=== PATIENT | female | born 1960 | race African-American/Black ===

== ENCOUNTER → 2020-03-30 09:32 | Outpatient (BNVA) | payer MEDICAID, SELFPAY | PROVIDERS: PCP Internal Medicine; Referring Provider Internal Medicine; Visit Provider Internal Medicine Endocrinology, Diabetes & Metabolism | DX: E11.9 Type 2 diabetes mellitus without complications (principal); Z79.4 Long term (current) use of insulin; E55.9 Vitamin D deficiency, unspecified; E66.3 Overweight; E78.5 Hyperlipidemia, unspecified | CPT/HCPCS: 99214 ==

== ENCOUNTER 2025-02-13 17:26 | Inpatient (IN) | payer MEDICARE, MEDICAID, SELFPAY ==
--- OUTSIDE RECORDS SUMMARY | 2024-06-09 07:30 | XMS_ITS ---
Author Organization [facility] Address [address] [facility] 114 [facility] 100 [place] [address] Care Team Providers Care Hull And Deck Remover Name Role Phone Sherrie Garcia Primary Care Provider REASON FOR VISIT door knock Encounters Encounter Location Date Provider Diagnosis [address] [place] [address] 06/09/2024 Sherrie Beltran Plan Of Treatment No Information Progress Notes * Jose HOPPEROB:06[birth year]01 (64 yo F)Acc No.[id number]:06/09/2024 Patient: Alexia MADRIGALsol Provider: Santa Beltran MD :1960 A ge:64 Y S ex:Female Date:06/09/2024 Address:[address] [place], [place] [address]-[address] Structured Data:MRA Reviewed : 07/04/2024 Subjective: * Chief Complaints: * 1 . Door knock. * Medical History: Objective: * Vitals: Assessment: Plan: * Treatment: * Billing Information: * Visit Code: * Procedure Codes: * Electronic signature of Lora Beltran MD on 02/13/2025 at 05:27 PM CDT Sign off status: Pending * Provider: Santa Beltran MD Date: 1 08/10/2023 Generated for Cameroni ng/Faxing/eTransmitting on: 0 02/13/2025 05:27 PM CDT
--- OUTSIDE RECORDS SUMMARY | 2024-06-10 05:00 | XMS_ITS ---
Author Organization [facility] Address [address] [facility] 114 [facility] 100 [place] [address] Care Team Providers Care Capsule Filler Name Role Phone Sherrie Garcia Primary Care Provider Encounters Encounter Location Date Provider Diagnosis [facility] [address] [facility] [place] [address] 06/10/2024 Sherrie Beltran Plan Of Treatment No Information Progress Notes * Alysia JACOBlDOB:[birth year] (64 yo F)Acc No.[id number]:06/10/2024 Patient: Nima JONES Sandy LEWIS Provider: Santa Beltran MD :1960 A ge:64 Y S ex:Female Date:06/10/2024 Address:[address] [place] [address] [facility]ITAL[facility]O-[id number] Structured Data:MRA Reviewed : 07/04/2024 Subjective: * [...] 08/11/2023 Generated for Cameroni domi/Julio Cesar/eTransmitting on: 02/13/2025 05:27 PM CDT History and Physical Notes * HPI (History of Present Illness) Category Sub-Category Detail Notes Category Not es New/Follow-up Patient Consult Patient in clinic fo r Courtesy Visit.
--- OUTSIDE RECORDS SUMMARY | 2024-06-13 07:30 | XMS_ITS ---
Author Organization [facility] Address [address] [facility] 114 [facility] 100 [place] [address] Care Team Providers Care Court Messenger Name Role Phone Sherrie Garcia Primary Care Provider Encounters Encounter Location Date Provider Diagnosis [facility] [address] [facility] [place] [address] 06/13/2024 Sherrie Beltran Plan Of Treatment No Information Progress Notes * Jose JACOBOB:[birth year] (64 yo F)Acc No.[id number]:06/13/2024 Patient: Nima JONES Sandy LEWIS Provider: Santa Beltran MD :1960 A ge:64 Y S ex:Female Date:06/13/2024 Address:[address] [place] [address] [facility] H[facility]PITALSS-[address] Structured Data:MRA Reviewed : 07/04/2024 Subjective: * Chief Complaints: * * Medical History: Objective: * Vitals: Assessment: Plan: * Treatment: * Billing Information: * Visit Code: * Procedure Codes: * Electronic signature of Lora Beltran MD on 02/13/2025 at 05:26 PM CDT Sign off status: Pending * Provider: Santa Beltran MD Date: Generated for Cameroni ng/Faxing/eTransmitting on: 0 02/13/2025 05:26 PM CDT
--- OUTSIDE RECORDS SUMMARY | 2024-07-04 06:15 | XMS_ITS ---
Author Organization [employer]. Address 1 [facility] [address] [place] [address] Care Team Providers Care Director Clinical Information Services Name Role Phone Rosalio Epstein Primary Care Provider Weston Rosenbaumcarolyn Gonzales [phone] REASON FOR VISIT F/UP Medications Medication SIG [...] times a day; Duration: 90 days Active Mvfcnhafsl-UGXM-Usjvx ine 50-325-40 MG 1 tablet as needed [...] Not-Taking Encounters Encounter Location Date Provider Diagnosis [place] [address] [place] [address] 07/04/2024 Macrina Rosenbaum Plan Of Treatment No Information Progress Notes * SUNG HOPPEROB:[birth year]01 (64 yo F)Acc No.[id number]:07/04/2024 Progress Notes Patient: LEO MADRIGAL Provider: Jarvis ROSENBAUM APRN :1960 A ge:64 Y S ex:Female Date:07/04/2024 Address:[address] [place], [place] [phone] Pcp:Rosalio Epstein Subjective: * Chief Complaints: * [...] every 4 hours as needed , Taking Gtnwlimwrq-PBOR-Nzfqlpzj 50-325-40 MG Tablet 1 tablet as needed [...] Electronic signature of Macrina Rosenbaum APRN on 02/13/2025 at 06:28 PM EDT Sign off status: Pending * Provider: Jarvis ROSENBAUM APRN Date: 0 07/04/2024 Generated for Destini duron/Julio Cesar/Mario on: 02/13/2025 06:28 PM EDT
--- OUTSIDE RECORDS SUMMARY | 2024-07-05 09:45 | XMS_ITS ---
Author Organization [facility] Address [address] [facility] [address] [facility] [address] [place] [address] Care Team Providers Care Actuarial Mathematician Name Role Phone Sherrie Garcia Primary Care Provider REASON FOR VISIT New Patient Encounters Encounter Location Date [facility] [address] [place] [address] 07/05/2024 Sherrie Beltran Type 2 diabetes mellitus [...] - E11.65) A1c 11.5 DOS 07/09/2023, per [facility] P records 07/05/2024 Immunodeficiency due to conditions classified elsewhere (ICD-10 - D84.81) related to uncontrolled DM II A1c 11.5 DOS 07/09/2023, per [facility] records, 07/05/2024 Type 2 diabetes mellitus with diabetic chronic kidney disease (ICD-10 - E11.22) per [facility] P records, eGFR 85 DOS 03/15/2024 and eGFR 86 DOS 07/10/2023, 07/05/2024 Hypertensive chronic kidney disease with stage 1 through stage 4 chronic kidney disease, or unspecified chronic kidney disease (ICD-10 - I12.9) per [facility] records, eGFR 85 DOS 03/15/2024 and eGFR 86 DOS 07/10/2023, 07/05/2024 Chronic kidney disease, stage 2 (mild) (ICD-10 - N18.2) per [facility] records, eGFR 85 DOS 03/15/2024 and eGFR 86 DOS 07/10/2023, 07/05/2024 Type 2 diabetes mellitus with diabetic polyneuropathy (ICD-10 - E11.42) pt. on Gabapentin, per [facility] records, 07/05/2024 Type 2 diabetes mellitus with other specified complication (ICD-10 - E11.69) related to HLD, pt. on Atorvastatin, metFORMIN, Lantus per [facility] records, 07/05/2024 Mixed hyperlipidemia (ICD-10 - E78.2) due to DM II, per [facility] records, 07/05/2024 Mild intermittent asthma, uncomplicated (ICD-10 - J45.20) pt. on Albuterol per [facility] records, 07/05/2024 Colon cancer screening (ICD-10 - Z12.11) 07/05/2024 Screening breast examination (ICD-10 - Z12.39) Plan Of Treatment No Information Progress Notes * Jose JACOBOB:[birth year] (64 yo F)Acc No.[id number]:07/05/2024 Progress Notes Patient: Nima Sandy HOLLOWAY Provider: Santa Beltran MD :1960 A ge:64 Y S ex:Female Date:07/05/2024 Address:[address] [place], [place] [phone] Structured Data:MRA Reviewed : 07/04/2024 Subjective: * [...] kidney disease - E11.22 N otes :per [facility] records, eGFR 85 DOS 03/15/2024 and eGFR 86 DOS 07/10/2023, 2 . T ype 2 diabetes mellitus with diabetic polyneuropathy - E11.42 N otes :pt. on Gabapentin, per [facility] records, 3 . T ype 2 diabetes mellitus with hyperglycemia - E11.65 N otes :A1c 11.5 DOS 07/09/2023, per [facility] P records 4 . T ype 2 diabetes mellitus with other specified complication - E11.69 ? N otes :related to HLD, pt. on Atorvastatin, metFORMIN, Lantus per [facility] records, 5 . M ixed hyperlipidemia - E78.2 N otes :due to DM II, per [facility] records, 6 . H ypertensive chronic kidney disease with stage 1 through stage 4 chronic kidney disease, or unspecified chronic kidney disease - I12.9 N otes :per [facility] records, eGFR 85 DOS 03/15/2024 and eGFR 86 DOS 07/10/2023, 7 . M ild intermittent asthma, uncomplicated - J45.20 N otes :pt. on Albuterol per [facility] records, 8 . C hronic kidney disease, stage 2 (mild) - N18.2 N otes :per [facility] P records, eGFR 85 DOS 03/15/2024 and eGFR 86 DOS 07/10/2023, 9 . I mmunodeficiency due to conditions classified elsewhere - D84.81 ? N otes :related to uncontrolled DM II A1c 11.5 DOS 07/09/2023, per [facility] P records, 1 0. C olon [...] of Lora Beltran MD on 02/13/2025 at 05:28 PM CDT Sign off status: Pending * Provider: Santa Beltran MD Date: 0 07/05/2024 Generated for Destini duron/Fasheri/eTransmitting on: 0 02/13/2025 05:28 PM CDT History and Physical Notes * [...]
--- OUTSIDE RECORDS SUMMARY | 2024-07-21 07:00 | XMS_ITS ---
Author Organization [employer]. Address [address] [facility] [address] [place] [address] Care Team Providers Care Tent Finisher Name Role Phone Epstein Rosalio Primary Care Provider RosenbaumMacrina [phone] REASON FOR VISIT ACCESS Medications Medication SIG [...] a day; Duration: 90 days 11/09/2015 Active Jxppaqohom-UORS-Lzjos ine 50-325-40 MG 1 tablet as needed [...] Active Encounters Encounter Location Date Provider Diagnosis [facility] [address] [place] [address] 07/21/2024 Macrina Rosenbaum Plan Of Treatment No Information Progress Notes * SUNG HOPPEROB:[birth year] (64 yo F)Acc No.[id number]:07/21/2024 Progress Notes Patient: LEO MADRIGAL Provider: Jarvis ROSENBAUM APRN :1960 A ge:64 Y S ex:Female Date:07/21/2024 Address:[address] [place], [place] [id number] Pcp:Rosalio Epstein Subjective: * Chief Complaints: * [...] every 4 hours as needed , Taking Qjudenvris-VTXK-Wnaullej 50-325-40 MG Tablet 1 tablet as needed [...] of Macrina Rosenbaum APRN on 02/13/2025 at 06:26 PM EDT Sign off status: Pending * Provider: Jarvis ROSENBAUM APRN Date: 07/21/2024 Generated for Destini duron/Julio Cesar/Mario on: 02/13/2025 06:26 PM EDT
--- OUTSIDE RECORDS SUMMARY | 2024-07-25 10:00 | XMS_ITS ---
Author Organization [facility] Address [address] [place] [address] [address] [place] [address] Care Team Providers Care Banquet Server Name Role Phone Rosalio Epstein Primary Care Provider Macrina Rosenbaum [phone] REASON FOR VISIT INS INACTIVE Encounters Encounter Location Date Provider Diagnosis [facility] [address] [facility] [place] [address] 07/25/2024 Macrina Rosenbaum Plan Of Treatment No Information Progress Notes * SUNG HOPPEROB:[birth year]01 (64 yo F)Acc No.[id number]:07/25/2024 Progress Notes Patient: Nima JONES LEO LEWIS Provider: Jarvis ROSENBAUM APRN :1960 A ge:64 Y S ex:Female Date:07/25/2024 Address:[address] [place] [address], [facility] Pcp:Rosalio Epstein Subjective: * Chief Complaints: * 1 . INS INACTIVE. * Medical History: Objective: * Vitals: Assessment: Plan: * Treatment: * Images: Care Plan Details* * Electronic signature of Macrina Rosenbaum APRN on 02/13/2025 at 06:26 PM EDT Sign off status: Pending * Provider: Jarvis ROSENBAUM APRN Date: 0 07/25/2024 Generated for Printi ng/Fasheri/eTransmitting on: 0 02/13/2025 06:26 PM EDT
--- OUTSIDE RECORDS SUMMARY | 2024-08-15 06:45 | XMS_ITS ---
Author Organization [employer]. Address [address] [facility] [address] [place] [address] Care Team Providers Care Engine Installer Name Role Phone Lucian Rosalio Primary Care Provider RosenbaumMacrina [phone] REASON FOR VISIT F/UP Medications Medication SIG (Take, Route, Frequency, Duration) Notes Start Date End Date Status Yvgqfpzqpj-JGRF-Lvbaj ine 50-325-40 MG 1 tablet as needed Orally every 4 hrs PRN; Duration: 90 days 06/03/2024 Active Lisinopril 10 MG 1 tablet Orally Once a day; Duration: 90 days 11/09/2015 Active Betamethasone Dipropionate 0.05 % 1 application to affected area Externally Once a day; Duration: 30 days 02/26/2015 Not-Taking Wellbutrin 100 MG 1 tablet Orally daily; Duration: 30 days 11/10/2014 Not-Taking Albuterol Sulfate HFA 108 (90 Base) MCG/ACT 2 puffs as needed Inhalation every 6 hrs; Duration: 90 days Active Lancets - as directed subcutaneus three times a day; Duration: 90 days 05/05/2024 Active Nebulizer - every 4 hours as needed; Duration: 90 days 05/05/2024 Active dexAMETHasone Sodium Phosphate 0.1 % 1 drop into affected eye Ophthalmic Twice a day; Duration: 10 04/05/2024 Not-Taking Glucometer check three times a day subcutaneous three times a day; Duration: 90 days 05/05/2024 Active strips strips check three times a day subcutaneus three times a day; Duration: 30 days 05/05/2024 Active TRUEresult Blood Glucose w/Device as directed sc bid; Duration: 90 days 11/09/2015 Active One Touch Ultra - as instructed SKIN Check 3 times a day; Duration: 90 days 11/05/2023 Active Nebulizer/Adult Mask - as directed inhaler PRN; Duration: 90 days 04/02/2016 Active One Touch Ultra - as instructed SKIN Check 3 times daily; Duration: 90 days 11/05/2023 Active Insulin Syringe 31G X 5/16 1 ML as directed 11/05/2023 Active Ibuprofen 800 MG 1 tablet with food or milk as needed Orally twice a day; Duration: 15 days 11/06/2023 Active Nicotine Polacrilex 4 MG 1 piece chew for 30 minutes as needed Mouth/Throat every 8 hrs; Duration: 30 days 06/03/2024 Active hydrOXYzine HCl 25 MG 1 tablet as needed Orally Once a day; Duration: 90 days 05/05/2024 Active One Touch Ultra Glucometer as instructed SKIN three times a day; Duration: 365 days 11/05/2023 Active glipiZIDE 10 MG 1 tablet 30 minutes before breakfast Orally Once a day; Duration: 90 days 04/05/2024 Active Albuterol Sulfate (2.5 MG/3ML) 0.083% 3 mL as needed Inhalation Three times a day; Duration: 90 days Active metFORMIN HCl 1000 MG 1 tablet with meal s Orally Twice a day; Duration: 90 days Active Cetirizine HCl 10 MG 1 tablet Orally Onc e a day; Duration: 90 days Active Atorvastatin Calcium 10MG 1 tablet Orally Once a day; Duration: 90 days Active Lantus 100 UNIT/ML 30 units Subcutaneous daily 25 unit daily Active Gabapentin (Once-Daily) 300 MG 1 tablet Orally Once a day; Duration: 90 days Active Fluticasone Propionate 50 MCG/ACT 1 spray in each nostril Nasally Once a day; Duration: 90 days Active Encounters Encounter Location Date Provider Diagnosis [address] [place] [address] 08/15/2024 Macrina Rosenbaum Plan Of Treatment No Information Progress Notes * SUNG HOPPEROB:[birth year]01 (64 yo F)Acc No.[id number]:08/15/2024 Progress Notes Patient: LEO MADRIGAL Provider: Jarvis ROSENBAUM APRN :1960 A ge:64 Y S ex:Female Date:08/15/2024 Address:[address] [place], [place] [id number] Pcp:Rosaloi Epstein Subjective: * Chief Complaints: * 1 [...] every 4 hours as needed , Taking Uwyxmngosh-ISMU-Pjtjqenl 50-325-40 MG Tablet 1 tablet as needed [...] of Macrina Rosenbaum APRN on 02/13/2025 at 06:27 PM EDT Sign off status: Pending * Provider: Jarvis ROSENBAUM APRN Date: 08/15/2024 Generated for Destini duron/Julio Cesar/Mario on: 02/13/2025 06:27 PM EDT
--- OUTSIDE RECORDS SUMMARY | 2024-10-05 06:15 | XMS_ITS ---
Author Organization [facility] Address [address] [place] [address] [address] [place] [address] Care Team Providers Care Hemmer Chainstitch Name Role Phone Rosalio Epstein Primary Care Provider [phone] Macrina Rosenbaum [phone] REASON FOR VISIT F/UP Encounters Encounter Location Date Provider Diagnosis [facility] [address] [facility] [place] [address] 10/05/2024 Macrina Rosenbaum Plan Of Treatment No Information Progress Notes * SUNG HOPPEROB:[birth year] (64 yo F)Acc No.[id number]:10/05/2024 Progress Notes Patient: Nima JONES JOSHUARYNELEO Provider: Jarvis ROSENBAUM APRN :1960 A ge:64 Y S ex:Female Date:10/05/2024 Address:[address] [place], [place] [address] Pcp:Rosalio Epstein Subjective: * Chief Complaints: * 1 . F/UP. * Medical History: Objective: * Vitals: Assessment: Plan: * Treatment: * Images: Care Plan Details* * Electronic signature of Macrina Rosenbaum APRN on 02/13/2025 at 06:28 PM EDT Sign off status: Pending * Provider: Jarvis ROSENBAUM APRN Date: 0 10/05/2024 Generated for Destini duron/Julio Cesar/eTransmitting on: 0 02/13/2025 06:28 PM EDT
--- OUTSIDE RECORDS SUMMARY | 2025-01-02 10:15 | XMS_ITS ---
Author Organization [facility] Address [address] [facility] [address] [place] [address] Care Team Providers Care Crab Steamer Name Role Phone WYATT GOMEZ Primary Care Provider Melanie Berry Unavailable [phone] Nevin Zheng Unavailable [phone] REASON FOR VISIT DEXA Results Encounters Encounter Location Date Provider Diagnosis [facility] [place] [address] [place] [address] 01/02/2025 Nevin Beltran Plan Of Treatment Next Appt Details Provider Name:ROBERTA MEDINA, 02/24/2025 10:15:00 AM, [address], [place], [address], Progress Notes * Jose JACOBOB:[birth year] (64 yo F)Acc No.[id number]:01/02/2025 Patient: Sandy MADRIGAL Provider: Santa Beltran MD :1960 A ge:64 Y S ex:Female Date:01/02/2025 [facility] [email or web address] [place] [id number] Pcp:WYATT [place] Subjective: * Chief Complaints: * 1 . DEXA Results. * Medical History: Objective: * Vitals: Assessment: Plan: * Treatment: * Images: * Electronic signature of Rcik Beltran MD on 02/13/2025 at 06:26 PM EDT Sign off status: Pending * Provider: Santa Beltran MD Date: 0 01/02/2025 Generated for Destini duron/Julio Cesar/Mario on: 0 02/13/2025 06:26 PM EDT
--- OUTSIDE RECORDS SUMMARY | 2025-01-13 06:00 | XMS_ITS ---
Author Organization [facility] Address [address] [facility] [address] [place] [address] Care Team Providers Care Reagent Tender Name Role Phone WYATT GOMEZ Primary Care Provider [phone] Melanie Berry Unavailable [phone] REASON FOR VISIT DEXA Result Encounters Encounter Location Date Provider Diagnosis [facility] Internal Medicine [place] [address] [place] [address] 01/13/2025 Melanie Berry Plan Of Treatment Next Appt Details Provider Name:ROBERTA COLEY CAROL, 02/24/2025 10:15:00 AM, [address], [place], [address], Progress Notes * Jose JACOBOB:[birth year] (64 yo F)Acc No.[id number]:01/13/2025 Progress Notes Patient: Nima Sandy HOLLOWAY Provider: RYANN Croft :1960 A ge:64 Y S ex:Female Date:01/13/2025 [address] [place], [id number] Pcp:WYATT YORK Subjective: * Chief Complaints: * 1 . DEXA Result. * Medical History: Objective: * Vitals: Assessment: Plan: * Treatment: * Images: * Electronic signature of Nik Berry APRN on 02/13/2025 at 06:28 PM EDT Sign off status: Pending * Provider: RYANN Croft Date: 01/13/2025 Generated for Destini Balbuena/Mario on: 0 02/13/2025 06:28 PM EDT
--- OUTSIDE RECORDS SUMMARY | 2025-01-27 05:30 | XMS_ITS ---
Author Organization [facility] Address [address] [facility] [address] [place] [address] Care Team Providers Care Supervisor/Port Director Name Role Phone WYATT GOMEZ Primary Care Provider [phone] Melanie Berry Unavailable [phone] ROBERTA QUIGLEY Unavailable [phone] REASON FOR VISIT Labs Results, Due Eye Exam Encounters Encounter Location Date Provider Diagnosis [facility]'s Internal Medicine [place] [address] [place] [address] 01/27/2025 ROBERTA QUIGLEY Plan Of Treatment Next Appt Details Provider Name:ROBERTA MEDINA, 02/24/2025 10:15:00 AM, [address], [place], [address], Progress Notes * Jose JACOBOB:[birth year] (64 yo F)Acc No.[id number]:01/27/2025 Patient: Sandy MADRIGAL Provider: Leelee SANDOVAL APRN :1960 A ge:64 Y S ex:Female Date:01/27/2025 Address:[address], [place], [id number] Pcp:WYATT YORK Subjective: * Chief Complaints: * 1 . Labs Results. 2. Due Eye Exam. * Medical History: Objective: * Vitals: Assessment: Plan: * Treatment: * Images: * Electronic signature of SAEED QUIGLEY APRN on 02/13/2025 at 06:26 PM EDT Sign off status: Pending * Provider: Leelee SANDOVAL APRN Date: 0 01/27/2025 Generated for Printing/Faxing/eTransmitting on: 0 02/13/2025 06:26 PM EDT
--- NOTE | ~2025-02-13 | US_ITS ---
CLINICAL HISTORY: Right upper quadrant epigastric pain cholecystitis US abdomen limited Comparison: None provided Findings: The visualized pancreas is unremarkable. Liver appears normal in size, echogenicity, and echotexture. No focal hepatic lesion is seen. There is no bile duct dilation. Common duct measures 2 mm in diameter. Gallbladder is borderline distended. No gallstones are seen. There is minimal nonspecific gallbladder wall edema. Patient is reportedly tender in the region of the gallbladder. Limited images of the right kidney are unremarkable. No free fluid is seen. IMPRESSION: Borderline distended gallbladder with minimal nonspecific gallbladder wall edema and patient is reportedly tender in the region of the gallbladder. No gallstones are identified. Acute cholecystitis is not excluded. Consider hepatobiliary scintigraphy. This document has been electronically signed by: James Ahuja MD on 02/13/2025 20:31:25
--- NOTE | ~2025-02-13 | FL_ITS ---
EXAMINATION: FL GUIDANCE ONLY HISTORY: ERCP COMPARISON: Correlation is made with an MRCP dated 02/14/2025. TECHNIQUE: Fluoroscopy time: 2.43 minutes. Cumulative Dose: 44.69 mGy. DAP: 4.36 mGym2 Images: 6. FINDINGS: Images from an ERCP demonstrate a wire, likely initially in the pancreatic duct and subsequently possibly in the common bile duct. Injection of contrast material demonstrates probable extravasation. Please see procedure notes. FL/FL guidance in OR IMPRESSION: Fluoroscopy during procedure. Please see procedure report for additional information. Electronically signed by: Saul Prajapati MD 02/17/2025 07:09 AM EDT
--- NOTE | ~2025-02-13 | CT_ITS ---
CLINICAL HISTORY: epigastric pain, likely pancreatitis CT abdomen and pelvis with contrast Comparison: US - US ABDOMEN LIMITED - 02/13/25 18:34 EDT Findings: The lung bases are clear. Trace pericardial effusion. Small hiatal hernia. No consolidation or effusion. Distended gallbladder. No biliary duct dilatation. Fat stranding around the pancreatic head and uncinate process with wall thickening of the adjacent duodenum. No hypoenhancement or walled-off collections. Liver, spleen, and adrenal glands are within normal limits. No hydronephrosis. Symmetric contrast enhancement of the kidneys. No bowel obstruction, pneumatosis or pneumoperitoneum. Normal appendix. Small fat containing umbilical hernia. Hysterectomy. Urinary bladder is within normal limits. No acute fracture. IMPRESSION: 1. Acute interstitial pancreatitis with likely reactive duodenitis. 2. Distended gallbladder. This document has been electronically signed by: Med Saab MD on 02/13/2025 23:47:27
--- NOTE | ~2025-02-13 | MR_ITS ---
EXAMINATION: MR MRCP WITHOUT CONTRAST CLINICAL INFORMATION: Acute pancreatitis. Distended gallbladder. COMPARISON: Correlated to CT dated February 13, 2025. TECHNIQUE: Axial and coronal T2 haste sequences. Axial and coronal T2 fat-sat haste sequences. Axial in and out of 3-D phase sequences. 3-D space MRCP triggered. MRCP radial T2 fat-sat sequence. Coronal oblique T2 fat-sat single slice. FINDINGS: Patient's motion artifact. Gallbladder is fluid-filled. There are multiple layering less than 2 mm hypointense T2 round signal abnormality in the dependent portion of the gallbladder neck. 24 mm fluid signal in the gallbladder wall. Common bile duct measures 4 mm in maximum diameter. There is a 2 mm ovoid shaped hypointense T2 signal at the common bile duct/second portion of the duodenum junction/caruncula. Probable 1 mm hypointense T2 round signal in the distal common bile duct. The main pancreatic duct measures 3 mm. Ancillary findings: Mild edema pattern in the peripancreatic lesser sac without fluid collection. No hydronephrosis in either kidney. Liver measures 19 cm. Spleen measures 8 cm. No nodular lesions in the adrenal glands. No aneurysm the abdominal aorta. Small hiatal hernia. Small fat-containing umbilical hernia with diastases abdominal rectus muscles. MR/MR MRCP IMPRESSION: Cholelithiasis and choledocholithiasis resulting in likely gallstone pancreatitis. Electronically signed by: Harry Cervantes MD 02/14/2025 03:39 PM EDT
[2025-02-13 17:42] VITALS: BP 144/73; PULSE 81; RESP 18; TEMP 37; O2SAT 98; BMI 25.4
--- NOTE | 2025-02-13 17:59 | ECG_ITS ---
Test Reason : ABD PAIN Blood Pressure : */* mmHG Vent. Rate : 82 BPM Atrial Rate : 82 BPM P-R Int : 154 ms QRS Dur : 80 ms QT Int : 334 ms P-R-T Axes : 67 -35 43 degrees QTcB Int : 390 ms Normal sinus rhythm Left axis deviation Abnormal ECG When compared with ECG of 06-Oct-2017 19:41, No significant change was found Referred By: Tiburcio Alexandre Electronically Signed By: Gage Knutson
--- NOTE | 2025-02-13 18:01 | ED_ITS ---
HPI - General Adult General Chief complaint: Abdominal Pain Stated complaint: gastritis Time Seen by Provider: 02/13/25 20:17 Source: patient Mode of arrival: ambulatory Limitations: no limitations History of Present Illness ED Provider: Dr. Bertha Monteiro HPI narrative: Patient comes to the emergency room complaining of epigastric pain that started earlier this morning. Patient states that when she woke up she was doing okay, bit achy but then throughout the day, the abdominal pain progress. Patient's pain is constant, attempts to get worse. Denies nausea vomiting or diarrhea. Patient states that she has history of gastritis and states it feels the same. However, patient states that with gastritis it has never as bad as today. Patient denies drinking alcohol or using drugs. Related Data Home Medications ?Medication ?Instructions ?Recorded ?Confirmed gabapentin 300 mg capsule 300 mg PO TID 03/30/2002/14 albuterol sulfate 2.5 mg/3 mL 2.5 mg inhalation Q6H AZ N 02/14/25 02/14/25 (0.083 %) solution for nebulization Shortness Of Breat h Or Wheezing albuterol sulfate 90 mcg/actuation 2 inh inhalation Q4 -6H PRN 02/14/25 02/14/25 aerosol inhaler Shortness Of Breath Or Wheez ing atorvastatin 10 mg tablet 10 mg PO DAILY 02/14/2508/09 glipizide 10 mg tablet, extended 10 mg PO DAILY 02/14/25 release 24 hr lisinopril 10 mg tablet 10 mg PO DAILY 02/14/2508/09 metformin 1,000 mg tablet 1,000 mg PO DAILY 02/14/25 0 02/14/25 Previous Rx's ?Medication ?Instructions ?Recorded pen needle, diabetic 32 gauge x #50 ea 11/13/20 (BD Lesa 2nd Gen Pen Needle) blood sugar diagnostic (FreeStyle #100 ea 04/02/21 Lite Strips) dulaglutide 0.75 mg/0.5 mL 0.75 mg (0.5 mL) subcut QWE EK 30 04/09/21 subcutaneous pen injector days #2 mL (Trulicity) lancets 28 gauge (FreeStyle #100 ea 04/09/21 Lancets) insulin glargine 100 unit/mL (3 30 unit (0.3 mL) subcu t DAILY #15 05/07/21 mL) subcutaneous pen (Lantus mL Solostar U-100 Insulin) blood-glucose meter (FreeStyle #1 ea 07/10/21 [place] Lite kit) Allergies Allergy/AdvReac Type Severity Reaction Status Date / Time No Known Allergies (No Known Allergy Unverified 02/13/25 17:43 Allergies*) Review of Systems 2 Review of Systems: Constitutional : No Weight loss, No Fever, No Chills, No Night Sweats, No Fatigue, No Malaise ENT/Mouth : No Hearing loss, No Ear Pain, No Nasal Congestion, No Sinus Pain, No Hoarseness, No sore throat, No Rhinorrhea, No Swallowing Difficulty Eyes: No Eye Pain, No Swelling, No Redness, No Foreign Body, No Discharge, No Vision Changes Cardiovascular : No Chest Pain, No SOB, No Dyspnea on Exertion, No Orthopnea, No Edema, No Palpitations Respiratory : No Cough, No Sputum, No Wheezing, No Smoke Exposure, No Dyspnea Gastrointestinal : No Nausea, No Vomiting, No Diarrhea, No Constipation, complaining of epigastric pain Genitourinary : no irregular bleeding, No Dysuria, No Urinary Frequency, No Hematuria, No Urinary Incontinence, No Urgency, No Flank Pain, No Urinary Flow Changes, No Hesitancy Musculoskeletal : No joint pain, No Myalgias, No Joint Swelling Skin : No Skin Lesions, No rash Neuro : No Weakness, No Numbness, No Paresthesias, No Loss of Consciousness, No Dizziness, No Headache Psych : No Anxiety/Panic, No Depression, No SI/HI/AH/VH, No Social Issues, Heme/Lymph: No Bruising, No Bleeding,No Lymphadenopathy Endocrine : No Polyuria, No Polydipsia, No Temperature Intolerance [facility] Past Medical History Medical History Migraine Asthma Diabetes type 2, controlled Vitamin D deficiency Overweight (BMI 25.0-29.9) Dyslipidemia care home (current) use of insulin Surgical History History of H/O: hysterectomy Social History Social History Household Members: Significant Other Housing: Apartment Do you presently have visiting nurse or other home services: No Patient Tobacco Use Status: Never used Tobacco service: No Physical Exam ED Exam Exam: Appearance: Alert. Oriented X3. Looks uncomfortable. Eyes: Pupils equal, round and reactive to light. ENT: Pharynx normal. Neck: Normal inspection. Neck supple. No lymph nodes noted. No crepitus CVS: Normal heart rate and rhythm. Pulses normal. Normal S1 and S2 Respiratory: No respiratory distress. Breath sounds normal. No Wheezing. No rales Abdomen: Soft , pain to palpation in the epigastric area, no rebound, mild guarding Skin: Skin warm and dry. Normal skin color. Normal skin turgor. Extremities: No lower extremity edema. No Lacerations. No Rash Neuro: Oriented X 3. No motor deficit. No sensory deficit. Moving all extremities. No slurred speech. CN 2 through 12 grossly intact Psych: calm, cooperative, normal affect Vital Signs: Vital Signs - 24 hr 02/13/25 17:42 02/13/25 19:27 Temperature 98.6 F 98.9 F Pulse Rate 81 87 Respiratory Rate 18 16 Blood Pressure 144/73 H 165/71 H Pulse Oximetry 98 97 Oxygen Delivery Method Room Air Room Air BMI result Body Mass Index 25.4 Course Course Course Narrative: RME: 64-year-old female presents to ED for epigastric pain radiating to right upper quadrant. Patient is out of her antiacid medication. Patient denies any nausea vomiting diarrhea. Labs EKG ultrasound ordered Medications Administered Generic Name Dose Route Start Last Admin Trade Name Freq PRN Reason Stop Dose Admin Acetaminophen 650 mg 02/14/25 00:31 02/14/25 19:39 Acetaminophen 325 Mg Tablet PO 650 mg Q6H PRN Administration Pain, Mild 1-3,fever,headache Enoxaparin Sodium 40 mg 02/14/25 01:00 02/14/25 01:15 Enoxaparin Sodium 40 Mg/0.4 Ml Syringe SUBCUT 40 mg Q24H ADITYA Administration Famotidine 20 mg 02/14/25 09:00 02/14/25 07:57 Famotidine/Pf 20 Mg/2 Ml Vial IVPUSH 20 mg DAILY ADITYA Administration Hydromorphone HCl 0.5 mg 02/14/25 02:00 02/14/25 09:10 Hydromorphone Hcl 0.5 Mg/0.5 Ml Syringe IVPUSH 0.5 mg Q3H PRN Administration Pain, Severe (Pain Scale 7-10) Protocol Sodium Chloride 1,000 mls @ 125 mls/hr 02/14/25 00:45 02/14/25 16:25 Ns IVCONT 125 mls/hr .Q8H ADITYA Administration Insulin Human Lispro 0 unit 02/14/25 02:00 02/14/25 20:23 Insulin Lispro 100 Unit/Ml 3 Ml Vial SUBCUT Not Given Q6H [facility] Protocol Lisinopril 10 mg 02/14/25 14:00 02/14/25 15:25 Lisinopril 10 Mg Tablet PO 10 mg DAILY [facility] Administration Protocol Metoclopramide HCl 5 mg 02/14/25 13:50 02/14/25 13:59 Metoclopramide Hcl 5 Mg Tablet PO 5 mg Q6H PRN Administration Nausea and Vomiting Ondansetron HCl 4 mg 02/14/25 00:31 02/14/25 07:57 Ondansetron Hcl 4 Mg/2 Ml Vial IVPUSH 4 mg Q8H PRN Administration Nausea and Vomiting Pantoprazole Sodium 40 mg 02/14/25 06:30 02/14/25 06:03 Pantoprazole Sodium 40 Mg/10 Ml Vial IVPUSH 40 mg DAILY@0630 [facility] Administration Sodium Chloride 3 ml 02/14/25 08:00 02/14/25 15:25 0.9 % Sodium Chloride Flush 3 Ml Syringe IVFLUSH 3 ml QSHIFT [facility] Administration Discontinued Medications Generic Name Dose Route Start Last Admin Trade Name Freq PRN Reason Stop Dose Admin Famotidine 20 mg 02/14/25 00:33 02/14/25 01:15 Famotidine/Pf 20 Mg/2 Ml Vial IVPUSH 02/14/25 00:34 20 mg ONCE ONE Administration Hydromorphone HCl 1 mg 02/14/25 01:03 02/14/25 01:15 Hydromorphone Hcl 1 Mg/Ml Syringe IVPUSH 02/14/25 01:04 1 mg ONCE ONE Administration Protocol Sodium Chloride 2,000 mls @ 999 mls/hr 02/13/25 20:28 02/13/25 22:45 Ns IVCONT 02/13/25 22:28 Infused .Q2H1M ONE Infusion Iohexol 85 ml 02/13/25 22:24 02/13/25 22:26 Iohexol 350 Mg/Ml 100 Ml Infus..Btl IV 02/13/25 22:25 85 ml ONCE ONE Administration Morphine Sulfate 4 mg 02/13/25 20:28 02/13/25 20:47 Morphine Sulfate 4 Mg/Ml Cartridge IVPUSH 02/13/25 20:29 4 mg ONCE ONE Administration Protocol Ondansetron HCl 4 mg 02/13/25 20:28 02/13/25 20:47 Ondansetron Hcl 4 Mg/2 Ml Vial IVPUSH 02/13/25 20:29 4 mg ONCE ONE Administration Ondansetron HCl 4 mg 02/14/25 10:36 02/14/25 11:20 Ondansetron Hcl 4 Mg/2 Ml Vial IVPUSH 02/14/25 10:37 4 mg ONCE ONE Administration Pantoprazole Sodium 40 mg 02/14/25 00:33 02/14/25 01:15 Pantoprazole Sodium 40 Mg/10 Ml Vial IVPUSH 02/14/25 00:34 40 mg ONCE ONE Administration Medical Decision Making Medical Decision Making MDM Narrative: My interpretation of labs: Patient's white blood cell count 17.6, no significant abnormality in hemoglobin platelets. Chemistry shows a glucose of 154. Patient's LFTs are a bit bumped, in ETOH pattern, AST double of ALT, lipase 871. Urinalysis negative for UTI. I discussed the labs with the patient, patient states that she does not drink any alcohol or use drugs. Patient states that to her knowledge she has never had any issues with triglycerides or with her gallbladder Earlier today from triage, an ultrasound was ordered. Results are nonspecific, mildly distended gallbladder, no gallstones, but given the radiologic positive Bill's sign, acute cholecystitis can not be ruled out. However, I am going to go ahead and order a CT scan to rule out necrotizing pancreatitis. Patient receiving IV fluids, Zofran and morphine. I discussed with the patient that today she will not be going home, she will either need to be admitted here or if the CT scan shows any significant abnormality in her pancreas, she may need to be transferred. Patient agrees with plan. CT scan: Acute interstitial pancreatitis with likely reactive duodenitis, distended gallbladder Patient will likely need an MRCP in the morning? General surgery consult. I discussed the patient with Dr. Thompson from the Medicine team, patient to be admitted. Differential Diagnosis Differential Diagnoses: The differential diagnosis associated with the presentation includes (Gastritis, pancreatitis, perforated peptic ulcer) Admission/Observation Consideration of admission/observation: Escalation of care including admission/observation considered Lab Data MDM Lab Attestation statement: I reviewed the patient's lab results. 02/14/25 04:49 02/14/25 04:49 Labs: Lab Results 02/13/25 02/13/25 02/13/25 Range/Units 18:22 19:13 20:44 WBC 17.6 H (4.8-10.8) X10*3/uL RBC 4.27 (4.20-5.50) X10*6/uL Hgb 11.7 L (12.0-16.0) g/dl Hct 35.6 L (37.0-47.0) % MCV 83.4 (80.0-98.0) fL MCH 27.4 (27.0-33.0) pg MCHC 32.9 (31.0-35.0) g/dl RDW 13.0 (11.0-16.0) % Plt Count 177 (160-400) X10*3/uL MPV 9.6 (9.4-12.3) fL Immature Gran % (Auto) 0.5 H (0.0-0.4) % Neut % (Auto) 87.9 H (45-73) % Lymph % (Auto) 4.9 L (20-40) % [place] % (Auto) 6.4 (2-11) % Eos % (Auto) 0.1 (0-4) % Baso % (Auto) 0.2 (0-2) % Lymph # (Auto) 0.9 L (1.2-4.9) X10*3/uL [place] # (Auto) 1.1 (0.1-1.2) X10*3/uL Eos # (Auto) 0.0 (0.0-0.4) X10*3/uL Baso # (Auto) 0.0 (0.0-0.2) X10*3/uL Abs Immat Gran (auto) 0.09 H (0.00-0.03) X10*3/uL Absolute Neuts (auto) 15.5 H (2.0-8.3) x10*3/uL Absolute Nucleated RBC 0.000 (0.0-0.012) X10*3/uL Nucleated RBC % (auto) 0.0 (0.0-0.2) /100WBC PT 12.9 H (10.9-12.4) SEC INR 1.1 (0.9-1.1) APTT 26.1 L (26.7-34.1) SEC Sodium 140 (135-145) mmol/L Potassium 3.8 (3.3-5.1) mmol/L Chloride 104 (96-108) mmol/L Carbon Dioxide 28 (22-29) mmol/L Anion Gap 12 (12-20) BUN 10 (9-16) mg/dL Creatinine 0.69 (0.5-1.4) mg/dL Estim Creat Clear Calc 79.4 Estimated GFR > 60 Random Glucose 154 H (60-115) mg/dL Calcium 9.1 (8.4-10.2) mg/dL Total Bilirubin 0.7 (0.0-1.0) mg/dL AST 112 H (5-31) U/L ALT 59 H (0-31) U/L Alkaline Phosphatase 80 (39-117) U/L Troponin I High Sens 2.7 (<3.5-17.0) ng/L Total Protein 7.7 (6.5-8.0) g/dL Albumin 4.1 (3.5-5.0) g/dL Triglycerides 52 (<150) mg/dL Lipase 871 H (8-78) U/L Urine Color [place]pearl A Urine Appearance Clear Urine pH 7.5 (5.0-9.0) Ur Specific [place] 1.010 (1.005-1.025) Urine Protein Negative (Neg-Trace) mg/dL Urine Glucose (UA) Negative (Negative) mg/dL Urine Ketones Negative (Negative) mg/dL Urine Blood Negative (Negative) Urine Nitrite Negative (Negative) Ur Leukocyte Esterase Negative (Negative) Urine RBC 0-2 (0-2) /HPF Urine WBC 0-5 (0-5) /HPF Ur Squamous Epith Cells 0-2 (0-2) /HPF Urine Bacteria None Seen (None Seen) Hyaline Casts 0-2 (0-2) /LPF Ethyl Alcohol 10 mg/dL Independent Interpretation I performed an independent interpretation of an: Ultrasound and CT Scan Radiology Impression Discussion of test interpretation with radiology: I have reviewed the radiologist's reading. Radiologist Impression: Borderline distended gallbladder with minimal nonspecific gallbladder wall edema and patient is reportedly tender in the region of the gallbladder. No gallstones are identified. Acute cholecystitis is not excluded. Consider hepatobiliary scintigraphy. CT scan of the abdomen pelvis: The lung bases are clear. Trace pericardial effusion. Small hiatal hernia. No consolidation or effusion. Distended gallbladder. No biliary duct dilatation. Fat stranding around the pancreatic head and uncinate process with wall thickening of the adjacent duodenum. No hypoenhancement or walled-off collections. Liver, spleen, and adrenal glands are within normal limits. No hydronephrosis. Symmetric contrast enhancement of the kidneys. No bowel obstruction, pneumatosis or pneumoperitoneum. Normal appendix. Small fat containing umbilical hernia. Hysterectomy. Urinary bladder is within normal limits. No acute fracture. IMPRESSION: 1. Acute interstitial pancreatitis with likely reactive duodenitis. 2. Distended gallbladder. Critical Care Time Critical Care Time Critical Care Time: Yes Total Critical Care Time: 60 Attestation: I have personally provided critical care time. Time includes review of lab data, radiology results, discussion with consultants, and monitoring for potential decompensation. Intervention performed as documented. Discharge Plan Discharge Clinical Impression: Pancreatitis Patient Disposition: Admitted As Inpatient Interventions: Admission Worksheet (ED) Last Done: 02/14/25 05:35 Discharge Date/Time: 02/14/25 06:38
--- OUTSIDE RECORDS SUMMARY | 2025-02-13 18:26 | XMS_ITS | Patient Health Record ---
Author Organization Wyatt Corneliodmitriy Gunderson arlene Kirko [place] Address [address] [facility] [address] [place] [address] Care Team Providers Care Tube Cutter Name Role Phone DANIELLE JARRED YORKASHTYN Primary Care Provider [phone] Melanie Berry Unavailable [phone] ROBERTA QUIGLEY Unavailable [phone] Nevin Zheng Unavailable [phone] Allergies Allergen (clinical drug ingredient) Drug/Non Drug Allergy documented on EMR Reaction Allergy Type Onset Date Status Seasonal IC Unknown Drug Allergy Activ e Results Component Value Reference Range Notes HEMOGLOBIN A1c (496) Reviewed date:09/23/2024 10:27:51 AM Interpretation: Performing Lab:[id number], [id number] Shaheen Fofana MD Notes/Report: FASTING: YES FASTING:YES HEMOGLOBIN A1c 12.8 <5.7 % of total Hgb For someone without known diabetes, a hemoglobin A1c value of 6.5% or greater indicates that they may have diabetes and this should be confirmed with a follow-up test. For someone with known diabetes, a value <7% indicates that their diabetes is well controlled and a value greater than or equal to 7% indicates suboptimal control. A1c targets should be individualized based on duration of diabetes, age, comorbid conditions, and other considerations. Currently, no consensus exists regarding use of hemoglobin A1c for diagnosis of diabetes for children. ALBUMIN, RANDOM URINE W/O CR EATININE (96268) Reviewed date:09/23/2024 10:28:45 AM Interpretation: Performing Lab:[id number] [id number] Shaheen Fofana MD Notes/Report: FASTING:YES FASTING: YES ALBUMIN, URINE 1.6 See Note: mg/dL Reference Range: Reference Range Not established LIZETH The ADA defines abnormalities in albumin excretion as follows: Albuminuria Category Result (mg/g creatinine) Normal to Mildly increased <30 Moderately increased 30-299 Severely increased > OR = 300 The ADA recommends that at least two of three specimens collected within a 3-6 month period be abnormal before considering a patient to be within a diagnostic category. URINALYSIS, COMPLETE (4563) Reviewed date:09/23/2024 10:26:09 AM Interpretation: Performing Lab:[facility] [employer] [address] [id number] Shaheen Fofana MD Notes/Report: FASTING:YES FASTING: YES COLOR YELLOW YELLOW APPEARANCE CLEAR CLEAR SPECIFIC GRAVITY 1.030 1.001-1.035 PH 5.5 5.0-8.0 GLUCOSE 3+ NEGATIVE BILIRUBIN NEGATIVE NEGATIVE KETONES NEGATIVE NEGATIVE OCCULT BLOOD NEGATIVE NEGATIVE PROTEIN TRACE NEGATIVE NITRITE NEGATIVE NEGATIVE LEUKOCYTE ESTERASE TRACE NEGATIVE WBC 10-20 < OR = 5 /HPF RBC 0-2 < OR = 2 /HPF SQUAMOUS EPITHELIAL CELLS 0-5 < OR = 5 /HPF BACTERIA FEW NONE SEEN /HPF CALCIUM OXALATE CRYSTALS FEW NONE OR FEW /HPF HYALINE CAST NONE SEEN NONE SEEN /LPF NOTE This urine was analyzed for the presence of WBC, RBC, bacteria, casts, and other formed elements. Only those elements seen were reported. CBC (INCLUDES DIFF/PLT) (639 9) Reviewed date:09/23/2024 10:26:45 AM Interpretation: Performing Lab:[id number] [id number] Shaheen Fofana MD Notes/Report: FASTING:YES FASTING: YES WHITE BLOOD CELL COUNT 7.1 3.8-10.8 Thousand/ uL RED BLOOD CELL COUNT 4.62 3.80-5.10 Million/uL HEMOGLOBIN 12.4 11.7-15.5 g/dL HEMATOCRIT 39.1 35.0-45.0 % MCV 84.6 80.0-100.0 fL MCH 26.8 27.0-33.0 pg MCHC 31.7 32.0-36.0 g/dL For adults, a slight decrease in the calculated MCHC value (in the range of 30 to 32 g/dL) is most likely not clinically significant; however, it should be interpreted with caution in correlation with other red cell parameters and the patient's clinical condition. RDW 12.5 11.0-15.0 % PLATELET COUNT 197 140-400 Thousand/uL MPV 10.9 7.5-12.5 fL ABSOLUTE NEUTROPHILS 3791 [id number] cells/uL ABSOLUTE LYMPHOCYTES 2606 850-3900 cells/uL ABSOLUTE MONOCYTES 525 200-950 cells/uL ABSOLUTE EOSINOPHILS 149 15-500 cells/uL ABSOLUTE BASOPHILS 28 0-200 cells/uL NEUTROPHILS 53.4 LYMPHOCYTES 36.7 MONOCYTES 7.4 EOSINOPHILS 2.1 BASOPHILS 0.4 COMPREHENSIVE METABOLIC PANE L ([facility]) (79315) Reviewed date:09/23/2024 10:28:25 AM Interpretation: Performing Lab:[facility] [id number], [id number] Shaheen Fofana MD Notes/Report: FASTING:YES FASTING: YES GLUCOSE 277 65-99 mg/dL Fasting reference interval For someone without known diabetes, a glucose value >125 mg/dL indicates that they may have diabetes and this should be confirmed with a follow-up test. UREA NITROGEN (BUN) 17 7-25 mg/dL CREATININE 0.71 0.50-1.05 mg/dL EGFR 94 > OR = 60 mL/min/1.73m2 BUN/CREATININE RATIO SEE NOTE: 6-22 (calc) Not Reported: BUN and Creatinine are within reference range. SODIUM 137 135-146 mmol/L POTASSIUM 4.2 3.5-5.3 mmol/L CHLORIDE 98 98-110 mmol/L CARBON DIOXIDE 33 20-32 mmol/L CALCIUM 9.3 8.6-10.4 mg/dL PROTEIN, TOTAL 7.4 6.1-8.1 g/dL ALBUMIN 4.0 3.6-5.1 g/dL GLOBULIN 3.4 1.9-3.7 g/dL (calc) ALBUMIN/GLOBULIN RATIO 1.2 1.0-2.5 (calc) BILIRUBIN, TOTAL 0.4 0.2-1.2 mg/dL ALKALINE PHOSPHATASE 54 37-153 U/L AST 16 10-35 U/L ALT 17 6-29 U/L LIPID PANEL, STANDARD (7600) Reviewed date:09/23/2024 10:29:05 AM Interpretation: Performing Lab:[facility]-[id number], [id number] Shaheen Fofana MD Notes/Report: FASTING:YES FASTING: YES CHOLESTEROL, TOTAL 153 <200 mg/dL HDL CHOLESTEROL 46 > OR = 50 mg/dL TRIGLYCERIDES 58 <150 mg/dL LDL-CHOLESTEROL 93 Reference range: <100 Desirable range <100 mg/dL for primary prevention; <70 mg/dL for patients with CHD or diabetic patients with > or = 2 CHD risk factors. LDL-C is now calculated using the Óscar calculation, which is a validated novel method providing better accuracy than the Friedewald equation in the estimation of LDL-C. Grant RODARTE et al. LAMAR. 2013;310(19): 3759-2477 (http://education.[employer]/faq/FAQ16 4) CHOL/HDLC RATIO 3.3 <5.0 (calc) NON HDL CHOLESTEROL 107 <130 mg/dL (calc) For patients with diabetes plus 1 major ASCVD risk factor, treating to a non-HDL-C goal of <100 mg/dL (LDL-C of <70 mg/dL) is considered a therapeutic option. Hemoglobin A1c Reviewed date:01/10/2025 08:29:52 AM Interpretation: Performing Lab:[facility] [place], [address] [facility], Phone - [phone], Director - MDRichendollar Notes/Report: Hemoglobin A1c 8.5 Reference Range: [employer] Diabetes Association (ADA) Guidelines: <5.7: Decreased risk for diabetes 5.7 - 6.4: Increased risk for diabetes >6.4: Ongoing Hyperglycemia of any cause <7.0: Glycemic control for adults with diabetes Estimated Average Glucose 197 CMP14+eGFR Reviewed date:01/10/2025 08:29:52 AM Interpretation: Performing Lab:[facility] [place], [address] [facility], Phone - [phone], Director - MDRichendollar Notes/Report: Glucose 217 70-99 mg/dL BUN 10 8-27 mg/dL Creatinine 0.71 0.57-1.00 mg/dL eGFR 94 >59 mL/min/1.73 BUN/Creatinine Ratio 14 12-28 Sodium 138 134-144 mmol/L Potassium 4.1 3.5-5.2 mmol/L Chloride 98 96-106 mmol/L Carbon Dioxide, Total 23 20-29 mmol/L Calcium 9.5 8.7-10.3 mg/dL Protein, Total 7.2 6.0-8.5 g/dL Albumin 3.9 3.9-4.9 g/dL Globulin, Total 3.3 1.5-4.5 g/dL Bilirubin, Total 0.2 0.0-1.2 mg/dL Alkaline Phosphatase 57 44-121 IU/L AST (SGOT) 19 0-40 IU/L ALT (SGPT) 15 0-32 IU/L Lipid Panel-[id number] Reviewed date:01/10/2025 08:29:52 AM Interpretation: Performing Lab:[facility], [address] [place] [address], Phone - [phone], Director - MDRichendollar Notes/Report: Cholesterol, Total 141 100-199 mg/dL Triglycerides 79 0-149 mg/dL HDL Cholesterol 44 >39 mg/dL VLDL Cholesterol Alfred 15 5-40 mg/dL LDL Chol Calc ([facility]) 82 0-99 mg/dL Albumin/Creatinine Ratio,Uri ne-[id number] Reviewed date:01/10/2025 08:29:52 AM Interpretation: Performing Lab:[facility], [address] [place] [address], Phone - [phone], Director - MDRichendollar Notes/Report: Creatinine, Urine 102.9 Not Estab. mg/dL Albumin, Urine 9.1 Not Estab. ug/mL Alb/Creat Ratio 9 0-29 mg/g creat Normal: 0 - 29 Moderately increased: 30 - 300 Severely increased: >300 CBC With Differential/Platel et-[id number] Reviewed date:01/10/2025 08:29:52 AM Interpretation: Performing Lab:[facility], [address] [place] [address], Phone - [phone], Director - MDRichendollar Notes/Report: WBC 7.1 3.4-10.8 x10E3/uL RBC 4.60 3.77-5.28 x10E6/uL Hemoglobin 12.9 11.1-15.9 g/dL Hematocrit 39.4 34.0-46.6 % MCV 86 79-97 fL MCH 28.0 26.6-33.0 pg MCHC 32.7 31.5-35.7 g/dL RDW 12.7 11.7-15.4 % Platelets 211 150-450 x10E3/uL Neutrophils 59 Not Estab. % Lymphs 30 Not Estab. % Monocytes 7 Not Estab. % Eos 4 Not Estab. % Basos 0 Not Estab. % Neutrophils (Absolute) 4.1 1.4-7.0 x10E3/uL Lymphs (Absolute) 2.2 0.7-3.1 x10E3/uL Monocytes(Absolute) 0.5 0.1-0.9 x10E3/uL Eos (Absolute) 0.3 0.0-0.4 x10E3/uL Baso (Absolute) 0.0 0.0-0.2 x10E3/uL Immature Granulocytes 0 Not Estab. % Immature Grans (Abs) 0.0 0.0-0.1 x10E3/uL Urinalysis, Complete-[id number] Reviewed date:01/10/2025 08:29:52 AM Interpretation: Performing Lab:[facility] [address], Phone - [phone], [facility] Notes/Report: Specific Vale 1.020 1.005-1.030 pH 5.5 5.0-7.5 Urine-Color Yellow Yellow Appearance Cloudy Clear WBC Esterase Trace Negative Protein Negative Negative/Trace Glucose Trace Negative Ketones Negative Negative Occult Blood Negative Negative Bilirubin Negative Negative Urobilinogen,Semi-Qn 0.2 0.2-1.0 mg/dL Nitrite, Urine Negative Negative Microscopic Examination See below: Micr oscopic was indicated and was performed. WBC 6-10 0 - 5 /hpf RBC 0-2 0 - 2 /hpf Epithelial Cells (non renal) 0-10 0 - 10 /hpf Casts None seen None seen /lpf Crystals Present N/A Crystal Type Calcium Oxalate N/A Bacteria None seen None seen/Few Yeast Present None seen Please note-[id number] Reviewed date:01/10/2025 08:29:52 AM Interpretation: Performing Lab:[facility] [address], [place], Phone - [phone], Director - SHAYYichendleyla Notes/Report: Please note The date and/or time of collection was not indicated on the requisition as required by state and federal law. The date of receipt of the specimen was used as the collection date if not supplied. Reason For Referral Reason No Auth Req Diagnosis 1 Type 2 diabetes mao itus with other circulatory complications (E11.59) Referral Organization [facility] [place] Referring Provider First Name Melanie Referring Provider Last Name Kristi Referring Provider Speciality Family [facility] dona Referred Provider Keon Hernandez Referred Provider Specialty Podiatry Procedure 1 New Patient Office o r Other Outpatient Services. (05512) Procedure 2 Office Visit, Est Pt ., Level 4 (35909) Referral Priority Routine Medications Medication SIG (Take, Route, Frequency, Duration) Notes Start Date End Date Status glipiZIDE ER 10 MG 1 tablet with breakf ast Orally Once a day; Duration: 90 days Active Lantus SoloStar 100 UNIT/ML 30 unidades Subcutaneous once a day; Duration: 30 days Active Ventolin HFA 108 (90 Base) MCG/ACT Inhalation; Duration: 25 Days Active Trulicity 0.75 MG/0.5ML as directed Subc utaneous 0.75 mg one a week Active Lbwddrvuel-MYDO-Iueecxar 50-325-40 MG 1 tablet as needed Oralt every 4 hrs; Duration: Not Available days Active metFORMIN HCl 1000 MG 1 tablet with a me al Orally Once a day; Duration: 90 days Active hydrOXYzine HCl 50 MG 1 tablet as needed Orally Once a day Active glipiZIDE 10 MG 1 tablet 30 minutes before breakfast Orally Once a day Active Trulicity 0.75 MG/0.5ML as directed Subc utaneous 0.75 mg weekly; Duration: 30 days Active Bgtvsqeqwz-RTEL-Jrxeuiqt 50-325-40 MG 1 capsule as needed Orally once a day; Duration: 30 days Active traZODone HCl 100 MG 1 tablet at bedtime Orally Once a day; Duration: 30 day(s) 09/30/2024 Active Albuterol Sulfate HFA 108 (90 Base) MCG/ACT 1 puff as needed Inhalation every 4 hrs; Duration: 30 days Active Atorvastatin Calcium 10 MG 1 tablet Oral ly Once a day; Duration: 90 days Active Albuterol Sulfate (2.5 MG/3ML) 0.083% 3 mL as needed Inhalation every 6 hrs; Duration: 30 days Active Cyclobenzaprine HCl 10 MG 1 tablet at be dtime as needed Orally Once 12 day; Duration: 15 days Active Lisinopril 10 MG 1 tablet Orally Once a day; Duration: 90 days Active Promethazine-DM 6.25-15 MG/5ML 5 mL as needed Orally every 6 hrs; Duration: 5 days Active Montelukast Sodium 10 MG 1 tablet Orally Once a day; Duration: 30 day(s) Active Social History Sexual History Question Answer Notes Had sex in the past 12 months (vaginal, oral, or anal)? No Have you ever had a Sexually transmitted disease ? No AUDIT-C (Standard) Question Answer Notes Did you have a drink containing alcohol in the p ast year? No Points 0 Interpretation Negative Problems Problem Type SNOMED Code ICD Code Onset Dates Problem Status W/U Status Risk Notes Problem Peripheral circulatory disorder associated with diabetes mellitus (509612638) Type 2 diabetes mellitus with other circulatory complications (E11.59) Active confirmed Problem Mixed hyperlipidemia (366972093) Mixed hyperlipidemia (E78.2) Active confirmed Problem Hyperlipidemia (73707839) Hyperlipidemia, unspecified (E78.5) Active confirmed Problem Anxiety disorder (456803571) Anxiety disorder, unspecified (F41.9) Active confirmed Problem Migraine without aura (94336050) Migraine without aura, not intractable, with status migrainosus (G43.001) Active confirmed Problem Sleep apnea (88831147) Sleep apnea, unspecified (G47.30) Active confirmed Problem Mild intermittent asthma (743210144) Mild intermittent asthma, uncomplicated (J45.20) Active confirmed Problem Cervicalgia (10166968) Cervicalgia (M54.2) Active confirmed Problem Essential hypertension (13891117) Essential (primary) hypertension (I10) Active confirmed Problem Psoriasis (5582135) Psoriasis (L40.9) Active co nfirmed Problem High cholesterol (42527126) High cholesterol (E78.00) Active confirmed Problem Arthritis (9261885) Arthritis (M19.90) Active confirmed Problem Gastroesophageal reflux disease (054027442) GERD without esophagitis (K21.9) Active confirmed Problem Overweight (840698622) Overweight (BMI 25.0-29.9) (E66.3) Active confirmed Vital Signs Heart Rate 70 /min 01/06/2025 Temperature 97 degrees Fahrenheit 01/06/2025 Respiratory Rate 17 /min 01/06/2025 Blood pressure diastolic 40 mm Hg 01/06/2025 Oximetry 99 % 01/06/2025 Height 63 in 01/06/2025 Blood pressure systolic 135 mm Hg 01/06/2025 Weight 148 lbs 01/06/2025 BMI 26.21 kg/m2 01/06/2025 Encounters Encounter Location Date Provider Diagnosis [place] [address] [facility] [place] [facility] [place] [address] [place]/29/2024 Melanie Berry Encounter for genera l adult medical examination with abnormal findings Z00.01 ; Body mass index (BMI) of 24.0-24.9 in adult Z68.24 ; Overweight E66.3 ; Encounter for screening for depression Z13.31 ; Encounter for screening for malignant neoplasm of colon Z12.11 ; Encounter for screening for malignant neoplasm of cervix Z12.4 ; Encounter for screening for osteoporosis Z13.820 ; Encounter for screening mammogram for malignant neoplasm of breast Z12.31 ; Acute cough R05.1 ; Cervicalgia M54.2 ; Type 2 diabetes mellitus with other circulatory complications E11.59 ; High cholesterol E78.00 ; Essential (primary) hypertension I10 ; Mild intermittent asthma, uncomplicated J45.20 and Migraine without aura, not intractable, with status migrainosus G43.001 [facility] [address] [place] [address] 09/30/2024 Melanie Berry Type 2 diabetes mellitus with other circulatory complications E11.59 ; Body mass index [BMI] 26.0-26.9, adult Z68.26 ; Overweight (BMI 25.0-29.9) E66.3 ; Person consulting for explanation of examination or test finding Z71.2 ; Encounter for screening for malignant neoplasm of colon Z12.11 ; Encounter for screening for osteoporosis Z13.820 ; Encounter for screening mammogram for malignant neoplasm of breast Z12.31 ; Cervicalgia M54.2 ; High cholesterol E78.00 ; Essential (primary) hypertension I10 ; Mild intermittent asthma, uncomplicated J45.20 ; Migraine without aura, not intractable, with status migrainosus G43.001 and Anxiety disorder, unspecified F41.9 [facility] [place] [address] [place] [address] 01/06/2025 JUSSEP FOMBELLIDA Type 2 diabetes mellitus with other circulatory complications E11.59 ; Body mass index 26.0-26.9, adult Z68.26 ; Essential (primary) hypertension I10 ; Mild intermittent asthma, uncomplicated J45.20 ; Migraine without aura, not intractable, with status migrainosus G43.001 ; Sleep apnea, unspecified G47.30 ; Psoriasis L40.9 and Mixed hyperlipidemia E78.2 [facility] [place] [address] [place] [address] 01/06/2025 JUSSEP FOMBELLIDA Anxiety disorder, unspecified F41.9 ; High cholesterol E78.00 ; Essential (primary) hypertension I10 and Type 2 diabetes mellitus with other circulatory complications E11.59 [facility] [place] [address] [address] 10/27/2024 Melanie Berry Type 2 diabetes mellitus with other circulatory complications E11.59 Assessments Encounter Date Diagnosis (ICD Code) Assessment Notes Treatment Notes Treatment Clinical Notes Section Notes 08/29/2024 Encounter for general adult medical examination with abnormal findings (ICD-10 - Z00.01) 08/29/2024 Body mass index (BMI) of 24.0-24.9 in adult (ICD-10 - Z68.24) 09/30/2024 Type 2 diabetes mellitus with other circulatory complications (ICD-10 - E11.59) Podiatric referral given. 30 u of Lantus a day. 09/30/2024 Body mass index [BMI] 26.0-26.9, adult (ICD-10 - Z68.26) 10/27/2024 Type 2 diabetes mellitus with other circulatory complications (ICD-10 - E11.59) 01/06/2025 Type 2 diabetes mellitus with other circulatory complications (ICD-10 - E11.59) Dietary guidelines, treatment compliance, regular foot care, periodic eye exams importance discussed with patient.Regular glucometer checkup and goals through the day. A1C goal discussed.Medicat ion mechanism of action, potential SEs, R/Bs discussed with patient.Advised on self-education on the condition.Pt verbally refers understanding of matters discussed and agreement w/plan 01/06/2025 Body mass index 26.0-26.9, adult (ICD-10 - Z68.26) Advised patient to exercise on a regular basis. 01/06/2025 Anxiety disorder, unspecified (ICD-10 - F41.9) 01/06/2025 High cholesterol (ICD-10 - E78.00) 01/06/2025 Essential (primary) hypertension (ICD-10 - I10) Continue low salt diet 09/30/2024 Overweight (BMI 25.0-29.9) (ICD-10 - E66.3) 08/29/2024 Overweight (ICD-10 - E66.3) 08/29/2024 Encounter for screening for depression (ICD-10 - Z13.31) PHQ-9 Done Aisha Stack 08/29/2024 01:53:25 PM EDT > 09/30/2024 Person consulting for explanation of examination or test finding (ICD-10 - Z71.2) 01/06/2025 Mild intermittent asthma, uncomplicated (ICD-10 - J45.20) Discussed and provided asthma action plan 01/06/2025 Essential (primary) hypertension (ICD-10 - I10) 09/30/2024 Encounter for screening for malignant neoplasm of colon (ICD-10 - Z12.11) Colonoscopy done one year 01/06/2025 Type 2 diabetes mellitus with other circulatory complications (ICD-10 - E11.59) 01/06/2025 Migraine without aura, not intractable, with status migrainosus (ICD-10 - G43.001) Reinforce education about trigger factors 08/29/2024 Encounter for screening for malignant neoplasm of colon (ICD-10 - Z12.11) Colonoscopy done one year 08/29/2024 Encounter for screening for malignant neoplasm of cervix (ICD-10 - Z12.4) Hicterectpmy done 20 years 01/06/2025 Sleep apnea, unspecified (ICD-10 - G47.30) Prop up the head of your bed 4 to 6 inches by putting bricks under the legs of the bed. 09/30/2024 Encounter for screening for osteoporosis (ICD-10 - Z13.820) Order DEXA TEST 09/30/2024 Encounter for screening mammogram for malignant neoplasm of breast (ICD-10 - Z12.31) Screening mammogram done 3-4 months done. 01/06/2025 Psoriasis (ICD-10 - L40.9) Hydration and lubrication, dove soap, triple rinse clothing and linens 08/29/2024 Encounter for screening for osteoporosis (ICD-10 - Z13.820) Order DEXA TEST 08/29/2024 Encounter for screening mammogram for malignant neoplasm of breast (ICD-10 - Z12.31) Screening mammogram done 3-4 months done. 09/30/2024 Cervicalgia (ICD-10 - M54.2) 01/06/2025 Mixed hyperlipidemia (ICD-10 - E78.2) Healthy lifestyle discussed with patient, including diet, vitamin supplement, exercise, non-smoking, safe sexual practices and reduction of stress. Assessment and plan reviewed with patient. 09/30/2024 High cholesterol (ICD-10 - E78.00) 08/29/2024 Acute cough (ICD-10 - R05.1) 08/29/2024 Cervicalgia (ICD-10 - M54.2) 09/30/2024 Essential (primary) hypertension (ICD-10 - I10) 09/30/2024 Mild intermittent asthma, uncomplicated (ICD-10 - J45.20) 08/29/2024 Type 2 diabetes mellitus with other circulatory complications (ICD-10 - E11.59) Podiatric referral given. 30 u of Lantus a day. 09/30/2024 Migraine without aura, not intractable, with status migrainosus (ICD-10 - G43.001) 08/29/2024 High cholesterol (ICD-10 - E78.00) 09/30/2024 Anxiety disorder, unspecified (ICD-10 - F41.9) 08/29/2024 Essential (primary) hypertension (ICD-10 - I10) 08/29/2024 Mild intermittent asthma, uncomplicated (ICD-10 - J45.20) 08/29/2024 Migraine without aura, not intractable, with status migrainosus (ICD-10 - G43.001) 09/30/2024 Other Hicterectpmy do ne 20 years Plan Of Treatment Pending Test Test Name Order Date DEXA 08/29/2024 Hemoglobin A1c 08/29/2024 MAMMOGRAM, SCREENING 08/29/2024 LIPID PANEL, STANDARD (7600) 08/29/2024 COMPREHENSIVE METABOLIC PANEL (REFL) (37 015) 08/29/2024 CBC (INCLUDES DIFF/PLT) (6399) URINALYSIS, COMPLETE (5463) 08/29/2024 ALBUMIN, RANDOM URINE W/O CREATININE (17 674) 08/29/2024 Next Appt Details Provider Name:ROBERTA MALLORYSHIRA MEDINA, 02/24/2025 10:15:00 AM, [address] [facility], [place], [address], Insurance Providers Payer Name Payer Address Payer Phone Subscriber Number Group Number Insured Name Patient Relationship to Insured Coverage Start Date Coverage End Date [facility] Dual Complete PPO [address] [address] [place] [address] [id number] Sandy Jacob Self - patient is the insured Medical (General) History Medical History History ICD Code Anxiety disorder, unspecified F41.9 Arthritis M19.90 Unspecified asthma, uncomplicated J45.90 9 Headache, unspecified R51.9 Depression, unspecified F32.A GERD without esophagitis K21.9 hypertension Psoriasis L40.9 Hyperlipidemia, unspecified E78.5 Sleep apnea, unspecified G47.30 seasonal allergies cataract right eye Surgical History Surgery Date(Month/Year) hysterectomy 2004
[2025-02-13 18:27] LABS: MANUAL DIFF FLAG NO
--- OUTSIDE RECORDS SUMMARY | 2025-02-13 18:27 | XMS_ITS | Patient Health Record ---
Author Organization [employer]. Address [address] [facility] [address] [place] [address] Care Team Providers Care Wash Driller Name Role Phone Epstein Rosalio Primary Care Provider Macrina Rosenbaum Unavailable [phone] Caity Palomares Unavailable [phone] Allergies No Known Allergies Results Component Value Reference Range Notes Microalbumin/Creatinine Rati o, Random Urine-LC Reviewed date:06/28/2024 10:11:45 PM Interpretation: Performing Lab:[facility], [facility] [place], [place] [id number], Phone - [phone], Director - Laurent Notes/Report: Creatinine, Urine 129.2 Not Estab. mg/dL Albumin, Urine 25.6 Not Estab. ug/mL Alb/Creat Ratio 20 0-29 mg/g creat Severely increased: >300 Moderately increased: 30 - 300 Normal: 0 - 29 Hemoglobin A1C Reviewed date:06/28/2024 09:41:13 PM Interpretation: Performing Lab:[facility], [facility] [place], [place] [id number], Phone - [phone], Director - Laurent Notes/Report: Hemoglobin A1c 12.1 4.8-5.6 % Prediabetes: 5.7 - 6.4 Glycemic control for adults with diabetes: <7.0 . Diabetes: >6.4 CBC With Differential/Platel et-LC-Q Reviewed date:06/28/2024 09:40:43 PM Interpretation: Performing Lab:[facility], [facility] [address] [place], [place] [id number], Phone - [phone], Director - Laurent Notes/Report: WBC 6.1 3.4-10.8 x10E3/uL RBC 4.86 3.77-5.28 x10E6/uL Hemoglobin 12.9 11.1-15.9 g/dL Hematocrit 41.4 34.0-46.6 % MCV 85 79-97 fL MCH 26.5 26.6-33.0 pg MCHC 31.2 31.5-35.7 g/dL RDW 12.1 11.7-15.4 % Platelets 195 150-450 x10E3/uL Neutrophils 61 Not Estab. % Lymphs 32 Not Estab. % Monocytes 6 Not Estab. % Eos 1 Not Estab. % Basos 0 Not Estab. % Neutrophils (Absolute) 3.7 1.4-7.0 x10E3/uL Lymphs (Absolute) 2.0 0.7-3.1 x10E3/uL Monocytes(Absolute) 0.4 0.1-0.9 x10E3/uL Eos (Absolute) 0.1 0.0-0.4 x10E3/uL Baso (Absolute) 0.0 0.0-0.2 x10E3/uL Immature Granulocytes 0 Not Estab. % Immature Grans (Abs) 0.0 0.0-0.1 x10E3/uL Urinalysis, Nofnxwvb-UB-T Reviewed date:06/28/2024 09:40:22 PM Interpretation: [facility]forming [facility] [address] [place] [id number], Phone - [phone], Director - Laurent Notes/Report: Specific [place] >=1.030 1.005-1.030 pH 6.0 5.0-7.5 Urine-Color Yellow Yellow Appearance Clear Clear WBC Esterase Negative Negative Protein Trace Negative/Trace Glucose 3+ Negative Ketones Negative Negative Occult Blood Negative Negative Bilirubin Negative Negative Urobilinogen,Semi-Qn 1.0 0.2-1.0 mg/dL Nitrite, Urine Negative Negative Microscopic Examination Micr oscopic follows if indicated. Microscopic Examination See below: Micr oscopic was indicated and was performed. WBC None seen 0 - 5 /hpf RBC None seen 0 - 2 /hpf Epithelial Cells (non renal) 0-10 0 - 10 /hpf Casts None seen None seen /lpf Bacteria None seen None seen/Few Comprehensive Metabolic Pane l 14+eGFR-LC-Q Reviewed date:06/28/2024 09:39:48 PM Interpretation: Performing [facility], [address] [place] [id number], Phone - [phone], Director - Laurent Notes/Report: Glucose 253 70-99 mg/dL BUN 12 8-27 mg/dL Creatinine 0.61 0.57-1.00 mg/dL eGFR 99 >59 mL/min/1.73 BUN/Creatinine Ratio 20 12-28 Sodium 135 134-144 mmol/L Potassium 4.5 3.5-5.2 mmol/L Chloride 99 96-106 mmol/L Carbon Dioxide, Total 23 20-29 mmol/L Calcium 8.5 8.7-10.3 mg/dL Protein, Total 7.3 6.0-8.5 g/dL Albumin 3.8 3.9-4.9 g/dL Globulin, Total 3.5 1.5-4.5 g/dL Bilirubin, Total 0.4 0.0-1.2 mg/dL Alkaline Phosphatase 57 44-121 IU/L AST (SGOT) 16 0-40 IU/L ALT (SGPT) 13 0-32 IU/L Lipid Panel-Q-LC Reviewed date:06/28/2024 10:11:52 PM Interpretation: Performing Lab:[address] [id number], Phone - [phone], Director - Laurent Notes/Report: Cholesterol, Total 142 100-199 mg/dL Triglycerides 65 0-149 mg/dL HDL Cholesterol 46 >39 mg/dL VLDL Cholesterol Alfred 13 5-40 mg/dL LDL Chol Calc (NIH) 83 0-99 mg/dL Hemoglobin A1C Reviewed date:04/07/2024 04:48:57 PM Interpretation: Performing Lab:[facility], [id number], [id number] Shaheen Fofana MD Notes/Report: 0 HEMOGLOBIN A1c 11.3 <5.7 % of total Hgb test. control. A1c targets should be individualized based on Currently, no consensus exists regarding use of duration of diabetes, age, comorbid conditions, and For someone without known diabetes, a hemoglobin A1c hemoglobin A1c for diagnosis of diabetes for children. For someone with known diabetes, a value <7% indicates other considerations. diabetes and this should be confirmed with a follow-up greater than or equal to 7% indicates suboptimal that their diabetes is well controlled and a value value of 6.5% or greater indicates that they may have CHEST X-RAY (PA/LATERAL) Reviewed date:04/05/2024 11:17:09 AM Interpretation: Performing Lab: Notes/Report: Mammo SCREENING MAMMO DIGITA L, BENITA Reviewed date:04/05/2024 11:16:52 AM Interpretation: Performing Lab: Notes/Report: Microalbumin/Creatinine Rati o, Random Urine-LC Reviewed date:03/16/2024 03:35:38 PM Interpretation: Performing [facility] [id number], Phone - [phone], Director - Laurent Notes/Report: Creatinine, Urine 50.2 Not Estab. mg/dL Albumin, Urine 10.3 Not Estab. ug/mL Alb/Creat Ratio 21 0-29 mg/g creat Moderately increased: 30 - 300 Normal: 0 - 29 Severely increased: >300 Hemoglobin A1C Reviewed date:03/16/2024 03:25:53 PM Interpretation: Performing Lab:[address] [id number], Phone - [phone], Director - Laurent Notes/Report: Hemoglobin A1c 10.6 4.8-5.6 % . Diabetes: >6.4 Prediabetes: 5.7 - 6.4 Glycemic control for adults with diabetes: <7.0 CBC With Differential/Platel et-LC-Q Reviewed date:03/16/2024 03:35:44 PM Interpretation: Performing Lab:[address] [id number], Phone - [phone], Director - Laurent Notes/Report: WBC 7.0 3.4-10.8 x10E3/uL RBC 4.94 3.77-5.28 x10E6/uL Hemoglobin 13.3 11.1-15.9 g/dL Hematocrit 42.1 34.0-46.6 % MCV 85 79-97 fL MCH 26.9 26.6-33.0 pg MCHC 31.6 31.5-35.7 g/dL RDW 13.6 11.7-15.4 % Platelets 214 150-450 x10E3/uL Neutrophils 55 Not Estab. % Lymphs 35 Not Estab. % Monocytes 8 Not Estab. % Eos 2 Not Estab. % Basos 0 Not Estab. % Neutrophils (Absolute) 3.8 1.4-7.0 x10E3/uL Lymphs (Absolute) 2.5 0.7-3.1 x10E3/uL Monocytes(Absolute) 0.5 0.1-0.9 x10E3/uL Eos (Absolute) 0.1 0.0-0.4 x10E3/uL Baso (Absolute) 0.0 0.0-0.2 x10E3/uL Immature Granulocytes 0 Not Estab. % Immature Grans (Abs) 0.0 0.0-0.1 x10E3/uL Urinalysis, Jqvzzifp-VX-J Reviewed date:03/16/2024 03:26:08 PM Interpretation: Performing Lab:[facility] [address] [id number], Phone - [phone], Director - Laurent Notes/Report: Specific [place] 1.013 1.005-1.030 pH 6.5 5.0-7.5 Urine-Color Yellow Yellow Appearance Clear Clear WBC Esterase Negative Negative Protein Negative Negative/Trace Glucose 3+ Negative Ketones Negative Negative Occult Blood Negative Negative Bilirubin Negative Negative Urobilinogen,Semi-Qn 1.0 0.2-1.0 mg/dL Nitrite, Urine Negative Negative Microscopic Examination Micr oscopic follows if indicated. Microscopic Examination See below: Micr oscopic was indicated and was performed. WBC 0-5 0 - 5 /hpf RBC None seen 0 - 2 /hpf Epithelial Cells (non renal) 0-10 0 - 10 /hpf Casts None seen None seen /lpf Bacteria None seen None seen/Few Comprehensive Metabolic Pane l 14+eGFR-LC-Q Reviewed date:03/16/2024 03:26:25 PM Interpretation: Performing Lab:[facility] [address] [id number], Phone - [phone], Director - Laurent Notes/Report: Glucose 300 70-99 mg/dL BUN 9 8-27 mg/dL Creatinine 0.78 0.57-1.00 mg/dL eGFR 85 >59 mL/min/1.73 BUN/Creatinine Ratio 12 12-28 Sodium 138 134-144 mmol/L Potassium 4.5 3.5-5.2 mmol/L Chloride 95 96-106 mmol/L Carbon Dioxide, Total 25 20-29 mmol/L Calcium 9.7 8.7-10.3 mg/dL Protein, Total 7.8 6.0-8.5 g/dL Albumin 4.4 3.9-4.9 g/dL Globulin, Total 3.4 1.5-4.5 g/dL Bilirubin, Total 0.3 0.0-1.2 mg/dL Alkaline Phosphatase 76 44-121 IU/L AST (SGOT) 16 0-40 IU/L ALT (SGPT) 14 0-32 IU/L Lipid Panel-Q-LC Reviewed date:03/16/2024 03:35:52 PM Interpretation: Performing Lab:[facility], [facility] [place], [place] [id number], Phone - [phone], Director - Laurent Notes/Report: Cholesterol, Total 139 100-199 mg/dL Triglycerides 63 0-149 mg/dL HDL Cholesterol 44 >39 mg/dL VLDL Cholesterol Alfred 13 5-40 mg/dL LDL Chol Calc (NIH) 82 0-99 mg/dL Reason For Referral Reason Please fax consul t notes and/or results of procedure approved to [phone]. Thanks! ~Annual eye exam~ Diagnosis 1 Encounter for examin ation of eyes and vision without abnormal findings (Z01.00) Referral Organization [facility] ical P Referring Provider First Name Macrina Referring Provider Last Name Robi Referring Provider Speciality Nurse Prac titioner Referred Provider [facility] [place] Referred Provider Specialty Assurance Assistant Referral Priority Routine Medications Medication SIG (Take, Route, Frequency, Duration) Notes Start Date End Date Status Albuterol Sulfate (2.5 MG/3ML) 0.083% 3 mL as needed Inhalation Three times a day; Duration: 90 days Active Lancets - as directed subcutaneus three times a day; Duration: 90 days 05/05/2024 Active Nebulizer - every 4 hours as needed; Duration: 90 days 05/05/2024 Active metFORMIN HCl 1000 MG 1 tablet with meal s Orally Twice a day; Duration: 90 days Active Cetirizine HCl 10 MG 1 tablet Orally Onc e a day; Duration: 90 days Active Atorvastatin Calcium 10MG 1 tablet Orally Once a day; Duration: 90 days Active TRUEresult Blood Glucose w/Device as directed sc bid; Duration: 90 days 11/09/2015 Active One Touch Ultra - as instructed SKIN Check 3 times a day; Duration: 90 days 11/05/2023 Active One Touch Ultra Glucometer as instructed SKIN three times a day; Duration: 365 days 11/05/2023 Active Nebulizer/Adult Mask - as directed inhaler PRN; Duration: days 04/02/2016 Active Glucometer check three times a day subcutaneous three times a day; Duration: 90 days 05/05/2024 Active strips strips check three times a day subcutaneus three times a day; Duration: 30 days 05/05/2024 Active One Touch Ultra - as instructed SKIN Check 3 times daily; Duration: 90 days 11/05/2023 Active Insulin Syringe 31G X 5/16 1 ML as directed 11/05/2023 Active dexAMETHasone Sodium Phosphate 0.1 % 1 drop into affected eye Ophthalmic Twice a day; Duration: 10 04/05/2024 Not-Taking hydrOXYzine HCl 25 MG 1 tablet as needed Orally Once a day; Duration: 90 days 05/05/2024 Active Lantus 100 UNIT/ML 30 units Subcutaneous daily 25 unit daily Active glipiZIDE 10 MG 1 tablet 30 minutes before breakfast Orally Once a day; Duration: 90 days 04/05/2024 Active Gabapentin (Once-Daily) 300 MG 1 tablet Orally Once a day; Duration: 90 days Active Ibuprofen 800 MG 1 tablet with food or milk as needed Orally twice a day; Duration: 15 11/06/2023 Active Nicotine Polacrilex 4 MG 1 piece chew for 30 minutes as needed Mouth/Throat every 8 hrs; Duration: 30 days 06/03/2024 Active Cnqpmcadui-NYNN-Qrjyx ine 50-325-40 MG 1 tablet as needed Orally every 4 hrs PRN; Duration: 90 days 06/03/2024 Active Lisinopril 10 MG 1 tablet Orally Once a day; Duration: 90 days 11/09/2015 Active Betamethasone Dipropionate 0.05 % 1 application to affected area Externally Once a day; Duration: 30 days 02/26/2015 Not-Taking Wellbutrin 100 MG 1 tablet Orally daily; Duration: 30 days 11/10/2014 Not-Taking Fluticasone Propionate 50 MCG/ACT 1 spray in each nostril Nasally Once a day; Duration: 90 days Active Albuterol Sulfate HFA 108 (90 Base) MCG/ACT 2 puffs as needed Inhalation every 6 hrs; Duration: 90 days Active Social History Tobacco Use: Social History Observation Description Date Details (start date - stop date) Never Smoker NA - NA Sexual History Question Answer Notes Had sex in the past 12 months (vaginal, oral, or anal)? No Have you ever had a Sexually transmitted disease ? No Tobacco Control (Standard) Question Answer Notes Tobacco use: Nonsmoker AUDIT-C (Standard) Question Answer Notes Did you have a drink containing alcohol in the p ast year? 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) Active confirmed Problem Diabetic renal disease (193338351) Type 2 diabetes mellitus with diabetic chronic kidney disease (E11.22) Active confirmed Problem Type 2 diabetes mellitus with other specified complication (E11.69) Active confirmed Problem Essential hypertension (28592106) Essential (primary) hypertension (I10) Active confirmed Problem Chronic kidney disease due to hypertension (556884206112240) Hypertensive chronic kidney disease with stage 1 through stage 4 chronic kidney disease, or unspecified chronic kidney disease (I12.9) Active confirmed Problem Mild intermittent asthma (531036784) Mild intermittent asthma, uncomplicated (J45.20) Active confirmed Problem Chronic kidney disease stage 2 (752166345) Chronic kidney disease, stage 2 (mild) (N18.2) Active confirmed eGFR 85 as per labs results from 4 Problem Vitamin D deficiency (13195849) Vitamin D deficiency (E55.9) Active confirmed Problem Migraine (06934742) Migraine (G43.909) Active confirmed Problem Hyperlipidemia (52193804) Hyperlipidemia (E78.5) Active confirmed Problem Anxiety (57669573) Anxiety (F41.9) Active confirmed Problem Overweight (152257257) Overweight (BMI 25.0-29.9) (E66.3) Active confirmed Problem Polyneuropathy due to type 2 diabetes mellitus (837020241) Diabetic polyneuropathy associated with type 2 diabetes mellitus (E11.42) Active confirmed Problem Smoker (26040706) Smoker (F17.200) Active confi rmed Problem Smoking (94783214) Smoking (F17.200) Active confirmed Problem Bone spur of left foot (115991765595458) Bone spur of left foot (M77.9) Active confirmed Problem Sleep disorder (17397567) Sleep disorder (G47.9) Active confirmed Problem Type 2 diabetes mellitus with other specified complication, without long-term current use of insulin (E11.69) Active confirmed Problem Allergic rhinitis (14984205) Allergic rhinitis, unspecified seasonality, unspecified trigger (J30.9) Active confirmed Problem Hyperglycemia due to type 2 diabetes mellitus (306589589032097) Uncontrolled type 2 diabetes mellitus with hyperglycemia (E11.65) Active confirmed Problem Moderately severe major depression (566811433) Moderately severe major depression (F32.2) Active confirmed Vital Signs Temperature 98.0 degrees Fahrenheit 06/03/2024 Respiratory Rate 19 /min 06/03/2024 Blood pressure diastolic 64 mm Hg 06/03/2024 Oximetry 98 % 06/03/2024 Height 5 ft 3 in in 06/03/2024 Blood pressure systolic 109 mm Hg 06/03/2024 Weight 143 lbs 06/03/2024 BMI 25.33 kg/m2 06/03/2024 Encounters Encounter Location Date Provider Diagnosis [facility] [address] [place] [id number] [facility] [address] [place] [id number] 03/14/2024 [facility] [address] [place] [id number] [facility]/06[facility] [address] [place] [id number] 03/03/2024 Macrina Rosenbaum Hypertensive chronic kidney disease with stage 1 through stage 4 chronic kidney disease, or unspecified chronic kidney disease I12.9 ; Chronic kidney disease, stage 2 (mild) N18.2 ; Type 2 diabetes mellitus with diabetic chronic kidney disease E11.22 ; Diabetic polyneuropathy associated with type 2 diabetes mellitus E11.42 ; Type 2 diabetes mellitus with other specified complication, without long-term current use of insulin E11.69 ; Asthma with allergic rhinitis, unspecified asthma severity, unspecified whether complicated J45.909 ; Migraine G43.909 ; Anxiety F41.9 ; Overweight (BMI 25.0-29.9) E66.3 ; Dietary counseling and surveillance Z71.3 ; Exercise counseling Z71.82 ; Smoking F17.200 ; Body mass index (BMI) of 25.0 to 25.9 in adult Z68.25 ; Encounter for general adult medical examination with abnormal findings Z00.01 ; Encounter for screening mammogram for breast cancer Z12.31 and Encounter for examination of eyes and vision without abnormal findings Z01.[address] [place] [id number] 04/05/2024 Macrina Rosenbaum Hypertensive chronic kidney disease with stage 1 through stage 4 chronic kidney disease, or unspecified chronic kidney disease I12.9 ; Chronic kidney disease, stage 2 (mild) N18.2 ; Diabetic polyneuropathy associated with type 2 diabetes mellitus E11.42 ; Smoking F17.200 ; Anxiety F41.9 ; Asthma with allergic rhinitis, unspecified asthma severity, unspecified whether complicated J45.909 ; Type 2 diabetes mellitus with other specified complication, without long-term current use of insulin E11.69 ; Migraine G43.909 ; Hyperlipidemia E78.5 ; Sleep disorder G47.9 ; Viral conjunctivitis B30.9 ; Overweight E66.3 and Body mass index (BMI) of 25.0 to 25.9 in adult Z68.[address] [place] [address] 05/05/2024 Macrina Rosenbaum Hypertensive chronic kidney disease with stage 1 through stage 4 chronic kidney disease, or unspecified chronic kidney disease I12.9 ; Sleep disorder G47.9 ; Type 2 diabetes mellitus with diabetic chronic kidney disease E11.22 ; Chronic kidney disease, stage 2 (mild) N18.2 ; Asthma with allergic rhinitis, unspecified asthma severity, unspecified whether complicated J45.909 ; Diabetic polyneuropathy associated with type 2 diabetes mellitus E11.42 ; Type 2 diabetes mellitus with other specified complication, without long-term current use of insulin E11.69 ; Hyperlipidemia E78.5 ; Overweight (BMI 25.0-29.9) E66.3 ; Hospital discharge follow-up Z09 and Body mass index (BMI) of 25.0 to 25.9 in adult Z68.[address] [place] [address] 06/03/2024 Macrina Rosenbaum Hypertensive chronic kidney disease with stage 1 through stage 4 chronic kidney disease, or unspecified chronic kidney disease I12.9 ; Smoker F17.200 ; Type 2 diabetes mellitus with diabetic chronic kidney disease E11.22 ; Chronic kidney disease, stage 2 (mild) N18.2 ; Type 2 diabetes mellitus with other specified complication, without long-term current use of insulin E11.69 ; Hyperlipidemia E78.5 ; Diabetic polyneuropathy associated with type 2 diabetes mellitus E11.42 ; Migraine G43.909 ; Sleep disorder G47.9 ; Mild intermittent asthma, uncomplicated J45.20 ; Overweight (BMI 25.0-29.9) E66.3 ; Body mass index (BMI) of 25.0 to 25.9 in adult Z68.25 and Encounter for examination of eyes and vision without abnormal findings Z01.00 Assessments Encounter Date Diagnosis (ICD Code) Assessment Notes Treatment Notes Treatment Clinical Notes Section Notes 03/03/2024 Hypertensive chronic kidney disease with stage 1 through stage 4 chronic kidney disease, or unspecified chronic kidney disease (ICD-10 - I12.9) Heart Disease due to HTN. Blood pressure control and daily exercise as tolerated is recommended. Will continue to monitor. 03/03/2024 Chronic kidney disease, stage 2 (mild) (ICD-10 - N18.2) eGFR 86, per lab result from 07/10/23 eGFR 86, per lab result from 07/10/23 04/05/2024 Hypertensive chronic kidney disease with stage 1 through stage 4 chronic kidney disease, or unspecified chronic kidney disease (ICD-10 - I12.9) CKD Stage II due to HTN. Blood pressure control and daily exercise as tolerated is recommended. Will continue to monitor. 04/05/2024 Chronic kidney disease, stage 2 (mild) (ICD-10 - N18.2) eGFR 86, per lab result from 07/10/23 eGFR 86, per lab result from 07/10/23 05/05/2024 Hypertensive chronic kidney disease with stage 1 through stage 4 chronic kidney disease, or unspecified chronic kidney disease (ICD-10 - I12.9) CKD Stage II due to HTN. Blood pressure control and daily exercise as tolerated is recommended. Will continue to monitor. 05/05/2024 Sleep disorder (ICD-10 - G47.9) 06/03/2024 Hypertensive chronic kidney disease with stage 1 through stage 4 chronic kidney disease, or unspecified chronic kidney disease (ICD-10 - I12.9) Chronic kidney disease (CKD) Stage II due to hypertension (HTN). Blood pressure control and daily exercise as tolerated is recommended. Will continue to monitor. 06/03/2024 Smoker (ICD-10 - F17.200) 06/03/2024 Type 2 diabetes mellitus with diabetic chronic kidney disease (ICD-10 - E11.22) Diabetes Mellitus (DM) w Renal Manifestations, CKD II due to DM 05/05/2024 Type 2 diabetes mellitus with diabetic chronic kidney disease (ICD-10 - E11.22) Diabetes Mellitus (DM) w Renal Manifestations, CKD II due to DM 04/05/2024 Diabetic polyneuropathy associated with type 2 diabetes mellitus (ICD-10 - E11.42) 03/03/2024 Type 2 diabetes mellitus with diabetic chronic kidney disease (ICD-10 - E11.22) DM w Neurological Manisfestation. Polyneuropathy due to DM 03/03/2024 Diabetic polyneuropathy associated with type 2 diabetes mellitus (ICD-10 - E11.42) Diabetes Mellitus (DM) w Renal Manifestations, CKD II due to DM 04/05/2024 Smoking (ICD-10 - F17.200) Informed patient about smoking cessation and the benefits of quitting. 05/05/2024 Chronic kidney disease, stage 2 (mild) (ICD-10 - N18.2) eGFR 86, per lab result from 07/10/23 eGFR 86, per lab result from 07/10/23 06/03/2024 Chronic kidney disease, stage 2 (mild) (ICD-10 - N18.2) eGFR 85 as per labs results from 03/15/2024 eGFR 85 as per labs results from 03/15/2024 05/05/2024 Asthma with allergic rhinitis, unspecified asthma severity, unspecified whether complicated (ICD-10 - J45.909) 06/03/2024 Type 2 diabetes mellitus with other specified complication, without long-term current use of insulin (ICD-10 - E11.69) A heart-healthy diet emphasizes fruits, vegetables, whole grains, poultry, fish and nuts, while curbing sugary foods and beverages. Eating this way may also help to increase your fiber intake, which is beneficial. A diet high in fiber can help lower cholesterol levels. 04/05/2024 Anxiety (ICD-10 - F41.9) Education provided on appropriate coping mechanisms and lifestyle changes. 03/03/2024 Type 2 diabetes mellitus with other specified complication, without long-term current use of insulin (ICD-10 - E11.69) Patient is oriented about exercise as tolerated and low sugar and carbohydrate diet is recommended as possible. Will continue to monitor. 03/03/2024 Asthma with allergic rhinitis, unspecified asthma severity, unspecified whether complicated (ICD-10 - J45.909) 06/03/2024 Hyperlipidemia (ICD-10 - E78.5) 04/05/2024 Asthma with allergic rhinitis, unspecified asthma severity, unspecified whether complicated (ICD-10 - J45.909) 05/05/2024 Diabetic polyneuropathy associated with type 2 diabetes mellitus (ICD-10 - E11.42) 05/05/2024 Type 2 diabetes mellitus with other specified complication, without long-term current use of insulin (ICD-10 - E11.69) 06/03/2024 Diabetic polyneuropathy associated with type 2 diabetes mellitus (ICD-10 - E11.42) DM w Neurological Manisfestation. Neuropathy/Polyneu ropathy/Peripheral due to DM 04/05/2024 Type 2 diabetes mellitus with other specified complication, without long-term current use of insulin (ICD-10 - E11.69) 03/03/2024 Migraine (ICD-10 - G43.909) 03/03/2024 Anxiety (ICD-10 - F41.9) Will continue to monitor. 04/05/2024 Migraine (ICD-10 - G43.909) 06/03/2024 Migraine (ICD-10 - G43.909) 05/05/2024 Hyperlipidemia (ICD-10 - E78.5) 05/05/2024 Overweight (BMI 25.0-29.9) (ICD-10 - E66.3) Avoid overeating, eating too quickly, eating high-fat foods, eating during stressful situations, or drinking too much alcohol or coffee. Counseled patient on adequate diet and exercise as tolerant. 06/03/2024 Sleep disorder (ICD-10 - G47.9) 04/05/2024 Hyperlipidemia (ICD-10 - E78.5) 03/03/2024 Overweight (BMI 25.0-29.9) (ICD-10 - E66.3) Avoid overeating, eating too quickly, eating high-fat foods, eating during stressful situations, or drinking too much alcohol or coffee. Counseled patient on adequate diet and exercise as tolerant 04/05/2024 Sleep disorder (ICD-10 - G47.9) 03/03/2024 Dietary counseling and surveillance (ICD-10 - Z71.3) Diet and exercise reviewed with patient. Patient oriented about nutrition healthy: eat three balanced meals, healthy snacks, weight control education and drink 1-2 glasses of water with each meal, as possible. 05/05/2024 Hospital discharge follow-up (ICD-10 - Z09) hospital follow up [facility] on due to bronchitis 06/03/2024 Mild intermittent asthma, uncomplicated (ICD-10 - J45.20) 05/05/2024 Body mass index (BMI) of 25.0 to 25.9 in adult (ICD-10 - Z68.25) 06/03/2024 Overweight (BMI 25.0-29.9) (ICD-10 - E66.3) Avoid overeating, eating too quickly, eating high-fat foods, eating during stressful situations, or drinking too much alcohol or coffee. Counseled patient on adequate diet and exercise as tolerant. 04/05/2024 Viral conjunctivitis (ICD-10 - B30.9) 03/03/2024 Exercise counseling (ICD-10 - Z71.82) Patient is oriented about physical health prevention exercise, weight control, and calcium supplement. Patient oriented on importance of physical activities, jogging, swimming, walking at least 30 minutes per day or 3 times per week as tolerated. 04/05/2024 Overweight (ICD-10 - E66.3) Avoid overeating, eating too quickly, eating high-fat foods, eating during stressful situations, or drinking too much alcohol or coffee. Counseled patient on adequate diet and exercise as tolerant. 03/03/2024 Smoking (ICD-10 - F17.200) Informed patient about smoking cessation and the benefits of quitting. 06/03/2024 Body mass index (BMI) of 25.0 to 25.9 in adult (ICD-10 - Z68.25) 06/03/2024 Encounter for examination of eyes and vision without abnormal findings (ICD-10 - Z01.00) 03/03/2024 Body mass index (BMI) of 25.0 to 25.9 in adult (ICD-10 - Z68.25) 04/05/2024 Body mass index (BMI) of 25.0 to 25.9 in adult (ICD-10 - Z68.25) 03/03/2024 Encounter for general adult medical examination with abnormal findings (ICD-10 - Z00.01) 03/03/2024 Encounter for screening mammogram for breast cancer (ICD-10 - Z12.31) 03/03/2024 Encounter for examination of eyes and vision without abnormal findings (ICD-10 - Z01.00) Plan Of Treatment Pending Test Test Name Order Date X ray : Foot, left 02/26/2015 DEXA Hip and Spine 11/10/2014 Chest X-ray PA and lateral 11/10/2014 EKG Electrocardiogram 09/27/2015 EKG Electrocardiogram 04/03/2022 EKG Electrocardiogram 10/15/2022 EKG Electrocardiogram 06/23/2023 EKG Electrocardiogram 03/03/2024 SPIROMETRY 10/15/2022 FECAL GLOBIN BY IMMUNOCHEMISTRY OCCULT B LOOD QUEST 09/27/2015 FECAL GLOBIN BY IMMUNOCHEMISTRY OCCULT B LOOD QUEST 11/10/2014 FECAL GLOBIN BY IMMUNOCHEMISTRY OCCULT B LOOD QUEST 04/02/2016 TSH with Reflex to Free T4 11/10/2014 MICROALBUMIN, RANDOM URINE (W/CREATININE ) 04/03/2022 VITAMIN D, 25-HYDROXY, LC/MS/MS 11/11/19 15 Lipid Panel-Q-LC 11/10/2014 Lipid Panel-Q-LC 04/02/2016 Lipid Panel-Q-LC 02/26/2015 Lipid Panel-Q-LC 10/15/2022 Comprehensive Metabolic Panel 14+eGFR-LC -Q 10/15/2022 Comprehensive Metabolic Panel 14+eGFR-LC -Q 04/02/2016 Comprehensive Metabolic Panel 14+eGFR-LC -Q 11/10/2014 Urinalysis, Dcddqjbb-TV-H 11/10/2014 Urinalysis, Yjcixmwy-AZ-B 04/02/2016 Urinalysis, Rjbsitde-AY-N 10/15/2022 CBC With Differential/Kjwokwou-AW-W 0 08/2022 CBC With Differential/Iwljwnxz-YP-O 03/15 CBC With Differential/Hcawwssm-XG-Q 10/14 Hemoglobin A1C 10/15/2022 Microalbumin/Creatinine Ratio, Random Ur ine-LC 10/15/2022 LIPID PANEL WITH DIRECT LDL-QUEST 2014 Mammo SCREENING MAMMO DIGITAL, BENITA 11/10 Mammo SCREENING MAMMO DIGITAL, BENITA 06/23 Mammo SCREENING MAMMO DIGITAL, BENITA 10/15 Mammo SCREENING MAMMO DIGITAL, BENITA 04/03 COMPREHENSIVE METABOLIC PANEL, PLASMA VITAMIN D,25-OH,TOTAL,IA 09/27/2015 CHEST X-RAY (PA/LATERAL) 04/03/2022 CHEST X-RAY (PA/LATERAL) 10/15/2022 CHEST X-RAY (PA/LATERAL) 06/23/2023 X ray : Knee, Left 2-3 views 11/05/2023 Medical (General) History Medical History History ICD Code asthma Diabetes E11.9 Neuropathic pain M79.2 Migraine G43.909 Surgical History Surgery Date(Month/Year) hysterectomy, total with bilateral salpi de leon-oophorectomy (BSO) 1999 Hospitalization History Reason Date(Month/Year) [facility] on due to bronchitis 2023
--- OUTSIDE RECORDS SUMMARY | 2025-02-13 18:28 | XMS_ITS | Patient Health Record ---
Author Organization [facility] Address [address] [facility] [address] [place] [address] Care Team Providers Care Store Person Name Role Phone Sherrie Garcia Primary Care Provider Reason For Referral No Information Encounters Encounter Location Date Provider Diagnosis [facility] [address] [place] [address] 06/09/[address] [facility] [address] [facility] [address] [place] [address] 06/10/2024 Sherrie Beltran [facility] [address] [place] [address] 06/13/2024 [facility] [address] [facility] [place] [address] 07/11/2024 Sherrie Beltran Plan Of Treatment No Information Insurance Providers Payer Name Payer Address Payer Phone Subscriber Number Group Number Insured Name Patient Relationship to Insured Coverage Start Date Coverage End Date [employer] [address] [address] [place] [address] [id number] Sandy Jacob Self - patient is the insured
--- OUTSIDE RECORDS SUMMARY | 2025-02-13 18:28 | XMS_ITS | Clinical Summary ---
Author Organization [employer] Address [address] [facility] [address] [place] [address] Care Team Providers Care Chart Picker Name Role Phone Unavailable Primary Care Provider Unavailabl e Active Problems Problem Noted Date Diagnosed Date Calcaneal spur 01/27/2024 Elevated blood pressure reading 01/27/2024 Hand pain 01/27/2024 Primary osteoarthritis of both hands 01/27/2024 Primary osteoarthritis of both knees 01/27/2024 Synovial cyst of knee 01/27/2024 Acute frontal sinusitis 07/16/2018 Diabetic polyneuropathy 02/12/2018 Vitamin D deficiency 03/24/2017 Benign essential hypertension 02/20/2017 Foot pain 02/20/2017 Hand eczema 02/20/2017 Hyperlipidemia 02/20/2017 Major depression single episode, in partial shady ssion 02/20/2017 Mild intermittent asthma 02/20/2017 Type 2 diabetes mellitus without complication Encounters Date Type Department Care Team Description 01/18/2025 Telephone [facility] [address] [place] [id number] Teo Rodriguez MD New pt appt from Last 3 Months Immunizations Immunization Administration Dates Next Due Influenza injectable quadriv alent IIV4 with preservative 04/13/2018,03/24/2017 Moderna Covid-19 Vaccine 12+ 09/21/2020,08/25/19 21 Pneumococcal Polysaccharide PPSV23 02/13/2021 Zoster, Recombinant 02/13/2021 Social History Tobacco Use Types Packs/Day Years Used Date Smoking Tobacco: Never Assessed Comments Unknown Sex and Gender Information Value Date Recorded Sex Assigned at Female 04/14/2022 10:32 AM EDT Legal Sex Female 10:32 AM EDT Gender Identity Female 04/14/2022 10:32 AM EDT Sexual Orientation Choose not to disclose 2021 10:32 AM EDT Last Filed Vital Signs Vital Sign Reading Time Taken Comments Blood Pressure 114/60 02/13/2021 12:09 AM EDT Pulse 82 02/13/2021 12:09 AM EDT Temperature - - Respiratory Rate - - Oxygen Saturation - - Inhaled Oxygen Concentration - - Weight 73 kg (161 lb) 02/13/2021 12:09 AM EDT Height 160 cm (5' 2.99 ) 02/13/2021 12:09 AM EDT Body Mass Index 28.53 02/13/2021 12:09 AM EDT Plan of Treatment Health Maintenance Due Date Last Done Comments CT Colonography 1959 Colonoscopy 1959 Colorectal Cancer Screening 1959 Depression Screening 1959 FIT DNA/Cologuard 1959 FIT 1959 FOBT 1959 Sigmoidoscopy 1959 Alcohol/Substance Use Screening 1971 Tobacco Screening 1971 DTaP/Tdap/Td Vaccines (1 - Tdap) 1978 Pap Smear 1980 Cervical Cancer Screening 1989 HPV/Cotest 1989 Mammogram 1999 Zoster Vaccines (2 of 2) 04/10/2021 02/13/2021 Pneumococcal Vaccine: 50+ Years (2 of 2 - PCV) 02/13/2022 02/13/2021 COVID-19 Vaccine (3 - 2023-2 5 season) 2024 09/21/2020, 08/24/2020 Influenza Vaccine (#1) 2025 8, 03/24/2017 RSV Patients and Patients Aged 60 years or older (1 - 1-dose 75+ series) 2034 HIB Vaccines Aged Out No longer eligi ble based on patient's age to complete this topic HPV Vaccines Aged Out No longer eligi ble based on patient's age to complete this topic Hepatitis A Vaccines Aged Out No long er eligible based on patient's age to complete this topic Hepatitis B Vaccines Aged Out No long er eligible based on patient's age to complete this topic IPV Vaccines Aged Out No longer eligi ble based on patient's age to complete this topic Meningococcal B Vaccine Aged Out No l onger eligible based on patient's age to complete this topic Meningococcal Vaccine Aged Out No parvin samra eligible based on patient's age to complete this topic RSV under 20 months Aged Out No longe r eligible based on patient's age to complete this topic Rotavirus Vaccines Aged Out No longer eligible based on patient's age to complete this topic
--- OUTSIDE RECORDS SUMMARY | 2025-02-13 18:28 | XMS_ITS | Patient Health Record ---
Author Organization [facility] Address [address] [place] [address] Care Team Providers Care Poising Inspector Name Role Phone Alexander Cruz Primary Care Provider Reason For Referral No Information Medications Medication SIG (Take, Route, Frequency, Duration) Notes Start Date End Date Status Ibuprofen & Caffeine-Vitamins 800 MG as directed Orally TID; Duration: 30 days 07/24/2015 Active hydrOXYzine HCl 25 MG 1 tablet Orally Th ree times a day; Duration: 30 day(s) 07/24/2015 Active Albuterol Sulfate HFA 108 (90 Base) MCG/ACT 2 puffs Inhalation Once a day Active Albuterol Sulfate (2.5 MG/3ML) 0.083% 3 ml Inhalation Three times a day Active Voltaren 1 % as directed Transder mal as directed; Duration: 30 days 07/24/2015 Active Gabapentin 100 MG 3 capsules Orally Th ree times a day; Duration: 30 day(s) 07/24/2015 Active Baclofen 20 MG 1 tablet with food o r milk Orally Three times a day; Duration: 30 day(s) 07/24/2015 Active Problems Problem Type SNOMED Code ICD Code Onset Dates Problem Status W/U Status Risk Notes Problem Uncomplicated asthma (disorder) (244152152) Unspecified asthma, uncomplicated (J45.909) Active confirmed Plan Of Treatment No Information Insurance Providers Payer Name Payer Address Payer Phone Subscriber Number Group Number Insured Name Patient Relationship to Insured Coverage Start Date Coverage End Date [facility] [address] [place] [address] [id number] Sandy Jacob Self - patient is the insured Medical (General) History Medical History History ICD Code Migraines Asthma Surgical History Surgery Date(Month/Year) Hysterectomy
[2025-02-13 18:45] LABS: Hematocrit 35.6 % (37.0-47.0); Hemoglobin 11.7 g/dl (12.0-16.0); Imm Gran Abs Auto 0.09 X10*3/uL (0.00-0.03); Imm Gran Pct Auto 0.5 % (0.0-0.4); Lymphocytes Absolute Auto 0.9 X10*3/uL (1.2-4.9); Mean Corpuscular HGB Conc 32.9 g/dl (31.0-35.0); Mean Corpuscular Hemoglobin 27.4 pg (27.0-33.0); Mean Corpuscular Volume 83.4 fL (80.0-98.0); NRBC Abs Auto 0.000 X10*3/uL (0.0-0.012); NRBC Pct Auto 0.0 /100WBC (0.0-0.2); Platelet Count 177 X10*3/uL (160-400); Red Blood Count 4.27 X10*6/uL (4.20-5.50); White Blood Count 17.6 X10*3/uL (4.8-10.8)
[2025-02-13 18:56] LABS: Alanine Aminotransferase 59 U/L (0-31); Albumin Level 4.1 g/dL (3.5-5.0); Alkaline Phosphatase 80 U/L (39-117); Anion Gap 12 (12-20); Aspartate Amino Transferase 112 U/L (5-31); Blood Urea Nitrogen 10 mg/dL (9-16); Calcium 9.1 mg/dL (8.4-10.2); Carbon Dioxide 28 mmol/L (22-29); Chloride 104 mmol/L (96-108); Creatinine Clr Calc Pharmacy 79.4; Estimated Glomerular Filt Rate > 60; Potassium 3.8 mmol/L (3.3-5.1); Sodium 140 mmol/L (135-145); Total Protein 7.7 g/dL (6.5-8.0)
[2025-02-13 18:57] LABS: Troponin-I High Sensitivity 2.7 ng/L (<3.5-17.0)
[2025-02-13 19:00] LABS: Lipase 871 U/L (8-78)
[2025-02-13 19:11] LABS: INTERNATIONAL NORM RATIO 1.1 (0.9-1.1); Partial Thromboplastin Time 26.1 SEC (26.7-34.1); Prothrombin Time 12.9 SEC (10.9-12.4)
[2025-02-13 19:27] VITALS: BP 165/71; PULSE 87; RESP 16; TEMP 37.2; O2SAT 97
[2025-02-13 19:31] LABS: Appearance Urine Clear; Glucose Urine UA Negative (Negative); PH 7.5 (5.0-9.0); Specific Gravity - Urine 1.010 (1.005-1.025)
[2025-02-13 20:48] LABS: Triglycerides 52 mg/dL (<150)
[2025-02-13] MEDS: iohexoL 350 MG/ML 100 ML INFUS..BTL 85 ML IV (22:26)
[2025-02-14] VITALS (8 sets, daily range): BP systolic 140–175; BP diastolic 63–78; PULSE 74–97; RESP 16–18; TEMP 36–37.1; O2SAT 92–97; BMI 25.9
--- NOTE | 2025-02-14 00:35 | P.HPHOSP_ITS ---
History of Present Illness Date of Service: 02/14/25 Attending physician on admission: Carmelita Carbajal Chief Complaint: abdominal pain Pt is a 64 yo female, Tunisian-speaking only, interpreter for the deaf used for this admission, with PMH IDDM on trulicity for last 5 months, HLD, HTN, Asthma on nebs and inhaler, Migraine, hysterectomy, presents to the emergency department with complaints of midepigastric pain that started earlier in the day. Patient denies any nausea or vomiting but reports 9/10 abdominal pain at this time. Patient currently is insulin-dependent diabetic on Trulicity once a week for the last 5 months. Patient recently moved here from [place] and all her current medications were prescribed by her PCP in [place]. Patient has not found a PCP here in the local area but is on a waiting list. Patient denies any history of alcohol use now or remotely. Patient's denies history of smoking. Patient does not use marijuana or illicit drugs. Workup in the emergency department included CT of the abdomen and pelvis which identified acute interstitial pancreatitis without abscess, duodenitis and a distended gallbladder but no bile duct dilatation. Patient also has incidentally a small fat containing hiatal hernia. Patient denies any recent GI issues and did not usually follow with a GI specialist in [place]. Patient also has a noted leukocytosis but no fever. Patient's H&H is stable at 11.7 and 35.6. Blood glucose is 154. AST 112, ALT 59 and lipase 871. Patient's UA is negative for UTI. Toxicology screen negative for alcohol. It is possible that patient's use of Trulicity has caused this episode of acute pancreatitis which is patient's 1st episode ever experienced. Patient currently on IV fluids and received Dilaudid for pain and is resting comfortably. Review of Systems 2 Review of Systems: Patient reports 9/10 midepigastric abdominal pain with mild reflux. Patient denies any nausea or vomiting. Patient does have chronic constipation and denies diarrhea. Patient denies any unexplained weight loss. Patient currently denies any chest pain, shortness of breath at rest or with exertion, visual changes but is reporting a headache. 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 Cognitive capacity: Alert and orientated x3 Functional capacity: independent ambulation Patient : No Surgical History History of H/O: hysterectomy Social History Smoked in Last 30 Days: No Use of substances other than those prescribed or required for medical reasons: No Advance Directives: No Advance Directives Information Provided: No Ebola Risk: Travel/Contact With Anyone From Affected Area/s: No Has Patient Experienced Ebola Symptoms: No Meds Allergies Allergy/AdvReac Type Severity Reaction Status Date / Time No Known Allergies (No Known Allergy Unverified 02/13/25 17:43 Allergies*) Active Medications: Current Medications Acetaminophen (Acetaminophen 325 Mg Tablet) 650 mg PO Q6H PRN PRN Reason: Pain, Mild 1-3,fever,headache Albuterol/Ipratropium (Albuterol/Iprat 2.5/0.5mg 3 Ml Ampul.Neb) 3 ml INHALE Q4H PRN PRN Reason: Shortness of Breath/Wheezing Calcium Carbonate (Calcium Carbonate 750 Mg Tab.Chew) 750 mg PO Q4H PRN PRN Reason: Heartburn Enoxaparin Sodium (Enoxaparin Sodium 40 Mg/0.4 Ml Syringe) 40 mg SUBCUT Q24H [facility] Famotidine (Famotidine/Pf 20 Mg/2 Ml Vial) 20 mg IVPUSH DAILY [facility] Magnesium Hydroxide (Milk Of Magnesia 30 Ml Oral.Susp) 30 ml PO DAILY PRN PRN Reason: Constipation Melatonin (Melatonin 3 Mg Tablet) 6 mg PO BEDTIME PRN PRN Reason: Insomnia Ondansetron HCl (Ondansetron Hcl 4 Mg/2 Ml Vial) 4 mg IVPUSH Q8H PRN PRN Reason: Nausea and Vomiting Pantoprazole Sodium (Pantoprazole Sodium 40 Mg/10 Ml Vial) 40 mg IVPUSH DAILY@0630 [facility] Polyethylene Glycol (Polyethylene Glycol 3350 17 Gm Powd.Pack) 17 gm PO DAILY PRN PRN Reason: Constipation Sodium Chloride (0.9 % Sodium Chloride Flush 3 Ml Syringe) 3 ml IVFLUSH QSHIFT [facility] Home Medications ?Medication ?Instructions ?Recorded ?Confirmed ?Last Taken ?Type buspirone 15 mg tablet 15 mg PO BID 03/30/20 Unknown History gabapentin 300 mg capsule 300 mg PO TID 03/30/20 Unkn own History hydroxyzine HCl 50 mg tablet 50 mg PO BID 03/30/20 Un known History sertraline 100 mg tablet 100 mg PO DAILY 03/30/20 Un known History Physical Exam 2 Vital Signs and Narrative: Vital Signs: Last Vital Signs Temp 98.9 F 02/13/25 19:27 Pulse 87 02/13/25 19:27 Resp 16 02/13/25 19:27 BP 165/71 H 02/13/25 19:27 Pulse Ox 97 02/13/25 19:27 O2 Del Method Room Air 02/13/25 19:27 BMI result Body Mass Index 25.4 Alert and orientated X3, able to give good history. freelance interpreter/translator used for interview Neuro: CN II-X11 intact, no deficits, visual acuity intact EYES: PERRLA, EOM intact, sclerae nonicteric, conjunctiva pink ENT: hearing intact, no issues with swallowing, uvula midline, lips moist, nares patent no epistaxis Cardiac: S1 S2 RRR, no murmur, no JVD, no edema in Lower ext Pulmonary: lungs diminished bilaterally, no adventitious sounds Abdominal: BS active in all 4 quadrants, guarding noted, moderate tenderness midepigastric area, no rebounding MSK: strength 5/5 upper and lower extremities : no CVA tenderness no bladder distension Extremities: no edema in lower extremities, PT and DP pulses palpable +2 Psych: mood stable, judgement and insight good Skin: intact Results Labs 02/13/25 18:22 02/13/25 18:22 Labs: Laboratory Results - last 24 hr 02/13/25 02/13/25 02/13/25 18:22 19:13 20:44 MCV 83.4 MCH 27.4 MCHC 32.9 RDW 13.0 Plt Count 177 MPV 9.6 Immature Gran % (Auto) 0.5 H Neut % (Auto) 87.9 H Lymph % (Auto) 4.9 L Holmes % (Auto) 6.4 Eos % (Auto) 0.1 Baso % (Auto) 0.2 Lymph # (Auto) 0.9 L [place] # (Auto) 1.1 Eos # (Auto) 0.0 Baso # (Auto) 0.0 Abs Immat Gran (auto) 0.09 H Absolute Neuts (auto) 15.5 H Absolute Nucleated RBC 0.000 Nucleated RBC % (auto) 0.0 PT 12.9 H INR 1.1 APTT 26.1 L Anion Gap 12 Estim Creat Clear Calc 79.4 Estimated GFR > 60 Random Glucose 154 H Calcium 9.1 Total Bilirubin 0.7 AST 112 H ALT 59 H Alkaline Phosphatase 80 Total Protein 7.7 Albumin 4.1 Triglycerides 52 Lipase 871 H Urine Color [place] A Urine Appearance Clear Urine pH 7.5 Ur Specific [place] 1.010 Urine Protein Negative Urine Glucose (UA) Negative Urine Ketones Negative Urine Blood Negative Urine Nitrite Negative Ur Leukocyte Esterase Negative Urine RBC 0-2 Urine WBC 0-5 Ur Squamous Epith Cells 0-2 Urine Bacteria None Seen Hyaline Casts 0-2 Ethyl Alcohol 10 ECG Attestation: I personally reviewed and interpreted this ECG as follows: (Normal sinus rhythm no ischemic changes) Prior ECG tracings: available for review Imaging Radiologist's Impressions: CT ABD Pelvis IMPRESSION: 1. Acute interstitial pancreatitis with likely reactive duodenitis. 2. Distended gallbladder. US ABD IMPRESSION: Borderline distended gallbladder with minimal nonspecific gallbladder wall edema and patient is reportedly tender in the region of the gallbladder. No gallstones are identified. Acute cholecystitis is not excluded. Consider hepatobiliary scintigraphy. Assessment and Plan (1) Acute pancreatitis: Qualifiers: Acute pancreatitis complication: unspecified Pancreatitis type: u nspecified pancreatitis type Qualified Code(s): K85.90 - Acute pancreatitis without necrosis or infection, unspecified Status: Acute Plan Pt is a 64 yo female, Tunisian-speaking only, interpreter for the deaf used for this admission, with PMH IDDM on trulicity for last 5 months, HLD, HTN, Asthma on nebs and inhaler, Migraine, hysterectomy, presents to the emergency department with complaints of midepigastric pain that started earlier in the day. Patient denies any nausea or vomiting but reports 9/10 abdominal pain at this time. Patient currently is insulin-dependent diabetic on Trulicity once a week for the last 5 months. Patient recently moved here from [place] and all her current medications were prescribed by her PCP in [place]. Patient has not found a PCP here in the local area but is on a waiting list. Patient denies any history of alcohol use now or remotely. Patient's denies history of smoking. Patient does not use marijuana or illicit drugs. Patient being admitted for the following medical problems: Acute interstitial pancreatitis on GLP-1 (Trulicity) prescribed by PCP in [place] for DM mgmt GI consulted IVF continue NPO, Bowel rest Lipase in AM Dilaudid for pain mgmt Pt advised to stop GLP-1 as this may be the cause of patient's acute pancreatitis, await final advisement from GI No hx of ETOH now or remotely, toxicology negative for alcoholic Duodentitis, Gastritis Pepcid Protonix Distended gallbladder Bile duct with no dilatation Hepatic Biliary scintigraphy recommended per radiologist, await wellness program manager review IDDM SSI for NPO status NPO On Trulicity with first episode of pancreatitis, pt may not be able to continue medication HLD Hold statin, NPO with mildly elevated LFT's Asthma Duo nebs p.r.n. No issues with hypoxia, shortness of breath No indication for viral testing at this time Case management consulted to help patient with finding PCP DVT prophylaxis: Lovenox Med rec pending Full Code status Quality Stroke Does the patient have a stroke diagnosis?: No Reason for No Anti-thrombotic by Day Two: N/A - Med Ordered VTE Prior VTE?: No VTE Risk Level:: Medical - moderate - high VTE Device Contraindication: N/A - Device Ordered VTE Drug Contraindication: N/A - Med Ordered
[2025-02-14 02:46] LABS: Glucose, Whole Blood 163 mg/dL (60-115)
[2025-02-14 05:07] LABS: MANUAL DIFF FLAG NO
[2025-02-14 05:08] LABS: Hematocrit 31.9 % (37.0-47.0); Hemoglobin 10.5 g/dl (12.0-16.0); Imm Gran Abs Auto 0.09 X10*3/uL (0.00-0.03); Imm Gran Pct Auto 0.6 % (0.0-0.4); Lymphocytes Absolute Auto 1.3 X10*3/uL (1.2-4.9); Mean Corpuscular HGB Conc 32.9 g/dl (31.0-35.0); Mean Corpuscular Hemoglobin 27.4 pg (27.0-33.0); Mean Corpuscular Volume 83.3 fL (80.0-98.0); NRBC Abs Auto 0.000 X10*3/uL (0.0-0.012); NRBC Pct Auto 0.0 /100WBC (0.0-0.2); Platelet Count 148 X10*3/uL (160-400); Red Blood Count 3.83 X10*6/uL (4.20-5.50); White Blood Count 15.5 X10*3/uL (4.8-10.8)
[2025-02-14 05:26] LABS: Alanine Aminotransferase 42 U/L (0-31); Albumin Level 3.6 g/dL (3.5-5.0); Alkaline Phosphatase 60 U/L (39-117); Anion Gap 10 (12-20); Aspartate Amino Transferase 54 U/L (5-31); Blood Urea Nitrogen 9 mg/dL (9-16); Calcium 8.2 mg/dL (8.4-10.2); Carbon Dioxide 27 mmol/L (22-29); Chloride 108 mmol/L (96-108); Creatinine Clr Calc Pharmacy 84.2; Estimated Glomerular Filt Rate > 60; Potassium 3.9 mmol/L (3.3-5.1); Sodium 141 mmol/L (135-145); Total Protein 6.8 g/dL (6.5-8.0)
[2025-02-14 05:33] LABS: Lipase 322 U/L (8-78)
[2025-02-14 07:41] LABS: Glucose, Whole Blood 154 mg/dL (60-115)
[2025-02-14] MEDS: 0.9 % Sodium Chloride Flush 3 ML SYRINGE IVFLUSH ×2 (08:05→15:25)
--- NOTE | 2025-02-14 09:04 | PHA.MEDREC ---
Addendum entered by Tino Dc PharmD 02/14/25 09:20: reviewed Original Note: Pharmacy Consult ? Medication Reconciliation Pharmacy has completed the medication reconciliation. Spoke with pt and pt daughter (An; was able to interpret) and they were able to confirm the medications. Pt confirmed her Trulicity once a week, but did not remember what day she was taking it and stated she last took it about 2 weeks ago and pt states her dr is going to be stopping it. Pt and daughter confirmed she still takes Gabapentin 300mg 1 TID, her Insulin Glargine is 30 units daily and she takes her Metformin 1000mg tab once daily not BID as prescribed. Pt has not taken her medications since Thursday.
--- NOTE | 2025-02-14 10:14 | MHC.CM.PN ---
IMM given 02/14. This CM met with pt with the assistance of a scientific associate. Pt self-care, she moved from [place] a month ago, and lives at home with her children's father in a separate living area. Pts daughter will transport her home at discharge. Education provided on HCP's, new HCP completed, now on file. Pt doesn't have a PCP, local list of PCP's given to pt.
[2025-02-14 11:25] LABS: Glucose, Whole Blood 195 mg/dL (60-115)
--- NOTE | 2025-02-14 12:06 | PM.GICN ---
History of Present Illness Data of Consult Service Date: 02/14/25 Requesting physician: Arcelia Ng Primary Care Provider: None Physician HPI Reason for consult: abdominal pain 64 yo female, with DM on trulicity for last 2 months, HLD, HTN, Asthma on nebs and inhaler, Migraine, hysterectomy, who I am seeing for pancreatitis assessment. She initially presented with sudden onset cramping epigastric pain, radiating across the top of the abdomen associated with nausea. Pain was 10/10 on admission now 7/10. she never had it before. She denies constipation, diarrhea, melena, rectal bleeding. Patient denies any history of alcohol use now or remotely. Patient's denies history of smoking. Patient does not use marijuana or illicit drugs. she has been tolerating light diet and liquids. Of note she is on trulcitiy for last few months. pos FH of GB disease in sister, Imaging: CT of the abdomen and pelvis which identified acute interstitial pancreatitis without abscess, duodenitis and a distended gallbladder but no bile duct dilatation. US: LAB: H&H is stable at 11.7 and 35.6. Blood glucose is 154. AST 112, ALT 59 and lipase 871. Patient's UA is negative for UTI. Toxicology screen negative for alcohol. Review of Systems Review of Systems: Constitutional : No Weight loss, No Fever, No Chills ENT/Mouth : No sore throat, No Rhinorrhea Eyes: No Swelling, No Redness Cardiovascular : No Chest Pain, No SOB, No Edema Respiratory : No Cough, No Sputum, No Wheezing Gastrointestinal : see HPI Genitourinary : NO Dysuria, No Urinary Frequency, No Hematuria, No Urgency Musculoskeletal : no joint pain, No Myalgias, No Joint Swelling Skin : No Skin Lesions, No rash Neuro : No Weakness, No Numbness, No Dizziness, No Headache Psych : No Anxiety/Panic, No Depression Heme/Lymph: No Bruising, No Lymphadenopathy Endocrine : No Polyuria, No Polydipsia All other systems reviewed and are negative. [facility] Past Medical History Medical History Migraine Asthma Diabetes type 2, controlled Vitamin D deficiency Overweight (BMI 25.0-29.9) Dyslipidemia senior care (current) use of insulin Family History Pertinent family history: Gb disease in sister Surgical History Surgical History History of H/O: hysterectomy Social History Social History Household Members: Significant Other Housing: Apartment Do you presently have visiting nurse or other home services: No Patient Tobacco Use Status: Never used Tobacco service: No Travel History Ebola Risk: Travel/Contact With Anyone From Affected Area/s: No Has Patient Experienced Ebola Symptoms: No Meds Allergies Allergy/AdvReac Type Severity Reaction Status Date / Time No Known Allergies (No Known Allergy Unverified 02/13/25 17:43 Allergies*) Active Medications: Current Medications Acetaminophen (Acetaminophen 325 Mg Tablet) 650 mg PO Q6H PRN PRN Reason: Pain, Mild 1-3,fever,headache Albuterol/Ipratropium (Albuterol/Iprat 2.5/0.5mg 3 Ml Ampul.Neb) 3 ml INHALE Q4H PRN PRN Reason: Shortness of Breath/Wheezing Calcium Carbonate (Calcium Carbonate 750 Mg Tab.Chew) 750 mg PO Q4H PRN PRN Reason: Heartburn Dextrose (Dextrose 50 % 25 Gm/50 Ml Syringe) 25 gm IVPUSH Q15M PRN; Protocol PRN Reason: per Hypoglycemia Standing Ord. Enoxaparin Sodium (Enoxaparin Sodium 40 Mg/0.4 Ml Syringe) 40 mg SUBCUT Q24H [facility] Last Admin: 02/14/25 01:15 Dose: 40 mg Famotidine (Famotidine/Pf 20 Mg/2 Ml Vial) 20 mg IVPUSH DAILY [facility] Last Admin: 02/14/25 07:57 Dose: 20 mg Glucose (Glucose Gel 15 Gm Gel..Gram.) 15 gm PO Q15M PRN; Protocol PRN Reason: per Hypoglycemia Standing Ord. Hydromorphone HCl (Hydromorphone Hcl 0.5 Mg/0.5 Ml Syringe) 0.5 mg IVPUSH Q3H PRN; Protocol PRN Reason: Pain, Severe (Pain Scale 7-10) Last Admin: 02/14/25 09:10 Dose: 0.5 mg Sodium Chloride (Ns) 1,000 mls @ 125 mls/hr IVCONT .Q8H [facility] Last Admin: 02/14/25 07:58 Dose: 125 mls/hr Insulin Human Lispro (Insulin Lispro 100 Unit/Ml 3 Ml Vial) 0 unit SUBCUT Q6H [facility]; Protocol Last Admin: 02/14/25 07:54 Dose: Not Given Magnesium Hydroxide (Milk Of Magnesia 30 Ml Oral.Susp) 30 ml PO DAILY PRN PRN Reason: Constipation Melatonin (Melatonin 3 Mg Tablet) 6 mg PO BEDTIME PRN PRN Reason: Insomnia Ondansetron HCl (Ondansetron Hcl 4 Mg/2 Ml Vial) 4 mg IVPUSH Q8H PRN PRN Reason: Nausea and Vomiting Last Admin: 02/14/25 07:57 Dose: 4 mg Pantoprazole Sodium (Pantoprazole Sodium 40 Mg/10 Ml Vial) 40 mg IVPUSH DAILY@0630 [facility] Last Admin: 02/14/25 06:03 Dose: 40 mg Polyethylene Glycol (Polyethylene Glycol 3350 17 Gm Powd.Pack) 17 gm PO DAILY PRN PRN Reason: Constipation Sodium Chloride (0.9 % Sodium Chloride Flush 3 Ml Syringe) 3 ml IVFLUSH QSHIFT [facility] Last Admin: 02/14/25 08:05 Dose: 3 ml Home Medications ?Medication ?Instructions ?Recorded ?Confirmed ?Last Taken ?Type gabapentin 300 mg capsule 300 mg PO TID 03/30/20 02/14/25 02/11/25 History albuterol sulfate 2.5 mg/3 mL 2.5 mg inhalation Q6H PRN 02/14/25 02/14/25 02/11/25 History (0.083 %) solution for nebulization Shortness Of Breath Or Wheezing albuterol sulfate 90 mcg/actuation 2 inh inhalation Q4-6H PRN 02/14/25 02/14/25 02/11/25 History aerosol inhaler Shortness Of Breath Or Wheezing atorvastatin 10 mg tablet 10 mg PO DAILY 02/14/25 02/14/25 02/11/25 History glipizide 10 mg tablet, extended 10 mg PO DAILY 02/14/25 02/14/25 02/11/25 History release 24 hr lisinopril 10 mg tablet 10 mg PO DAILY 02/14/25 02/14/25 02/11/25 History metformin 1,000 mg tablet 1,000 mg PO DAILY 09/08/0902/14/25 02/11/25 History Physical Exam Exam: Exam: EXAM: GENERAL: The patient is well developed and nontoxic. VITAL SIGNS:see workflow HEENT: Nonicteric sclerae, PERRLA, EOMI. Oropharynx clear. Moist mucous membranes. Conjunctivae appear well perfused. No thyroid mass. CHEST: Chest wall is nontender. HEART: Regular rate and rhythm without murmurs. LUNGS: Clear to auscultation bilaterally. ABDOMEN: Soft, positive bowel sounds, tender epigastrium and RUQ, no organomegaly.no flank tenderness SKIN: No rash, no excessive bruising, petechiae, or purpura. NEUROLOGIC: Cranial nerves II-XII intact without motor/sensory deficit. Psych: normal affect Vital Signs: Vital Signs: Last Vital Signs Temp 96.8 F 02/14/25 07:27 Pulse 75 02/14/25 07:27 Resp 16 02/14/25 07:27 BP 163/70 H 02/14/25 07:27 Pulse Ox 95 02/14/25 07:27 O2 Del Method Room Air 02/14/25 07:27 BMI result Body Mass Index 25.9 Results Labs 02/14/25 04:49 02/14/25 04:49 Labs: Short CBC 02/13/25 02/14/25 Range/Units 18:22 04:49 WBC 17.6 H 15.5 H (4.8-10.8) X10*3/uL Hgb 11.7 L 10.5 L (12.0-16.0) g/dl Hct 35.6 L 31.9 L (37.0-47.0) % Plt Count 177 148 L (160-400) X10*3/uL [facility] 02/13/25 02/14/25 18:22 04:49 Sodium 140 141 Potassium 3.8 3.9 Chloride 104 108 Carbon Dioxide 28 27 BUN 10 9 Creatinine 0.69 0.65 Calcium 9.1 8.2 L D Liver Function 02/13/25 02/14/25 Range/Units 18:22 04:49 Total Bilirubin 0.7 0.6 (0.0-1.0) mg/dL AST 112 H 54 H (5-31) U/L ALT 59 H 42 H (0-31) U/L Alkaline Phosphatase 80 60 (39-117) U/L Albumin 4.1 3.6 (3.5-5.0) g/dL Urine 02/13/25 Range/Units 19:13 Urine Color [place] A Urine Appearance Clear Urine pH 7.5 (5.0-9.0) Ur Specific [place] 1.010 (1.005-1.025) Urine Protein Negative (Neg-Trace) mg/dL Urine Glucose (UA) Negative (Negative) mg/dL Imaging CT scan - abdomen: Attestation: I personally reviewed and interpreted this imaging study as follows: (edematous pancreas with dilated PD, and duodenitis noted. ) Assessment and Plan (1) Acute pancreatitis: Qualifiers: Pancreatitis type: unspecified pancreatitis type Acute pancreatitis complication: unspecified Qualified Code(s): K85.90 - Acute pancreatitis without necrosis or infection, unspecified Status: Acute Plan 1/ Acute pancreatitis, no obvious cause right now with soft findings of GB edema and tenderness noted on US. She is on trulicity but been on for a while. Could still have stones or passed a stone given LFt were raised and coming down, PLAN: /1 - MRCP for further evaluation, 2/ encourage PO diet and fluids 3/ I would continue trulicity as I think this is much less a culprit. 4/ check celiac serology and IgG subtypes Procedures Date of Service Date of Service: 02/14/25
--- NOTE | 2025-02-14 12:51 | P.PNIM_ITS ---
Subjective Subjective Date of Service: 02/14/25 Interval History: Complaints of persistent abdominal pain. Nausea and vomiting still active. Improved from yesterday overall. Discussed NPO status today. Patient is in agreement. Review of Systems Review of Systems: Yes all other systems are reviewed and are negative Physical Exam 2 Exam: Exam: General: A&O x3, oriented to time place person and situation, comfortable, no pain Cardiac: S1, S2 auscultated with no S3/4, no MRG. Well perfused. Respiratory: Normal breath sounds auscultated throughout all lung zones, without wheezing, rales. Normal rate. GI/ : Abdominal tenderness in the epigastric region on light and deep palpation. No hepatosplenomegaly palpated. Normal percussion. No abdominal distention. Bowel sounds present. MSK: Normal ambulation without pain at bony prominences or musculature Neurological: Normal neurological examination on overview, without obvious CN II-XII abnormalities. Vital Signs: Vital Signs: Last Vital Signs Temp 96.8 F 02/14/25 07:27 Pulse 75 02/14/25 07:27 Resp 16 02/14/25 07:27 BP 163/70 H 02/14/25 07:27 Pulse Ox 95 02/14/25 07:27 O2 Del Method Room Air 02/14/25 07:27 BMI result Body Mass Index 25.9 Objective Data Active Medications Acetaminophen (Acetaminophen 325 Mg Tablet) 650 mg PO Q6H PRN PRN Reason: Pain, Mild 1-3,fever,headache Albuterol/Ipratropium (Albuterol/Iprat 2.5/0.5mg 3 Ml Ampul.Neb) 3 ml INHALE Q4H PRN PRN Reason: Shortness of Breath/Wheezing Calcium Carbonate (Calcium Carbonate 750 Mg Tab.Chew) 750 mg PO Q4H PRN PRN Reason: Heartburn Dextrose (Dextrose 50 % 25 Gm/50 Ml Syringe) 25 gm IVPUSH Q15M PRN; Protocol PRN Reason: per Hypoglycemia Standing Ord. Enoxaparin Sodium (Enoxaparin Sodium 40 Mg/0.4 Ml Syringe) 40 mg SUBCUT Q24H [facility] Last Admin: 02/14/25 01:15 Dose: 40 mg Documented By: ERICA Famotidine (Famotidine/Pf 20 Mg/2 Ml Vial) 20 mg IVPUSH DAILY [facility] Last Admin: 02/14/25 07:57 Dose: 20 mg Documented By: LOUISE Glucose (Glucose Gel 15 Gm Gel..Gram.) 15 gm PO Q15M PRN; Protocol PRN Reason: per Hypoglycemia Standing Ord. Hydromorphone HCl (Hydromorphone Hcl 0.5 Mg/0.5 Ml Syringe) 0.5 mg IVPUSH Q3H PRN; Protocol PRN Reason: Pain, Severe (Pain Scale 7-10) Last Admin: 02/14/25 09:10 Dose: 0.5 mg Documented By: LOUISE Sodium Chloride (Ns) 1,000 mls @ 125 mls/hr IVCONT .Q8H [facility] Last Admin: 02/14/25 07:58 Dose: 125 mls/hr Documented By: LOUISE Insulin Human Lispro (Insulin Lispro 100 Unit/Ml 3 Ml Vial) 0 unit SUBCUT Q6H [facility]; Protocol Last Admin: 02/14/25 07:54 Dose: Not Given Documented By: LOUISE Non-Admin Reason: NPO Magnesium Hydroxide (Milk Of Magnesia 30 Ml Oral.Susp) 30 ml PO DAILY PRN PRN Reason: Constipation Melatonin (Melatonin 3 Mg Tablet) 6 mg PO BEDTIME PRN PRN Reason: Insomnia Ondansetron HCl (Ondansetron Hcl 4 Mg/2 Ml Vial) 4 mg IVPUSH Q8H PRN PRN Reason: Nausea and Vomiting Last Admin: 02/14/25 07:57 Dose: 4 mg Documented By: LOUISE Pantoprazole Sodium (Pantoprazole Sodium 40 Mg/10 Ml Vial) 40 mg IVPUSH DAILY@0630 [facility] Last Admin: 02/14/25 06:03 Dose: 40 mg Documented By: ERICA Polyethylene Glycol (Polyethylene Glycol 3350 17 Gm Powd.Pack) 17 gm PO DAILY PRN PRN Reason: Constipation Sodium Chloride (0.9 % Sodium Chloride Flush 3 Ml Syringe) 3 ml IVFLUSH QSHIFT [facility] Last Admin: 02/14/25 08:05 Dose: 3 ml Documented By: LOUISE Labs 02/14/25 04:49 02/14/25 04:49 Labs: Laboratory Results - last 24 hr 02/13/25 02/13/25 02/13/25 18:22 19:13 20:44 MCV 83.4 MCH 27.4 MCHC 32.9 RDW 13.0 Plt Count 177 MPV 9.6 Immature Gran % (Auto) 0.5 H Neut % (Auto) 87.9 H Lymph % (Auto) 4.9 L [place] % (Auto) 6.4 Eos % (Auto) 0.1 Baso % (Auto) 0.2 Lymph # (Auto) 0.9 L [place] # (Auto) 1.1 Eos # (Auto) 0.0 Baso # (Auto) 0.0 Abs Immat Gran (auto) 0.09 H Absolute Neuts (auto) 15.5 H Absolute Nucleated RBC 0.000 Nucleated RBC % (auto) 0.0 PT 12.9 H INR 1.1 APTT 26.1 L Anion Gap 12 Estim Creat Clear Calc 79.4 Estimated GFR > 60 POC Glucose Random Glucose 154 H Calcium 9.1 Total Bilirubin 0.7 AST 112 H ALT 59 H Alkaline Phosphatase 80 Total Protein 7.7 Albumin 4.1 Triglycerides 52 Lipase 871 H Urine Color [place] A Urine Appearance Clear Urine pH 7.5 Ur Specific [place] 1.010 Urine Protein Negative Urine Glucose (UA) Negative Urine Ketones Negative Urine Blood Negative Urine Nitrite Negative Ur Leukocyte Esterase Negative Urine RBC 0-2 Urine WBC 0-5 Ur Squamous Epith Cells 0-2 Urine Bacteria None Seen Hyaline Casts 0-2 Ethyl Alcohol 02/14/25 02/14/25 02/14/25 02:35 04:49 07:37 MCV 83.3 MCH 27.4 MCHC 32.9 RDW 13.2 Plt Count 148 L MPV 9.3 L Immature Gran % (Auto) 0.6 H Neut % (Auto) 84.9 H Lymph % (Auto) 8.1 L [place] % (Auto) 6.1 Eos % (Auto) 0.1 Baso % (Auto) 0.2 Lymph # (Auto) 1.3 [place] # (Auto) 1.0 Eos # (Auto) 0.0 Baso # (Auto) 0.0 Abs Immat Gran (auto) 0.09 H Absolute Neuts (auto) 13.2 H Absolute Nucleated RBC 0.000 Nucleated RBC % (auto) 0.0 PT INR APTT Anion Gap 10 L Estim Creat Clear Calc 84.2 Estimated GFR > 60 POC Glucose 163 H 154 H Random Glucose 176 H Calcium 8.2 L D Total Bilirubin 0.6 AST 54 H ALT 42 H Alkaline Phosphatase 60 Total Protein 6.8 Albumin 3.6 Triglycerides Lipase 322 H Urine Color Urine Appearance Urine pH Ur Specific [place] Urine Protein Urine Glucose (UA) Urine Ketones Urine Blood Urine Nitrite Ur Leukocyte Esterase Urine RBC Urine WBC Ur Squamous Epith Cells Urine Bacteria Hyaline Casts Ethyl Alcohol 02/14/25 11:11 MCV MCH MCHC RDW Plt Count MPV Immature Gran % (Auto) Neut % (Auto) Lymph % (Auto) [place] % (Auto) Eos % (Auto) Baso % (Auto) Lymph # (Auto) [place] # (Auto) Eos # (Auto) Baso # (Auto) Abs Immat Gran (auto) Absolute Neuts (auto) Absolute Nucleated RBC Nucleated RBC % (auto) PT INR APTT Anion Gap Estim Creat Clear Calc Estimated GFR POC Glucose 195 H Random Glucose Calcium Total Bilirubin AST ALT Alkaline Phosphatase Total Protein Albumin Triglycerides Lipase Urine Color Urine Appearance Urine pH Ur Specific [place] Urine Protein Urine Glucose (UA) Urine Ketones Urine Blood Urine Nitrite Ur Leukocyte Esterase Urine RBC Urine WBC Ur Squamous Epith Cells Urine Bacteria Hyaline Casts Ethyl Alcohol Assessment and Plan (1) Acute pancreatitis: Status: Acute (2) Diabetes type 2, controlled: Status: Acute (3) shelter (current) use of insulin: Status: Acute Plan 64 yo Sinhala-speaking female, with a history of type 2 diabetes mellitus, HTN, HLD, mild-moderate persistent asthma, migraines, presents with midepigastric pain for 1 day, admitted with acute uncomplicated interstitial pancreatitis. Acute uncomplicated interstitial pancreatitis Imaging reveals distended gallbladder without biliary ductal dilation. GI consultation and recommendations greatly appreciated Patient prescribed GLP 1 (TrMONOCOity), which has been held. No ETOH use PLAN - MRCP ordered for further evaluation of etiology of pancreatitis - hold GLP 1 - NPO and bowel rest - continue IVF - antiemetics Gastritis Duodenitis - famotidine - omeprazole Type 2 diabetes mellitus ISS NPO Hold Trulicity CHRONIC MEDICAL ISSUES HLD: Hold statin for now Asthma: Jonh pAlicerdavid QU[employer]ITY [employer] - VTE: Enoxaparin 40 mg - CODE STATUS: Full code - DIET: NPO Total time managing care of this patient today: 35 minutes. Quality Stroke Does the patient have a stroke diagnosis?: No Reason for No Anti-thrombotic by Day Two: N/A - Med Ordered VTE Prior VTE?: No VTE Risk Level:: Medical - moderate - high VTE Device Contraindication: N/A - Device Ordered VTE Drug Contraindication: N/A - Med Ordered
[2025-02-14 13:42] LABS: Glucose, Whole Blood 177 mg/dL (60-115)
[2025-02-14 16:24] LABS: Glucose, Whole Blood 157 mg/dL (60-115)
[2025-02-14 19:46] LABS: Glucose, Whole Blood 99 mg/dL (60-115)
[2025-02-15] VITALS (7 sets, daily range): BP systolic 143–187; BP diastolic 71–83; PULSE 73–96; RESP 16–19; TEMP 36.1–36.6; O2SAT 95–98
[2025-02-15 00:54] LABS: Glucose, Whole Blood 80 mg/dL (60-115)
[2025-02-15 07:32] LABS: Glucose, Whole Blood 88 mg/dL (60-115)
[2025-02-15 08:38] LABS: ~HepC Num1 14.71 S/CO (0.00-0.79); ~Hepatitis C Antibody Reactive (Nonreactive)
--- NOTE | 2025-02-15 10:59 | MHC.CM.PN ---
Per MD rounds patient not medically cleared for dc. CM will continue to follow.
[2025-02-15 11:14] LABS: Glucose, Whole Blood 153 mg/dL (60-115)
--- NOTE | 2025-02-15 12:35 | HO.ANESPROP2 ---
Documented by User: Marilee Parisi NP 02/15/25 13:03 HPI - Anesthesia Eval Consult details Narrative: 64 yr old female for ERCP Relocated from [place] 1 month ago. Had cataract surgery October,November 2024. No recent illness. No CP/SOB, walks daily. Type 2 DM: unsure of her last A1C, stopped GLP-1 2 weeks ago Asthma: well controlled, prn albuterol approx monthly Anesthesia Pre-Procedure Meds Is the patient on any of the following meds?: GLP1/DPP4 (01/31/25) [facility] Active Problems Active Problems: All Active Problems (Updated 02/14/25 @ 01:50 by CAROLINA Hagan) Asthma (Acute) Acute pancreatitis (Acute) Pancreatitis (Acute) Diabetes type 2, controlled (Acute) Vitamin D deficiency (Acute) Overweight (BMI 25.0-29.9) (Acute) Dyslipidemia (Acute) retirement (current) use of insulin (Acute) Past Medical History Medical History Migraine Asthma Diabetes type 2, controlled Vitamin D deficiency Overweight (BMI 25.0-29.9) Dyslipidemia retirement (current) use of insulin Functional capacity: independent ambulation Family History Family history of problems with anesthesia: No Surgical History Surgical History History of H/O: hysterectomy History of Problems with Anesthesia: No Social History Social History Household Members: Significant Other Housing: Apartment Are you a primary healthcare account manager to a significant other at home: No Do you presently have visiting nurse or other home services: No Patient Tobacco Use Status: Never used Tobacco service: No Meds Allergies Allergy/AdvReac Type Severity Reaction Status Date / Time No Known Allergies (No Known Allergy Unverified 02/13/25 17:43 Allergies*) Active Medications: Current Medications Acetaminophen (Acetaminophen 325 Mg Tablet) 650 mg PO Q6H PRN PRN Reason: Pain, Mild 1-3,fever,headache Last Admin: 02/15/25 10:56 Dose: 650 mg Albuterol Sulfate (Albuterol Sulfate 90 Mcg 8 Gm Inhaler) 2 puff INHALE Q4H PRN PRN Reason: Shortness Of Breath Or Wheezing Albuterol/Ipratropium (Albuterol/Iprat 2.5/0.5mg 3 Ml Ampul.Neb) 3 ml INHALE Q4H PRN PRN Reason: Shortness of Breath/Wheezing Calcium Carbonate (Calcium Carbonate 750 Mg Tab.Chew) 750 mg PO Q4H PRN PRN Reason: Heartburn Dextrose (Dextrose 50 % 25 Gm/50 Ml Syringe) 25 gm IVPUSH Q15M PRN; Protocol PRN Reason: per Hypoglycemia Standing Ord. Enoxaparin Sodium (Enoxaparin Sodium 40 Mg/0.4 Ml Syringe) 40 mg SUBCUT Q24H [facility] Last Admin: 02/15/25 00:48 Dose: 40 mg Famotidine (Famotidine/Pf 20 Mg/2 Ml Vial) 20 mg IVPUSH DAILY [facility] Last Admin: 02/15/25 08:01 Dose: 20 mg Glucose (Glucose Gel 15 Gm Gel..Gram.) 15 gm PO Q15M PRN; Protocol PRN Reason: per Hypoglycemia Standing Ord. Hydromorphone HCl (Hydromorphone Hcl 0.5 Mg/0.5 Ml Syringe) 0.5 mg IVPUSH Q3H PRN; Protocol PRN Reason: Pain, Severe (Pain Scale 7-10) Last Admin: 02/14/25 09:10 Dose: 0.5 mg Sodium Chloride (Ns) 1,000 mls @ 125 mls/hr IVCONT .Q8H [facility] Last Admin: 02/15/25 08:01 Dose: 125 mls/hr Insulin Human Lispro (Insulin Lispro 100 Unit/Ml 3 Ml Vial) 0 unit SUBCUT QIDACHS [facility]; Protocol Last Admin: 02/15/25 12:03 Dose: 2 unit Lisinopril (Lisinopril 10 Mg Tablet) 10 mg PO DAILY [facility]; Protocol Last Admin: 02/15/25 08:01 Dose: 10 mg Magnesium Hydroxide (Milk Of Magnesia 30 Ml Oral.Susp) 30 ml PO DAILY PRN PRN Reason: Constipation Melatonin (Melatonin 3 Mg Tablet) 6 mg PO BEDTIME PRN PRN Reason: Insomnia Metoclopramide HCl (Metoclopramide Hcl 5 Mg Tablet) 5 mg PO Q6H PRN PRN Reason: Nausea and Vomiting Last Admin: 02/14/25 13:59 Dose: 5 mg Ondansetron HCl (Ondansetron Hcl 4 Mg/2 Ml Vial) 4 mg IVPUSH Q8H PRN PRN Reason: Nausea and Vomiting Last Admin: 02/14/25 07:57 Dose: 4 mg Pantoprazole Sodium (Pantoprazole Sodium 40 Mg/10 Ml Vial) 40 mg IVPUSH DAILY@0630 [facility] Last Admin: 02/15/25 06:23 Dose: 40 mg Polyethylene Glycol (Polyethylene Glycol 3350 17 Gm Powd.Pack) 17 gm PO DAILY PRN PRN Reason: Constipation Sodium Chloride (0.9 % Sodium Chloride Flush 3 Ml Syringe) 3 ml IVFLUSH QSHIFT [facility] Last Admin: 02/15/25 08:02 Dose: Not Given Home Medications ?Medication ?Instructions ?Recorded ?Confirmed ?Last Taken ?Type gabapentin 300 mg capsule 300 mg PO TID 03/30/20 02/14/25 02/11/25 History albuterol sulfate 2.5 mg/3 mL 2.5 mg inhalation Q6H PRN 02/14/25 02/14/25 02/11/25 History (0.083 %) solution for nebulization Shortness Of Breath Or Wheezing albuterol sulfate 90 mcg/actuation 2 inh inhalation Q4-6H PRN 02/14/25 02/14/25 02/11/25 History aerosol inhaler Shortness Of Breath Or Wheezing atorvastatin 10 mg tablet 10 mg PO DAILY 02/14/25 02/14/25 02/11/25 History glipizide 10 mg tablet, extended 10 mg PO DAILY 02/14/25 02/14/25 02/11/25 History release 24 hr lisinopril 10 mg tablet 10 mg PO DAILY 02/14/25 02/14/25 02/11/25 History metformin 1,000 mg tablet 1,000 mg PO DAILY 02/14/25 02/14/25 02/11/25 History Exam Height,Weight and Vital Signs: Height 5 ft 5 in Weight 70.7 kg Last Vital Signs Temp 97.4 F 02/15/25 11:46 Pulse 74 02/15/25 11:46 Resp 16 02/15/25 11:46 BP 165/74 H 02/15/25 11:46 Pulse Ox 96 02/15/25 11:46 O2 Del Method Room Air 02/15/25 11:46 Pertinent Lab Results Pertinent Lab Results: Laboratory Tests 02/13/25 02/13/25 02/13/25 18:22 19:13 20:44 WBC 17.6 H RBC 4.27 Hgb 11.7 L Hct 35.6 L MCV 83.4 MCH 27.4 MCHC 32.9 RDW 13.0 Plt Count 177 MPV 9.6 Immature Gran % (Auto) 0.5 H Neut % (Auto) 87.9 H Lymph % (Auto) 4.9 L [place] % (Auto) 6.4 Eos % (Auto) 0.1 Baso % (Auto) 0.2 Lymph # (Auto) 0.9 L [place] # (Auto) 1.1 Eos # (Auto) 0.0 Baso # (Auto) 0.0 Abs Immat Gran (auto) 0.09 H Absolute Neuts (auto) 15.5 H Absolute Nucleated RBC 0.000 Nucleated RBC % (auto) 0.0 PT 12.9 H INR 1.1 APTT 26.1 L Sodium 140 Potassium 3.8 Chloride 104 Carbon Dioxide 28 Anion Gap 12 BUN 10 Creatinine 0.69 Estim Creat Clear Calc 79.4 Estimated GFR > 60 POC Glucose Random Glucose 154 H Calcium 9.1 Total Bilirubin 0.7 AST 112 H ALT 59 H Alkaline Phosphatase 80 Troponin I High Sens 2.7 Total Protein 7.7 Albumin 4.1 Triglycerides 52 Lipase 871 H Urine Color [place] A Urine Appearance Clear Urine pH 7.5 Ur Specific [place] 1.010 Urine Protein Negative Urine Glucose (UA) Negative Urine Ketones Negative Urine Blood Negative Urine Nitrite Negative Ur Leukocyte Esterase Negative Urine RBC 0-2 Urine WBC 0-5 Ur Squamous Epith Cells 0-2 Urine Bacteria None Seen Hyaline Casts 0-2 Ethyl Alcohol 10 Hepatitis C Ab (EIA) 02/14/25 02/14/25 02/14/25 02:35 04:49 07:37 WBC 15.5 H RBC 3.83 L Hgb 10.5 L Hct 31.9 L MCV 83.3 MCH 27.4 MCHC 32.9 RDW 13.2 Plt Count 148 L MPV 9.3 L Immature Gran % (Auto) 0.6 H Neut % (Auto) 84.9 H Lymph % (Auto) 8.1 L [place] % (Auto) 6.1 Eos % (Auto) 0.1 Baso % (Auto) 0.2 Lymph # (Auto) 1.3 [place] # (Auto) 1.0 Eos # (Auto) 0.0 Baso # (Auto) 0.0 Abs Immat Gran (auto) 0.09 H Absolute Neuts (auto) 13.2 H Absolute Nucleated RBC 0.000 Nucleated RBC % (auto) 0.0 PT INR APTT Sodium 141 Potassium 3.9 Chloride 108 Carbon Dioxide 27 Anion Gap 10 L BUN 9 Creatinine 0.65 Estim Creat Clear Calc 84.2 Estimated GFR > 60 POC Glucose 163 H 154 H Random Glucose 176 H Calcium 8.2 L D Total Bilirubin 0.6 AST 54 H ALT 42 H Alkaline Phosphatase 60 Troponin I High Sens Total Protein 6.8 Albumin 3.6 Triglycerides Lipase 322 H Urine Color Urine Appearance Urine pH Ur Specific [place] Urine Protein Urine Glucose (UA) Urine Ketones Urine Blood Urine Nitrite Ur Leukocyte Esterase Urine RBC Urine WBC Ur Squamous Epith Cells Urine Bacteria Hyaline Casts Ethyl Alcohol Hepatitis C Ab (EIA) 02/14/25 02/14/25 02/14/25 11:11 12:51 13:39 WBC RBC Hgb Hct MCV MCH MCHC RDW Plt Count MPV Immature Gran % (Auto) Neut % (Auto) Lymph % (Auto) [place] % (Auto) Eos % (Auto) Baso % (Auto) Lymph # (Auto) [place] # (Auto) Eos # (Auto) Baso # (Auto) Abs Immat Gran (auto) Absolute Neuts (auto) Absolute Nucleated RBC Nucleated RBC % (auto) PT INR APTT Sodium Potassium Chloride Carbon Dioxide Anion Gap BUN Creatinine Estim Creat Clear Calc Estimated GFR POC Glucose 195 H 177 H Random Glucose Calcium Total Bilirubin AST ALT Alkaline Phosphatase Troponin I High Sens Total Protein Albumin Triglycerides Lipase Urine Color Urine Appearance Urine pH Ur Specific [place] Urine Protein Urine Glucose (UA) Urine Ketones Urine Blood Urine Nitrite Ur Leukocyte Esterase Urine RBC Urine WBC Ur Squamous Epith Cells Urine Bacteria Hyaline Casts Ethyl Alcohol Hepatitis C Ab (EIA) Reactive H 02/14/25 02/14/25 02/15/25 16:10 19:41 00:50 WBC RBC Hgb Hct MCV MCH MCHC RDW Plt Count MPV Immature Gran % (Auto) Neut % (Auto) Lymph % (Auto) [place] % (Auto) Eos % (Auto) Baso % (Auto) Lymph # (Auto) [place] # (Auto) Eos # (Auto) Baso # (Auto) Abs Immat Gran (auto) Absolute Neuts (auto) Absolute Nucleated RBC Nucleated RBC % (auto) PT INR APTT Sodium Potassium Chloride Carbon Dioxide Anion Gap BUN Creatinine Estim Creat Clear Calc Estimated GFR POC Glucose 157 H 99 80 Random Glucose Calcium Total Bilirubin AST ALT Alkaline Phosphatase Troponin I High Sens Total Protein Albumin Triglycerides Lipase Urine Color Urine Appearance Urine pH Ur Specific [place] Urine Protein Urine Glucose (UA) Urine Ketones Urine Blood Urine Nitrite Ur Leukocyte Esterase Urine RBC Urine WBC Ur Squamous Epith Cells Urine Bacteria Hyaline Casts Ethyl Alcohol Hepatitis C Ab (EIA) 02/15/25 02/15/25 07:18 11:08 WBC RBC Hgb Hct MCV MCH MCHC RDW Plt Count MPV Immature Gran % (Auto) Neut % (Auto) Lymph % (Auto) [place] % (Auto) Eos % (Auto) Baso % (Auto) Lymph # (Auto) [place] # (Auto) Eos # (Auto) Baso # (Auto) Abs Immat Gran (auto) Absolute Neuts (auto) Absolute Nucleated RBC Nucleated RBC % (auto) PT INR APTT Sodium Potassium Chloride Carbon Dioxide Anion Gap BUN Creatinine Estim Creat Clear Calc Estimated GFR POC Glucose 88 153 H Random Glucose Calcium Total Bilirubin AST ALT Alkaline Phosphatase Troponin I High Sens Total Protein Albumin Triglycerides Lipase Urine Color Urine Appearance Urine pH Ur Specific [place] Urine Protein Urine Glucose (UA) Urine Ketones Urine Blood Urine Nitrite Ur Leukocyte Esterase Urine RBC Urine WBC Ur Squamous Epith Cells Urine Bacteria Hyaline Casts Ethyl Alcohol Hepatitis C Ab (EIA) Narrative Narrative: EKG 02/13/25 Vent. Rate : 82 BPM Atrial Rate : 82 BPM P-R Int : 154 ms QRS Dur : 80 ms QT Int : 334 ms P-R-T Axes : 67 -35 43 degrees QTcB Int : 390 ms Normal sinus rhythm Left axis deviation Abnormal ECG When compared with ECG of 06-Oct-2017 19:41, No significant change was found Airway Mallampati Class: III TM Dist: >3cm Neck ROM: Full Denture: Upper Partial: Lower Loose/Missing/Broken Teeth: Yes, Upper (M) and Lower (M) Heart: RRR Lungs: CTAB Assessment and Plan Final Anesthetic Review Family History of Problems with Anesthesia: No History of Problems with Anesthesia: No Documented by User: Ron Acosta MD 02/16/25 12:26 [facility] Past Medical History Medical History Migraine Asthma Diabetes type 2, controlled Vitamin D deficiency Overweight (BMI 25.0-29.9) 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 Surgical History Surgical History History of H/O: hysterectomy Social History Social History Household Members: Significant Other Housing: Apartment Are you a primary healthcare account manager to a significant other at home: No Do you presently have visiting nurse or other home services: No Patient Tobacco Use Status: Never used Tobacco service: No Meds Allergies Allergy/AdvReac Type Severity Reaction Status Date / Time No Known Allergies (No Known Allergy Unverified 02/13/25 17:43 Allergies*) Home Medications ?Medication ?Instructions ?Recorded ?Confirmed ?Last Taken ?Type gabapentin 300 mg capsule 300 mg PO TID 03/30/20 02/14/25 02/11/25 History albuterol sulfate 2.5 mg/3 mL 2.5 mg inhalation Q6H PRN 02/14/25 02/14/25 02/11/25 History (0.083 %) solution for nebulization Shortness Of Breath Or Wheezing albuterol sulfate 90 mcg/actuation 2 inh inhalation Q4-6H PRN 02/14/25 02/14/25 02/11/25 History aerosol inhaler Shortness Of Breath Or Wheezing atorvastatin 10 mg tablet 10 mg PO DAILY 02/14/25 02/14/25 02/11/25 History glipizide 10 mg tablet, extended 10 mg PO DAILY 02/14/25 02/14/25 02/11/25 History release 24 hr lisinopril 10 mg tablet 10 mg PO DAILY 02/14/25 02/14/25 02/11/25 History metformin 1,000 mg tablet 1,000 mg PO DAILY 02/14/25 02/14/25 02/11/25 History Assessment and Plan Assessment Anesthesia Assessment: Anesthesia Plan Discussed and Chart Reviewed Final Anesthetic Review NPO: Yes ASA Class: III Final Preanesthetic Review: No Changes in Pt Med Stat, Meds/Allgs Chart Reviewed, Consent Obtained/Reviewed and Anes Risks/Benef Reviewed Patient Risk: Intermediate Procedure Risk: Intermediate Anesthetic Plan Anesthetic Plan: GA and Agree w/ Assess. and Plan Disposition: Standard PACU
[2025-02-15 12:39] LABS: Immunoglobulin G Subclass 1 944 mg/dL (382-929); Immunoglobulin G Subclass 2 370 mg/dL (241-700); Immunoglobulin G Subclass 3 148 mg/dL (22-178); Immunoglobulin G Subclass 4 29.6 mg/dL (4-86); Immunoglobulin G Total 1447 mg/dL (600-1540)
--- NOTE | 2025-02-15 14:20 | P.PNIM_ITS ---
Subjective Subjective Date of Service: 02/15/25 Interval History: Feeling much better today, with mild tenderness in the epigastrium. Appetite has returned, and advancing diet to clear liquid diet today. Patient is in agreement Physical Exam 2 Exam: Exam: General: A&O x3, oriented to time place person and situation, comfortable, no pain Cardiac: S1, S2 auscultated with no S3/4, no MRG. Well perfused. Respiratory: Normal breath sounds auscultated throughout all lung zones, without wheezing, rales. Normal rate. GI/ : Mild epigastric tenderness on palpation. No abdominal distention, no hyper-resonance on percussion, no flank tenderness, normal bowel sounds. MSK: Normal ambulation without pain at bony prominences or musculature Neurological: Normal neurological examination on overview, without obvious CN II-XII abnormalities. Vital Signs: Vital Signs: Last Vital Signs Temp 97.4 F 02/15/25 11:46 Pulse 74 02/15/25 11:46 Resp 16 02/15/25 11:46 BP 165/74 H 02/15/25 11:46 Pulse Ox 96 02/15/25 11:46 O2 Del Method Room Air 02/15/25 11:46 BMI result Body Mass Index 25.9 Objective Data Active Medications Acetaminophen (Acetaminophen 325 Mg Tablet) 650 mg PO Q6H PRN PRN Reason: Pain, Mild 1-3,fever,headache Last Admin: 02/15/25 10:56 Dose: 650 mg Documented By: KELLEN Albuterol Sulfate (Albuterol Sulfate 90 Mcg 8 Gm Inhaler) 2 puff INHALE Q4H PRN PRN Reason: Shortness Of Breath Or Wheezing Albuterol/Ipratropium (Albuterol/Iprat 2.5/0.5mg 3 Ml Ampul.Neb) 3 ml INHALE Q4H PRN PRN Reason: Shortness of Breath/Wheezing Calcium Carbonate (Calcium Carbonate 750 Mg Tab.Chew) 750 mg PO Q4H PRN PRN Reason: Heartburn Dextrose (Dextrose 50 % 25 Gm/50 Ml Syringe) 25 gm IVPUSH Q15M PRN; Protocol PRN Reason: per Hypoglycemia Standing Ord. Enoxaparin Sodium (Enoxaparin Sodium 40 Mg/0.4 Ml Syringe) 40 mg SUBCUT Q24H [facility] Last Admin: 02/15/25 00:48 Dose: 40 mg Documented By: JENNIFER Famotidine (Famotidine/Pf 20 Mg/2 Ml Vial) 20 mg IVPUSH DAILY [facility] Last Admin: 02/15/25 08:01 Dose: 20 mg Documented By: KELLEN Glucose (Glucose Gel 15 Gm Gel..Gram.) 15 gm PO Q15M PRN; Protocol PRN Reason: per Hypoglycemia Standing Ord. Hydromorphone HCl (Hydromorphone Hcl 0.5 Mg/0.5 Ml Syringe) 0.5 mg IVPUSH Q3H PRN; Protocol PRN Reason: Pain, Severe (Pain Scale 7-10) Last Admin: 02/14/25 09:10 Dose: 0.5 mg Documented By: LOUISE Sodium Chloride (Ns) 1,000 mls @ 125 mls/hr IVCONT .Q8H [facility] Last Admin: 02/15/25 08:01 Dose: 125 mls/hr Documented By: KELLEN Insulin Human Lispro (Insulin Lispro 100 Unit/Ml 3 Ml Vial) 0 unit SUBCUT QIDACHS [facility]; Protocol Last Admin: 02/15/25 12:03 Dose: 2 unit Documented By: KELLEN Lisinopril (Lisinopril 10 Mg Tablet) 10 mg PO DAILY [facility]; Protocol Last Admin: 02/15/25 08:01 Dose: 10 mg Documented By: KELLEN Magnesium Hydroxide (Milk Of Magnesia 30 Ml Oral.Susp) 30 ml PO DAILY PRN PRN Reason: Constipation Melatonin (Melatonin 3 Mg Tablet) 6 mg PO BEDTIME PRN PRN Reason: Insomnia Metoclopramide HCl (Metoclopramide Hcl 5 Mg Tablet) 5 mg PO Q6H PRN PRN Reason: Nausea and Vomiting Last Admin: 02/14/25 13:59 Dose: 5 mg Documented By: LOUISE Ondansetron HCl (Ondansetron Hcl 4 Mg/2 Ml Vial) 4 mg IVPUSH Q8H PRN PRN Reason: Nausea and Vomiting Last Admin: 02/14/25 07:57 Dose: 4 mg Documented By: LOUISE Pantoprazole Sodium (Pantoprazole Sodium 40 Mg/10 Ml Vial) 40 mg IVPUSH DAILY@0630 [facility] Last Admin: 02/15/25 06:23 Dose: 40 mg Documented By: JENNIFER Polyethylene Glycol (Polyethylene Glycol 3350 17 Gm Powd.Pack) 17 gm PO DAILY PRN PRN Reason: Constipation Sodium Chloride (0.9 % Sodium Chloride Flush 3 Ml Syringe) 3 ml IVFLUSH QSHIFT [facility] Last Admin: 02/15/25 08:02 Dose: Not Given Documented By: KELLEN Non-Admin Reason: IV Running Labs 02/14/25 04:49 02/14/25 04:49 Labs: Laboratory Results - last 24 hr 02/14/25 02/14/25 02/14/25 12:50 12:51 16:10 POC Glucose 157 H IgG Total 1447 IgG Subclass 1 944 H IgG Subclass 2 370 IgG Subclass 3 148 IgG Subclass 4 29.6 Hepatitis C Ab (EIA) Reactive H 02/14/25 02/15/25 02/15/25 19:41 00:50 07:18 POC Glucose 99 80 88 IgG Total IgG Subclass 1 IgG Subclass 2 IgG Subclass 3 IgG Subclass 4 Hepatitis C Ab (EIA) 02/15/25 11:08 POC Glucose 153 H IgG Total IgG Subclass 1 IgG Subclass 2 IgG Subclass 3 IgG Subclass 4 Hepatitis C Ab (EIA) Microbiology Microbiology Results: Microbiology 02/14/25 04:49 Blood Culture - Preliminary Blood - Venous No growth after 24 hours. 02/14/25 04:49 Blood Culture - Preliminary Blood - Venous No growth after 24 hours. 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 Acute uncomplicated interstitial pancreatitis Imaging reveals distended gallbladder without biliary ductal dilation. GI consultation and recommendations greatly appreciated Patient prescribed GLP 1 (Trulicity), which has been held. No ETOH use PLAN - MRCP ordered for further evaluation of etiology of pancreatitis - hold GLP 1 - advance diet to clear liquid diet - continue IVF - antiemetics Gastritis Duodenitis - famotidine - omeprazole Type 2 diabetes mellitus ISS NPO Hold Trulicity CHRONIC MEDICAL ISSUES HLD: Hold statin for now Asthma: Jonh martinez [employer] - VTE: Enoxaparin 40 mg - CODE STATUS: Full code - DIET: Clear liquid diet Quality Stroke Does the patient have a stroke diagnosis?: No Reason for No Anti-thrombotic by Day Two: N/A - Med Ordered VTE Prior VTE?: No VTE Risk Level:: Medical - moderate - high VTE Device Contraindication: N/A - Device Ordered VTE Drug Contraindication: N/A - Med Ordered
[2025-02-15 16:25] LABS: Glucose, Whole Blood 87 mg/dL (60-115)
--- NOTE | 2025-02-15 16:52 | P.PNGI_ITS ---
Subjective Subjective Date of Service: 02/15/25 Interval History: feels hungry today still has pain in ruq and epigastrium no fever or chills Critical Care Time (minutes): 0 Physical Exam 2 Exam: Exam: EXAM: GENERAL: The patient is well developed and nontoxic. VITAL SIGNS:see workflow HEENT: Nonicteric sclerae, PERRLA, EOMI. Oropharynx clear. Moist mucous membranes. Conjunctivae appear well perfused. No thyroid mass. CHEST: Chest wall is nontender. HEART: Regular rate and rhythm without murmurs. LUNGS: Clear to auscultation bilaterally. ABDOMEN: Soft, positive bowel sounds, tender ruq, no organomegaly.no flank tenderness SKIN: No rash, no excessive bruising, petechiae, or purpura. NEUROLOGIC: Cranial nerves II-XII intact without motor/sensory deficit. Psych: normal affect Vital Signs: Vital Signs: Last Vital Signs Temp 97.2 F 02/15/25 15:17 Pulse 80 02/15/25 15:17 Resp 18 02/15/25 15:17 BP 143/78 H 02/15/25 15:17 Pulse Ox 95 02/15/25 15:17 O2 Del Method Room Air 02/15/25 15:17 BMI result Body Mass Index 25.9 Objective Data Labs 02/14/25 04:49 02/14/25 04:49 Labs: Laboratory Results - last 24 hr 02/14/25 02/14/25 02/14/25 12:50 12:51 19:41 POC Glucose 99 IgG Total 1447 IgG Subclass 1 944 H IgG Subclass 2 370 IgG Subclass 3 148 IgG Subclass 4 29.6 Hepatitis C Ab (EIA) Reactive H 02/15/25 02/15/25 02/15/25 00:50 07:18 11:08 POC Glucose 80 88 153 H IgG Total IgG Subclass 1 IgG Subclass 2 IgG Subclass 3 IgG Subclass 4 Hepatitis C Ab (EIA) 02/15/25 16:08 POC Glucose 87 IgG Total IgG Subclass 1 IgG Subclass 2 IgG Subclass 3 IgG Subclass 4 Hepatitis C Ab (EIA) Imaging MRI - abdomen: Attestation: I personally reviewed and interpreted this imaging study as follows: (cluster of small filling defects in neck of GB, few in CBD) Microbiology Microbiology Results: Microbiology 02/14/25 04:49 Blood - Venous Blood Culture - Preliminary No growth after 24 hours. 02/14/25 04:49 Blood - Venous Blood Culture - Preliminary No growth after 24 hours. Procedures Date of Service Date of Service: 02/15/25 Progress Note: A&P Assessment and plan (1) Acute pancreatitis: Status: Acute Plan 1/ Choledocholithiasis and cholelithiasis with presumed gallstone pancreatitis PLAN: 1/ recommend surgical consult 2/ ercp tomorrow for clearance of duct Time Spent With Patient Time: Total time managing care of this patient today ____ minutes. Quality Stroke Does the patient have a stroke diagnosis?: No Reason for No Anti-thrombotic by Day Two: N/A - Med Ordered VTE Prior VTE?: No VTE Risk Level:: Medical - moderate - high VTE Device Contraindication: N/A - Device Ordered VTE Drug Contraindication: N/A - Med Ordered
[2025-02-15 20:40] LABS: Glucose, Whole Blood 155 mg/dL (60-115)
[2025-02-15 20:54] LABS: Immunoglobulin A 290 mg/dL (70-320)
[2025-02-16] VITALS (10 sets, daily range): BP systolic 156–191; BP diastolic 57–98; PULSE 76–91; RESP 13–20; TEMP 36.3–36.9; O2SAT 93–100
[2025-02-16 07:32] LABS: Glucose, Whole Blood 104 mg/dL (60-115)
[2025-02-16 11:20] LABS: Glucose, Whole Blood 119 mg/dL (60-115)
--- NOTE | 2025-02-16 12:08 | PC.NURSE ---
1155- patient picked up for transport to [facility] for scheduled ERCP today.
--- NOTE | 2025-02-16 12:17 | PC.NURSE ---
dr. ames updated regarding bp results. okay to proceed per doctor. no interventions at this time.
--- NOTE | 2025-02-16 13:08 | P.PNGI_ITS ---
Subjective Subjective Date of Service: 02/16/25 Interval History: still having some pain no n/v no fever Critical Care Time (minutes): 0 Physical Exam 2 Exam: Exam: EXAM: GENERAL: The patient is well developed and nontoxic. VITAL SIGNS:see workflow HEENT: Nonicteric sclerae, PERRLA, EOMI. Oropharynx clear. Moist mucous membranes. Conjunctivae appear well perfused. No thyroid mass. CHEST: Chest wall is nontender. HEART: Regular rate and rhythm without murmurs. LUNGS: Clear to auscultation bilaterally. ABDOMEN: Soft, positive bowel sounds, tender RUQ, no organomegaly.no flank tenderness SKIN: No rash, no excessive bruising, petechiae, or purpura. NEUROLOGIC: Cranial nerves II-XII intact without motor/sensory deficit. Psych: normal affect Vital Signs: Vital Signs: Last Vital Signs Temp 97.9 F 02/16/25 12:16 Pulse 91 02/16/25 12:16 Resp 18 02/16/25 12:16 BP 169/84 H 02/16/25 12:58 Pulse Ox 98 02/16/25 12:16 O2 Del Method Room Air 02/16/25 12:16 BMI result Body Mass Index 25.9 Objective Data Labs 02/14/25 04:49 02/14/25 04:49 Labs: Laboratory Results - last 24 hr 02/14/25 02/14/25 02/15/25 04:49 12:50 16:08 POC Glucose 87 Direct Bilirubin 0.2 IgA 290 Tiss Transglutamin IgA <1.0 Celiac Disease Interp SEE NOTE 02/15/25 02/16/25 02/16/25 20:32 07:23 11:14 POC Glucose 155 H 104 119 H Direct Bilirubin IgA Tiss Transglutamin IgA Celiac Disease Interp Microbiology Microbiology Results: Microbiology 02/14/25 04:49 Blood - Venous Blood Culture - Preliminary No growth after 48 hours. 02/14/25 04:49 Blood - Venous Blood Culture - Preliminary No growth after 48 hours. Procedures Date of Service Date of Service: 02/16/25 Progress Note: A&P Assessment and plan (1) Acute pancreatitis: Status: Acute Plan 1/ Gallstone pancreatitis , MRCP pos for CBD stones PLAN: 1/ ERCP today for further assessment Time Spent With Patient Time: Total time managing care of this patient today ____ minutes. Quality Stroke Does the patient have a stroke diagnosis?: No Reason for No Anti-thrombotic by Day Two: N/A - Med Ordered VTE Prior VTE?: No VTE Risk Level:: Medical - moderate - high VTE Device Contraindication: N/A - Device Ordered VTE Drug Contraindication: N/A - Med Ordered
--- NOTE | 2025-02-16 15:49 | W.PM.OPN ---
Operative Note Operative Note Date of Service: 02/16/25 Narrative: Description:?Endoscopic retrograde cholangiopancreatography (ERCP) PROCEDURE:?Endoscopic retrograde cholangiopancreatography and sphincterotomy with PD stent placement INDICATION FOR THE PROCEDURE:?Patient with a history of gallstone pancreatitis, MRCP with stones in CBD MEDICATIONS:?General anesthesia, cefazolin 2 g, indomethacin 100 mg DC The risks of the procedure were made aware to the patient and consisted of medication reaction, bleeding, perforation, aspiration, and post ERCP pancreatitis. DESCRIPTION OF PROCEDURE:?After informed consent and appropriate sedation, the duodenoscope was inserted into the oropharynx, down the esophagus, and into the stomach. The scope was then advanced through the pylorus to the ampulla. A wire guided technique was used and initially the wire seemed to go into the PD. The wire was repositioned and then seemed to go into the CBD and duct could be seen on cholangiogram. A sphincterotomy was performed. No stones were seen. The wire was lost and it was difficult to regain access to the duct and the wire kept going into the PD. at this point after many attempts a PD stent was placed 3 fr x 4 cm to reduce risk of pancreatitis and the procedure was terminated. FINDINGS: 1. PD stent placement 2. sphincterotomy RECOMMENDATIONS: 1. NPO except ice chips today, can advance diet tomorrow if no abdominal pain 2. Surgical consult, for cholecystectomy.
[2025-02-16 16:50] LABS: Glucose, Whole Blood 173 mg/dL (60-115)
--- NOTE | 2025-02-16 18:27 | P.PNIM_ITS ---
Subjective Subjective Date of Service: 02/16/25 Interval History: Feels well today with some recurrence of her epigastric pain. Her MRCP yesterday revealed evidence of gallstone pancreatitis. She was made NPO last night for a planned ERCP today. The patient has eager to have her procedure completed. Review of Systems Review of Systems: Yes all other systems are reviewed and are negative Physical Exam 2 Exam: Exam: General: A&O x3, oriented to time place person and situation, comfortable, no pain Cardiac: S1, S2 auscultated with no S3/4, no MRG. Well perfused. Respiratory: Normal breath sounds auscultated throughout all lung zones, without wheezing, rales. Normal rate. GI/ : No abdominal pain on palpation, no masses or distentions. MSK: Normal ambulation without pain at bony prominences or musculature Neurological: Normal neurological examination on overview, without obvious CN II-XII abnormalities. Vital Signs: Vital Signs: Last Vital Signs Temp 97.7 F 02/16/25 15:53 Pulse 89 02/16/25 16:08 Resp 14 02/16/25 16:08 BP 171/57 H 02/16/25 16:08 Pulse Ox 99 02/16/25 16:08 O2 Del Method Room Air 02/16/25 16:08 O2 Flow Rate 6 02/16/25 15:53 BMI result Body Mass Index 25.9 Objective Data Active Medications Acetaminophen (Acetaminophen 325 Mg Tablet) 650 mg PO Q6H PRN PRN Reason: Pain, Mild 1-3,fever,headache Last Admin: 02/16/25 03:58 Dose: 650 mg Documented By: JENNIFER Albuterol Sulfate (Albuterol Sulfate 90 Mcg 8 Gm Inhaler) 2 puff INHALE Q4H PRN PRN Reason: Shortness Of Breath Or Wheezing Albuterol/Ipratropium (Albuterol/Iprat 2.5/0.5mg 3 Ml Ampul.Neb) 3 ml INHALE Q4H PRN PRN Reason: Shortness of Breath/Wheezing Calcium Carbonate (Calcium Carbonate 750 Mg Tab.Chew) 750 mg PO Q4H PRN PRN Reason: Heartburn Dextrose (Dextrose 50 % 25 Gm/50 Ml Syringe) 25 gm IVPUSH Q15M PRN; Protocol PRN Reason: per Hypoglycemia Standing Ord. Enoxaparin Sodium (Enoxaparin Sodium 40 Mg/0.4 Ml Syringe) 40 mg SUBCUT Q24H [facility] Last Admin: 02/16/25 02:10 Dose: 40 mg Documented By: JENNIFER Famotidine (Famotidine/Pf 20 Mg/2 Ml Vial) 20 mg IVPUSH DAILY [facility] Last Admin: 02/16/25 08:29 Dose: 20 mg Documented By: MARIO Glucose (Glucose Gel 15 Gm Gel..Gram.) 15 gm PO Q15M PRN; Protocol PRN Reason: per Hypoglycemia Standing Ord. Hydromorphone HCl (Hydromorphone Hcl 0.5 Mg/0.5 Ml Syringe) 0.5 mg IVPUSH Q3H PRN; Protocol PRN Reason: Pain, Severe (Pain Scale 7-10) Last Admin: 02/16/25 09:30 Dose: 0.5 mg Documented By: MARIO Sodium Chloride (Ns) 1,000 mls @ 125 mls/hr IVCONT .Q8H [facility] Last Admin: 02/16/25 16:56 Dose: Not Given Documented By: MARIO Non-Admin Reason: IV Running Insulin Human Lispro (Insulin Lispro 100 Unit/Ml 3 Ml Vial) 0 unit SUBCUT Q6H [facility]; Protocol Last Admin: 02/16/25 18:12 Dose: Not Given Documented By: MARIO Non-Admin Reason: Physician Held Med Lisinopril (Lisinopril 10 Mg Tablet) 10 mg PO DAILY [facility]; Protocol Last Admin: 02/16/25 08:29 Dose: 10 mg Documented By: MARIO Magnesium Hydroxide (Milk Of Magnesia 30 Ml Oral.Susp) 30 ml PO DAILY PRN PRN Reason: Constipation Melatonin (Melatonin 3 Mg Tablet) 6 mg PO BEDTIME PRN PRN Reason: Insomnia Metoclopramide HCl (Metoclopramide Hcl 5 Mg Tablet) 5 mg PO Q6H PRN PRN Reason: Nausea and Vomiting Last Admin: 02/14/25 13:59 Dose: 5 mg Documented By: LOUISE Ondansetron HCl (Ondansetron Hcl 4 Mg/2 Ml Vial) 4 mg IVPUSH Q8H PRN PRN Reason: Nausea and Vomiting Last Admin: 02/16/25 17:06 Dose: 4 mg Documented By: MARIO Pantoprazole Sodium (Pantoprazole Sodium 40 Mg/10 Ml Vial) 40 mg IVPUSH DAILY@0630 [facility] Last Admin: 02/16/25 05:47 Dose: 40 mg Documented By: JENNIFER Polyethylene Glycol (Polyethylene Glycol 3350 17 Gm Powd.Pack) 17 gm PO DAILY PRN PRN Reason: Constipation Sodium Chloride (0.9 % Sodium Chloride Flush 3 Ml Syringe) 3 ml IVFLUSH QSHIFT [facility] Last Admin: 02/16/25 16:56 Dose: Not Given Documented By: MARIO Non-Admin Reason: Previously Administered Labs 02/14/25 04:49 02/14/25 04:49 Labs: Laboratory Results - last 24 hr 02/14/25 02/15/25 02/16/25 12:50 20:32 07:23 POC Glucose 155 H 104 IgA 290 Tiss Transglutamin IgA <1.0 Celiac Disease Interp SEE NOTE 02/16/25 02/16/25 11:14 16:37 POC Glucose 119 H 173 H IgA Tiss Transglutamin IgA Celiac Disease Interp Microbiology Microbiology Results: Microbiology 02/14/25 04:49 Blood Culture - Preliminary Blood - Venous No growth after 48 hours. 02/14/25 04:49 Blood Culture - Preliminary Blood - Venous No growth after 48 hours. 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 Acute uncomplicated interstitial gallstone pancreatitis Cholelithiasis and choledocholithiasis Imaging reveals distended gallbladder without biliary ductal dilation. GI consultation and recommendations greatly appreciated No ETOH use MRCP performed revealing evidence of cholelithiasis and choledocholithiasis likely resulting in gallstone pancreatitis. The patient went for her ERCP on 02/16/2025 PLAN - hold GLP 1 - advance diet to clear vs full liquid diet tomorrow - continue IVF - antiemetics - GI recommendations greatly appreciated Gastritis Duodenitis - famotidine - omeprazole Type 2 diabetes mellitus ISS NPO Hold [facility] CHRONIC MEDICAL ISSUES HLD: Hold statin for now Asthma: Jonh p.rAlicen. [employer] - VTE: Enoxaparin 40 mg - CODE STATUS: Full code - DIET: Clear liquid diet Quality Stroke Does the patient have a stroke diagnosis?: No Reason for No Anti-thrombotic by Day Two: N/A - Med Ordered VTE Prior VTE?: No VTE Risk Level:: Medical - moderate - high VTE Device Contraindication: N/A - Device Ordered VTE Drug Contraindication: N/A - Med Ordered
[2025-02-17] VITALS (7 sets, daily range): BP systolic 140–169; BP diastolic 70–99; PULSE 72–95; RESP 16–20; TEMP 36–36.8; O2SAT 95–96
[2025-02-17 00:24] LABS: Glucose, Whole Blood 115 mg/dL (60-115)
[2025-02-17 06:28] LABS: Glucose, Whole Blood 91 mg/dL (60-115)
--- NOTE | 2025-02-17 08:06 | HO.POSTANES ---
Post Anesthesia Evaluation Post Anesthesia Evaluation Date of Service: 02/17/25 Vital Signs: Vital Signs Temp Pulse Resp BP Pulse Ox O2 Del Method 02/17/25 07:46 97.3 F 88 18 159/70 H 95 Room Air 02/17/25 03:35 97.5 F 81 18 164/78 H 96 Room Air 02/17/25 00:00 98.2 F 83 20 169/84 H 96 Room Air Anesthesia: General Mental Status: Awake Pain Control: Satisfactory Nausea/Vomiting: None Hydration: Adequate Anesthesia-Related Issues: No Anes. Related Issues
--- NOTE | 2025-02-17 08:19 | PM.CNGS ---
History of Present Illness Consult details Consult date: 02/17/25 <ISRRAEL Carlos Last Filed: 02/17/25 08:38> Reason for consult: gallstones <ISRRAEL Carlos Last Filed: 02/17/25 08:38> Requesting physician: Arcelia Ng <ISRRAEL Carlos Last Filed: 02/17/25 08:38> Narrative: 64 year old wolof speaking female with PMH IDDM on trulicity, HLD, HTN, asthma, migraines who initially presented to the ED with complaints of severe epigastric abdominal pain. Workup included CT of the abdomen and pelvis which identified acute pancreatitis, distended gallbladder without bile duct dilatation. Labs significant for transaminitis and lipase of 871. GI was consulted who recommended MRCP which was consistent with choledocolithiasis. She underwent ERCP with sphincterotomy and PD stent placement yesterday. No stones were noted. General surgery was consulted for lap ronald. She feels improved this morning and is hungry and wants to eat and go home. She denies previous episodes of similar pain. She reports very mild epigastric pain but significantly improved since admission. PSH significant for hysterectomy and C section. 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 <ISRRAEL Carlos Last Filed: 02/17/25 08:38> Surgical History Surgical History: Surgical History History of H/O: hysterectomy <ISRRAEL Carlos Last Filed: 02/17/25 08:38> Social History Social History: Social History Household Members: Significant Other Housing: Apartment Are you a primary child caregiver to a significant other at home: No Do you presently have visiting nurse or other home services: No Patient Tobacco Use Status: Never used Tobacco service: No <Angle Madrid PA-C - Last Filed: 02/17/25 08:38> Travel History Ebola Risk: Travel/Contact With Anyone From Affected Area/s: No <Angle Madrid PA-C - Last Filed: 02/17/25 08:38> Has Patient Experienced Ebola Symptoms: No <ISRRAEL Carlos Last Filed: 02/17/25 08:38> Meds Allergies/Adverse reactions: Allergies Allergy/AdvReac Type Severity Reaction Status Date / Time No Known Allergies (No Known Allergy Unverified 02/13/25 17:43 Allergies*) <Angle Madrid PA-C - Last Filed: 02/17/25 08:38> Active Medications: Current Medications Acetaminophen (Acetaminophen 325 Mg Tablet) 650 mg PO Q6H PRN PRN Reason: Pain, Mild 1-3,fever,headache Last Admin: 02/16/25 03:58 Dose: 650 mg Albuterol Sulfate (Albuterol Sulfate 90 Mcg 8 Gm Inhaler) 2 puff INHALE Q4H PRN PRN Reason: Shortness Of Breath Or Wheezing Albuterol/Ipratropium (Albuterol/Iprat 2.5/0.5mg 3 Ml Ampul.Neb) 3 ml INHALE Q4H PRN PRN Reason: Shortness of Breath/Wheezing Calcium Carbonate (Calcium Carbonate 750 Mg Tab.Chew) 750 mg PO Q4H PRN PRN Reason: Heartburn Dextrose (Dextrose 50 % 25 Gm/50 Ml Syringe) 25 gm IVPUSH Q15M PRN; Protocol PRN Reason: per Hypoglycemia Standing Ord. Enoxaparin Sodium (Enoxaparin Sodium 40 Mg/0.4 Ml Syringe) 40 mg SUBCUT Q24H [facility] Last Admin: 02/17/25 01:42 Dose: 40 mg Famotidine (Famotidine 20 Mg Tablet) 20 mg PO DAILY [facility] Last Admin: 02/17/25 08:06 Dose: 20 mg Glucose (Glucose Gel 15 Gm Gel..Gram.) 15 gm PO Q15M PRN; Protocol PRN Reason: per Hypoglycemia Standing Ord. Hydromorphone HCl (Hydromorphone Hcl 0.5 Mg/0.5 Ml Syringe) 0.5 mg IVPUSH Q3H PRN; Protocol PRN Reason: Pain, Severe (Pain Scale 7-10) Last Admin: 02/16/25 09:30 Dose: 0.5 mg Sodium Chloride (Ns) 1,000 mls @ 125 mls/hr IVCONT .Q8H [facility] Last Admin: 02/17/25 05:00 Dose: 125 mls/hr Insulin Human Lispro (Insulin Lispro 100 Unit/Ml 3 Ml Vial) 0 unit SUBCUT QIDACHS [facility]; Protocol Lisinopril (Lisinopril 10 Mg Tablet) 10 mg PO DAILY [facility]; Protocol Last Admin: 02/17/25 08:06 Dose: 10 mg Magnesium Hydroxide (Milk Of Magnesia 30 Ml Oral.Susp) 30 ml PO DAILY PRN PRN Reason: Constipation Melatonin (Melatonin 3 Mg Tablet) 6 mg PO BEDTIME PRN PRN Reason: Insomnia Metoclopramide HCl (Metoclopramide Hcl 5 Mg Tablet) 5 mg PO Q6H PRN PRN Reason: Nausea and Vomiting Last Admin: 02/14/25 13:59 Dose: 5 mg Ondansetron HCl (Ondansetron Hcl 4 Mg/2 Ml Vial) 4 mg IVPUSH Q8H PRN PRN Reason: Nausea and Vomiting Last Admin: 02/16/25 17:06 Dose: 4 mg Polyethylene Glycol (Polyethylene Glycol 3350 17 Gm Powd.Pack) 17 gm PO DAILY PRN PRN Reason: Constipation Simethicone (Simethicone 80 Mg Tab.Chew) 80 mg PO QIDWMHS PRN PRN Reason: Gas Sodium Chloride (0.9 % Sodium Chloride Flush 3 Ml Syringe) 3 ml IVFLUSH QSHIFT [facility] Last Admin: 02/17/25 08:07 Dose: Not Given <Angle Madrid PA-C - Last Filed: 02/17/25 08:38> Home medications: Home Medications ?Medication ?Instructions ?Recorded ?Confirmed ?Last Taken ?Type gabapentin 300 mg capsule 300 mg PO TID 03/30/20 02/14/2502/11/25 History albuterol sulfate 2.5 mg/3 mL 2.5 mg inhalation Q6H PRN 02/14/25 02/14/25 02/11/25 History (0.083 %) solution for nebulization Shortness Of Breath Or Wheezing albuterol sulfate 90 mcg/actuation 2 inh inhalation Q4-6H PRN 02/14/25 02/14/25 02/11/25 History aerosol inhaler Shortness Of Breath Or Wheezing atorvastatin 10 mg tablet 10 mg PO DAILY 02/14/25 02/14/25 02/11/25 History glipizide 10 mg tablet, extended 10 mg PO DAILY 02/14/25 02/14/25 02/11/25 History release 24 hr lisinopril 10 mg tablet 10 mg PO DAILY 02/14/25 02/14/25 02/11/25 History metformin 1,000 mg tablet 1,000 mg PO DAILY 02/14/25 02/14/25 02/11/25 History <ISRRAEL Carlos Last Filed: 02/17/25 08:38> Physical Exam Vital Signs: Vital Signs: Last Vital Signs Temp 97.3 F 02/17/25 07:46 Pulse 88 02/17/25 07:46 Resp 18 02/17/25 07:46 BP 159/70 H 02/17/25 07:46 Pulse Ox 95 02/17/25 07:46 O2 Del Method Room Air 02/17/25 07:46 O2 Flow Rate 6 02/16/25 15:53 BMI result Body Mass Index 25.9 <ISRRAEL Carlos Last Filed: 02/17/25 08:38> Const: General: comfortable, no acute distress and alert <ISRRAEL Carlos Last Filed: 02/17/25 08:38> Orientation/consciousness: patient oriented x3 <ISRRAEL Carlos Last Filed: 02/17/25 08:38> Resp: Effort & Inspection: normal respiratory effort <ISRRAEL Carlos Last Filed: 02/17/25 08:38> GI: Other: mildly corpulent abdomen <ISRRAEL Carlos Last Filed: 02/17/25 08:38> Inspection: No distended and Yes scar (midline infraumbilical and pfannensteil) <ISRRAEL Carlos Last Filed: 02/17/25 08:38> Palpation (GI): Soft to palpation, nontender, no guarding and not rigid <ISRRAEL Carlos Last Filed: 02/17/25 08:38> Percussion: Yes normal to percussion <ISRRAEL Carlos Last Filed: 02/17/25 08:38> Skin: General skin exam: no rashes or lesions noted and no jaundice <ISRRAEL Carlos Last Filed: 02/17/25 08:38> Neuro: General: patient oriented x3 and moves all extremities <ISRRAEL Carlos Filed: 02/17/25 08:38> Results Labs Result diagrams: 02/17/25 08:38 02/17/25 08:38 <ISRRAEL Carlos Last Filed: 02/17/25 08:38> Labs: Abnormal lab results 02/16/25 02/16/25 Range/Units 11:14 16:37 POC Glucose 119 H 173 H (60-115) mg/dL Urine 02/13/25 Range/Units 19:13 Urine Color [place] A Urine Appearance Clear Urine pH 7.5 (5.0-9.0) Ur Specific [place] 1.010 (1.005-1.025) Urine Protein Negative (Neg-Trace) mg/dL Urine Glucose (UA) Negative (Negative) mg/dL All other labs normal. <Angle Madrid PA-C Shanda Last Filed: 02/17/25 08:38> Imaging Abdomen CT scan report/results: report reviewed and image reviewed <ISRRAEL Carlos Last Filed: 02/17/25 08:38> Additional studies: labs reviewed <ISRRAEL Carlos Filed: 02/17/25 08:38> Assessment and Plan (1) Acute pancreatitis: Qualifiers: Acute pancreatitis complication: unspecified Pancreatitis type: unspecified pancreatitis type Qualified Code(s): K85.90 - Acute pancreatitis without necrosis or infection, unspecified <Angle Madrid PA-C - Last Filed: 02/17/25 08:38> Status: Acute <Angle Madrid PA-C - Last Filed: 02/17/25 08:38> (2) Choledocholithiasis: Status: Acute <Angle Madrid PA-C - Last Filed: 02/17/25 08:38> 64 year old female with PMH IDDM on trulicity, HLD, HTN, asthma, migraines who was admitted for gallstone pancreatitis. She underwent ERCP with sphincterotomy and PD stent placement yesterday. This morning she feels well and her abdomen is benign, soft, nontender. We discussed proceeding with laparoscopic cholecystectomy during this stay or as an outpatient to prevent recurrence of the gallstone pancreatitis. She would like to eat and go home. Can advance diet as tolerated. IF tolerating solid diet, ok for dc and to f/u in office to plan for elective laparoscopic cholecystectomy. Patient comfortable with plan. <Angle Madrid PA-C - Last Filed: 02/17/25 08:38> 64 year old female with PMH IDDM on trulicity, HLD, HTN, asthma, migraines who was admitted for gallstone pancreatitis. She underwent ERCP with sphincterotomy and PD stent placement yesterday. This morning she feels well and her abdomen is benign, soft, nontender. We discussed proceeding with laparoscopic cholecystectomy during this stay or as an outpatient to prevent recurrence of the gallstone pancreatitis. She would like to eat and go home. Can advance diet as tolerated. IF tolerating solid diet, ok for dc and to f/u in office to plan for elective laparoscopic cholecystectomy. Patient comfortable with plan. Patient seen and examined and agree with the above assessment and plan. She feels much improved today with only minimal discomfort in the right upper quadrant. I provided her with contact information to returned to our office in approximately 1-2 weeks to discuss elective cholecystectomy. She expressed understanding and agrees with the plan. <Sanjeev Conner MD - Last Filed: 02/17/25 10:14> Procedures Date of Service Date of Service: 02/17/25 <Angle Mdarid PA-C - Last Filed: 02/17/25 08:38> 02/17/25 <Sanjeev Conner MD - Last Filed: 02/17/25 10:14>
[2025-02-17 09:30] LABS: Hematocrit 32.7 % (37.0-47.0); Hemoglobin 10.4 g/dl (12.0-16.0); Mean Corpuscular HGB Conc 31.8 g/dl (31.0-35.0); Mean Corpuscular Hemoglobin 26.9 pg (27.0-33.0); Mean Corpuscular Volume 84.7 fL (80.0-98.0); NRBC Abs Auto 0.000 X10*3/uL (0.0-0.012); NRBC Pct Auto 0.0 /100WBC (0.0-0.2); Platelet Count 154 X10*3/uL (160-400); Red Blood Count 3.86 X10*6/uL (4.20-5.50); White Blood Count 6.7 X10*3/uL (4.8-10.8)
[2025-02-17 09:53] LABS: Alanine Aminotransferase 17 U/L (0-31); Albumin Level 3.6 g/dL (3.5-5.0); Alkaline Phosphatase 47 U/L (39-117); Anion Gap 13 (12-20); Aspartate Amino Transferase 23 U/L (5-31); Blood Urea Nitrogen 7 mg/dL (9-16); Calcium 7.6 mg/dL (8.4-10.2); Carbon Dioxide 23 mmol/L (22-29); Chloride 106 mmol/L (96-108); Creatinine Clr Calc Pharmacy 87.8; Estimated Glomerular Filt Rate > 60; Lipase 65 U/L (8-78); Potassium 3.1 mmol/L (3.3-5.1); Sodium 139 mmol/L (135-145); Total Protein 7.1 g/dL (6.5-8.0)
[2025-02-17] MEDS: Potassium Chloride ER 20 MEQ TAB.ER.PRT 40 MEQ PO (11:14)
[2025-02-17 11:42] LABS: Glucose, Whole Blood 199 mg/dL (60-115)
--- NOTE | 2025-02-17 12:42 | HO.PM.IMPN ---
Subjective Subjective Date of Service: 02/17/25 Interval History: The etiology of her pancreatitis is attributed to gallstone pancreatitis.? The patient underwent an ERCP on February 16, 2025. She reports some epigastric pain, which has improved since her initial presentation, and nausea. The patient mentions feeling very hungry. She is currently experiencing gas, for which she has been prescribed Simethicone. The patient also notes that Pepcid has been helpful in managing her symptoms. The surgical team has been consulted for evaluation for cholecystectomy, which is planned to be performed in the outpatient setting. The patient has a history of prior surgery, specifically a hysterectomy. Review of Systems General: Positive for increased appetite. Gastrointestinal: Positive for epigastric pain, nausea, and gas. Review of Systems: Yes all other systems are reviewed and are negative Physical Exam Exam: Exam: General: A&O x3, oriented to time place person and situation, comfortable, no pain Cardiac: S1, S2 auscultated with no S3/4, no MRG. Well perfused. Respiratory: Normal breath sounds auscultated throughout all lung zones, without wheezing, rales. Normal rate. GI/ : No abdominal pain on palpation, no masses or distentions. MSK: Normal ambulation without pain at bony prominences or musculature Neurological: Normal neurological examination on overview, without obvious CN II-XII abnormalities. Vital Signs: Vital Signs: Last Vital Signs Temp 96.8 F 02/17/25 11:41 Pulse 80 02/17/25 11:41 Resp 16 02/17/25 11:41 BP 140/80 H 02/17/25 11:41 Pulse Ox 96 02/17/25 11:41 O2 Del Method Room Air 02/17/25 11:41 O2 Flow Rate 6 02/16/25 15:53 BMI result Body Mass Index 25.9 Objective Data Active Medications Acetaminophen (Acetaminophen 325 Mg Tablet) 650 mg PO Q6H PRN PRN Reason: Pain, Mild 1-3,fever,headache Last Admin: 02/16/25 03:58 Dose: 650 mg Documented By: JENNIFER Albuterol Sulfate (Albuterol Sulfate 90 Mcg 8 Gm Inhaler) 2 puff INHALE Q4H PRN PRN Reason: Shortness Of Breath Or Wheezing Albuterol/Ipratropium (Albuterol/Iprat 2.5/0.5mg 3 Ml Ampul.Neb) 3 ml INHALE Q4H PRN PRN Reason: Shortness of Breath/Wheezing Calcium Carbonate (Calcium Carbonate 750 Mg Tab.Chew) 750 mg PO Q4H PRN PRN Reason: Heartburn Dextrose (Dextrose 50 % 25 Gm/50 Ml Syringe) 25 gm IVPUSH Q15M PRN; Protocol PRN Reason: per Hypoglycemia Standing Ord. Enoxaparin Sodium (Enoxaparin Sodium 40 Mg/0.4 Ml Syringe) 40 mg SUBCUT Q24H [facility] Last Admin: 02/17/25 01:42 Dose: 40 mg Documented By: JENNIFER Famotidine (Famotidine 20 Mg Tablet) 20 mg PO DAILY [facility] Last Admin: 02/17/25 08:06 Dose: 20 mg Documented By: MARIO Glucose (Glucose Gel 15 Gm Gel..Gram.) 15 gm PO Q15M PRN; Protocol PRN Reason: per Hypoglycemia Standing Ord. Hydromorphone HCl (Hydromorphone Hcl 0.5 Mg/0.5 Ml Syringe) 0.5 mg IVPUSH Q3H PRN; Protocol PRN Reason: Pain, Severe (Pain Scale 7-10) Last Admin: 02/16/25 09:30 Dose: 0.5 mg Documented By: MARIO Sodium Chloride (Ns) 1,000 mls @ 125 mls/hr IVCONT .Q8H [facility] Last Admin: 02/17/25 12:06 Dose: Not Given Documented By: MARIO Non-Admin Reason: IV Running Insulin Human Lispro (Insulin Lispro 100 Unit/Ml 3 Ml Vial) 0 unit SUBCUT QIDACHS [facility]; Protocol Last Admin: 02/17/25 12:05 Dose: 2 unit Documented By: MARIO Lisinopril (Lisinopril 10 Mg Tablet) 10 mg PO DAILY [facility]; Protocol Last Admin: 02/17/25 08:06 Dose: 10 mg Documented By: MARIO Magnesium Hydroxide (Milk Of Magnesia 30 Ml Oral.Susp) 30 ml PO DAILY PRN PRN Reason: Constipation Melatonin (Melatonin 3 Mg Tablet) 6 mg PO BEDTIME PRN PRN Reason: Insomnia Metoclopramide HCl (Metoclopramide Hcl 5 Mg Tablet) 5 mg PO Q6H PRN PRN Reason: Nausea and Vomiting Last Admin: 02/14/25 13:59 Dose: 5 mg Documented By: LOUISE Ondansetron HCl (Ondansetron Hcl 4 Mg/2 Ml Vial) 4 mg IVPUSH Q8H PRN PRN Reason: Nausea and Vomiting Last Admin: 02/16/25 17:06 Dose: 4 mg Documented By: MARIO Polyethylene Glycol (Polyethylene Glycol 3350 17 Gm Powd.Pack) 17 gm PO DAILY PRN PRN Reason: Constipation Simethicone (Simethicone 80 Mg Tab.Chew) 80 mg PO QIDWMHS PRN PRN Reason: Gas Sodium Chloride (0.9 % Sodium Chloride Flush 3 Ml Syringe) 3 ml IVFLUSH QSHIFT [facility] Last Admin: 02/17/25 08:07 Dose: Not Given Documented By: MARIO Non-Admin Reason: IV Running Labs 02/17/25 08:38 02/17/25 08:38 Labs: Laboratory Results - last 24 hr 02/16/25 02/17/25 02/17/25 16:37 00:16 06:24 MCV MCH MCHC RDW Plt Count MPV Absolute Nucleated RBC Nucleated RBC % (auto) Anion Gap Estim Creat Clear Calc Estimated GFR POC Glucose 173 H 115 91 Random Glucose Calcium Total Bilirubin AST ALT Alkaline Phosphatase Total Protein Albumin Lipase 02/17/25 02/17/25 08:38 11:33 MCV 84.7 MCH 26.9 L MCHC 31.8 RDW 13.0 Plt Count 154 L MPV 9.7 Absolute Nucleated RBC 0.000 Nucleated RBC % (auto) 0.0 Anion Gap 13 Estim Creat Clear Calc 87.8 Estimated GFR > 60 POC Glucose 199 H Random Glucose 145 H Calcium 7.6 L D Total Bilirubin 0.6 AST 23 ALT 17 Alkaline Phosphatase 47 Total Protein 7.1 Albumin 3.6 Lipase 65 Assessment and Plan (1) snf (current) use of insulin: Status: Acute (2) Diabetes type 2, controlled: Status: Acute (3) Acute pancreatitis: Status: Acute (4) Choledocholithiasis: Status: Acute (5) Cholelithiasis: Status: Acute (6) Gallstone pancreatitis: Status: Acute Plan 64 yo Estonian-speaking female, with a history of type 2 diabetes mellitus, HTN, HLD, mild-moderate persistent asthma, migraines, presents with midepigastric pain for 1 day, admitted with acute uncomplicated interstitial pancreatitis. Acute Interstitial Pancreatitis Acute Gallstone Pancreatitis Choledocholithiasis Cholelithiasis Assessment: Patient admitted with acute interstitial pancreatitis secondary to choledocholithiasis and cholelithiasis. Etiology confirmed as gallstone pancreatitis. Patient underwent ERCP on February 16, 2025. Currently experiencing improved but persistent epigastric pain and some nausea. Surgery has been consulted for evaluation of cholecystectomy, which will be planned in the outpatient setting. Plan: - Advance diet: ??- Clear liquid diet for first 6 hours of the day ??- If tolerated, advance to full liquid diet - Continue IV famotidine (Pepcid) - Transition to oral medications as tolerated - Prescribe simethicone for gas relief - Prescribe oral famotidine (Pepcid) for acid relief - Monitor for signs of pancreatic inflammation - Surgical follow-up in office for cholecystectomy planning - Anticipate possible discharge tomorrow morning if diet is tolerated Gastritis Duodenitis - famotidine - omeprazole Type 2 diabetes mellitus ISS NPO Hold [facility] CHRONIC MEDICAL ISSUES HLD: Hold statin for now Asthma: Jonh p.r.n. [employer] - VTE: Enoxaparin 40 mg - CODE STATUS: Full code - DIET: Clear liquid diet Total time managing care of this patient today: 35 minutes. Quality Stroke Does the patient have a stroke diagnosis?: No Reason for No Anti-thrombotic by Day Two: N/A - Med Ordered VTE Prior VTE?: No VTE Risk Level:: Medical - moderate - high VTE Device Contraindication: N/A - Device Ordered VTE Drug Contraindication: N/A - Med Ordered
--- NOTE | 2025-02-17 13:15 | MHC.CM.PN ---
Per MD rounds plan for pt's diet to advance if tolerates, may d/c later in the day. D/P: home no services, daughter to transport.
[2025-02-17 16:24] LABS: Glucose, Whole Blood 126 mg/dL (60-115)
[2025-02-17 20:49] LABS: Glucose, Whole Blood 243 mg/dL (60-115)
[2025-02-18] MEDS: 0.9 % Sodium Chloride Flush 3 ML SYRINGE IVFLUSH ×2 (00:04→09:52)
[2025-02-18 03:24] VITALS: BP 162/72; PULSE 72; RESP 18; TEMP 36.6; O2SAT 97
[2025-02-18 07:33] LABS: Glucose, Whole Blood 121 mg/dL (60-115)
[2025-02-18 07:58] VITALS: BP 150/74; PULSE 71; RESP 18; TEMP 36.3; O2SAT 96
--- NOTE | 2025-02-18 10:21 | PM.DS ---
DS: Providers Provider Date of Service: 02/18/25 Date of admission: 02/14/25 00:25 Date of discharge: 02/18/25 Primary care physician: Wyatt Larose Consults: 02/14/25 00:34 Consult to Gastroenterology Routine Consulting Provider: Gonzales Olivares Reason for consultation: Acute interstitial pancreatitis on Trulicity Has provider been notified: No 02/14/25 01:58 Consult to Case Management Routine Comment: Patient has no current PCP as she recently moved h 02/16/25 16:44 Consult to General Surgery Routine Consulting Provider: [facility] General Surgeons Reason for consultation: gallstone pancreatitis Has provider been notified: No DS: Diagnosis Discharge Diagnosis (1) residential (current) use of insulin: Status: Acute (2) Diabetes type 2, controlled: Status: Acute (3) Acute pancreatitis: Status: Acute (4) Choledocholithiasis: Status: Acute (5) Cholelithiasis: Status: Acute (6) Gallstone pancreatitis: Status: Acute DS: Summary Hospital Course Hospital Course: 64 yo Argentine-speaking female, with a history of type 2 diabetes mellitus, HTN, HLD, mild-moderate persistent asthma, migraines, presents with midepigastric pain for 1 day, admitted with acute uncomplicated interstitial pancreatitis due to noninfective cholelithiasis/choledocholithiasis. Acute Interstitial Pancreatitis Acute Gallstone Pancreatitis Choledocholithiasis Cholelithiasis Assessment: Patient admitted with acute interstitial pancreatitis secondary to choledocholithiasis and cholelithiasis. Etiology confirmed as gallstone pancreatitis. Patient underwent ERCP on February 16, 2025. Surgery has been consulted for evaluation of cholecystectomy, which will be planned in the outpatient setting. Patient tolerated full liquid diet for 24 hours, and endorses improved pain, however still present and very minimal in nature. Does not limit her from eating or from being able to engage in activity. Shared decision-making; the patient is amenable to be discharged home and for close follow up in the outpatient setting. Status at Discharge Functional status at discharge: independent ambulation Time Attestation Total time managing care of this patient today: 35 mintues. Discharge Coordination Time (in mins): 15 Quality: Safe Use of Opioids Does Pt have an Active Cancer Diagnosis on the Problem List?: No Quality: Stroke Does the patient have a stroke diagnosis?: No Physical Exam Exam: Exam: General: A&O x3, oriented to time place person and situation, comfortable, no pain Cardiac: S1, S2 auscultated with no S3/4, no MRG. Well perfused. Respiratory: Normal breath sounds auscultated throughout all lung zones, without wheezing, rales. Normal rate. GI/ : No abdominal pain on palpation, no masses or distentions. MSK: Normal ambulation without pain at bony prominences or musculature Neurological: Normal neurological examination on overview, without obvious CN II-XII abnormalities. Vital Signs: Vital Signs: Last Vital Signs Temp 97.4 F 02/18/25 07:58 Pulse 71 02/18/25 07:58 Resp 18 02/18/25 07:58 BP 150/74 H 02/18/25 07:58 Pulse Ox 96 02/18/25 07:58 O2 Del Method Room Air 02/18/25 07:58 O2 Flow Rate 6 02/16/25 15:53 BMI result Body Mass Index 25.9 DS: Data Data Completed and Pending Labs on day of discharge: Laboratory Results - last 24 hr 02/17/25 02/17/25 02/17/25 11:33 16:20 20:42 POC Glucose 199 H 126 H 243 H 02/18/25 07:21 POC Glucose 121 H Preliminary micro results at discharge 02/14/25 04:49 Blood Culture - Preliminary Blood - Venous No growth after 48 hours. 02/14/25 04:49 Blood Culture - Preliminary Blood - Venous No growth after 48 hours. Discharge Plan Discharge Anticipated Discharge Date/Time: 02/18/25 10:23 Patient Disposition: Home, Self-Care Discharge Diagnosis: Acute interstitial gallstone pancreatitis 2/2 cholelithiasis and choledocholithiasis Referrals: Wyatt Avalos [Other] - 1 Week Sanjeev Conner MD [Physician, General Surgery] - 1 Week Discharge Medications: New famotidine 20 mg Tablet 20 mg PO DAILY 10 Days Qty: 10 0RF metoclopramide HCl 5 mg Tablet 5 mg PO Q6H PRN (Reason: Nausea And Vomiting) 10 Days Qty: 30 0RF simethicone 80 mg Tablet,Chewable 80 mg PO QIDWMHS PRN (Reason: Gas) 10 Days Qty: 40 0RF Continued (DME) pen needle, diabetic [BD Lesa 2nd Gen Pen Needle] 32 gauge x 5/32 needle See Rx Instructions .MEDSUPPLY Qty: 50 4RF Rx Instructions: once a day (DME) FreeStyle Lite Strips Strip See Rx Instructions .ROUTE .MEDSUPPLY Qty: 100 11RF Rx Instructions: twice a day Trulicity 0.75 mg/0.5 mL pen injector 0.75 mg subcut QWEEK 30 Days Qty: 2 2RF (DME) lancets [FreeStyle Lancets] 28 gauge misc See Rx Instructions .ROUTE .MEDSUPPLY Qty: 100 11RF Rx Instructions: As directed Lantus Solostar U-100 Insulin 100 unit/mL (3 mL) insulin pen 30 unit subcut DAILY Qty: 15 2RF Rx Instructions: PATIENT NEEDS APPOINTMENT FOR MORE REFILLS. (DME) blood-glucose meter [FreeStyle Nekoma Lite] Kit See Rx Instructions .Route Qty: 1 0RF Rx Instructions: As directed albuterol sulfate 2.5 mg /3 mL (0.083 %) solution for nebulization 2.5 mg inhalation Q6H PRN (Reason: Shortness Of Breath Or Wheezing) atorvastatin 10 mg tablet 10 mg PO DAILY glipizide 10 mg tablet extended release 24hr 10 mg PO DAILY lisinopril 10 mg tablet 10 mg PO DAILY albuterol sulfate 90 mcg/actuation HFA aerosol inhaler 2 inh inhalation Q4-6H PRN (Reason: Shortness Of Breath Or Wheezing) metformin 1,000 mg tablet 1,000 mg PO DAILY gabapentin 300 mg capsule 300 mg PO TID Discharge Orders: Discharge Order (Routine); Ordered 02/18/25 Ordered By: Arcelia Ng Diet: Advance to usual diet Activity on Discharge: As tolerated Stand Alone Forms: Patient Portal Discharge page Print Language: Argentine Activity Restrictions/Additional Instructions: Follow up in office with Dr. Conner in 1 week to discuss having your gallbladder removed. ([phone]) Care Plan Goals: - follow up with surgery in the outpatient setting within 1-2 weeks 4 medically necessary outpatient cholecystectomy - follow up with PCP within 1 week of discharge - maintain a full liquid diet, low-fat for the next 1 week (or until pain resolves for 2 contiguous days) - avoid alcohol - avoid fatty foods - avoid spicy foods Health Concerns: As above Plan of Treatment: - follow up with surgery in the outpatient setting within 1-2 weeks 4 medically necessary outpatient cholecystectomy - follow up with PCP within 1 week of discharge - maintain a full liquid diet, low-fat for the next 1 week (or until pain resolves for 2 contiguous days) - avoid alcohol - avoid fatty foods - avoid spicy foods Assessment: Patient deemed hemodynamically stable, with condition mostly resolved, able to conduct activities of daily living, and p.o. intake normal. Shared decision-making to discharge patient home today
--- NOTE | 2025-02-18 11:03 | MHC.CM.PN ---
PT WILL DC HOME TODAY VIA FAMILY TRANSPORT
[2025-02-18 11:39] LABS: Glucose, Whole Blood 176 mg/dL (60-115)
== END 2025-02-18 14:39 | disposition home or self-care (01) | DRG 439 ==
LOC: HO.ED 02-14 00:21 → HO.EDOVER 02-14 00:36 → HO.S3 02-14 05:32
PROVIDERS: Internal Medicine Gastroenterology; Nurse Practitioner Family; Physician Assistant; Admitting Provider Internal Medicine; Emergency Provider Emergency Medicine; Visit Provider Hospitalist
PROC: 0F7D8DZ Dilation of Pancreatic Duct with Intraluminal Device, Via Natural or Artificial Opening Endoscopic (ICD-10-PCS; CPT 43260; principal; 2025-02-16 13:30)
DX: K85.80 Other acute pancreatitis without necrosis or infection (principal); K44.0 Diaphragmatic hernia with obstruction, without gangrene; E11.9 Type 2 diabetes mellitus without complications; E78.5 Hyperlipidemia, unspecified; J45.909 Unspecified asthma, uncomplicated; K80.70 Calculus of gallbladder and bile duct without cholecystitis without obstruction; K29.80 Duodenitis without bleeding; K29.70 Gastritis, unspecified, without bleeding; Z79.4 Long term (current) use of insulin; Z79.84 Long term (current) use of oral hypoglycemic drugs; Z79.899 Other long term (current) drug therapy
CPT/HCPCS: 36415; 74177; 74181; 76705; 80053; 80307; 81001; 82248; 82784; 82947; 83690; 84478; 84484; 85025; 85027; 85610; 85730; 86364; 86803; 87040; 93005; 99285; C1769; C2617; J0690; J1171; J1308; J1610; J1650; J2003; J2270; J2405; J2470; J2704; J3010; Q9967

== ENCOUNTER → 2025-02-13 17:59 | Outpatient (BNV) | payer OTHER, MEDICAID, SELFPAY | PROVIDERS: Admitting Provider Internal Medicine; Emergency Provider Emergency Medicine; Visit Provider Internal Medicine Cardiovascular Disease | DX: R94.31 Abnormal electrocardiogram [ECG] [EKG] (principal); R10.9 Unspecified abdominal pain | CPT/HCPCS: 93010 ==

== ENCOUNTER → 2025-02-13 18:00 | Outpatient (BNV) | payer OTHER, MEDICAID, SELFPAY | PROVIDERS: Emergency Provider Emergency Medicine; Visit Provider Radiology Diagnostic Radiology | DX: K81.9 Cholecystitis, unspecified (principal) | CPT/HCPCS: 74177; 76705 ==

== ENCOUNTER 2025-02-14 00:25 | Outpatient (BNV) | payer OTHER, MEDICAID, SELFPAY | END 2025-02-14 14:42 | PROVIDERS: Admitting Provider Internal Medicine; Emergency Provider Emergency Medicine; Visit Provider Radiology Diagnostic Radiology | DX: K80.70 Calculus of gallbladder and bile duct without cholecystitis without obstruction (principal) | CPT/HCPCS: 74181 ==

== ENCOUNTER → 2025-02-14 00:25 | Outpatient (BNV) | payer OTHER, MEDICAID, SELFPAY | PROVIDERS: Admitting Provider Internal Medicine; Emergency Provider Emergency Medicine; Visit Provider Internal Medicine Gastroenterology | DX: K85.90 Acute pancreatitis without necrosis or infection, unspecified (principal) | CPT/HCPCS: 99232 ==

== ENCOUNTER → 2025-02-14 00:25 | Outpatient (BNV) | payer OTHER, MEDICAID, SELFPAY | PROVIDERS: Admitting Provider Internal Medicine; Emergency Provider Emergency Medicine; Visit Provider Nurse Practitioner Family | DX: K85.90 Acute pancreatitis without necrosis or infection, unspecified (principal); E11.9 Type 2 diabetes mellitus without complications; Z79.4 Long term (current) use of insulin | CPT/HCPCS: 99222; 99499 ==

== ENCOUNTER → 2025-02-14 00:25 | Outpatient (BNV) | payer MEDICARE, MEDICAID, SELFPAY | PROVIDERS: Admitting Provider Internal Medicine; Emergency Provider Emergency Medicine; Visit Provider Surgery | DX: K85.90 Acute pancreatitis without necrosis or infection, unspecified (principal); K80.50 Calculus of bile duct without cholangitis or cholecystitis without obstruction | CPT/HCPCS: 99222 ==

== ENCOUNTER 2025-02-27 10:03 | Outpatient (AMB) | payer MEDICARE, MEDICAID, SELFPAY ==
--- OUTSIDE RECORDS SUMMARY | 2024-06-09 07:30 | XMS_ITS ---
Author Organization [facility] Address [address] [facility] 114 [facility] 100 [place] [address] Care Team Providers Care Weather Reporter Name Role Phone Sherrie Garcia Primary Care Provider REASON FOR VISIT door knock Encounters Encounter Location Date Provider Diagnosis [address] [place] [address] 06/09/2024 Sherrie Beltran Plan Of Treatment No Information Progress Notes * Jose HOPPEROB:06/01 (64 yo F)Acc No.[id number]:06/09/2024 Patient: Alexia MADRIGALsol Provider: Santa Beltran MD :1960 A ge:64 Y S ex:Female Date:06/09/2024 Address:[address] [place], [place] [address]ITAL[facility]-[id number] Structured Data:MRA Reviewed : 07/04/2024 Subjective: * Chief Complaints: * 1 . Door knock. * Medical History: Objective: * Vitals: Assessment: Plan: * Treatment: * Billing Information: * Visit Code: * Procedure Codes: * Electronic signature of Lora Beltran MD on 02/27/2025 at 11:33 AM CDT Sign off status: Pending * Provider: Santa Beltran MD Date: 1 08/10/2023 Generated for Printi ng/Faxing/eTransmitting on: 0 02/27/2025 11:33 AM CDT
--- OUTSIDE RECORDS SUMMARY | 2024-06-10 05:00 | XMS_ITS ---
Author Organization [facility] Address [address] [facility] 114 [facility] 100 [place] [address] Care Team Providers Care Music Therapy Specialist Name Role Phone Sherrie Garcia Primary Care Provider [phone] Encounters Encounter Location Date Provider Diagnosis [facility] [address] [facility] [place] [address] 06/10/2024 Sherrie Beltran Plan Of Treatment No Information Progress Notes * Alysia JACOBlDOB:06/01 (64 yo F)Acc No.[id number]:06/10/2024 Patient: Nima JONES Sandy LEWIS Provider: Santa Beltran MD :1960 A ge:64 Y S ex:Female Date:06/10/2024 Address:[address] [place] [address] [facility] HOSPITALAW-[address] Structured Data:MRA Reviewed : 07/04/2024 Subjective: * Chief Complaints: * * HPI: N ew/Follow-up Patient Consult: Patient in clinic for Courtesy Visit. * Medical History: Objective: * Vitals: Assessment: Plan: * Treatment: * Billing Information: * Visit Code: * Procedure Codes: * Electronic signature of Lora Beltran MD on 02/27/2025 at 11:34 AM CDT Sign off status: Pending * Provider: Santa Beltran MD Date: 1 08/11/2023 Generated for Printi ng/Fajumag/eTransmitting on: 0 02/27/2025 11:34 AM CDT History and Physical Notes * HPI (History of Present Illness) Category Sub-Category Detail Notes Category Not es New/Follow-up Patient Consult Patient in clinic fo r Courtesy Visit.
--- OUTSIDE RECORDS SUMMARY | 2024-06-13 07:30 | XMS_ITS ---
Author Organization [facility] Address [address] [facility] 114 [facility] 100 [place] [address] Care Team Providers Care Motor Setter Name Role Phone Sherrie Garcia Primary Care Provider Encounters Encounter Location Date Provider Diagnosis [facility] [address] [facility] [place] [address] 06/13/2024 Sherrie Belrtan Plan Of Treatment No Information Progress Notes * Jose JACOBOB:[birth year] (64 yo F)Acc No.[id number]:06/13/2024 Patient: Nima JONES Sandy LEWIS Provider: Santa Beltran MD :1960 A ge:64 Y S ex:Female Date:06/13/2024 Address:[address] [place] [address] [facility]PITALMS-[id number] Structured Data:MRA Reviewed : 07/04/2024 Subjective: * Chief Complaints: * * Medical History: Objective: * Vitals: Assessment: Plan: * Treatment: * Billing Information: * Visit Code: * Procedure Codes: * Electronic signature of Lora Beltran MD on 02/27/2025 at 11:32 AM CDT Sign off status: Pending * Provider: Santa Beltran MD Date: Generated for Cameroni ng/Faxing/eTransmitting on: 0 02/27/2025 11:32 AM CDT
--- OUTSIDE RECORDS SUMMARY | 2024-07-04 06:15 | XMS_ITS ---
Author Organization [employer] Address [address] [facility] [address] [place] [address] Care Team Providers Care Fur Repair Inspector Name Role Phone Rosalio Epstein Primary Care Provider [phone] Weston Rosenbaumcarolyn Gonzales [phone] REASON FOR VISIT F/UP Medications Medication SIG (Take, Route, Frequency, Duration) Notes Start Date End Date Status Lancets - as directed subcutaneus three times a day; Duration: 90 days 05/05/2024 Active One Touch Ultra - as instructed SKIN Check 3 times daily; Duration: 90 days 11/05/2023 Active Insulin Syringe 31G X 5/16 1 ML as directed 11/05/2023 Active Glucometer check three times a day subcutaneous three times a day; Duration: 90 days 05/05/2024 Active strips strips check three times a day subcutaneus three times a day; Duration: 30 days 05/05/2024 Active One Touch Ultra - as instructed SKIN Check 3 times a day; Duration: 90 days 11/05/2023 Active Nebulizer/Adult Mask - as directed inhaler PRN; Duration: 90 days 04/02/2016 Active TRUEresult Blood Glucose w/Device as directed sc bid; Duration: 90 days 11/09/2015 Active One Touch Ultra Glucometer as instructed SKIN three times a day; Duration: 365 days 11/05/2023 Active Nicotine Polacrilex 4 MG 1 piece chew for 30 minutes as needed Mouth/Throat every 8 hrs; Duration: 30 days 06/03/2024 Active glipiZIDE 10 MG 1 tablet 30 minutes before breakfast Orally Once a day; Duration: 90 days 04/05/2024 Active hydrOXYzine HCl 25 MG 1 tablet as needed Orally Once a day; Duration: days 05/05/2024 Active Ibuprofen 800 MG 1 tablet with food or milk as needed Orally twice a day; Duration: 15 days 11/06/2023 Active metFORMIN HCl 1000 MG 1 tablet with meal s Orally Twice a day; Duration: 90 days Active Lantus 100 UNIT/ML 30 units Subcutaneous daily 25 unit daily Active Cetirizine HCl 10 MG 1 tablet Orally Onc e a day; Duration: 90 days Active Atorvastatin Calcium 10MG 1 tablet Orally Once a day; Duration: 90 days Active Fluticasone Propionate 50 MCG/ACT 1 spray in each nostril Nasally Once a day; Duration: 90 days Active Gabapentin (Once-Daily) 300 MG 1 tablet Orally Once a day; Duration: 90 days Active Albuterol Sulfate (2.5 MG/3ML) 0.083% 3 mL as needed Inhalation Three times a day; Duration: 90 days Active Daaxbmkkie-WCBG-Wlmao ine 50-325-40 MG 1 tablet as needed Orally every 4 hrs PRN; Duration: 90 days 06/03/2024 Active Lisinopril 10 MG 1 tablet Orally Once a day; Duration: 90 days 11/09/2015 Active Wellbutrin 100 MG 1 tablet Orally daily; Duration: 30 days 11/10/2014 Not-Taking Betamethasone Dipropionate 0.05 % 1 application to affected area Externally Once a day; Duration: 30 days 02/26/2015 Not-Taking Albuterol Sulfate HFA 108 (90 Base) MCG/ACT 2 puffs as needed Inhalation every 6 hrs; Duration: 90 days Active Nebulizer - every 4 hours as needed; Duration: 90 days 05/05/2024 Active dexAMETHasone Sodium Phosphate 0.1 % 1 drop into affected eye Ophthalmic Twice a day; Duration: 10 days 04/05/2024 Not-Taking Encounters Encounter Location Date Provider Diagnosis [place] [address] [place] [address] 07/04/2024 Macrina Rosenbaum Plan Of Treatment No Information Progress Notes * SUNG HOPPEROB:06[birth year]01 (64 yo F)Acc No.[id number]:07/04/2024 Progress Notes Patient: LEO MADRIGAL Provider: Jarvis ROSENBAUM APRN :1960 A ge:64 Y S ex:Female Date:07/04/2024 Address:[address] [place], [place] [id number] Pcp:Rosalio Epstein Subjective: * Chief Complaints: * 1 . F/UP. * Medical History: * Medications: T aking One Touch Ultra Glucometer SC as instructed SKIN three times a day , Taking Nebulizer/Adult Mask - Kit as directed inhaler PRN , Taking TRUEresult Blood Glucose w/Device Kit as directed sc bid , Taking One Touch Ultra - Test Strips as instructed SKIN Check 3 times a day , Taking One Touch Ultra - Lancets as instructed SKIN Check 3 times daily , Taking Insulin Syringe 31G X 5/16 1 ML Miscellaneous as directed , Taking Glucometer check three times a day subcutaneous three times a day , Taking strips strips strips check three times a day subcutaneus three times a day , Taking Lancets - Miscellaneous as directed subcutaneus three times a day , Taking Nebulizer - Miscellaneous every 4 hours as needed , Taking Dyykizyfju-EUUE-Fskottbi 50-325-40 MG Tablet 1 tablet as needed Orally every 4 hrs PRN , Taking Lisinopril 10 MG Tablet 1 tablet Orally Once a day , Taking Albuterol Sulfate HFA 108 (90 Base) MCG/ACT Aerosol Solution 2 puffs as needed Inhalation every 6 hrs , Taking Fluticasone Propionate 50 MCG/ACT Suspension 1 spray in each nostril Nasally Once a day , Taking Gabapentin (Once-Daily) 300 MG Tablet 1 tablet Orally Once a day , Taking Albuterol Sulfate (2.5 MG/3ML) 0.083% Nebulization Solution 3 mL as needed Inhalation Three times a day , Taking Cetirizine HCl 10 MG Tablet 1 tablet Orally Once a day , Taking Atorvastatin Calcium 10MG Tablet 1 tablet Orally Once a day , Taking metFORMIN HCl 1000 MG Tablet 1 tablet with meals Orally Twice a day , Taking Lantus 100 UNIT/ML Solution 30 units Subcutaneous daily , Notes to Pharmacist: 25 unit daily, Taking glipiZIDE 10 MG Tablet 1 tablet 30 minutes before breakfast Orally Once a day , Taking hydrOXYzine HCl 25 MG Tablet 1 tablet as needed Orally Once a day , Taking Ibuprofen 800 MG Tablet 1 tablet with food or milk as needed Orally twice a day , Taking Nicotine Polacrilex 4 MG Gum 1 piece chew for 30 minutes as needed Mouth/Throat every 8 hrs , Not-Taking dexAMETHasone Sodium Phosphate 0.1 % Solution 1 drop into affected eye Ophthalmic Twice a day , Not-Taking Betamethasone Dipropionate 0.05 % Cream 1 application to affected area Externally Once a day , Not-Taking Wellbutrin 100 MG Tablet 1 tablet Orally daily Objective: * Vitals: Assessment: Plan: * Treatment: * Images: Care Plan Details* * Electronic signature of Macrina Rosenbaum APRN on 02/27/2025 at 12:34 PM EDT Sign off status: Pending * Provider: Jarvis ROSENBAUM APRN Date: 0 07/04/2024 Generated for Destini duron/Julio Cesar/Mario on: 0 02/27/2025 12:34 PM EDT
--- OUTSIDE RECORDS SUMMARY | 2024-07-05 09:45 | XMS_ITS ---
Author Organization [facility] Address [address] [facility] [address] [facility] [address] [place] [address] Care Team Providers Care Prescriptionist Name Role Phone Sherrie Garcia Primary Care Provider REASON FOR VISIT New Patient Encounters Encounter [facility] Date [facility] [address] [place] [address] 07/05/2024 Sherrie Beltran Type 2 diabetes mellitus [...] - E11.65) A1c 11.5 DOS 07/09/2023, per [facility] records 07/05/2024 Immunodeficiency due to conditions classified elsewhere (ICD-10 - D84.81) related to uncontrolled DM II A1c 11.5 DOS 07/09/2023, per [facility] records, 07/05/2024 Type 2 diabetes mellitus with diabetic chronic kidney disease (ICD-10 - E11.22) per [facility] P records, eGFR 85 DOS 03/15/2024 and eGFR 86 DOS 07/10/2023, 07/05/2024 Hypertensive chronic kidney disease with stage 1 through stage 4 chronic kidney disease, or unspecified chronic kidney disease (ICD-10 - I12.9) per [facility] records, eGFR 85 DOS 03/15/2024 and eGFR 86 DOS 07/10/2023, 07/05/2024 Chronic kidney disease, stage 2 (mild) (ICD-10 - N18.2) per [facility] records, eGFR 85 DOS 03/15/2024 and eGFR 86 DOS 07/10/2023, 07/05/2024 Type 2 diabetes mellitus with diabetic polyneuropathy (ICD-10 - E11.42) pt. on Gabapentin, per [facility] records, 07/05/2024 Type 2 diabetes mellitus with other specified complication (ICD-10 - E11.69) related to HLD, pt. on Atorvastatin, metFORMIN, Lantus per [facility] records, 07/05/2024 Mixed hyperlipidemia (ICD-10 - E78.2) due to DM II, per [facility] records, 07/05/2024 Mild intermittent asthma, uncomplicated (ICD-10 - J45.20) pt. on Albuterol per [facility] records, 07/05/2024 Colon cancer screening (ICD-10 - Z12.11) 07/05/2024 Screening breast examination (ICD-10 - Z12.39) Plan Of Treatment No Information Progress Notes * Jose JACOBOB:[birth year] (64 yo F)Acc No.[id number]:07/05/2024 Progress Notes Patient: Nima Sandy HOLLOWAY Provider: Santa Beltran MD :1960 A ge:64 Y S ex:Female Date:07/05/2024 Address:[address] [place], [place] [phone] Structured Data:MRA Reviewed : 07/04/2024 Subjective: * [...] kidney disease - E11.22 N otes :per [facility] records, eGFR 85 DOS 03/15/2024 and eGFR 86 DOS 07/10/2023, 2 . T ype 2 diabetes mellitus with diabetic polyneuropathy - E11.42 N otes :pt. on Gabapentin, per [facility] records, 3 . T ype 2 diabetes mellitus with hyperglycemia - E11.65 N otes :A1c 11.5 DOS 07/09/2023, per [facility] P records 4 . T ype 2 diabetes mellitus with other specified complication - E11.69 ? N otes :related to HLD, pt. on Atorvastatin, metFORMIN, Lantus per [facility] records, 5 . M ixed hyperlipidemia - E78.2 N otes :due to DM II, per [facility] records, 6 . H ypertensive chronic kidney disease with stage 1 through stage 4 chronic kidney disease, or unspecified chronic kidney disease - I12.9 N otes :per [facility] records, eGFR 85 DOS 03/15/2024 and eGFR 86 DOS 07/10/2023, 7 . M ild intermittent asthma, uncomplicated - J45.20 N otes :pt. on Albuterol per [facility] records, 8 . C hronic kidney disease, stage 2 (mild) - N18.2 N otes :per [facility] P records, eGFR 85 DOS 03/15/2024 and eGFR 86 DOS 07/10/2023, 9 . I mmunodeficiency due to conditions classified elsewhere - D84.81 ? N otes :related to uncontrolled DM II A1c 11.5 DOS 07/09/2023, per [facility] P records, 1 0. C olon cancer [...] of Lora Beltran MD on 02/27/2025 at 11:35 AM CDT Sign off status: Pending * Provider: Santa Beltran MD Date: 0 07/05/2024 Generated for Destini duron/Fajumag/eTransmitting on: 0 02/27/2025 11:35 AM CDT History and Physical Notes * Examination [...]
--- OUTSIDE RECORDS SUMMARY | 2024-07-21 07:00 | XMS_ITS ---
Author Organization [employer] Address [address] [facility] [address] [place] [address] Care Team Providers Care Returns Processor Name Role Phone Epstein Rosalio Primary Care Provider [phone] RosenbaumMacrina [phone] REASON FOR VISIT ACCESS Medications Medication SIG [...] a day; Duration: 90 days 11/09/2015 Active Bflertyyro-GQGE-Pgkpt ine 50-325-40 MG 1 tablet as needed [...] Active Encounters Encounter Location Date Provider Diagnosis [facility] [address] [place] [address] 07/21/2024 Macrina Rosenbaum Plan Of Treatment No Information Progress Notes * SUNG HOPPEROB:[birth year] (64 yo F)Acc No.[id number]:07/21/2024 Progress Notes Patient: LEO MADRIGAL Provider: Jarvis ROSENBAUM APRN :1960 A ge:64 Y S ex:Female Date:07/21/2024 Address:[address] [place], [place] [id number] Pcp:Rosalio Epstein Subjective: * Chief Complaints: * [...] every 4 hours as needed , Taking Tmvnbrutlt-CSYB-Hvziageb 50-325-40 MG Tablet 1 tablet as needed [...] of Macrina Rosenbaum APRN on 02/27/2025 at 12:33 PM EDT Sign off status: Pending * Provider: Jarvis ROSENBAUM APRN Date: 0 07/21/2024 Generated for Destini duron/Julio Cesar/Mario on: 0 02/27/2025 12:33 PM EDT
--- OUTSIDE RECORDS SUMMARY | 2024-07-25 10:00 | XMS_ITS ---
Author Organization [facility] Address [address] [place] [address] [address] [place] [address] Care Team Providers Care Section Laborer Name Role Phone Rosalio Epstein Primary Care Provider Macrina Rosenbaum [phone] REASON FOR VISIT INS INACTIVE Encounters Encounter Location Date Provider Diagnosis [facility] [address] [facility] [place] [address] 07/25/2024 Macrina Rosenbaum Plan Of Treatment No Information Progress Notes * SUNG HOPPEROB:[birth year]01 (64 yo F)Acc No.[id number]:07/25/2024 Progress Notes Patient: Nima JONES LEO LEWIS Provider: Jarvis ROSENBAUM APRN :1960 A ge:64 Y S ex:Female Date:07/25/2024 Address:[address] [place] [address], [facility] Pcp:Rosalio Epstein Subjective: * Chief Complaints: * 1 . INS INACTIVE. * Medical History: Objective: * Vitals: Assessment: Plan: * Treatment: * Images: Care Plan Details* * Electronic signature of Macrina Rosenbaum APRN on 02/27/2025 at 12:32 PM EDT Sign off status: Pending * Provider: Jarvis ROSENBAUM APRN Date: 0 07/25/2024 Generated for Printi ng/Fajumag/eTransmitting on: 0 02/27/2025 12:32 PM EDT
--- OUTSIDE RECORDS SUMMARY | 2024-08-15 06:45 | XMS_ITS ---
Author Organization [employer]. Address 1 [facility] [address] [place] [address] Care Team Providers Care Potato Chip Processing Supervisor Name Role Phone Lucian Rosalio Primary Care Provider RosenbaumMacrina [phone] REASON FOR VISIT F/UP Medications Medication SIG (Take, Route, Frequency, Duration) Notes Start Date End Date Status Tthyzkdasu-MHHD-Dxzsj ine 50-325-40 MG 1 tablet as needed [...] Active Encounters Encounter Location Date Provider Diagnosis [address] [place] [address] 08/15/2024 Macrina Rosenbaum Plan Of Treatment No Information Progress Notes * SUNG HOPPEROB:[birth year] (64 yo F)Acc No.[id number]:08/15/2024 Progress Notes Patient: LEO MADRIGAL Provider: Jarvis ROSENBAUM APRN :1960 A ge:64 Y S ex:Female Date:08/15/2024 Address:[address] [place] [address] Pcp:Rosalio Epstein Subjective: * Chief Complaints: * [...] every 4 hours as needed , Taking Nlghjclcca-OMMK-Agzvrhij 50-325-40 MG Tablet 1 tablet as needed [...] 08/15/2024 Generated for Destini duron/Julio Cesar/Mario on: 0 02/27/2025 12:34 PM EDT
--- OUTSIDE RECORDS SUMMARY | 2024-10-05 06:15 | XMS_ITS ---
Author Organization [facility] Address [address] [place] [address] [address] [place] [address] Care Team Providers Care Medical Information Officer Name Role Phone Rosalio Epstein Primary Care Provider Macrina Rosenbaum [phone] REASON FOR VISIT F/UP Encounters Encounter Location Date Provider Diagnosis [facility] [address] [facility] [place] [address] 10/05/2024 Macrina Rosenbaum Plan Of Treatment No Information Progress Notes * SUNG HOPPEROB:[birth year] (64 yo F)Acc No.[id number]:10/05/2024 Progress Notes Patient: Nima JONES JOSHUARYNELEO Provider: Jarvis ROSENBAUM APRN :1960 A ge:64 Y S ex:Female Date:10/05/2024 Address:[address] [place], [place] [address] Pcp:Rosalio Epstein Subjective: * Chief Complaints: * 1 . F/UP. * Medical History: Objective: * Vitals: Assessment: Plan: * Treatment: * Images: Care Plan Details* * Electronic signature of Macrina Rosenbaum APRN on 02/27/2025 at 12:34 PM EDT Sign off status: Pending * Provider: Jarvis ROSENBAUM APRN Date: 0 10/05/2024 Generated for Destini duron/Julio Cesar/eTransmitting on: 0 02/27/2025 12:34 PM EDT
--- OUTSIDE RECORDS SUMMARY | 2025-01-13 06:00 | XMS_ITS ---
Author Organization [facility] Address [address] [facility] [address] [place] [address] Care Team Providers Care Rocket Motor Mechanic Name Role Phone WYATT GOMEZ Primary Care Provider Melanie Berry Unavailable [phone] REASON FOR VISIT DEXA Result Encounters Encounter Location Date Provider Diagnosis [facility] [place] [address] [place] [address] 01/13/2025 Melanie Berry Plan Of Treatment Next Appt Details Provider Name:ROBERTA COLEY CAROL, 03/29/2025 01:30:00 PM, [address], [place], [address], Progress Notes * Jose JACOBOB:[birth year] (64 yo F)Acc No.[id number]:01/13/2025 Progress Notes Patient: Nima Sandy HOLLOWAY Provider: RYANN Croft :1960 A ge:64 Y S ex:Female Date:01/13/2025 Address:[address] [facility] [id number] Pcp:WYATT [place] Subjective: * Chief Complaints: * 1 . DEXA Result. * Medical History: Objective: * Vitals: Assessment: Plan: * Treatment: * Images: * Electronic signature of Nik Berry APRN on 02/27/2025 at 12:35 PM EDT Sign off status: Pending * Provider: RYANN Croft Date: 0 01/13/2025 Generated for Destini duron/Julio Cesar/Mario on: 0 02/27/2025 12:35 PM EDT
--- OUTSIDE RECORDS SUMMARY | 2025-01-27 05:30 | XMS_ITS ---
Author Organization [facility] Address [address] [facility] [address] [place] [address] Care Team Providers Care Separator Operator Name Role Phone WYATT GOMEZ Primary Care Provider [phone] Melanie Berry Unavailable [phone] ROBERTA QUIGLEY Unavailable [phone] REASON FOR VISIT Labs Results, Due Eye Exam Encounters Encounter Location Date Provider Diagnosis [facility]'s Internal Medicine [place] [address] [place] [address] 01/27/2025 ROBRETA QUIGLEY Plan Of Treatment Next Appt Details Provider Name:ROBERTA MEDINA, 03/29/2025 01:30:00 PM, [address], [place], [address], Progress Notes * Jose JACOBOB:[birth year] (64 yo F)Acc No.[id number]:01/27/2025 Patient: Sandy MADRIGAL Provider: Leelee SANDOVAL APRN :1960 A ge:64 Y S ex:Female Date:01/27/2025 Address:[address], [place], [id number] Pcp:WYATT YORK Subjective: * Chief Complaints: * 1 . Labs Results. 2. Due Eye Exam. * Medical History: Objective: * Vitals: Assessment: Plan: * Treatment: * Images: * Electronic signature of SAEED QUIGLEY APRN on 02/27/2025 at 12:33 PM EDT Sign off status: Pending * Provider: Leelee SANDOVAL APRN Date: 0 01/27/2025 Generated for Printing/Faxing/eTransmitting on: 0 02/27/2025 12:33 PM EDT
--- OUTSIDE RECORDS SUMMARY | 2025-02-24 06:15 | XMS_ITS ---
Author Organization [facility] Address [address] [facility] [address] [place] [address] Care Team Providers Care Senior Controls Analyst Name Role Phone WYATT GOMEZ Primary Care Provider [phone] Melanie Berry Unavailable [phone] ROBERTA QUIGLEY Unavailable [phone] REASON FOR VISIT Lab results review, Due Eye Exam Encounters Encounter Location Date Provider Diagnosis [facility] Internal Medicine [place] [address] [place] [address] 02/24/2025 ROBERTA QUIGLEY Plan Of Treatment Next Appt Details Provider Name:ROBERTA MEDINA, 03/29/2025 01:30:00 PM, [address], [place], [address], Progress Notes * Jose JACOBOB:[birth year] (64 yo F)Acc No.[id number]:02/24/2025 Patient: Sandy MADRIGAL Provider: Leelee SANDOVAL APRN :1960 A ge:64 Y S ex:Female Date:02/24/2025 Address:[address], [place], [id number] Pcp:WYATT YORK Subjective: * Chief Complaints: * 1 . Lab results review. 2. Due Eye Exam. * Medical History: Objective: * Vitals: Assessment: Plan: * Treatment: * Images: * Electronic signature of SAEED QUIGLEY APRN on 02/27/2025 at 12:32 PM EDT Sign off status: Pending * Provider: Leelee SANDOVAL APRN Date: 0 02/24/2025 Generated for Printing/Faxing/eTransmitting on: 0 02/27/2025 12:32 PM EDT
--- NOTE | 2025-02-27 10:44 | MHC.OFFVIS ---
Vital Signs 02/27/25 10:55 Height 5 ft 5 in Weight 149 lb 14.629 oz BMI 24.9 BP 161/88 H Blood Pressure Location Rt brachial Position Sitting Pulse 75 Intake Visit Reasons: Follow up MRCP Intake Note: Sandy presents in the office as a follow up MRCP. CC: States that she is not having any symptoms at this time. Search Engine Marketing Strategist Required: Yes Search Engine Marketing Strategist Name: [id number] Allergies No Known Allergies (No Known Allergies*) Allergy (Unverified 02/27/25 10:55) HPI HPI Follow up MRCP: Details: 64 yo female, with DM on trulicity for last 2 months, HLD, HTN, Asthma on nebs and inhaler, Migraine, hysterectomy, who I am seeing for f/u for pancreatitis RECAP Seen as in patient 03/09 She initially presented with sudden onset cramping epigastric pain, radiating across the top of the abdomen associated with nausea. Pain was 10/10 on admission now 7/10. Of note she is on trulcitiy for last few months. pos FH of GB disease in sister, she never had it before. She denies constipation, diarrhea, melena, rectal bleeding. Patient denies any history of alcohol use now or remotely. Patient's denies history of smoking. Patient does not use marijuana or illicit drugs. she has been tolerating light diet and liquids. Imaging: CT of the abdomen and pelvis which identified acute interstitial pancreatitis without abscess, duodenitis and a distended gallbladder but no bile duct dilatation. MRCP showed stones in GB and filling defects in CBD ERCP was attempted but access was difficult, cholangiogram without any strictures or stones, PD stent placed LAB: H&H is stable at 11.7 and 35.6. Blood glucose is 154. AST 112, ALT 59 and lipase 871. Patient's UA is negative for UTI. Toxicology screen negative for alcohol. INTERIM: she is doing well no complaints no further abdominal pain staying on low fat diet EXAM: GENERAL: The patient is well developed and nontoxic. VITAL SIGNS:see workflow HEENT: Nonicteric sclerae, PERRLA, EOMI. Oropharynx clear. Moist mucous membranes. Conjunctivae appear well perfused. No thyroid mass. CHEST: Chest wall is nontender. HEART: Regular rate and rhythm without murmurs. LUNGS: Clear to auscultation bilaterally. ABDOMEN: Soft, positive bowel sounds, nontender, no organomegaly.no flank tenderness SKIN: No rash, no excessive bruising, petechiae, or purpura. NEUROLOGIC: Cranial nerves II-XII intact without motor/sensory deficit. Psych: normal affect A/P: 1/ gallstone pancreatitis, awaiting surgery PLAN: /1 - cont lo fat diet, 2/ KUB< if PD stent present then remove 3/ surgery referral [facility] Medical History Migraine Asthma Diabetes type 2, controlled Vitamin D deficiency Overweight (BMI 25.0-29.9) Dyslipidemia group home (current) use of insulin Surgical History History of H/O: hysterectomy Social History Household Members: Significant Other Housing: Apartment Are you a primary intensive care ambulance paramedic to a significant other at home: No Do you presently have visiting nurse or other home services: No Patient Tobacco Use Status: Never used Tobacco service: No Physical Exam Vital Signs: Last Vital Signs Pulse 75 02/27/25 10:55 BP 161/88 H 02/27/25 10:55 BMI result Body Mass Index 24.9 Assessment & Plan Assessment & Plan (1) Pancreatitis: Code(s): K85.90 - Acute pancreatitis without necrosis or infection, unspecified Category: Medical Plan: as above Orders: Orders XR KUB Today K85.90 - Acute pancreatitis without necrosis or infection, unspecified Medications: Changed From simethicone 125 mg PO BEDTIME 10 days 10 caps 0RF To simethicone 125 mg PO BEDTIME 60 caps 1RF 30 days Coding Level of Care Code Est Pt Level 3 (50643) Diagnoses Pancreatitis K85.90
[2025-02-27 10:55] VITALS: BP 161/88; PULSE 75; BMI 24.9
--- OUTSIDE RECORDS SUMMARY | 2025-02-27 12:33 | XMS_ITS | Patient Health Record ---
Author Organization Wyatt Corneliodmitriy Gunderson arlene Kirko [place] Address [address] [facility] [address] [place] [address] Care Team Providers Care Dam Attendant Name Role Phone DANIELLE JARRED YORKASHTYN Primary Care Provider [phone] Melanie Berry Unavailable [phone] ROBERTA QUIGLEY Unavailable [phone] Nevin Zheng Unavailable Allergies Allergen (clinical drug ingredient) Drug/Non Drug Allergy documented on EMR Reaction Allergy Type Onset Date Status Seasonal IC Unknown Drug Allergy Activ e Results Component Value Reference Range Notes HEMOGLOBIN A1c (496) Reviewed date:09/23/2024 10:27:51 AM Interpretation: Performing Lab:[facility]Thijq0629 [address] Moody, [id number] Shaheen Fofana MD Notes/Report: FASTING: YES FASTING:YES [...] children. ALBUMIN, RANDOM URINE W/O CR EATININE (04167) Reviewed date:09/23/2024 10:28:45 AM Interpretation: Performing Lab:[facility]-Nlhkj7427 Yuliya Moody [id number] Shaheen Fofana MD Notes/Report: FASTING:YES FASTING: YES [...] be within a diagnostic category. URINALYSIS, COMPLETE (8693) Reviewed date:09/23/2024 10:26:09 AM Interpretation: Performing Lab:[facility] Yamela422Johnny Moody [id number] Shaheen Fofana MD Notes/Report: FASTING:YES FASTING: YES [...] Reviewed date:09/23/2024 10:26:45 AM Interpretation: Performing Lab:[facility] demandmartShandaEapkh0071 Yuliya Moody [id number] Shaheen Fofana MD Notes/Report: FASTING:YES FASTING: YES [...] MPV 10.9 7.5-12.5 fL ABSOLUTE NEUTROPHILS 3791 7382-8075 cells/uL ABSOLUTE LYMPHOCYTES 2606 850-3900 cells/uL ABSOLUTE MONOCYTES 525 200-950 cells/uL ABSOLUTE EOSINOPHILS 149 15-500 cells/uL ABSOLUTE BASOPHILS 28 0-200 cells/uL NEUTROPHILS 53.4 LYMPHOCYTES 36.7 MONOCYTES 7.4 EOSINOPHILS 2.1 BASOPHILS 0.4 COMPREHENSIVE METABOLIC PANE L ([facility]) (98511) Reviewed date:09/23/2024 10:28:25 AM Interpretation: Performing Lab:[facility]-[id number] [address] Aashish Moody, SkjpoCE[address] Shaheen Fofana MD Notes/Report: FASTING:YES FASTING: YES [...] Reviewed date:09/23/2024 10:29:05 AM Interpretation: Performing Lab:[facility]Jjrcw1116 Yuliya Moody, [id number] Shaheen Fofana MD Notes/Report: FASTING:YES FASTING: YES [...] LDL-C. Grant RODARTE et al. LAMAR. 2013;310(19): 1219-8144 ([email or web address]/[email or web address]) CHOL/HDLC RATIO 3.3 <5.0 (calc) NON HDL CHOLESTEROL 107 <130 mg/dL (calc) For patients with diabetes plus 1 major ASCVD risk factor, treating to a non-HDL-C goal of <100 mg/dL (LDL-C of <70 mg/dL) is considered a therapeutic option. Hemoglobin A1c Reviewed date:01/10/2025 08:29:52 AM Interpretation: Performing Lab:[facility], [address] [facility], Phone - [phone], Director - MDRichendollar Notes/Report: Hemoglobin A1c 8.5 Reference Range: [place] Diabetes Association (ADA) Guidelines: <5.7: Decreased risk for diabetes 5.7 - 6.4: Increased risk for diabetes >6.4: Ongoing Hyperglycemia of any cause <7.0: Glycemic control for adults with diabetes Estimated Average Glucose 197 CMP14+eGFR Reviewed date:01/10/2025 08:29:52 AM Interpretation: Performing Lab:[facility], [address] [facility], Phone - [phone], Director - MDRichendollar Notes/Report: Glucose 217 70-99 [...] 0-40 IU/L ALT (SGPT) 15 0-32 IU/L Please note-[id number] Reviewed date:01/10/2025 08:29:52 AM Interpretation: Performing Lab:[facility], [address] [place] [address], Phone - [phone], Director - MDRichendollar Notes/Report: Please note The date and/or time of collection was not indicated on the requisition as required by state and federal law. The date of receipt of the specimen was used as the collection date if not supplied. Lipid Panel-[id number] Reviewed date:01/10/2025 08:29:52 AM Interpretation: Performing Lab:[facility], [address] [place] [address], Phone - [phone], Director - MDRichendollar Notes/Report: Cholesterol, Total 141 100-199 mg/dL Triglycerides 79 0-149 mg/dL HDL Cholesterol 44 >39 mg/dL VLDL Cholesterol Alfred 15 5-40 mg/dL LDL Chol Calc ([facility]) 82 0-99 mg/dL Albumin/Creatinine Ratio,Uri ne-[id number] Reviewed date:01/10/2025 08:29:52 AM Interpretation: Performing Lab:[address], Phone - [phone], Director - MDRichendollar Notes/Report: Creatinine, Urine 102.9 Not Estab. mg/dL Albumin, Urine 9.1 Not Estab. ug/mL Alb/Creat Ratio 9 0-29 mg/g creat Normal: 0 - 29 Moderately increased: 30 - 300 Severely increased: >300 CBC With Differential/Platel et-[id number] Reviewed date:01/10/2025 08:29:52 AM Interpretation: Performing [facility], [address] [place] [address], Phone - [phone], Director - MDRichendollar Notes/Report: WBC 7.1 3.4-10.8 [...] Immature Grans (Abs) 0.0 0.0-0.1 x10E3/uL Urinalysis, Complete-[id number] Reviewed date:01/10/2025 08:29:52 AM Interpretation: Performing Lab:[facility], [facility] [address] [facility], Phone - [phone], Director - MDRichendollar Notes/Report: Specific [place] 1.020 1.005-1.030 pH 5.5 5.0-7.5 Urine-Color Yellow [...] seen None seen/Few Yeast Present None seen Reason For Referral Reason No Auth Req Diagnosis 1 Type 2 diabetes mao itus with other circulatory complications (E11.59) Referral Organization [facility] [place] Referring Provider First Name Melanie Referring Provider Last Name Kristi Referring Provider Speciality Family [facility] dona Referred Provider Keon Hernandez Referred Provider Specialty Podiatry Procedure 1 New Patient Office o r Other Outpatient Services. (29830) Procedure 2 Office Visit, Est Pt ., Level 4 (71947) Referral Priority Routine Medications Medication SIG (Take, [...] utaneous 0.75 mg one a week Active Bqfpcpkmjy-CIYH-Ofihxjrl 50-325-40 MG 1 tablet as needed Oralt [...] 0.75 mg weekly; Duration: 30 days Active Wtukwqwkpq-MXGQ-Bzvjxzqb 50-325-40 MG 1 capsule as needed Orally [...] Peripheral circulatory disorder associated with diabetes mellitus (153696109) Type 2 diabetes mellitus with other circulatory complications (E11.59) Active confirmed Problem Mixed hyperlipidemia (901548731) Mixed hyperlipidemia (E78.2) Active confirmed Problem Hyperlipidemia (34489195) Hyperlipidemia, unspecified (E78.5) Active confirmed Problem Anxiety disorder (066463307) Anxiety disorder, unspecified (F41.9) Active confirmed Problem Migraine without aura (04378072) Migraine without aura, not intractable, with status migrainosus (G43.001) Active confirmed Problem Sleep apnea (80380533) Sleep apnea, unspecified (G47.30) Active confirmed Problem Mild intermittent asthma (718239169) Mild intermittent asthma, uncomplicated (J45.20) Active confirmed Problem Cervicalgia (42754058) Cervicalgia (M54.2) Active confirmed Problem Essential hypertension (08986185) Essential (primary) hypertension (I10) Active confirmed Problem Psoriasis (6975942) Psoriasis (L40.9) Active co nfirmed Problem High cholesterol (16484368) High cholesterol (E78.00) Active confirmed Problem Arthritis (7594522) Arthritis (M19.90) Active confirmed Problem Gastroesophageal reflux disease (509582919) GERD without esophagitis (K21.9) Active confirmed Problem Overweight (310455690) Overweight (BMI 25.0-29.9) (E66.3) Active confirmed Vital Signs Heart Rate 70 /min 01/06/2025 Temperature 97 degrees Fahrenheit 01/06/2025 Respiratory Rate 17 /min 01/06/2025 Blood pressure diastolic 40 mm Hg 01/06/2025 Oximetry 99 % 01/06/2025 Height 63 in 01/06/2025 Blood pressure systolic 135 mm Hg 01/06/2025 Weight 148 lbs 01/06/2025 BMI 26.21 kg/m2 01/06/2025 Encounters Encounter Location Date Provider Diagnosis [facility] [address] [place] [address] 01/06/2025 ROBERTA QUIGLEY Type 2 diabetes mellitus with other circulatory complications E11.59 ; Body mass index 26.0-26.9, adult Z68.26 ; Essential (primary) hypertension I10 ; Mild intermittent asthma, uncomplicated J45.20 ; Migraine without aura, not intractable, with status migrainosus G43.001 ; Sleep apnea, unspecified G47.30 ; Psoriasis L40.9 and Mixed hyperlipidemia E78.2 [facility] [place] [address] [place] [address] 09/30/2024 Melanie Berry Type 2 diabetes mellitus [...] migrainosus G43.001 and Anxiety disorder, unspecified F41.9 [facility] [address] [place] [address] 08/29/2024 Melanie Kristi Encounter for genera l adult medical examination [...] aura, not intractable, with status migrainosus G43.001 [facility] [place] [address] [facility] [place] [address] 01/06/2025 JUSSEP FOMBELLIDA Anxiety disorder, unspecified F41.9 ; High cholesterol E78.00 ; Essential (primary) hypertension I10 and Type 2 diabetes mellitus with other circulatory complications E11.59 [facility] [place] [address] [place] [address] 10/27/2024 Melanie Berry Type 2 diabetes mellitus with other circulatory complications E11.59 Assessments Encounter Date Diagnosis (ICD Code) Assessment Notes Treatment Notes Treatment Clinical Notes Section Notes 09/30/2024 Type 2 diabetes mellitus with other circulatory complications (ICD-10 - E11.59) Podiatric referral given. 30 u of Lantus a day. 09/30/2024 Body mass index [BMI] 26.0-26.9, adult (ICD-10 - Z68.26) 01/06/2025 Type 2 diabetes mellitus with other [...] 01/06/2025 Anxiety disorder, unspecified (ICD-10 - F41.9) 10/27/2024 Type 2 diabetes mellitus with other circulatory complications (ICD-10 - E11.59) 08/29/2024 Encounter for general adult medical examination with abnormal findings (ICD-10 - Z00.01) 08/29/2024 Body mass index (BMI) of 24.0-24.9 in adult (ICD-10 - Z68.24) 01/06/2025 High cholesterol (ICD-10 - E78.00) 08/29/2024 Overweight (ICD-10 - E66.3) 09/30/2024 Overweight (BMI 25.0-29.9) (ICD-10 - E66.3) 01/06/2025 Essential (primary) hypertension (ICD-10 - I10) Continue low salt diet 01/06/2025 Mild intermittent asthma, uncomplicated (ICD-10 - J45.20) Discussed and provided asthma action plan 01/06/2025 Essential (primary) hypertension (ICD-10 - I10) 09/30/2024 Person consulting for explanation of examination or test finding (ICD-10 - Z71.2) 08/29/2024 Encounter for screening for depression (ICD-10 - Z13.31) PHQ-9 Done Aisha Stack 08/29/2024 01:53:25 PM EDT > 01/06/2025 Migraine without aura, not intractable, with status migrainosus (ICD-10 - G43.001) Reinforce education about trigger factors 09/30/2024 Encounter for screening for malignant neoplasm of colon (ICD-10 - Z12.11) Colonoscopy done one year 01/06/2025 Type 2 diabetes mellitus with other circulatory complications (ICD-10 - E11.59) 08/29/2024 Encounter for screening for malignant neoplasm of colon (ICD-10 - Z12.11) Colonoscopy done one year 09/30/2024 Encounter for screening for osteoporosis (ICD-10 - Z13.820) Order DEXA TEST 01/06/2025 Sleep apnea, unspecified (ICD-10 - G47.30) Prop up the head of your bed 4 to 6 inches by putting bricks under the legs of the bed. 08/29/2024 Encounter for screening for malignant neoplasm of cervix (ICD-10 - Z12.4) Hicterectpmy done 20 years 08/29/2024 Encounter for screening for osteoporosis (ICD-10 - Z13.820) Order DEXA TEST 09/30/2024 Encounter for screening mammogram for malignant neoplasm of breast (ICD-10 - Z12.31) Screening mammogram done 3-4 months done. 01/06/2025 Psoriasis (ICD-10 - L40.9) Hydration and lubrication, dove soap, triple rinse clothing and linens 08/29/2024 Encounter for screening mammogram for malignant neoplasm of breast (ICD-10 - Z12.31) Screening mammogram done 3-4 months done. 01/06/2025 Mixed hyperlipidemia (ICD-10 - E78.2) Healthy lifestyle discussed with patient, including diet, vitamin supplement, exercise, non-smoking, safe sexual practices and reduction of stress. Assessment and plan reviewed with patient. 09/30/2024 Cervicalgia (ICD-10 - M54.2) 09/30/2024 High cholesterol (ICD-10 - E78.00) 08/29/2024 [...] G43.001) 08/29/2024 High cholesterol (ICD-10 - E78.00) 08/29/2024 Essential (primary) hypertension (ICD-10 - I10) 09/30/2024 Anxiety disorder, unspecified (ICD-10 - F41.9) 08/29/2024 Mild intermittent asthma, uncomplicated (ICD-10 - [...] 674) 08/29/2024 Next Appt Details Provider Name:ROBERTA COLEY CAROL, 03/29/2025 01:30:00 PM, [address] [facility], [place], [address], Insurance Providers Payer Name Payer Address Payer Phone Subscriber Number Group Number Insured Name Patient Relationship to Insured Coverage Start Date Coverage End Date [facility] Dual Complete PPO [address] [address] [place] [address] [id number] Sandy Jacob Self - patient is the [...]
--- OUTSIDE RECORDS SUMMARY | 2025-02-27 12:33 | XMS_ITS | Patient Health Record ---
Author Organization [place], [facility]. Address [address] [facility] [address] [place] [address] Care Team Providers Care Black Ash Burner Operator Name Role Phone Rosalio Epstein Primary Care Provider Macrina Rosenbaum Unavailable [phone] Caity Palomares Unavailable [phone] Allergies No Known Allergies Results Component Value Reference Range Notes CBC With Differential/Platel et-LC-Q Reviewed date:03/16/2024 03:35:44 PM Interpretation: Performing Lab:[facility], [facility] [facility], [place], [place] [id number], Phone - [phone], Director - Laurent Notes/Report: WBC 7.0 3.4-10.8 [...] % Immature Grans (Abs) 0.0 0.0-0.1 x10E3/uL Microalbumin/Creatinine Rati o, Random Urine-LC Reviewed date:06/28/2024 10:11:45 PM Interpretation: Performing Lab:[facility] [id number], Phone - [phone], Director - MDFarrier Notes/Report: Creatinine, Urine 129.2 Not Estab. mg/dL Albumin, Urine 25.6 Not Estab. ug/mL Alb/Creat Ratio 20 0-29 mg/g creat Severely increased: >300 Moderately increased: 30 - 300 Normal: 0 - 29 Hemoglobin A1C Reviewed date:06/28/2024 09:41:13 PM Interpretation: Performing Lab:[facility] [id number], Phone - [phone], Director - [facility]Dign[facility] Center[facility] Notes/Report: Hemoglobin A1c 12.1 4.8-5.6 % Prediabetes: 5.7 - 6.4 Glycemic control for adults with diabetes: <7.0 . Diabetes: >6.4 CBC With Differential/Platel et-LC-Q Reviewed date:06/28/2024 09:40:43 PM Interpretation: Performing Lab:[facility] [address] [id number], Phone - [phone], Director - MDNikkorier Notes/Report: WBC 6.1 3.4-10.8 x10E3/uL RBC 4.86 [...] Immature Grans (Abs) 0.0 0.0-0.1 x10E3/uL Urinalysis, Cuprtlim-HT-S Reviewed date:06/28/2024 09:40:22 PM Interpretation: Performing Lab:[facility] [id number], Phone - [phone], Director - Laurent Notes/Report: Specific [place] >=1.030 1.005-1.030 pH 6.0 5.0-7.5 Urine-Color Yellow [...] 14+eGFR-LC-Q Reviewed date:06/28/2024 09:39:48 PM Interpretation: Performing Lab:[facility], [address] [place] [id number], Phone - [phone], Director - Laurent Notes/Report: Glucose 253 70-99 [...] Panel-Q-LC Reviewed date:06/28/2024 10:11:52 PM Interpretation: Performing Lab:[facility], [address] [place] [id number], Phone - [phone], Director - Laurent Notes/Report: Cholesterol, Total 142 100-199 mg/dL Triglycerides 65 0-149 mg/dL HDL Cholesterol 46 >39 mg/dL VLDL Cholesterol Alfred 13 5-40 mg/dL LDL Chol Calc (NIH) 83 0-99 mg/dL Hemoglobin A1C Reviewed date:04/07/2024 04:48:57 PM Interpretation: Performing Lab:[facility][id number] Yuliya Moody [id number] Shaheen Fofana MD Notes/Report: 0 HEMOGLOBIN A1c [...] Interpretation: Performing Lab: Notes/Report: Mammo SCREENING MAMMO ALBINOA BENITA Cohen Reviewed date:04/05/2024 11:16:52 AM Interpretation: Performing Lab: Notes/Report: Microalbumin/Creatinine Rati o, Random Urine-LC Reviewed date:03/16/2024 03:35:38 PM Interpretation: Performing Lab:[address] [id number], Phone - [phone], Director - [facility] Notes/Report: Creatinine, Urine 50.2 Not Estab. mg/dL Albumin, Urine 10.3 Not Estab. ug/mL Alb/Creat Ratio 21 0-29 mg/g creat Moderately increased: 30 - 300 Normal: 0 - 29 Severely increased: >300 Hemoglobin A1C Reviewed date:03/16/2024 03:25:53 PM Interpretation: Performing Lab:[address] [id number], Phone - [phone], Director - [facility] Notes/Report: Hemoglobin A1c 10.6 4.8-5.6 % . Diabetes: >6.4 Prediabetes: 5.7 - 6.4 Glycemic control for adults with diabetes: <7.0 Urinalysis, Fscdyxiu-ZL-Y Reviewed date:03/16/2024 03:26:08 PM Interpretation: Performing Lab:[address] [id number], Phone - [phone], [facility] Notes/Report: Specific [place] 1.013 1.005-1.030 pH 6.5 5.0-7.5 Urine-Color Yellow [...] 14+eGFR-LC-Q Reviewed date:03/16/2024 03:26:25 PM Interpretation: Performing Lab:[address] [id number], Phone - [phone], Director - Laurent Notes/Report: Glucose 300 70-99 [...] Reviewed date:03/16/2024 03:35:52 PM Interpretation: Performing Lab:[facility], [facility] [place], [place] [id number], Phone - [phone], Director - Laurent Notes/Report: Cholesterol, Total 139 100-199 mg/dL Triglycerides 63 0-149 mg/dL HDL Cholesterol 44 >39 mg/dL VLDL Cholesterol Alfred 13 5-40 mg/dL LDL Chol Calc (NIH) 82 0-99 mg/dL Reason For Referral Reason Please fax consul t notes and/or results of procedure approved to [phone]. Thanks! ~Annual eye exam~ Diagnosis 1 Encounter for examin ation of eyes and vision without abnormal findings (Z01.00) Referral Organization [facility] ical P Referring Provider First Name Macrina Referring Provider Last Name Robi Referring Provider Speciality Nurse Prac titioner Referred Provider [facility] Referred Provider Specialty Resident In Diagnostic Radiology Referral Priority Routine Medications Medication SIG (Take, [...] 8 hrs; Duration: 30 days 06/03/2024 Active Hygyyfureg-HMYI-Jzdud ine 50-325-40 MG 1 tablet as needed [...] Notes Problem Long-term current use of insulin (596412336) skilled nursing (current) use of insulin (Z79.4) Active confirmed Problem Diabetic renal disease (479519525) Type 2 diabetes mellitus with diabetic chronic kidney disease (E11.22) Active confirmed Problem Type 2 diabetes mellitus with other specified complication (E11.69) Active confirmed Problem Essential hypertension (97778136) Essential (primary) hypertension (I10) Active confirmed Problem Chronic kidney disease due to hypertension (905828586391681) Hypertensive chronic kidney disease with stage 1 through stage 4 chronic kidney disease, or unspecified chronic kidney disease (I12.9) Active confirmed Problem Mild intermittent asthma (890439854) Mild intermittent asthma, uncomplicated (J45.20) Active confirmed Problem Chronic kidney disease stage 2 (423339346) Chronic kidney disease, stage 2 (mild) (N18.2) Active confirmed eGFR 85 as per labs results from 4 Problem Vitamin D deficiency (82089559) Vitamin D deficiency (E55.9) Active confirmed Problem Migraine (70553524) Migraine (G43.909) Active confirmed Problem Hyperlipidemia (23102818) Hyperlipidemia (E78.5) Active confirmed Problem Anxiety (67746269) Anxiety (F41.9) Active confirmed Problem Overweight (007188547) Overweight (BMI 25.0-29.9) (E66.3) Active confirmed Problem Polyneuropathy due to type 2 diabetes mellitus (386387456) Diabetic polyneuropathy associated with type 2 diabetes mellitus (E11.42) Active confirmed Problem Smoker (69204871) Smoker (F17.200) Active confi rmed Problem Smoking (28786789) Smoking (F17.200) Active confirmed Problem Bone spur of left foot (283422962085162) Bone spur of left foot (M77.9) Active confirmed Problem Sleep disorder (77208315) Sleep disorder (G47.9) Active confirmed Problem Type 2 diabetes mellitus with other specified complication, without long-term current use of insulin (E11.69) Active confirmed Problem Allergic rhinitis (67036607) Allergic rhinitis, unspecified seasonality, unspecified trigger (J30.9) Active confirmed Problem Hyperglycemia due to type 2 diabetes mellitus (871797860280297) Uncontrolled type 2 diabetes mellitus with hyperglycemia (E11.65) Active confirmed Problem Moderately severe major depression (645359973) Moderately severe major depression (F32.2) Active confirmed Vital Signs Temperature 98.0 degrees Fahrenheit 06/03/2024 Respiratory Rate 19 /min 06/03/2024 Blood pressure diastolic 64 mm Hg 06/03/2024 Oximetry 98 % 06/03/2024 Height 5 ft 3 in in 06/03/2024 Blood pressure systolic 109 mm Hg 06/03/2024 Weight 143 lbs 06/03/2024 BMI 25.33 kg/m2 06/03/2024 Encounters Encounter Location Date Provider Diagnosis [facility] [address] [place] [address] 03/14[facility]2024 [place] [facility] [address] [place] [address] 03/14/2024 [facility] [address] [place] [address] 04/06/2024 [facility] [address] [place] [address] 03/03/2024 Macrina Rosenbaum Hypertensive chronic kidney disease [...] eyes and vision without abnormal findings Z01.[address] [place] [address] 04/05/2024 Macrina Rosenbaum Hypertensive chronic kidney disease [...] of 25.0 to 25.9 in adult Z68.[address] [place] [address] 05/05/2024 Macrina Rosenbaum Hypertensive chronic kidney disease [...] of 25.0 to 25.9 in adult Z68.[address] [place] [address] 06/03/2024 Macrina Rosenbaum Hypertensive chronic kidney disease [...] Comprehensive Metabolic Panel 14+eGFR-LC -Q 11/10/2014 Urinalysis, Kzflauqj-BF-K 11/10/2014 Urinalysis, Xpncimmg-BB-G 04/02/2016 Urinalysis, Jjdmnvrz-WY-U 10/15/2022 CBC With Differential/Sggiwtyt-CX-M 0 08/2022 CBC With Differential/Osjvyyvp-LU-I 03/15 CBC With Differential/Xsgekmiu-ZU-D 10/14 Hemoglobin A1C 10/15/2022 Microalbumin/Creatinine Ratio, Random [...]
--- OUTSIDE RECORDS SUMMARY | 2025-02-27 12:34 | XMS_ITS | Clinical Summary ---
Author Organization [employer] Address [address] [facility] [address] 7[address] [place] [address] Care Team Providers Care Wallpaper Consultant Name Role Phone Unavailable Primary Care Provider [...] Encounters Date Type Department Care Team Description 02/15/2025 Telephone [facility] [address] [place] [address] Teo Rodriguez MD 01/18/2025 Telephone [facility] [address] [place], [place] [phone] Teo Rodriguez MD New pt appt from [...] FIT DNA/Cologuard 1959 FIT 1959 FOBT 1959 Lipid Panel 1959 SDOH Screening 1959 Sigmoidoscopy 1959 Diabetes: Foot Exam 1969 Eye Exam 1969 Alcohol/Substance Use Screening 1971 Tobacco Screening 1971 Hepatitis C Screening 1977 DTaP/Tdap/Td Vaccines (1 - Tdap) 1978 Pap Smear 1980 Cervical Cancer Screening 1989 HPV/Cotest 1989 Mammogram 1999 RSV Patients and Patients Aged 60 years or older (1 - Risk 60-74 years 1-dose series) 2019 Zoster Vaccines (2 of 2) 04/10/2021 02/13/2021 Diabetes: Hemoglobin A1C 06/21/2021 021, 08/24/2020, 08/24/2019 Pneumococcal Vaccine: 50+ Years (2 of 2 - PCV) 02/13/2022 02/13/2021 Diabetes: Urine Protein Screening 03/21/2022 03/21/2021, 08/04/2019 COVID-19 Vaccine (3 - 2024-2 6 season) 2025 09/21/2020, 08/24/2020 Influenza Vaccine (#1) 2025 8, 03/24/2017 HIB Vaccines Aged Out No longer eligi [...] on patient's age to complete this topic Procedures Procedure Name Priority Date/Time Associated Diagnosis Comments ALBUMIN, RANDOM URINE W/CREATININE Routine 03/21/2021 1:22 PM EDT HEMOGLOBIN A1C Routine 03/21/2021 1:22 PM EDT from Last 3 Months or Most Recently Relevant to Health Maintenance Results * ALBUMIN, RANDOM URINE W/CREATININE (03/21/2021 1:22 PM EDT) Microalbumin Urine 0.9 See Note: mg/dL [facility] Comment: Reference Range: Reference Range Not established Microalb/Creat Ratio 8 <30 mcg/mg creat [facility] Comment: The ADA defines abnormalities in albumin excretion as follows: Albuminuria Category Result (mcg/mg creatinine) Normal to Mildly increased <30 Moderately increased 30-299 Severely increased > OR = 300 The ADA recommends that at least two of three specimens collected within a 3-6 month period be abnormal before considering a patient to be within a diagnostic category. Creatinine, Urine 114 20 - 275 mg/dL [facility] 03/21/2021 1:22 PM EDT us Corie Segura MD LAB URINE ORDERABLES Fin al Result Performing Organization Address [facility] Co de Phone Number [facility] [address] * (ABNORMAL) HEMOGLOBIN A1c (03/21/2021 1:22 PM EDT) Hemoglobin A1c 6.6(H) <5.7 % of total Hgb [facility] Comment: For someone without known diabetes, a hemoglobin [...] A1c for diagnosis of diabetes for children. 03/21/2021 1:22 PM EDT Corie Segura MD LAB BLOOD ORDERABLES Fin al Result Performing Organization Address [facility] de Phone Number [facility] [address] from Last 3 Months or Most Recently Relevant to Health Maintenance [place] [address] [place] [address] STANDARD
--- OUTSIDE RECORDS SUMMARY | 2025-02-27 12:34 | XMS_ITS | Patient Health Record ---
Author Organization [facility] Address [address] [place] [address] Care Team Providers Care Director Instructional Material Name Role Phone Alexander Cruz Primary Care [...] Status Risk Notes Problem Uncomplicated asthma (disorder) (975233045) Unspecified asthma, uncomplicated (J45.909) Active confirmed Plan Of Treatment No Information Insurance Providers Payer Name Payer Address Payer Phone Subscriber Number Group Number Insured Name Patient Relationship to Insured Coverage Start Date Coverage End Date [facility] [address] [place] [phone] [id number] Sandy Jacob Self - patient is the insured Medical (General) History Medical History History ICD Code Migraines Asthma Surgical History Surgery Date(Month/Year) Hysterectomy
--- OUTSIDE RECORDS SUMMARY | 2025-02-27 12:35 | XMS_ITS | Patient Health Record ---
Author Organization [facility] Address [address] [facility] [address] [place] [address] Care Team Providers Care Hand Sewer Name Role Phone Sherrie Garcia Primary Care Provider Reason For Referral No Information Encounters Encounter Location Date Provider Diagnosis [facility] [address] [place] [address] 06/09/2024 Sherrie Beltran [facility] [address] [facility] [address] [place] [address] 06/10/2024 Sherrie Beltran [facility] [address] [place] [address] 06/13/2024 [facility] [address] [facility] [place] [address] 07/11/2024 Sherrie Beltran Plan Of Treatment No Information Insurance Providers Payer Name Payer Address Payer Phone Subscriber Number Group Number Insured Name Patient Relationship to Insured Coverage Start Date Coverage End Date [employer] [address] [address] [place] [phone] [id number] Sandy Jacob Self - patient is the insured
== END 2025-02-27 11:26 | disposition home or self-care (01) ==
LOC: HO.HGI 10:03
PROVIDERS: Visit Provider Internal Medicine Gastroenterology
DX: K85.90 Acute pancreatitis without necrosis or infection, unspecified (principal)
CPT/HCPCS: 99213

== ENCOUNTER → 2025-02-27 10:03 | Outpatient (BNVA) | payer MEDICARE, MEDICAID, SELFPAY | PROVIDERS: Visit Provider Internal Medicine Gastroenterology | DX: K85.90 Acute pancreatitis without necrosis or infection, unspecified (principal); I10 Essential (primary) hypertension; E78.5 Hyperlipidemia, unspecified; E11.9 Type 2 diabetes mellitus without complications | CPT/HCPCS: 99212 ==

== ENCOUNTER 2025-03-17 08:14 | Outpatient (REF) | payer OTHER, SELFPAY ==
--- NOTE | ~2025-03-17 | XR_ITS ---
EXAMINATION: XR ABDOMEN 1 VIEW (KUB) HISTORY: K85.90 - Acute pancreatitis without necrosis or infection, unspecified COMPARISON: There are no prior studies available for comparison. FINDINGS: Two supine views of the abdomen are submitted. The bowel gas pattern is unremarkable, without evidence of mechanical obstruction. No abnormal calcifications are identified. There are no abnormal soft tissue masses. The bones are intact. No stent is identified. XR/XR KUB IMPRESSION: Unremarkable bowel gas pattern. No stent is identified. Electronically signed by: Saul Prajapati MD 03/17/2025 09:10 AM EDT
== END 2025-03-17 08:15 | disposition home or self-care (01) ==
LOC: HO.XRAY 08:14
PROVIDERS: PCP Internal Medicine; Visit Provider Internal Medicine Gastroenterology
DX: K85.90 Acute pancreatitis without necrosis or infection, unspecified (principal)
CPT/HCPCS: 74018

== ENCOUNTER → 2025-03-17 08:22 | Outpatient (BNV) | payer OTHER, SELFPAY | PROVIDERS: PCP Internal Medicine; Visit Provider Radiology Diagnostic Radiology | DX: K85.90 Acute pancreatitis without necrosis or infection, unspecified (principal) | CPT/HCPCS: 74018 ==

== ENCOUNTER 2025-03-21 13:31 | Outpatient (AMB) | payer MEDICAID, SELFPAY ==
--- OUTSIDE RECORDS SUMMARY | 2024-06-09 07:30 | XMS_ITS ---
Author Organization [facility] Address [address] [facility] 114 [facility] 100 [place] [address] Care Team Providers Care Human Services Case Manager Name Role Phone Sherrie Garcia Primary Care Provider REASON FOR VISIT door knock Encounters Encounter Location Date Provider Diagnosis [address] [place] [address] 06/09/2024 Sherrie Beltran Plan Of Treatment No Information Progress Notes * Jose HOPPEROB:06/01 (64 yo F)Acc No.[id number]:06/09/2024 Patient: Alexia MADRIGALsol Provider: Santa Beltran MD :1960 A ge:64 Y S ex:Female Date:06/09/2024 Address:[address] [place], [place] [address]ITAL[facility]-[id number] Structured Data:MRA Reviewed : 07/04/2024 Subjective: * Chief Complaints: * 1 . Door knock. * Medical History: Objective: * Vitals: Assessment: Plan: * Treatment: * Billing Information: * Visit Code: * Procedure Codes: * Electronic signature of Lora Beltran MD on 03/21/2025 at 03:37 PM CDT Sign off status: Pending * Provider: Santa Beltran MD Date: 1 08/10/2023 Generated for Cameroni ng/Faxing/eTransmitting on: 1 03:37 PM CDT
--- OUTSIDE RECORDS SUMMARY | 2024-06-10 05:00 | XMS_ITS ---
Author Organization [facility] Address [address] [facility] 114 [facility] 100 [place] [address] Care Team Providers Care Human Resources District Manager Name Role Phone Sherrie Garcia Primary Care Provider Encounters Encounter Location Date Provider Diagnosis [facility] [address] [facility] [place] [address] 06/10/2024 Sherrie Beltran Plan Of Treatment No Information Progress Notes * Alysia JACOBlDOB:[birth year] (64 yo F)Acc No.[id number]:06/10/2024 Patient: Nima JONES Sandy LEWIS Provider: Santa Beltran MD :1960 A ge:64 Y S ex:Female Date:06/10/2024 Address:[address] [place] [address] [facility]-[address] Structured Data:MRA Reviewed : 07/04/2024 Subjective: * Chief Complaints: * * HPI: N ew/Follow-up Patient Consult: Patient in clinic for Courtesy Visit. * Medical History: Objective: * Vitals: Assessment: Plan: * Treatment: * Billing Information: * Visit Code: * Procedure Codes: * Electronic signature of Lora Beltran MD on 03/21/2025 at 03:38 PM CDT Sign off status: Pending * Provider: Santa Beltran MD Date: 08/11/2023 Generated for Destini duron/Julio Cesar/eTransmitting on: 03:38 PM CDT History and Physical Notes * HPI (History of Present Illness) Category Sub-Category Detail Notes Category Not es New/Follow-up Patient Consult Patient in clinic fo r Courtesy Visit.
--- OUTSIDE RECORDS SUMMARY | 2024-06-13 07:30 | XMS_ITS ---
Author Organization [facility] Address [address] [facility] 114 [facility] 100 [place] [address] Care Team Providers Care Manager Women Name Role Phone Sherrie Garcia Primary Care Provider [phone] Encounters Encounter Location Date Provider Diagnosis [facility] [address] [facility] [place] [address] 06/13/2024 Sherrie Beltran Plan Of Treatment No Information Progress Notes * Jose JACOBOB:[birth year] (64 yo F)Acc No.[id number]:06/13/2024 Patient: Nima JONES Sandy LEWIS Provider: Santa Beltran MD :1960 A ge:64 Y S ex:Female Date:06/13/2024 Address:[address] [place] [address] [facility]PITAL[facility]D-[id number] Structured Data:MRA Reviewed : 07/04/2024 Subjective: * Chief Complaints: * * Medical History: Objective: * Vitals: Assessment: Plan: * Treatment: * Billing Information: * Visit Code: * Procedure Codes: * Electronic signature of Lora Beltran MD on 03/21/2025 at 03:36 PM CDT Sign off status: Pending * Provider: Santa Beltran MD Date: Generated for Destini ng/Faxing/eTransmitting on: 03:36 PM CDT
--- OUTSIDE RECORDS SUMMARY | 2024-07-04 06:15 | XMS_ITS ---
Author Organization [employer]. Address [address] [facility] [address] [place] [address] Care Team Providers Care Die Trouble Shooter Name Role Phone Rosalio Epstein Primary Care Provider Weston Rosenbaumcarolyn Gonzales [phone] REASON FOR VISIT F/UP Medications Medication SIG [...] times a day; Duration: 90 days Active Snusavijwz-DIJI-Quoir ine 50-325-40 MG 1 tablet as needed [...] Not-Taking Encounters Encounter Location Date Provider Diagnosis [place] [address] [place] [address] 07/04/2024 Macrina Rosenbaum Plan Of Treatment No Information Progress Notes * SUNG HOPPEROB:[birth year]01 (64 yo F)Acc No.[id number]:07/04/2024 Progress Notes Patient: LEO MADRIGAL Provider: Jarvis ROSENBAUM APRN :1960 A ge:64 Y S ex:Female Date:07/04/2024 Address:[address] [place], [place] [id number] Pcp:Rosalio Epstein Subjective: * Chief Complaints: * [...] every 4 hours as needed , Taking Tbxrtqylak-EEEU-Lghqtcua 50-325-40 MG Tablet 1 tablet as needed [...] Electronic signature of Macrina Rosenbaum APRN on 03/21/2025 at 04:38 PM EDT Sign off status: Pending * Provider: Jarvis ROSENBAUM APRN Date: 0 07/04/2024 Generated for Destini duron/Julio Cesar/Mario on: 1 04:38 PM EDT
--- OUTSIDE RECORDS SUMMARY | 2024-07-05 09:45 | XMS_ITS ---
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) related to uncontrolled DM II A1c 11.5 DOS 07/09/2023, per [facility] records, 07/05/2024 Type 2 diabetes mellitus with diabetic chronic kidney disease (ICD-10 - E11.22) per [facility] P records, eGFR 85 DOS 03/15/2024 and eGFR 86 DOS 07/10/2023, 07/05/2024 Hypertensive chronic kidney disease with stage 1 through stage 4 chronic kidney disease, or unspecified chronic kidney disease (ICD-10 - I12.9) per [facility] records, eGFR 85 DOS 03/15/2024 and eGFR 86 DOS 07/10/2023, 07/05/2024 Chronic kidney disease, stage 2 (mild) (ICD-10 - N18.2) per [facility] records, eGFR 85 DOS 03/15/2024 and eGFR 86 DOS 07/10/2023, 07/05/2024 Type 2 diabetes mellitus with diabetic polyneuropathy (ICD-10 - E11.42) pt. on Gabapentin, per [facility] records, 07/05/2024 Type 2 diabetes mellitus with other specified complication (ICD-10 - E11.69) related to HLD, pt. on Atorvastatin, metFORMIN, Lantus per [facility] records, 07/05/2024 Mixed hyperlipidemia (ICD-10 - E78.2) due to DM II, per [facility] records, 07/05/2024 Mild intermittent asthma, uncomplicated (ICD-10 - J45.20) pt. on Albuterol per [facility] records, 07/05/2024 Colon cancer screening (ICD-10 - Z12.11) 07/05/2024 Screening breast examination (ICD-10 - Z12.39) Plan Of Treatment No Information Progress Notes * Jose JACOBOB:[birth year] (64 yo F)Acc No.[id number]:07/05/2024 Progress Notes Patient: Nima Sandy HOLLOWAY Provider: Santa Beltran MD :1960 A ge:64 Y S ex:Female Date:07/05/2024 Address:[address] [place], [place] [phone] Structured Data:MRA Reviewed : 07/04/2024 Subjective: * [...] - E11.22 N otes :per [facility] P records, eGFR 85 DOS 03/15/2024 and eGFR 86 DOS 07/10/2023, 2 . T ype 2 diabetes mellitus with diabetic polyneuropathy - E11.42 N otes :pt. on Gabapentin, per [facility] P records, 3 . T ype 2 diabetes mellitus with hyperglycemia - E11.65 N otes :A1c 11.5 DOS 07/09/2023, per [facility] P records 4 . T ype 2 diabetes mellitus with other specified complication - E11.69 ? N otes :related to HLD, pt. on Atorvastatin, metFORMIN, Lantus per [facility] P records, 5 . M ixed hyperlipidemia - E78.2 N otes :due to DM II, per [facility] records, 6 . H ypertensive chronic kidney disease with stage 1 through stage 4 chronic kidney disease, or unspecified chronic kidney disease - I12.9 N otes :per [facility] P records, eGFR 85 DOS 03/15/2024 and eGFR 86 DOS 07/10/2023, 7 . M ild intermittent asthma, uncomplicated - J45.20 N otes :pt. on Albuterol per [facility] records, 8 . C hronic kidney disease, stage 2 (mild) - N18.2 N otes :per [facility] P records, eGFR 85 DOS 03/15/2024 and eGFR 86 DOS 07/10/2023, 9 . I mmunodeficiency due to conditions classified elsewhere - D84.81 ? N otes :related to uncontrolled DM II A1c 11.5 DOS 07/09/2023, per [facility] P records, 1 0. C olon cancer [...] 0 07/05/2024 Generated for Destini duron/Fajumag/eTransmitting on: 1 03:38 PM CDT History and Physical Notes [...]
--- OUTSIDE RECORDS SUMMARY | 2024-07-21 07:00 | XMS_ITS ---
Author Organization [employer]. Address [address] [facility] [address] [place] [address] Care Team Providers Care Hose Builder Name Role Phone Epstein Rosalio Primary Care Provider [phone] RosenbaumMacrina [phone] REASON FOR VISIT ACCESS Medications Medication SIG [...] a day; Duration: 90 days 11/09/2015 Active Nppandoane-NCGE-Dcoyy ine 50-325-40 MG 1 tablet as needed [...] Encounters Encounter Location Date Provider Diagnosis [facility] [address] [place] [address] 07/21/2024 Macrina Rosenbaum Plan Of Treatment No Information Progress Notes * SUNG HOPPEROB:[birth year] (64 yo F)Acc No.[id number]:07/21/2024 Progress Notes Patient: LEO MADRIGAL Provider: Jarvis ROSENBAUM APRN :1960 A ge:64 Y S ex:Female Date:07/21/2024 Address:[address] [place], [place] [phone] Pcp:Rosalio Epstein Subjective: * Chief Complaints: * [...] every 4 hours as needed , Taking Awoegavnpb-JCUT-Cjazbacn 50-325-40 MG Tablet 1 tablet as needed [...] of Macrina Rosenbaum APRN on 03/21/2025 at 04:37 PM EDT Sign off status: Pending * Provider: Jarvis ROSENBAUM APRN Date: 0 07/21/2024 Generated for Destini duron/Julio Cesar/Mario on: 1 04:37 PM EDT
--- OUTSIDE RECORDS SUMMARY | 2024-07-25 10:00 | XMS_ITS ---
Author Organization [facility] Address [address] [place] [address] [address] [place] [address] Care Team Providers Care Manager Law Name Role Phone Rosalio Epstein Primary Care Provider Macrina Rosenbaum [phone] REASON FOR VISIT INS INACTIVE Encounters Encounter Location Date Provider Diagnosis [facility] [address] [facility] [place] [address] 07/25/2024 Macrina Rosenbaum Plan Of Treatment No Information Progress Notes * SUNG HOPPEROB:[birth year] (64 yo F)Acc No.[id number]:07/25/2024 Progress Notes Patient: Nima JONES LEO LEWIS Provider: Jarvis ROSENBAUM APRN :1960 A ge:64 Y S ex:Female Date:07/25/2024 Address:[address] [place] [address], [facility] Pcp:Rosalio Epstein Subjective: * Chief Complaints: * 1 . INS INACTIVE. * Medical History: Objective: * Vitals: Assessment: Plan: * Treatment: * Images: Care Plan Details* * Electronic signature of Macrina Rosenbaum APRN on 03/21/2025 at 04:36 PM EDT Sign off status: Pending * Provider: Jarvis ROSENBAUM APRN Date: 0 07/25/2024 Generated for Printi ng/Fasheri/eTransmitting on: 1 04:36 PM EDT
--- OUTSIDE RECORDS SUMMARY | 2024-08-15 06:45 | XMS_ITS ---
Author Organization [employer]. Address [address] [facility] [address] [place] [address] Care Team Providers Care Learning Facilitator Name Role Phone Lucian Rosalio Primary Care Provider [phone] RosenbaumMacrina [phone] REASON FOR VISIT F/UP Medications Medication SIG (Take, Route, Frequency, Duration) Notes Start Date End Date Status Bktgssybll-VCTA-Tkvyu ine 50-325-40 MG 1 tablet as needed [...] Active Encounters Encounter Location Date Provider Diagnosis [address] [place] [address] 08/15/2024 Macrina Rosenbaum Plan Of Treatment No Information Progress Notes * SUNG HOPPEROB:[birth year] (64 yo F)Acc No.[id number]:08/15/2024 Progress Notes Patient: LEO MADRIGAL Provider: Jarvis ROSENBAUM APRN :1960 A ge:64 Y S ex:Female Date:08/15/2024 Address:[address] [place], [place] [phone] Pcp:Rosalio Epstein Subjective: * Chief Complaints: * [...] every 4 hours as needed , Taking Cwrjwlmdoa-GBNF-Puzbxzpu 50-325-40 MG Tablet 1 tablet as needed [...] ROSENBAUM APRN Date: 0 08/15/2024 Generated for Destini duron/Julio Cesar/Mario on: 1 04:37 PM EDT
--- OUTSIDE RECORDS SUMMARY | 2024-10-05 06:15 | XMS_ITS ---
Author Organization [facility] Address [address] [place] [address] [address] [place] [address] Care Team Providers Care Supply Clerk Name Role Phone Rosalio Epstein Primary Care Provider Macrina Rosenbaum [phone] REASON FOR VISIT F/UP Encounters Encounter Location Date Provider Diagnosis [facility] [address] [facility] [place] [address] 10/05/2024 Macrina Rosenbaum Plan Of Treatment No Information Progress Notes * SUNG HOPPEROB:[birth year] (64 yo F)Acc No.[id number]:10/05/2024 Progress Notes Patient: Nima JONES JOSHUARYNELEO Provider: Jarvis ROSENBAUM APRN :1960 A ge:64 Y S ex:Female Date:10/05/2024 Address:[address] [place], [place] [address] Pcp:Rosalio Epstein Subjective: * Chief Complaints: * 1 . F/UP. * Medical History: Objective: * Vitals: Assessment: Plan: * Treatment: * Images: Care Plan Details* * Electronic signature of Macrina Rosenbaum APRN on 03/21/2025 at 04:38 PM EDT Sign off status: Pending * Provider: Jarvis ROSENBAUM APRN Date: 0 10/05/2024 Generated for Destini duron/Julio Cesar/eTransmitting on: 04:38 PM EDT
--- OUTSIDE RECORDS SUMMARY | 2025-01-13 06:00 | XMS_ITS ---
Author Organization [facility] Address [address] [facility] [address] [place] [address] Care Team Providers Care Site Physician Name Role Phone WYATT GOMEZ Primary Care Provider [phone] Melanie Berry Unavailable [phone] REASON FOR VISIT DEXA Result Encounters Encounter Location Date Provider Diagnosis [facility] Internal Medicine [place] [address] [facility] [address] 01/13/2025 Melanie Berry Plan Of Treatment Next Appt Details Provider Name:ROBERTA MEDINA, 03/29/2025 01:30:00 PM, [address], [place], [address], Progress Notes * Jose JACOBOB:[birth year] (64 yo F)Acc No.[id number]:01/13/2025 Progress Notes Patient: Nima Sandy HOLLOWAY Provider: RYANN Croft :1960 A ge:64 Y S ex:Female Date:01/13/2025 Address:[address] [facility] Pcp:WYATT YORK Subjective: * Chief Complaints: * 1 . DEXA Result. * Medical History: Objective: * Vitals: Assessment: Plan: * Treatment: * Images: * Electronic signature of Nik Berry APRN on 03/21/2025 at 04:38 PM EDT Sign off status: Pending * Provider: RYANN Croft Date: 0 01/13/2025 Generated for Destini duron/Julio Cesar/Mario on: 1 04:38 PM EDT
--- OUTSIDE RECORDS SUMMARY | 2025-01-27 05:30 | XMS_ITS ---
Author Organization [facility] Address [address] [facility] [address] [place] [address] Care Team Providers Care Emergency Planner Name Role Phone WYATT GOMEZ Primary Care Provider [phone] Melanie Berry Unavailable [phone] ROBERTA QUIGLEY Unavailable [phone] REASON FOR VISIT Labs Results, Due Eye Exam Encounters Encounter Location Date Provider Diagnosis [facility] Internal Medicine [place] [address] [facility] [place] [address] 01/27/2025 ROBERTA QUIGLEY Plan Of Treatment Next Appt Details Provider Name:ROBERTA MEDINA, 03/29/2025 01:30:00 PM, [address] , [place], [address], Progress Notes * Jose JACOBOB:[birth year] (64 yo F)Acc No.[id number]:01/27/2025 Patient: Sandy MADRIGAL Provider: Leelee SANDOVAL APRN :1960 A ge:64 Y S ex:Female Date:01/27/2025 [address] [facility] [place], [id number] Pcp:WYATT YORK Subjective: * Chief Complaints: * 1 . Labs Results. 2. Due Eye Exam. * Medical History: Objective: * Vitals: Assessment: Plan: * Treatment: * Images: * Electronic signature of SAEED QUIGLEY APRN on 03/21/2025 at 04:37 PM EDT Sign off status: Pending * Provider: Leelee SANDOVAL APRN Date: 0 01/27/2025 Generated for Printing/Faxing/eTransmitting on: 1 04:37 PM EDT
--- OUTSIDE RECORDS SUMMARY | 2025-02-24 06:15 | XMS_ITS ---
Author Organization [facility] Address [address] [facility] [address] [place] [address] Care Team Providers Care Apigee Developer Name Role Phone WYATT GOMEZ Primary Care Provider [phone] Melanie Berry Unavailable [phone] ROBERTA QUIGLEY Unavailable [phone] REASON FOR VISIT Lab results review, Due Eye Exam Encounters Encounter Location Date Provider Diagnosis [facility] Internal Medicine [place] [address] [place] [address] 02/24/2025 ROBERTA QUIGLEY Plan Of Treatment Next Appt Details Provider Name:ROBERTA MEDINA, 03/29/2025 01:30:00 PM, [address] , [place], [address], Progress Notes * Jose JACOBOB:[birth year] (64 yo F)Acc No.[id number]:02/24/2025 Patient: Sandy MADRIGAL Provider: Leelee SANDOVAL APRN :1960 A ge:64 Y S ex:Female Date:02/24/2025 [address] [place], [id number] Pcp:WYATT YORK Subjective: * Chief Complaints: * 1 . Lab results review. 2. Due Eye Exam. * Medical History: Objective: * Vitals: Assessment: Plan: * Treatment: * Images: * Electronic signature of SAEED QUIGLEY APRN on 03/21/2025 at 04:36 PM EDT Sign off status: Pending * Provider: Leelee SANDOVAL APRN Date: 0 02/24/2025 Generated for Printing/Faxing/eTransmitting on: 1 04:36 PM EDT
--- NOTE | 2025-03-21 14:07 | A.OFFVIS_ITS ---
Vital Signs 03/21/25 14:16 Height 5 ft 3 in Weight 150 lb BMI 26.6 BP 170/75 H Blood Pressure Location Lt brachial Position Sitting Pulse 89 Intake Visit Reasons: gallbladder Intake Note: Patient is seen in office for ER follow up visit, following for gallbladder. Pt c/o: onset over a month, admits to RUQ pain, pain comes and goes, nausea, constipation on and off, denies vomit, diarrhea or other concerns MRI: 02/14/25 CT: 02/13/25 Supply Chain Design Manager Required: Yes Supply Chain Design Manager Language: Upkeep Worker Services: Supply Chain Design Manager Present Supply Chain Design Manager Name: Alyssa BRITO Information Interpreted: non-clinical & clinical Accompanied by: Self / Same As Patient Allergies No Known Allergies (No Known Allergies*) Allergy (Unverified 03/21/25 14:14) Medication List - Last Reconciled 03/21/25 by Sanjeev Conner MD albuterol sulfate 90 mcg/actuation 2 inhalations inhalation Q4-6H PRN albuterol sulfate 2.5 mg inhalation Q6H PRN atorvastatin 10 mg PO DAILY blood sugar diagnostic (FreeStyle Lite Strips) twice a day blood-glucose meter (FreeStyle [place] Lite kit) As directed dulaglutide (Trulicity) 0.75 mg (0.5 mL) subcut QWEEK 30 days famotidine 20 mg PO DAILY 10 days famotidine 20 mg PO DAILY 10 days gabapentin 300 mg PO TID glipizide ER 10 mg PO DAILY insulin glargine (Lantus Solostar U-100 Insulin) 30 units (0.3 mL) subcut DAILY lancets (FreeStyle Lancets) As directed lisinopril 10 mg PO DAILY metformin 1,000 mg PO DAILY metoclopramide HCl 5 mg PO Q8H PRN 10 days metoclopramide HCl 5 mg PO Q6H PRN 10 days pen needle, diabetic (BD Lesa 2nd Gen Pen Needle) once a day simethicone 80 mg PO QIDWMHS PRN 10 days simethicone 125 mg PO BEDTIME 30 days HPI Comments Details: 64-year-old female patient recently admitted with complaints of severe epigastric abdominal pain found on workup with CT abdomen and pelvis to have acute pancreatitis, distended gallbladder without bile duct dilatation. Labs were significant for elevation of the transaminases and lipase up to 871. MRCP was performed which revealed choledocholithiasis. She subsequently underwent ERCP with sphincterotomy with a PD stent placement on 02/16/2025. No stones were noted on ERCP. Subsequent to this the patient felt much improved was subsequently discharged to home. She returns today to discuss elective laparoscopic cholecystectomy. She does report occasional epigastric and right upper quadrant abdominal pain and has a decreased appetite because of this. [facility] Medical History Migraine Asthma Diabetes type 2, controlled Vitamin D deficiency Overweight (BMI 25.0-29.9) Dyslipidemia longterm (current) use of insulin Surgical History History of H/O: hysterectomy Social History Household Members: Significant Other Housing: Apartment Are you a primary insurance healthcare representative to a significant other at home: No Do you presently have visiting nurse or other home services: No Patient Tobacco Use Status: Never used Tobacco service: No Review of Systems Const All systems reviewed & are unremarkable except as noted in HPI and below Physical Exam Vital Signs: Last Vital Signs Pulse 89 03/21/25 14:16 BP 170/75 H 03/21/25 14:16 BMI result Body Mass Index 26.6 Const General: cooperative and no acute distress Nutritional Appearance: well nourished Orientation/consciousness: patient oriented x3 Limitations: no limitations HEENT Head: Yes normocephalic and Yes atraumatic Ears: hearing grossly normal bilaterally Resp Effort & Inspection: normal respiratory effort, no audible wheezes, no cough and no respiratory distress Cardio Jugular venous distension: no JVD GI Inspection: Yes normal to inspection Palpation (GI): Soft to palpation, nontender, no guarding and not rigid Percussion: Yes normal to percussion Auscultation: normal bowel sounds Skin Other: Warm, dry, no rash Neuro General: patient oriented x3 Extrem General: Yes no clubbing, cyanosis or edema Assessment & Plan Assessment & Plan (1) Gallstone pancreatitis: Code(s): K85.10 - Biliary acute pancreatitis without necrosis or infection Category: Medical (2) Cholelithiasis: Code(s): K80.20 - Calculus of gallbladder without cholecystitis without obstruction Category: Medical Qualifiers: Biliary obstruction: with biliary obstruction Cholecystitis acuity: acute Cholecystitis presence: with cholecystitis Cholelithiasis location: bile duct Qualified Code(s): K80.43 - Calculus of bile duct with acute cholecystitis with obstruction Plan 64-year-old female patient with a prior history of gallstone pancreatitis now returning to discuss elective laparoscopic cholecystectomy. She does have occasional discomfort in the right upper quadrant but denies any nausea or vomiting. I reviewed the procedure, risks, and alternatives in detail and she consents to a laparoscopic or possible open cholecystectomy. She will be scheduled as a short-stay surgery at her earliest convenience. Coding Level of Care Code Est Pt Level 4 (65287) Diagnoses Gallstone pancreatitis K85.10 Calculus of bile duct with acute cholecystitis and obstruction K80.43 Biliary obstruction: with biliary obstruction Cholecystitis acuity: acute Cholecystitis presence: with cholecystitis Cholelithiasis location: bile duct
[2025-03-21 14:16] VITALS: BP 170/75; PULSE 89; BMI 26.6
--- OUTSIDE RECORDS SUMMARY | 2025-03-21 16:36 | XMS_ITS | Patient Health Record ---
Author Organization [facility] Address [address] [address] Care Team Providers Care Patient Coordinator Front Desk Name Role Phone JARRED GOMEZASHTYN Primary Care Provider Melanie Berry Unavailable [phone] ROBERTA QUIGLEY Unavailable [phone] Nevin Zheng Unavailable Allergies Allergen (clinical drug ingredient) Drug/Non Drug Allergy documented on EMR Reaction Allergy Type Onset Date Status Seasonal IC Unknown Drug Allergy Activ e Results Component Value Reference Range Notes HEMOGLOBIN A1c (496) Reviewed date:09/23/2024 10:27:51 AM Interpretation: Performing Lab:[facility], [facility], [id number] Shaheen Fofana MD Notes/Report: FASTING: YES FASTING:YES [...] children. ALBUMIN, RANDOM URINE W/O CR EATININE (98741) Reviewed date:09/23/2024 10:28:45 AM Interpretation: Performing Lab:[facility] [id number] Shaheen Fofana MD Notes/Report: FASTING:YES FASTING: YES [...] be within a diagnostic category. URINALYSIS, COMPLETE (8373) Reviewed date:09/23/2024 10:26:09 AM Interpretation: Performing Lab:[facility] [address] [id number] Shaheen Fofana MD Notes/Report: FASTING:YES FASTING: YES [...] Reviewed date:09/23/2024 10:26:45 AM Interpretation: Performing Lab:[facility] [id number] Shaheen Fofana MD Notes/Report: FASTING:YES FASTING: YES [...] MPV 10.9 7.5-12.5 fL ABSOLUTE NEUTROPHILS 3791 2845-5849 cells/uL ABSOLUTE LYMPHOCYTES 2606 850-3900 cells/uL ABSOLUTE MONOCYTES 525 200-950 cells/uL ABSOLUTE EOSINOPHILS 149 15-500 cells/uL ABSOLUTE BASOPHILS 28 0-200 cells/uL NEUTROPHILS 53.4 LYMPHOCYTES 36.7 MONOCYTES 7.4 EOSINOPHILS 2.1 BASOPHILS 0.4 COMPREHENSIVE METABOLIC PANE L ([facility]) (64431) Reviewed date:09/23/2024 10:28:25 AM Interpretation: Performing Lab:[facility], IbrviCU[address] Shaheen Fofana MD Notes/Report: FASTING:YES FASTING: YES [...] Reviewed date:09/23/2024 10:29:05 AM Interpretation: Performing Lab:[facility], CzwkdRI[address] Shaheen Fofana MD Notes/Report: FASTING:YES FASTING: YES [...] LDL-C. Grant RODARTE et al. LAMAR. 2013;310(19): 3224-3741 (http://education.Moonbasa/faq/FAQ16 4) CHOL/HDLC RATIO 3.3 <5.0 (calc) NON HDL CHOLESTEROL 107 <130 mg/dL (calc) For patients with diabetes plus 1 major ASCVD risk factor, treating to a non-HDL-C goal of <100 mg/dL (LDL-C of <70 mg/dL) is considered a therapeutic option. Hemoglobin A1c Reviewed date:01/10/2025 08:29:52 AM Interpretation: Performing Lab:[facility], [address] [facility], Phone - [phone], Director - MDRichendollar Notes/Report: Hemoglobin A1c 8.5 Reference Range: [place] Diabetes Association (ADA) Guidelines: <5.7: Decreased risk for diabetes 5.7 - 6.4: Increased risk for diabetes >6.4: Ongoing Hyperglycemia of any cause <7.0: Glycemic control for adults with diabetes Estimated Average Glucose 197 CMP14+eGFR Reviewed date:01/10/2025 08:29:52 AM Interpretation: Performing Lab:[facility], [address] [facility], Phone - [phone], Director - MDRichendollar Notes/Report: Glucose 217 70-99 [...] note-[id number] Reviewed date:01/10/2025 08:29:52 AM Interpretation: Performing Lab:[facility], [address] [place] [address], Phone - [phone], Director - MDRichendollar Notes/Report: Please note The date and/or time of collection was not indicated on the requisition as required by state and federal law. The date of receipt of the specimen was used as the collection date if not supplied. Lipid Panel-[id number] Reviewed date:01/10/2025 08:29:52 AM Interpretation: Performing Lab:[facility], [address] [place] [address], Phone - [phone], Director - MDRichendollar Notes/Report: Cholesterol, Total 141 100-199 mg/dL Triglycerides 79 0-149 mg/dL HDL Cholesterol 44 >39 mg/dL VLDL Cholesterol Alfred 15 5-40 mg/dL LDL Chol Calc ([facility]) 82 0-99 mg/dL Albumin/Creatinine Ratio,Uri ne-[id number] Reviewed date:01/10/2025 08:29:52 AM Interpretation: Performing Lab:[address], Phone - [phone], Director - MDRichendollar Notes/Report: Creatinine, Urine 102.9 Not Estab. mg/dL Albumin, Urine 9.1 Not Estab. ug/mL Alb/Creat Ratio 9 0-29 mg/g creat Normal: 0 - 29 Moderately increased: 30 - 300 Severely increased: >300 CBC With Differential/Platel et-[id number] Reviewed date:01/10/2025 08:29:52 AM Interpretation: [facility]forming [facility], [address] [place] [address], Phone - [phone], Director - MDRichendollar Notes/Report: WBC 7.1 3.4-10.8 [...] Immature Grans (Abs) 0.0 0.0-0.1 x10E3/uL Urinalysis, Complete-[id number] Reviewed date:01/10/2025 08:29:52 AM Interpretation: Performing [facility], [facility] [address] [facility], Phone - [phone], Director - MDRichendollar Notes/Report: Specific [place] 1.020 1.005-1.030 pH 5.5 5.0-7.5 Urine-Color Yellow [...] with other circulatory complications (E11.59) Referral Organization [facility] [place] Referring Provider First Name Melanie Referring Provider Last Name Kristi Referring Provider Speciality [facility] dona Referred Provider Keon Hernandez Referred Provider Specialty Podiatry Procedure 1 New Patient Office o r Other Outpatient Services. (30546) Procedure 2 Office Visit, Est Pt ., Level 4 (21567) Referral Priority Routine Medications Medication SIG (Take, [...] utaneous 0.75 mg one a week Active Gfffnwyfra-ZMEF-Ftxidpin 50-325-40 MG 1 tablet as needed Oralt [...] 0.75 mg weekly; Duration: 30 days Active Uicuvgknek-TOYL-Xwhtsjsf 50-325-40 MG 1 capsule as needed Orally [...] Peripheral circulatory disorder associated with diabetes mellitus (772130485) Type 2 diabetes mellitus with other circulatory complications (E11.59) Active confirmed Problem Mixed hyperlipidemia (207379613) Mixed hyperlipidemia (E78.2) Active confirmed Problem Hyperlipidemia (68151078) Hyperlipidemia, unspecified (E78.5) Active confirmed Problem Anxiety disorder (766340108) Anxiety disorder, unspecified (F41.9) Active confirmed Problem Migraine without aura (42803529) Migraine without aura, not intractable, with status migrainosus (G43.001) Active confirmed Problem Sleep apnea (97168170) Sleep apnea, unspecified (G47.30) Active confirmed Problem Mild intermittent asthma (878914232) Mild intermittent asthma, uncomplicated (J45.20) Active confirmed Problem Cervicalgia (92082724) Cervicalgia (M54.2) Active confirmed Problem Essential hypertension (38226157) Essential (primary) hypertension (I10) Active confirmed Problem Psoriasis (2538258) Psoriasis (L40.9) Active co nfirmed Problem High cholesterol (37783126) High cholesterol (E78.00) Active confirmed Problem Arthritis (2344730) Arthritis (M19.90) Active confirmed Problem Gastroesophageal reflux disease (004635759) GERD without esophagitis (K21.9) Active confirmed Problem Overweight (373720155) Overweight (BMI 25.0-29.9) (E66.3) Active confirmed Vital Signs Heart Rate 70 /min 01/06/2025 Temperature 97 degrees Fahrenheit 01/06/2025 Respiratory Rate 17 /min 01/06/2025 Blood pressure diastolic 40 mm Hg 01/06/2025 Oximetry 99 % 01/06/2025 Height 63 in 01/06/2025 Blood pressure systolic 135 mm Hg 01/06/2025 Weight 148 lbs 01/06/2025 BMI 26.21 kg/m2 01/06/2025 Encounters Encounter Location Date Provider Diagnosis [address] [address] 08/29/2024 Melanie Berry Encounter for genera l [...] aura, not intractable, with status migrainosus G43.001 [address] [place] [address] 09/30/2024 Melanie Berry Type 2 diabetes mellitus [...] migrainosus G43.001 and Anxiety disorder, unspecified F41.9 [facility] [address] [place] [address] 01/06/2025 JUSSEP FOMBELLIDA Type 2 diabetes mellitus with other circulatory complications E11.59 ; Body mass index 26.0-26.9, adult Z68.26 ; Essential (primary) hypertension I10 ; Mild intermittent asthma, uncomplicated J45.20 ; Migraine without aura, not intractable, with status migrainosus G43.001 ; Sleep apnea, unspecified G47.30 ; Psoriasis L40.9 and Mixed hyperlipidemia E78.2 [facility] [address] [place] [address] 01/06/2025 JUSSEP FOMBELLIDA Anxiety disorder, unspecified F41.9 ; High cholesterol E78.00 ; Essential (primary) hypertension I10 and Type 2 diabetes mellitus with other circulatory complications E11.59 [facility] [address] [place] [address] 10/27/2024 Melanieleydi Kendallrio Type 2 diabetes mellitus with other circulatory [...] 08/29/2024 CBC (INCLUDES DIFF/PLT) (6399) URINALYSIS, COMPLETE (6203) 08/29/2024 ALBUMIN, RANDOM URINE W/O CREATININE (17 194) 08/29/2024 Next Appt Details Provider Name:ROBERTA COLEY CAROL, 03/29/2025 01:30:00 PM, [address] [place], [address], Insurance Providers Payer Name Payer Address Payer Phone Subscriber Number Group Number Insured Name Patient Relationship to Insured Coverage Start Date Coverage End Date [facility] Dual Complete PPO [address] [address] [place] [address] [id number] Sandy Jacob Self - patient is the [...]
--- OUTSIDE RECORDS SUMMARY | 2025-03-21 16:37 | XMS_ITS | Patient Health Record ---
Author Organization [employer] Address 1 [facility] [address] [place] [address] Care Team Providers Care Molded Candles Wicker Name Role Phone Epstein Rosalio Primary Care Provider Macrina Rosenbaum Unavailable [phone] Caity Palomares Unavailable Allergies No Known Allergies Results Component Value Reference Range Notes Microalbumin/Creatinine Rati o, Random Urine-LC Reviewed date:06/28/2024 10:11:45 PM Interpretation: Performing Lab:[facility], [facility] [place], [place] [id number], Phone - [phone], Director - Laurent Notes/Report: Creatinine, Urine 129.2 Not Estab. mg/dL Albumin, Urine 25.6 Not Estab. ug/mL Alb/Creat Ratio 20 0-29 mg/g creat Severely increased: >300 Moderately increased: 30 - 300 Normal: 0 - 29 Hemoglobin A1C Reviewed date:06/28/2024 09:41:13 PM Interpretation: Performing Lab:[facility], [facility] [place], [place] [id number], Phone - [phone], Director - Laurent Notes/Report: Hemoglobin A1c 12.1 4.8-5.6 % Prediabetes: 5.7 - 6.4 Glycemic control for adults with diabetes: <7.0 . Diabetes: >6.4 CBC With Differential/Platel et-LC-Q Reviewed date:06/28/2024 09:40:43 PM Interpretation: Performing Lab:[facility], [facility] [address] [place], [place] [id number], Phone - [phone], Director - Laurent Notes/Report: WBC 6.1 3.4-10.8 [...] Immature Grans (Abs) 0.0 0.0-0.1 x10E3/uL Urinalysis, Ndhtpriz-HP-H Reviewed date:06/28/2024 09:40:22 PM Interpretation: [facility]forming [facility], [address] [place] [id number], Phone - [phone], Director - Laurent Notes/Report: Specific Philipp >=1.030 1.005-1.030 pH 6.0 5.0-7.5 Urine-Color Yellow [...] seen /lpf Bacteria None seen None seen/Few Hemoglobin A1C Reviewed date:04/07/2024 04:48:57 PM Interpretation: Performing Lab:[facility], [id number] Yuliya Aashish Moody, [id number] Shaheen Fofana MD Notes/Report: 0 HEMOGLOBIN A1c [...] or greater indicates that they may have Comprehensive Metabolic Pane l 14+eGFR-LC-Q Reviewed date:06/28/2024 09:39:48 PM Interpretation: Performing Lab:[facility], [address] [place] [id number], Phone - [phone], Director - Laurent Notes/Report: Glucose 253 70-99 [...] Reviewed date:06/28/2024 10:11:52 PM Interpretation: Performing Lab:[facility], [facility] [address] [facility], [place], [place] [id number], Phone - [phone], Director - Laurent Notes/Report: Cholesterol, Total 142 100-199 mg/dL Triglycerides 65 0-149 mg/dL HDL Cholesterol 46 >39 mg/dL VLDL Cholesterol Alfred 13 5-40 mg/dL LDL Chol Calc ([facility]) 83 0-99 mg/dL Reason For Referral No Information Medications Medication [...] a day; Duration: 10 days 04/05/2024 Not-Taking hydrOXYzine HCl 25 MG 1 [...] 8 hrs; Duration: 30 days 06/03/2024 Active Nbzdfjkgmr-IZSW-Iflly ine 50-325-40 MG 1 tablet as needed [...] Notes Problem Long-term current use of insulin (035347228) 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) Active confirmed Problem Diabetic renal disease (601681664) Type 2 diabetes mellitus with diabetic chronic kidney disease (E11.22) Active confirmed Problem Type 2 diabetes mellitus with other specified complication (E11.69) Active confirmed Problem Essential hypertension (11312241) Essential (primary) hypertension (I10) Active confirmed Problem Chronic kidney disease due to hypertension (446923148694778) Hypertensive chronic kidney disease with stage 1 through stage 4 chronic kidney disease, or unspecified chronic kidney disease (I12.9) Active confirmed Problem Mild intermittent asthma (709047471) Mild intermittent asthma, uncomplicated (J45.20) Active confirmed Problem Chronic kidney disease stage 2 (531025558) Chronic kidney disease, stage 2 (mild) (N18.2) Active confirmed eGFR 85 as per labs results from 4 Problem Vitamin D deficiency (77073553) Vitamin D deficiency (E55.9) Active confirmed Problem Migraine (97770451) Migraine (G43.909) Active confirmed Problem Hyperlipidemia (97250332) Hyperlipidemia (E78.5) Active confirmed Problem Anxiety (35580999) Anxiety (F41.9) Active confirmed Problem Overweight (125579916) Overweight (BMI 25.0-29.9) (E66.3) Active confirmed Problem Polyneuropathy due to type 2 diabetes mellitus (117715529) Diabetic polyneuropathy associated with type 2 diabetes mellitus (E11.42) Active confirmed Problem Smoker (54362959) Smoker (F17.200) Active confi rmed Problem Smoking (21395542) Smoking (F17.200) Active confirmed Problem Bone spur of left foot (255031772981977) Bone spur of left foot (M77.9) Active confirmed Problem Sleep disorder (80203996) Sleep disorder (G47.9) Active confirmed Problem Type 2 diabetes mellitus with other specified complication, without long-term current use of insulin (E11.69) Active confirmed Problem Allergic rhinitis (96801857) Allergic rhinitis, unspecified seasonality, unspecified trigger (J30.9) Active confirmed Problem Hyperglycemia due to type 2 diabetes mellitus (908403398107394) Uncontrolled type 2 diabetes mellitus with hyperglycemia (E11.65) Active confirmed Problem Moderately severe major depression (307395664) Moderately severe major depression (F32.2) Active confirmed Vital Signs Temperature 98.0 degrees Fahrenheit 06/03/2024 Respiratory Rate 19 /min 06/03/2024 Oximetry 98 % 06/03/2024 Blood pressure diastolic 64 mm Hg 06/03/2024 Height 5 ft 3 in in 06/03/2024 Blood pressure systolic 109 mm Hg 06/03/2024 Weight 143 lbs 06/03/2024 BMI 25.33 kg/m2 06/03/2024 Encounters Encounter Location Date Provider Diagnosis [address] [place] [address] 04/06/2024 Macrinacarolyn FrancisRosenbaum [address] [place] [address] 04/05/2024 Macrina Rosenbaum Hypertensive chronic kidney disease [...] of 25.0 to 25.9 in adult Z68.[address] [place] [address] 05/05/2024 Macrina Rosenbaum Hypertensive chronic kidney disease [...] of 25.0 to 25.9 in adult Z68.[address] [place] [address] 06/03/2024 Macrina Rosenbaum Hypertensive chronic kidney disease [...] Treatment Notes Treatment Clinical Notes Section Notes 05/05/2024 Hypertensive chronic kidney disease with stage [...] to monitor. 06/03/2024 Smoker (ICD-10 - F17.200) 04/05/2024 Hypertensive chronic kidney disease with stage [...] 86, per lab result from 07/10/23 04/05/2024 Diabetic polyneuropathy associated with type 2 diabetes mellitus (ICD-10 - E11.42) 06/03/2024 Type 2 diabetes mellitus with diabetic chronic kidney disease (ICD-10 - E11.22) Diabetes Mellitus (DM) w Renal Manifestations, CKD II due to DM 05/05/2024 Type 2 diabetes mellitus with diabetic chronic kidney disease (ICD-10 - E11.22) Diabetes Mellitus (DM) w Renal Manifestations, CKD II due to DM 05/05/2024 Chronic kidney disease, stage 2 (mild) (ICD-10 - N18.2) eGFR 86, per lab result from 07/10/23 eGFR 86, per lab result from 07/10/23 06/03/2024 Chronic kidney disease, stage 2 (mild) (ICD-10 - N18.2) eGFR 85 as per labs results from 03/15/2024 eGFR 85 as per labs results from 03/15/2024 04/05/2024 Smoking (ICD-10 - F17.200) Informed patient about smoking cessation and the benefits of quitting. 06/03/2024 Type 2 diabetes mellitus with other [...] on appropriate coping mechanisms and lifestyle changes. 05/05/2024 Asthma with allergic rhinitis, unspecified asthma severity, unspecified whether complicated (ICD-10 - J45.909) 05/05/2024 Diabetic polyneuropathy associated with type 2 diabetes mellitus (ICD-10 - E11.42) 06/03/2024 Hyperlipidemia (ICD-10 - E78.5) 04/05/2024 Asthma with allergic rhinitis, unspecified asthma severity, unspecified whether complicated (ICD-10 - J45.909) 04/05/2024 Type 2 diabetes mellitus with other specified complication, without long-term current use of insulin (ICD-10 - E11.69) 06/03/2024 Diabetic polyneuropathy associated with type 2 diabetes mellitus (ICD-10 - E11.42) DM w Neurological Manisfestation. Neuropathy/Polyn europathy/Periph eral due to DM 05/05/2024 Type 2 diabetes mellitus with other specified complication, without long-term current use of insulin (ICD-10 - E11.69) 05/05/2024 Hyperlipidemia (ICD-10 - E78.5) 06/03/2024 Migraine (ICD-10 - G43.909) 04/05/2024 Migraine (ICD-10 - G43.909) 04/05/2024 Hyperlipidemia (ICD-10 - E78.5) 06/03/2024 Sleep disorder (ICD-10 - G47.9) 05/05/2024 Overweight (BMI 25.0-29.9) (ICD-10 - E66.3) Avoid overeating, eating too quickly, eating high-fat foods, eating during stressful situations, or drinking too much alcohol or coffee. Counseled patient on adequate diet and exercise as tolerant. 05/05/2024 Hospital discharge follow-up (ICD-10 - Z09) hospital follow up [facility] on due to bronchitis 06/03/2024 Mild intermittent asthma, uncomplicated (ICD-10 - J45.20) 04/05/2024 Sleep disorder (ICD-10 - G47.9) 04/05/2024 Viral conjunctivitis (ICD-10 - B30.9) 06/03/2024 Overweight (BMI 25.0-29.9) (ICD-10 - E66.3) Avoid overeating, eating too quickly, eating high-fat foods, eating during stressful situations, or drinking too much alcohol or coffee. Counseled patient on adequate diet and exercise as tolerant. 05/05/2024 Body mass index (BMI) of 25.0 to 25.9 in adult (ICD-10 - Z68.25) 06/03/2024 Body mass index (BMI) of 25.0 to 25.9 in adult (ICD-10 - Z68.25) 04/05/2024 Overweight (ICD-10 - E66.3) Avoid overeating, eating too quickly, eating high-fat foods, eating during stressful situations, or drinking too much alcohol or coffee. Counseled patient on adequate diet and exercise as tolerant. 04/05/2024 Body mass index (BMI) of 25.0 [...] Comprehensive Metabolic Panel 14+eGFR-LC -Q 11/10/2014 Urinalysis, Iyhjwktk-LD-I 11/10/2014 Urinalysis, Htrpgotl-CV-B 04/02/2016 Urinalysis, Elaniopo-JN-Z 10/15/2022 CBC With Differential/Wtlqvhzj-KW-J 08/2022 CBC With Differential/Idardmhw-SI-O 03/15 CBC With Differential/Rftaxxfo-YZ-W 10/14 Hemoglobin A1C 10/15/2022 Microalbumin/Creatinine Ratio, Random [...]
--- OUTSIDE RECORDS SUMMARY | 2025-03-21 16:38 | XMS_ITS | Encounter Summary ---
Author Organization [employer] Address [address] [place] [address] [address] [place] [address] Care Team Providers Care Structural Steel Worker Name Role Phone Unavailable Primary Care Provider Unavailabl e Encounter Details Date Type Department Care Team (Late Contact Info) Description 03/17/2025 Orders Only [facility] External Provider, [facility] Social History Tobacco Use Types Packs/Day Years Used Date Smoking Tobacco: Never Assessed Comments Unknown Sex and Gender Information Value Date Recorded Sex Assigned at Female 04/14/2022 10:32 AM EDT Legal Sex Female 10:32 AM EDT Gender Identity Female 04/14/2022 10:32 AM EDT Sexual Orientation Choose not to disclose 2021 10:32 AM EDT documented as of this encounter Plan of Treatment Upcoming Encounters Date Type Department Care Team (Late Contact Info) Description 05/16/2025 9:15 AM EST Office Visit [facility] MEDICINE [address] [place] [address] Corie Segura MD [address] [place] [address] documented as of this encounter Procedures Procedure Name Priority Date/Time Associated Diagnosis Comments XR KUB AND UPRIGHT 2 VIEWS Routine 03/17/2025 9:00 AM EDT documented in this encounter Results * XR KUB and Upright 2 Views (03/17/2025 9:00 AM EDT) Anatomical Region Laterality Modality Radiographic Beatriz ging 03/17/2025 9:00 AM EDT Narrative 03/17/2025 9:13 AM EDT [address] [address] XRay Report Signed Patient: Sandy Jacob MR#: [id number] : 1960 Acct:[id number] Age/Sex: 64 / F ADM Date: 03/17/25 Loc: [facility] Attending Dr: Gonzales Olivares MD Ordering Physician: Gonzales Olivares MD Date of Service: 03/17/25 Procedure(s): XR KUB Accession Number(s): [id number] cc: Corie Segura MD; Gonzales Olivares MD Reason for Exam: K85.90 - Acute pancreatitis without necrosis or infection, unspecified EXAMINATION: XR ABDOMEN 1 VIEW (KUB) HISTORY: K85.90 - Acute pancreatitis without necrosis or infection, unspecified COMPARISON: There are no prior studies available for comparison. FINDINGS: Two supine views of the abdomen are submitted. The bowel gas pattern is unremarkable, without evidence of mechanical obstruction. No abnormal calcifications are identified. There are no abnormal soft tissue masses. The bones are intact. No stent is identified. XR/XR KUB IMPRESSION: Unremarkable bowel gas pattern. No stent is identified. Electronically signed by: Saul Prajapati MD 03/17/2025 09:10 AM EDT Dictated By: Saul Prajapati MD Signed By: <Electronically signed by Saul Prajapati MD in OV> 03/17/25909 DD/ 9 TD/TT: 03/17/25 09 Hogshead Hooper: Procedure Note Donotuseinterpreter, Image - 03/17/[address] [address] XRay Report Signed Patient: Breonna JacobR#: [id number] : 1960cct:[id number] Age/Sex: 64 / FADM Date: 03/17/25 Loc: [facility] Attending Dr: Gonzales Olivares MD Ordering Physician: Gonzales Olivares MD Date of Service: 03/17/25 Procedure(s): XR KUB Accession Number(s): [id number] cc: Corie Segura MD; Gonzales Olivares MD Reason for Exam: K85.90 - Acute pancreatitis without necrosis orinfection, unspecified EXAMINATION: XR ABDOMEN 1 VIEW (KUB) HISTORY: K85.90 - Acute pancreatitis without necrosis or infection, unspecified COMPARISON: There are no prior studies available for comparison. FINDINGS: Two supine views of the abdomen are submitted. The bowel gas pattern is unremarkable, without evidence of mechanical obstruction. No abnormal calcifications are identified. There are no abnormal soft tissue masses. The bones are intact. No stent is identified. XR/XR KUB IMPRESSION: Unremarkable bowel gas pattern. No stent is identified. Electronically signed by: Saul Prajapati MD 03/17/2025 09:10 AM EDT Dictated By: Saul Prajapati MD Signed By: <Electronically signed by Saul Prajapati MD in OV> 03/17/25 0910 DD/ 0900 TD/TT: 03/17/25 0902 Hogshead Hooper: [facility] External Provider IMG XR PROCEDURES Final Result documented in this encounter Visit Diagnoses Not on filedocumented in this encounter
--- OUTSIDE RECORDS SUMMARY | 2025-03-21 16:38 | XMS_ITS | Patient Health Record ---
Author Organization [facility] Address [address] [facility] [address] [place] [address] Care Team Providers Care Tank Bottom Assembler Name Role Phone Sherrie Garcia Primary Care Provider Reason For Referral No Information Encounters Encounter Location Date Provider Diagnosis [facility] [address] [place] [address] 06/09/2024 Sherrie Beltran [facility] [address] [facility] [address] [place] [address] 06/10/2024 Sherrie Beltran [facility] [address] [place] [address] 06/13/2024 [facility] [address] [facility] [place] [address] 07/11/2024 Sherrie Beltran Plan Of Treatment No Information Insurance Providers Payer Name Payer Address Payer Phone Subscriber Number Group Number Insured Name Patient Relationship to Insured Coverage Start Date Coverage End Date [employer] [address] [address] [place] [address] [id number] Sandy Jacob Self - patient is the insured
--- OUTSIDE RECORDS SUMMARY | 2025-03-21 16:38 | XMS_ITS | Patient Health Record ---
Author Organization [facility] Address [address] [place] [address] Care Team Providers Care Slot Service Specialist Name Role Phone Alexander Cruz Primary Care [...] Status Risk Notes Problem Uncomplicated asthma (disorder) (809074274) Unspecified asthma, uncomplicated (J45.909) Active confirmed Plan Of Treatment No Information Insurance Providers Payer Name Payer Address Payer Phone Subscriber Number Group Number Insured Name Patient Relationship to Insured Coverage Start Date Coverage End Date [facility] [address] [place] [address] [id number] Sandy Jacob Self - patient is the insured Medical (General) History Medical History History ICD Code Migraines Asthma Surgical History Surgery Date(Month/Year) Hysterectomy
--- OUTSIDE RECORDS SUMMARY | 2025-03-21 16:38 | XMS_ITS | Clinical Summary ---
Author Organization [employer] Address [address] [place] [address] 7[address] [place] [address] Care Team Providers Care Clinical Programmer Name Role Phone Unavailable Primary Care Provider [...] Encounters Date Type Department Care Team Description 03/21/2025 Community Care Management [facility] MEDICINE [address] [place] [address] Physician Juan MD 03/17/2025 Orders Only [facility] External Provider, [facility] 02/15/2025 Telephone [facility] [address] [place] [address] Teo Rodriguez MD Appointment Request 01/18/2025 Telephone [facility] [address] [place] [address] Teo Rodriguez MD New pt appt from [...] 02/13/2021 12:09 AM EDT Plan of Treatment Upcoming Encounters Date Type Department Care Team (Late st Contact Info) Description 05/16/2025 9:15 AM EST Office Visit [facility] MEDICINE [address] [place] [address] Corie Segura MD [address] [place] [address] Health Maintenance Due Date Last Done Comments [...] 2 VIEWS Routine 03/17/2025 9:00 AM EDT ALBUMIN, RANDOM URINE W/CREATININE Routine 03/21/2021 1:22 PM EDT HEMOGLOBIN A1C Routine 03/21/2021 1:22 PM EDT from Last 3 Months or Most Recently Relevant to Health Maintenance Results * XR KUB and Upright 2 Views (03/17/2025 9:00 AM EDT) Anatomical Region Laterality Modality Radiographic Beatriz ging 03/17/2025 9:00 AM EDT Narrative 03/17/2025 9:13 AM EDT [address] [address] XRay Report Signed Patient: Sandy Jacob MR#: [id number] : 1960 Acct:[id number] Age/Sex: 64 / F ADM Date: 03/17/25 Loc: [facility] Attending Dr: Gonzales Olivares MD Ordering Physician: Gonzales Olivares MD Date of Service: 03/17/25 Procedure(s): XR KUB Accession Number(s): [id number] cc: Corie Segura MD; Gonzales Olivares MD [...] MD in OV> 03/17/25909 DD/ 9 TD/TT: 03/17/25901 Sheet Taker: Procedure Note Donotuseinterpreter, Image - 03/17/[address] [address] XRay Report Signed Patient: Breonna JacobR#: [id number] : 9Acct:[id number] Age/Sex: 64 / FADM Date: 03/17/25 Loc: [facility] Attending Dr: Gonzales Olivares MD Ordering Physician: Gonzales Olivares MD Date of Service: 03/17/25 Procedure(s): XR KUB Accession Number(s): [id number] cc: Corie Segura MD; Gonzales Olivares MD [...] Saul Prajapati MD 03/17/2025 09:10 AM EDT RP Dictated By: Saul Prajapati MD Signed By: <Electronically signed by Saul Prajapati MD in OV> 03/17/25909 DD/ 09 TD/TT: 03/17/25 0902 Sheet Taker: [facility] External Provider IMG XR PROCEDURES Final Result * ALBUMIN, RANDOM URINE W/CREATININE (03/21/2021 1:22 [...] Creatinine, Urine 114 20 - 275 mg/dL [facility] 03/21/2021 1:22 PM EDT us Corie Segura MD LAB URINE ORDERABLES Fin al Result Performing Organization Address [facility] de Phone Number [facility] [address] * (ABNORMAL) HEMOGLOBIN A1c (03/21/2021 1:22 PM EDT) Hemoglobin A1c 6.6(H) <5.7 % of total Hgb [facility] Comment: For someone without known [...] ORDERABLES Fin al Result Performing Organization Address [facility] Phone Number [facility] [address] from Last 3 Months or Most Recently Relevant to Health Maintenance Insurance [facility] STANDARD
--- OUTSIDE RECORDS SUMMARY | 2025-03-21 16:38 | XMS_ITS | Encounter Summary ---
Author Organization [employer] Address [address] [place] [address] [address] [place] [address] Care Team Providers Care Psychology Instructor Name Role Phone Unavailable Primary Care Provider Unavailabl e Encounter Details Date Type Department Care Team (Late st Contact Info) Description 03/21/2025 Community Care Management [facility] MEDICINE [address] [place] [address] [facility] Jerel PhysicianMD Social History Tobacco Use Types Packs/Day Years [...] Description 05/16/2025 9:15 AM EST Office Visit [facility] MEDICINE [address] [place] [address] Corie Segura MD [address] [place] [address] documented as of this encounter Visit Diagnoses Not on filedocumented in this encounter
== END 2025-03-21 14:20 | disposition home or self-care (01) ==
LOC: HO.HGS 13:32
PROVIDERS: Visit Provider Surgery
DX: K85.10 Biliary acute pancreatitis without necrosis or infection (principal); K80.43 Calculus of bile duct with acute cholecystitis with obstruction
CPT/HCPCS: 99214

== ENCOUNTER → 2025-03-21 13:31 | Outpatient (BNVA) | payer OTHER, SELFPAY | PROVIDERS: Visit Provider Surgery | DX: Z01.818 Encounter for other preprocedural examination (principal); K85.10 Biliary acute pancreatitis without necrosis or infection; K80.43 Calculus of bile duct with acute cholecystitis with obstruction | CPT/HCPCS: 99212 ==

== ENCOUNTER 2025-03-29 10:46 | Outpatient (REF) | payer OTHER, SELFPAY ==
--- OUTSIDE RECORDS SUMMARY | 2024-06-09 07:30 | XMS_ITS ---
Author Organization [facility] Address [address] [facility] 114 [facility] 100 [place] [address] Care Team Providers Care Fleet Maintenance Foreman Name Role Phone Sherrie Garcia Primary Care Provider REASON FOR VISIT door knock Encounters Encounter Location Date Provider Diagnosis [address] [place] [address] 06/09/2024 Sherrie Beltran Plan Of Treatment No Information Progress Notes * Jose HOPPEROB:06[birth year]01 (64 yo F)Acc No.[id number]:06/09/2024 Patient: Alexia MADRIGALsol Provider: Santa Beltran MD :1960 A ge:64 Y S ex:Female Date:06/09/2024 Address:[address] [place], [place] [address]-[id number] Structured Data:MRA Reviewed : 07/04/2024 Subjective: * Chief Complaints: * 1 . Door knock. * Medical History: Objective: * Vitals: Assessment: Plan: * Treatment: * Billing Information: * Visit Code: * Procedure Codes: * Electronic signature of Lora Beltran MD on 03/29/2025 at 12:04 PM CDT Sign off status: Pending * Provider: Santa Beltran MD Date: 08/10/2023 Generated for Printi ng/Faxing/eTransmitting on: 12:04 PM CDT
--- OUTSIDE RECORDS SUMMARY | 2024-06-10 05:00 | XMS_ITS ---
Author Organization [facility] Address [address] [facility] 114 [facility] 100 [place] [address] Care Team Providers Care Fish Dressing Machine Feeder Name Role Phone Sherrie Garcia Primary Care Provider Encounters Encounter Location Date Provider Diagnosis [facility] [address] [facility] [place] [address] 06/10/2024 Sherrie Beltran Plan Of Treatment No Information Progress Notes * Jose JACOBOB:06/01 (64 yo F)Acc No.[id number]:06/10/2024 Patient: Nima JONES Sandy LEWIS Provider: Santa Beltran MD :1960 A ge:64 Y S ex:Female Date:06/10/2024 Address:[address] [place] [address] [facility]Z-[id number] Structured Data:MRA Reviewed : 07/04/2024 Subjective: * [...] Pending * Provider: Santa Beltran MD Date: 08/11/2023 Generated for Cameroni domi/Julio Cesar/eTransmitting on: 12:04 PM CDT History and Physical Notes * HPI (History of Present Illness) Category Sub-Category Detail Notes Category Not es New/Follow-up Patient Consult Patient in clinic fo r Courtesy Visit.
--- OUTSIDE RECORDS SUMMARY | 2024-06-13 07:30 | XMS_ITS ---
Author Organization [facility] Address [address] [facility] 114 [facility] 100 [place] [address] Care Team Providers Care Cutting Machine Operator Helper Name Role Phone Sherrie Garcia Primary Care Provider Encounters Encounter Location Date Provider Diagnosis [facility] [address] [facility] [place] [place] [address] 06/13/2024 Sherrie Beltran Plan Of Treatment No Information Progress Notes * Jose JACOBOB:[birth year] (64 yo F)Acc No.[id number]:06/13/2024 Patient: Nima JONES Sandy LEWIS Provider: Santa Beltran MD :1960 A ge:64 Y S ex:Female Date:06/13/2024 Address:[address] [place] [address] [facility]H-[id number] Structured Data:MRA Reviewed : 07/04/2024 Subjective: * Chief Complaints: * * Medical History: Objective: * Vitals: Assessment: Plan: * Treatment: * Billing Information: * Visit Code: * Procedure Codes: * Electronic signature of Lora Beltran MD on 03/29/2025 at 12:04 PM CDT Sign off status: Pending * Provider: Santa Beltran MD Date: Generated for Cameroni ng/Faxing/eTransmitting on: 12:04 PM CDT
--- OUTSIDE RECORDS SUMMARY | 2024-07-04 06:15 | XMS_ITS ---
Author Organization [employer]. Address 1 [facility] [address] [place] [address] Care Team Providers Care Physician Assistant Surgery Name Role Phone Rosalio Epstein Primary Care Provider Weston Rosenbaumcarolyn Gonzales [phone] REASON FOR VISIT F/UP Medications Medication SIG [...] times a day; Duration: 90 days Active Nqlyrhzyds-YWWC-Gmvcu ine 50-325-40 MG 1 tablet as needed [...] Not-Taking Encounters Encounter Location Date Provider Diagnosis [place] [place] [address] 07/04/2024 Macrina Rosenbaum Plan Of Treatment No Information Progress Notes * SUNG HOPPEROB:[birth year] (64 yo F)Acc No.[id number]:07/04/2024 Progress Notes Patient: LEO MADRIGAL Provider: Jarvis ROSENBAUM APRN :1960 A ge:64 Y S ex:Female Date:07/04/2024 Address:[address] [place], [place] [address] Pcp:Rosalio Epstein Subjective: * Chief Complaints: * [...] every 4 hours as needed , Taking Hujxuroivq-QEOB-Nzgacnyf 50-325-40 MG Tablet 1 tablet as needed [...] Electronic signature of Macrina Rosenbaum APRN on 03/29/2025 at 01:05 PM EDT Sign off status: Pending * Provider: Jarvis ROSENBAUM APRN Date: 0 07/04/2024 Generated for Destini duron/Julio Cesar/Mario on: 01:05 PM EDT
--- OUTSIDE RECORDS SUMMARY | 2024-07-05 09:45 | XMS_ITS ---
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 ; Type 2 diabetes mellitus with diabetic chronic kidney disease E11.22 ; Hypertensive chronic kidney disease with stage 1 through stage 4 chronic kidney disease, or unspecified chronic kidney disease I12.9 ; Chronic kidney disease, stage 2 (mild) N18.2 ; Type 2 diabetes mellitus with diabetic polyneuropathy E11.42 ; Type 2 diabetes mellitus with other specified complication E11.69 ; Mixed hyperlipidemia E78.2 ; Mild intermittent asthma, uncomplicated J45.20 ; Colon cancer screening Z12.11 and Screening breast examination Z12.39 Assessments Encounter Date Diagnosis (ICD Code) Assessment Notes Treatment Notes Treatment Clinical Notes Section Notes 07/05/2024 Type 2 diabetes mellitus with hyperglycemia (ICD-10 - E11.65) A1c 11.5 DOS 07/09/2023, per [facility] records 07/05/2024 Immunodeficiency due to conditions classified elsewhere (ICD-10 - D84.81) related to uncontrolled DM II A1c 11.5 DOS 07/09/2023, per [facility] records, 07/05/2024 Type 2 diabetes mellitus with diabetic chronic kidney disease (ICD-10 - E11.22) per [facility] P records, eGFR 85 DOS 03/15/2024 and eGFR 86 DOS 07/10/2023, 07/05/2024 Hypertensive chronic kidney disease with stage 1 through stage 4 chronic kidney disease, or unspecified chronic kidney disease (ICD-10 - I12.9) per [facility] records, eGFR 85 DOS 03/15/2024 and eGFR 86 DOS 07/10/2023, 07/05/2024 Chronic kidney disease, stage 2 (mild) (ICD-10 - N18.2) per [facility] records, eGFR 85 DOS 03/15/2024 and eGFR 86 DOS 07/10/2023, 07/05/2024 Type 2 diabetes mellitus with diabetic polyneuropathy (ICD-10 - E11.42) pt. on Gabapentin, per [facility] records, 07/05/2024 Type 2 diabetes mellitus with other specified complication (ICD-10 - E11.69) related to HLD, pt. on Atorvastatin, metFORMIN, Lantus per [facility] records, 07/05/2024 Mixed hyperlipidemia (ICD-10 - E78.2) due to DM II, per [facility] records, 07/05/2024 Mild intermittent asthma, uncomplicated (ICD-10 - J45.20) pt. on Albuterol per [facility] records, 07/05/2024 Colon cancer screening (ICD-10 - Z12.11) 07/05/2024 Screening breast examination (ICD-10 - Z12.39) Plan Of Treatment No Information Progress Notes * Jose JACOBOB:06[birth year]01 (64 yo F)Acc No.[id number]:07/05/2024 Progress Notes Patient: Nima Sandy HOLLOWAY Provider: Santa Beltran MD :1960 A ge:64 Y S ex:Female Date:07/05/2024 Address:[address] [place], [place] [phone] Structured Data:MRA Reviewed : 07/04/2024 Subjective: * Chief Complaints: * 1 . New Patient. * ROS: A ll Other Systems: Review of Systems (ROS) R eview of all other systems is otherwise as above or negative. * Medical History: Objective: * Vitals: * Examination: G eneral Examination: GENERAL APPEARANCE: w ell developed, well nourished. HEAD: n ormocephalic, atraumatic. EYES: e xtra ocular movements intact (EOMI), pupils equal, round, reactive to light and accommodation. EARS: t ympanic membrane intact, clear, BOTH EARS. NOSE: n kiley patent. ORAL CAVITY: n ormal. THROAT: p harynx normal, tonsils normal. NECK/THYROID: n ct supple, full range of motion, no cervical lymphadenopathy. LYMPH NODES: n o palpable adenopathy. SKIN: n ormal, no rashes. HEART: r egular rate and rhythm, S1, S2 normal, no murmurs.? LUNGS: c lear to auscultation bilaterally, good air movement. ABDOMEN: s oft, nontender, nondistended, bowel sounds present, no masses palpable, no hepatosplenomegaly. EXTREMITIES: n ormal. PERIPHERAL PULSES: n ormal. NEUROLOGIC: n onfocal. Assessment: * Assessment: 1. T ype 2 diabetes mellitus with diabetic chronic kidney disease - E11.22 N otes :per [facility] records, eGFR 85 DOS 03/15/2024 and eGFR 86 DOS 07/10/2023, 2 . T ype 2 diabetes mellitus with diabetic polyneuropathy - E11.42 N otes :pt. on Gabapentin, per [facility] records, 3 . T ype 2 diabetes mellitus with hyperglycemia - E11.65 N otes :A1c 11.5 DOS 07/09/2023, per [facility] P records 4 . T ype 2 diabetes mellitus with other specified complication - E11.69 ? N otes :related to HLD, pt. on Atorvastatin, metFORMIN, Lantus per [facility] records, 5 . M ixed hyperlipidemia - E78.2 N otes :due to DM II, per [facility] records, 6 . H ypertensive chronic kidney disease with stage 1 through stage 4 chronic kidney disease, or unspecified chronic kidney disease - I12.9 N otes :per [facility] records, eGFR 85 DOS 03/15/2024 and eGFR 86 DOS 07/10/2023, 7 . M ild intermittent asthma, uncomplicated - J45.20 N otes :pt. on Albuterol per [facility] records, 8 . C hronic kidney disease, stage 2 (mild) - N18.2 N otes :per [facility] P records, eGFR 85 DOS 03/15/2024 and eGFR 86 DOS 07/10/2023, 9 . I mmunodeficiency due to conditions classified elsewhere - D84.81 ? N otes :related to uncontrolled DM II A1c 11.5 DOS 07/09/2023, per [facility] P records, 1 0. C olon cancer screening - Z12.11 1 1. S creening breast examination - Z12.39 Plan: * Treatment: * Procedure Codes: 1 159F MED LIST DOCD IN RCRD, 1160F RVW MEDS BY RX/DR IN RCRD, 1158F ADVNC CARE PLAN TLK DOCD, 1170F FXNL STATUS ASSESSED, 1126F AMNT PAIN NOTED NONE PRSNT, 1125F AMNT PAIN NOTED PAIN PRSNT * Billing Information: * Visit Code: * Procedure Codes: 1159F MED LIST DOCD IN RCRD. 1160F RVW MEDS BY RX/DR IN RCRD. 1158F ADVNC CARE PLAN TLK DOCD. 1170F FXNL STATUS ASSESSED. 1126F AMNT PAIN NOTED NONE PRSNT. 1125F AMNT PAIN NOTED PAIN PRSNT. * Electronic signature of Lora Beltran MD on 03/29/2025 at 12:05 PM CDT Sign off status: Pending * Provider: Santa Beltran MD Date: 0 07/05/2024 Generated for Destini duron/Fajumag/eTransmitting on: 12:05 PM CDT History and Physical Notes * Examination Category Sub-Category Detail Notes Category Not es General Examination GENERAL APPEARANCE: well developed , well nourished HEAD: normocephalic, atrau matic EYES: extra ocular movemen ts intact (EOMI), pupils equal, round, reactive to light and accommodation EARS: tympanic membrane in tact, clear, BOTH EARS NOSE: nares patent THROAT: pharynx normal, tons ils normal NECK/THYROID: neck supple, full ra nge of motion, no cervical lymphadenopathy HEART: regular rate and rhy thm, S1, S2 normal, no murmurs LUNGS: clear to auscultatio n bilaterally, good air movement ABDOMEN: soft, nontender, non distended, bowel sounds present, no masses palpable, no hepatosplenomegaly NEUROLOGIC: nonfocal SKIN: normal, no rashes EXTREMITIES: normal PERIPHERAL PULSES: normal LYMPH NODES: no palpable adenopat hy ORAL CAVITY: normal
--- OUTSIDE RECORDS SUMMARY | 2024-07-21 07:00 | XMS_ITS ---
Author Organization [employer]. Address [address] [facility] [address] [place] [address] Care Team Providers Care Fiberglass Laminator Name Role Phone Epstein Rosalio Primary Care Provider [phone] RosenbaumMacrina [phone] REASON FOR VISIT ACCESS Medications Medication SIG (Take, Route, Frequency, Duration) Notes Start Date End Date Status Nebulizer/Adult Mask - as directed inhaler PRN; Duration: 90 days 04/02/2016 Active One Touch Ultra Glucometer as instructed SKIN three times a day; Duration: 365 days 11/05/2023 Active TRUEresult Blood Glucose w/Device as directed sc bid; Duration: 90 days 11/09/2015 Active One Touch Ultra - as instructed SKIN Check 3 times a day; Duration: 90 days 11/05/2023 Active One Touch Ultra - as instructed SKIN Check 3 times daily; Duration: 90 days 11/05/2023 Active Lantus 100 UNIT/ML 30 units Subcutaneous daily 25 unit daily Active glipiZIDE 10 MG 1 tablet 30 minutes before breakfast Orally Once a day; Duration: 90 days 04/05/2024 Active Ibuprofen 800 MG 1 tablet with food or milk as needed Orally twice a day; Duration: 15 days 11/06/2023 Active hydrOXYzine HCl 25 MG 1 tablet as needed Orally Once a day; Duration: 90 days 05/05/2024 Active Nicotine Polacrilex 4 MG 1 piece chew for 30 minutes as needed Mouth/Throat every 8 hrs; Duration: 30 days 06/03/2024 Active metFORMIN HCl 1000 MG 1 tablet with meal s Orally Twice a day; Duration: 90 days Active Albuterol Sulfate (2.5 MG/3ML) 0.083% 3 mL as needed Inhalation Three times a day; Duration: 90 days Active Gabapentin (Once-Daily) 300 MG 1 tablet Orally Once a day; Duration: 90 days Active Atorvastatin Calcium 10MG 1 tablet Orally Once a day; Duration: 90 days Active Cetirizine HCl 10 MG 1 tablet Orally Onc e a day; Duration: 90 days Active Lisinopril 10 MG 1 tablet Orally Once a day; Duration: 90 days 11/09/2015 Active Uaylrypqra-BGOS-Jjtac ine 50-325-40 MG 1 tablet as needed Orally every 4 hrs PRN; Duration: 90 days 06/03/2024 Active Fluticasone Propionate 50 MCG/ACT 1 spray in each nostril Nasally Once a day; Duration: 90 days Active Albuterol Sulfate HFA 108 (90 Base) MCG/ACT 2 puffs as needed Inhalation every 6 hrs; Duration: 90 days Active Wellbutrin 100 MG 1 tablet Orally daily; Duration: 30 days 11/10/2014 Not-Taking Lancets - as directed subcutaneus three times a day; Duration: 90 days 05/05/2024 Active strips strips check three times a day subcutaneus three times a day; Duration: 30 days 05/05/2024 Active dexAMETHasone Sodium Phosphate 0.1 % 1 drop into affected eye Ophthalmic Twice a day; Duration: 10 04/05/2024 Not-Taking Nebulizer - every 4 hours as needed; Duration: 90 days 05/05/2024 Active Betamethasone Dipropionate 0.05 % 1 application to affected area Externally Once a day; Duration: 30 days 02/26/2015 Not-Taking Glucometer check three times a day subcutaneous three times a day; Duration: 90 days 05/05/2024 Active Insulin Syringe 31G X 5/16 1 ML as directed 11/05/2023 Active Encounters Encounter Location Date Provider Diagnosis [facility] [address] [place] [address] 07/21/2024 Macrina Rosenbaum Plan Of Treatment No Information Progress Notes * SUNG HOPPEROB:[birth year] (64 yo F)Acc No.[id number]:07/21/2024 Progress Notes Patient: LEO MADRIGAL Provider: Jarvis ROSENBAUM APRN :1960 A ge:64 Y S ex:Female Date:07/21/2024 Address:[address] [place], [place] [id number] Pcp:Rosalio Epstein Subjective: * Chief Complaints: * 1 . ACCESS. * Medical History: * Medications: T aking [...] every 4 hours as needed , Taking Bekoldqgfs-BLTH-Buydeuuz 50-325-40 MG Tablet 1 tablet as needed [...] of Macrina Rosenbaum APRN on 03/29/2025 at 01:04 PM EDT Sign off status: Pending * Provider: Jarvis ROSENBAUM APRN Date: 0 07/21/2024 Generated for Destini duron/Julio Cesar/Mario on: 1 01:04 PM EDT
--- OUTSIDE RECORDS SUMMARY | 2024-07-25 10:00 | XMS_ITS ---
Author Organization [facility] Address [address] [place] [address] [address] [place] [address] Care Team Providers Care Production Stage Manager Name Role Phone Rosalio Epstein Primary Care Provider Macrina Rosenbaum [phone] REASON FOR VISIT INS INACTIVE Encounters Encounter Location Date Provider Diagnosis [facility] [address] [place] [address] 07/25/2024 Macrina Rosenbaum Plan Of Treatment No Information Progress Notes * SUNG HOPPEROB:[birth year] (64 yo F)Acc No.[id number]:07/25/2024 Progress Notes Patient: Nima JONES LEO LEWIS Provider: Jarvis ROSENBAUM APRN :1960 A ge:64 Y S ex:Female Date:07/25/2024 Address:[address] [place] [address], [facility] Pcp:Rosalio Epstein Subjective: * Chief Complaints: * 1 . INS INACTIVE. * Medical History: Objective: * Vitals: Assessment: Plan: * Treatment: * Images: Care Plan Details* * Electronic signature of Macrina Rosenbaum APRN on 03/29/2025 at 01:06 PM EDT Sign off status: Pending * Provider: Jarvis ROSENBAUM APRN Date: 0 07/25/2024 Generated for Printi ng/Fasheri/eTransmitting on: 1 01:06 PM EDT
--- OUTSIDE RECORDS SUMMARY | 2024-08-15 06:45 | XMS_ITS ---
Author Organization [employer]. Address [address] [facility] [address] [place] [address] Care Team Providers Care Trash Collector Name Role Phone Lucian Rosalio Primary Care Provider RosenbaumMacrina [phone] REASON FOR VISIT F/UP Medications Medication SIG (Take, Route, Frequency, Duration) Notes Start Date End Date Status Snphbaegkc-HFHS-Oirpw ine 50-325-40 MG 1 tablet as needed [...] Active Encounters Encounter Location Date Provider Diagnosis [address] [place] [address] 08/15/2024 Macrina Rosebnaum Plan Of Treatment No Information Progress Notes * SUNG HOPPEROB:[birth year] (64 yo F)Acc No.[id number]:08/15/2024 Progress Notes Patient: LEO MADRIGAL Provider: Jarvis ROSENBAUM APRN :1960 A ge:64 Y S ex:Female Date:08/15/2024 Address:[address] [place], [place] [id number] Pcp:Rosalio Epstein Subjective: * Chief Complaints: * [...] every 4 hours as needed , Taking Bvevqennrw-HUYZ-Avyqkdum 50-325-40 MG Tablet 1 tablet as needed [...] * Provider: Jarvis ROSENBAUM APRN Date: 0 08/15/2024 Generated for Destiin duron/Julio Cesar/Mario on: 1 01:06 PM EDT
--- OUTSIDE RECORDS SUMMARY | 2024-10-05 06:15 | XMS_ITS ---
Author Organization [facility] Address [address] [place] [address] [address] [place] [address] Care Team Providers Care Loan Servicing Representative Name Role Phone Rosalio Epstein Primary Care Provider [phone] Macrina Rosenbaum [phone] REASON FOR VISIT F/UP Encounters Encounter Location Date Provider Diagnosis [facility] [address] [facility] [place] [address] 10/05/2024 Macrina Rosenbaum Plan Of Treatment No Information Progress Notes * SUNG HOPPEROB:[birth year] (64 yo F)Acc No.[id number]:10/05/2024 Progress Notes Patient: Nima JONES JOSHUARYNELEO Provider: Jarvis ROSENBAUM APRN :1960 A ge:64 Y S ex:Female Date:10/05/2024 Address:[address] [place], [place] [address] Pcp:Rosalio Epstein Subjective: * Chief Complaints: * 1 . F/UP. * Medical History: Objective: * Vitals: Assessment: Plan: * Treatment: * Images: Care Plan Details* * Electronic signature of Macrina Rosenbaum APRN on 03/29/2025 at 01:06 PM EDT Sign off status: Pending * Provider: Jarvis ROSENBAUM APRN Date: 0 10/05/2024 Generated for Destini duron/Julio Cesar/eTransmitting on: 01:06 PM EDT
--- OUTSIDE RECORDS SUMMARY | 2025-01-13 06:00 | XMS_ITS ---
Author Organization [facility] Address [address] [facility] [address] [place] [address] Care Team Providers Care Licensed Psychologist Name Role Phone WYATT GOMEZ Primary Care Provider Melanie Berry Unavailable [phone] REASON FOR VISIT DEXA Result Encounters Encounter Location Date Provider Diagnosis [facility] [place] [address] [place] [address] 01/13/2025 Melanie Berry Plan Of Treatment Next Appt Details Provider Name:ROBERTA MEDINA, 03/29/2025 01:30:00 PM, [address], [place], [address], Progress Notes * Jose JACOBOB:[birth year] (64 yo F)Acc No.[id number]:01/13/2025 Progress Notes Patient: Nima Sandy HOLLOWAY Provider: RYANN Croft :1960 A ge:64 Y S ex:Female Date:01/13/2025 Address:[address] [facility] Pcp:WYATT YORK Subjective: * Chief Complaints: * 1 . DEXA Result. * Medical History: Objective: * Vitals: Assessment: Plan: * Treatment: * Images: * Electronic signature of Nik Berry APRN on 03/29/2025 at 01:06 PM EDT Sign off status: Pending * Provider: RYANN Croft Date: 0 01/13/2025 Generated for Destini duron/Julio Cesar/Mario on: 1 01:06 PM EDT
--- OUTSIDE RECORDS SUMMARY | 2025-01-27 05:30 | XMS_ITS ---
Author Organization [facility] Address [address] [facility] [address] [place] [address] Care Team Providers Care Gang Punch Operator Name Role Phone WYATT GOMEZ Primary Care Provider [phone] Melanie Berry Unavailable [phone] ROBERTA QUIGLEY Unavailable [phone] REASON FOR VISIT Labs Results, Due Eye Exam Encounters Encounter Location Date Provider Diagnosis [facility] Internal Medicine [place] [address] [place] [address] 01/27/2025 ROBERTA QUIGLEY Plan Of Treatment Next Appt Details Provider Name:ROBERTA MEDINA, 03/29/2025 01:30:00 PM, [address] , [place], [address], Progress Notes * Jose JACOBOB:[birth year] (64 yo F)Acc No.[id number]:01/27/2025 Patient: Sandy MADRIGAL Provider: Leelee SANDVOAL APRN :1960 A ge:64 Y S ex:Female Date:01/27/2025 [address] [facility] [place], [id number] Pcp:WYATT YORK Subjective: * Chief Complaints: * 1 . Labs Results. 2. Due Eye Exam. * Medical History: Objective: * Vitals: Assessment: Plan: * Treatment: * Images: * Electronic signature of SAEED QUIGLEY APRN on 03/29/2025 at 01:06 PM EDT Sign off status: Pending * Provider: Leelee SANDOVAL APRN Date: 0 01/27/2025 Generated for Printing/Faxing/eTransmitting on: 1 01:06 PM EDT
--- OUTSIDE RECORDS SUMMARY | 2025-02-24 06:15 | XMS_ITS ---
Author Organization [facility] Address [address] [facility] [address] [place] [address] Care Team Providers Care Tanning Consultant Name Role Phone WYATT GOMEZ Primary Care Provider Melanie Berry Unavailable [phone] ROBERTA QUIGLEY Unavailable [phone] REASON FOR VISIT Lab results review, Due Eye Exam Encounters Encounter Location Date Provider Diagnosis [facility] Internal Medicine [place] [address] [place] [address] 02/24/2025 ROBERTA QUIGLEY Plan Of Treatment Next Appt Details Provider Name:ROBERTA MEDINA, 03/29/2025 01:30:00 PM, [address] , [place], [address], Progress Notes * Jose JACOBOB:[birth year] (64 yo F)Acc No.[id number]:02/24/2025 Patient: Sandy MADRIGAL Provider: Leelee SANDOVAL APRN :1960 A ge:64 Y S ex:Female Date:02/24/2025 [address] [place], [id number] Pcp:WYATT YORK Subjective: * Chief Complaints: * 1 . Lab results review. 2. Due Eye Exam. * Medical History: Objective: * Vitals: Assessment: Plan: * Treatment: * Images: * Electronic signature of SAEED QUIGLEY APRN on 03/29/2025 at 01:05 PM EDT Sign off status: Pending * Provider: Leelee SANDOVAL APRN Date: 0 02/24/2025 Generated for Printing/Faxing/eTransmitting on: 1 01:05 PM EDT
--- OUTSIDE RECORDS SUMMARY | 2025-03-29 09:00 | XMS_ITS | Encounter Summary ---
Author Organization [employer] Address [address] [facility] [address] [place] [address] Care Team Providers Care Attending Ambulatory Care Name Role Phone Capri [place] Primary Care Provider Reason for Visit * Reason Comments New patient Encounter Details Date Type Department Care Team ([facility] Contact Info) Description 03/29/2025 9:00 AM EDT Office Visit [facility] [address] [place] [address] Capri [place] FNP [address] [place] [address] Well adult exam (Primary Dx); Type 2 diabetes mellitus with hyperglycemia, unspecified whether mcfp insulin use (HCC) Social History Tobacco Use Types Packs/Day Years Used Date Smoking Tobacco: Never Assessed Depression Answer Date Recorded Patient Health Questionnaire-9 Score 7 03/29/2025 Patient Health Questionnaire-9 Score 7 03/29/2025 Last PHQ-9: Questionnaire Data Not on file 1 Housing Stability Answer Date Recorded What is your housing situation today? I have [employer] 03/29/[address] you li ve. Do you have problems with any of the following? None of the above 03/29/2025 Food Insecurity Answer Date Recorded Within the past 12 months, y ou worried that your food would run out before you got money to buy more: Sometimes True 2024 Within the past 12 months,th e food you bought just didn't last and you didn't have enough money to get more: Never True 03/29/2025 Transportation Answer Date Recorded In the past 12 months, has l ack of transportation kept you from medical appts, meetings, work or from getting things needed for daily living? No 03/29/2025 Utilities Answer Date Recorded In the past 12 months, has t he electric, gas, oil or water company threatened to shut off services in your home? No 03/29/2025 Depression Answer Date Recorded Patient Health Questionnaire-2 Score 2 03/29/2025 Internet Access Answer Date Recorded Internet Access Q1 Yes 03/29/2025 Internet Access Q2 Not on file 03/29/2025 Comments Unknown Sex and Gender Information Value Date Recorded Sex Assigned at Female 04/14/2022 10:32 AM EDT Legal Sex Female 10:32 AM EDT Gender Identity Female 04/14/2022 10:32 AM EDT Sexual Orientation Choose not to disclose 2021 10:32 AM EDT documented as of this encounter Last Filed Vital Signs Vital Sign Reading Time Taken Comments Blood Pressure 130/82 03/29/2025 8:53 AM EDT Pulse 72 03/29/2025 8:53 AM EDT Temperature 36.9 C (98.4 F) 03/29/2025 8:53 AM EDT Respiratory Rate 18 03/29/2025 8:53 AM EDT Oxygen Saturation 99% 03/29/2025 8:53 AM EDT Inhaled Oxygen Concentration - - Weight 69.9 kg (154 lb) 03/29/2025 8:53 AM EDT Height 160 cm (5' 3 ) 03/29/2025 8:53 AM EDT Body Mass Index 27.28 03/29/2025 8:53 AM EDT documented in this encounter Functional Status * Over the past 2 weeks, how often have you been bothered by any of the following problems? Question Answer Date of Assessment Author Patient Health Questionnaire -2 Score 2 03/29/2025 10:06 AM EDT Danette Becerra MA * Little interest or pleasure in doing things Answer Date of Assessment Author Several days 03/29/2025 10:06 AM EDT Danette Becerra MA * Feeling down, depressed, or hopeless Answer Date of Assessment Author Several days 03/29/2025 10:06 AM EDT Danette Becerra MA * Trouble falling or staying asleep, or sleeping too much Answer Date of Assessment Author Nearly every day 03/29/2025 10:06 AM Danette James MA * Feeling tired or having little energy Answer Date of Assessment Author Not at all 03/29/2025 10:06 AM Danette James MA * Poor appetite or overeating Answer Date of Assessment Author Several days 03/29/2025 10:06 AM Danette James MA * Feeling bad about yourself - or that you are a failure or have let yourself or your family down Answer Date of Assessment Author Not at all 03/29/2025 10:06 AM Danette James MA * Trouble concentrating on things, such as reading the newspaper or watching television Answer Date of Assessment Author Several days 03/29/2025 10:06 AM Danette James MA * Moving or speaking so slowly that other people could have noticed? Or the opposite - being so fidgety or restless that you have been moving around a lot more than usual. Answer Date of Assessment Author Not at all 03/29/2025 10:06 AM Danette James MA * Thoughts that you would be better off or hurting yourself in some way Answer Date of Assessment Author Not at all 03/29/2025 10:06 AM Danette James MA * Patient Health Questionnaire-9 Score Answer Date of Assessment Author 7 03/29/2025 10:06 AM Danette James MA * How difficult have these problems made it for you to do your work, take care of things at home, or get along with other people? Answer Date of Assessment Author Not difficult at all 03/29/2025 10:06 AM Danette Hernandez MA * Over the last 2 weeks, how often have you been bothered by any of the following problems? Question Answer Date of Assessment Author Feeling nervous, anxious, or on edge 0 03/29/2025 10:04 AM Danette James MA Not being able to stop or co ntrol worrying 1 03/29/2025 10:04 AM Danette James MA Worrying too much about diff erent things 2 03/29/2025 10:04 AM EDT Danette Becerra MA Trouble relaxing 2 03/29/2025 10:04 AM EDT Danette Becerra MA Being so restless that it is hard to sit still 0 03/29/2025 10:04 AM EDT Danette Becerra MA Becoming easily annoyed or irritable 1 03/29/2025 10:04 AM EDT Danette Becerra MA Feeling afraid as if somethi ng awful might happen 0 03/29/2025 10:04 AM EDT Danette Becerra MA DANIEL-7 Total Score 6 03/29/2025 10:04 AM EDT Danette Becerra MA documented as of this encounter Plan of Treatment Upcoming Encounters Date Type Department Care Team (Late st Contact Info) Description 04/12/2025 3:30 PM EDT Office Visit [facility] [address] [place] [address] Capri [place] FNP [address] [place] [address] Scheduled Orders Name Type Priority Associated Diagnoses Orde r Schedule Comprehensive Metabolic Panel Lab Routine Well adult exam Expected: 03/29/2025 (Approximate), Expires: 03/28/2026 Hepatitis B Core Antibody, Total Lab Routine Well adult exam Expected: 03/29/2025 (Approximate), Expires: 03/28/2026 Hepatitis B Surface Antibody, Qualitative Lab Routine Well adult exam Expected: 03/29/2025 (Approximate), Expires: 03/28/2026 Hepatitis B surface antigen, EIA Lab Routine Well adult exam Expected: 03/29/2025 (Approximate), Expires: 03/28/2026 Hepatitis C Antibody with Reflex to HCV, RNA, Quantitative, Real-Time PCR Lab Routine Well adult exam Expected: 03/29/2025, Expires: 03/28/2026 CBC auto differential Lab Routine Well adult exam Expected: 03/29/2025 (Approximate), Expires: 03/28/2026 HIV-1/2 Antigen and Antibodies, Fourth Generation, with Reflexes Lab Routine Well adult exam Expected: 03/29/2025 (Approximate), Expires: 03/28/2026 Lipid Panel, Standard Lab Routine Well adult exam Expected: 03/29/2025 (Approximate), Expires: 03/28/2026 Chlamydia/N. Gonorrhoeae, PCR, Urine Lab Routine Well adult exam Ordered: 03/29/2025 Albumin, Random Urine W/Creatinine Lab Routine Well adult exam Expected: 03/29/2025 (Approximate), Expires: 03/28/2026 documented as of this encounter Procedures Procedure Name Priority Date/Time Associated Diagnosis Comments POCT GLYCATED HEMOGLOBIN, TOTAL Routine 03/29/2025 9:09 AM EDT Type 2 diabetes mellitus with hyperglycemia, unspecified whether terminal computer operator insulin use (HCC) POCT GLUCOSE Routine 03/29/2025 9:08 AM EDT Type 2 diabetes mellitus with hyperglycemia, unspecified whether mcfp insulin use (HCC) documented in this encounter Results * (ABNORMAL) POCT Hgb A1c (03/29/2025 9:09 AM EDT) Hemoglobin A1C 9.4(A) 4.0 - 5.7 % QC Media Lot # [id number] Lot# Expiration Date [id number] Blood 03/29/2025 9:09 AM EDT [employer] POINT OF CARE TEST ENTER/EDIT ORDERABLES Final Result * POCT Glucose (03/29/2025 9:08 AM EDT) Glucose Blood, POC 177 60 - 200 mg/dL QC Media Lot # [id number] Lot# Expiration Date [id number] Blood Capillary blood specimen / Unknown 03/29/2025 9:08 AM EDT [employer] POINT OF CARE TEST ENTER/EDIT ORDERABLES Final Result documented in this encounter Visit Diagnoses Diagnosis Well adult exam- Primary Routine general medical examination at a health care facility Type 2 diabetes mellitus with hyperglycemia, unspecified whether mcfp insulin use (HCC) documented in this encounter Additional Health Concerns Assessment Noted Time PHQ-9 Depression Total Score: 7 03/29/20 10:06 AM EDT documented as of this encounter Care Teams Attending Ambulatory Care Relationship Specialty Start Date End Date Capri [place] FNP [address] [place] [id number] PCP - General Family Medicine 03/29/25 documented as of this encounter
--- OUTSIDE RECORDS SUMMARY | 2025-03-29 13:04 | XMS_ITS | Patient Health Record ---
Author Organization [employer]. Address [address] [facility] [address] [place] [address] Care Team Providers Care System Administration Manager Name Role Phone Rosalio Epstein Primary Care Provider [phone] Macrina Rosenbaum Unavailable [phone] Allergies No Known Allergies Results Component Value Reference Range Notes Hemoglobin A1C Reviewed date:04/07/2024 04:48:57 PM Interpretation: Performing Lab:[facility], [id number], [id number] Shaheen Fofana MD Notes/Report: 0 HEMOGLOBIN A1c [...] A1c for diagnosis of diabetes for children. Comprehensive Metabolic Pane l 14+eGFR-LC-Q Reviewed date:06/28/2024 09:39:48 PM Interpretation: Performing Lab:[facility], [facility] [place], [place] [id number], Phone - [phone], Director - Laurent Notes/Report: Glucose 253 70-99 [...] Panel-Q-LC Reviewed date:06/28/2024 10:11:52 PM Interpretation: Performing Lab:[facility] [id number], Phone - [phone], Director - Laurent Notes/Report: Cholesterol, Total 142 100-199 mg/dL Triglycerides 65 0-149 mg/dL HDL Cholesterol 46 >39 mg/dL VLDL Cholesterol Alfred 13 5-40 mg/dL LDL Chol Calc (NIH) 83 0-99 mg/dL Microalbumin/Creatinine Rati o, Random Urine-LC Reviewed date:06/28/2024 10:11:45 PM Interpretation: Performing Lab:[facility] [id number], Phone - [phone], Director - Laurent Notes/Report: Creatinine, Urine 129.2 Not Estab. mg/dL Albumin, Urine 25.6 Not Estab. ug/mL Alb/Creat Ratio 20 0-29 mg/g creat Normal: 0 - 29 Moderately increased: 30 - 300 Severely increased: >300 Hemoglobin A1C Reviewed date:06/28/2024 09:41:13 PM Interpretation: Performing Lab:[facility] [id number], Phone - [phone], Director - Laurent Notes/Report: Hemoglobin A1c 12.1 4.8-5.6 % . Prediabetes: 5.7 - 6.4 Diabetes: >6.4 Glycemic control for adults with diabetes: <7.0 CBC With Differential/Platel et-LC-Q Reviewed date:06/28/2024 09:40:43 PM Interpretation: Performing Lab:[facility] [address] [place] [id number], Phone - [phone], Director - Laurent Notes/Report: WBC 6.1 3.4-10.8 [...] Immature Grans (Abs) 0.0 0.0-0.1 x10E3/uL Urinalysis, Durtbkmf-AV-D Reviewed date:06/28/2024 09:40:22 PM Interpretation: Performing Lab:[facility] [address] [place] [id number], Phone - [phone], Director - Laurent Notes/Report: Specific Romney >=1.030 1.005-1.030 pH 6.0 5.0-7.5 Urine-Color Yellow [...] seen /lpf Bacteria None seen None seen/Few Reason For Referral No Information Medications Medication [...] inhaler PRN; Duration: 90 days 04/02/2016 Active Glucometer check three times [...] 8 hrs; Duration: 30 days 06/03/2024 Active Qbgvdltdmb-QDPW-Dkfqp ine 50-325-40 MG 1 tablet as needed [...] Notes Problem Bone spur of left foot (446697361493584) Bone spur of left foot (M77.9) Active confirmed Problem Vitamin D deficiency (72623747) Vitamin D deficiency (E55.9) Active confirmed Problem Smoking (55473800) Smoking (F17.200) Active confirmed Problem Migraine (83168263) Migraine (G43.909) Active confirmed Problem Moderately severe major depression (827071804) Moderately severe major depression (F32.2) Active confirmed Problem Polyneuropathy due to type 2 diabetes mellitus (553325123) Diabetic polyneuropathy associated with type 2 diabetes mellitus (E11.42) Active confirmed Problem Anxiety (25889336) Anxiety (F41.9) Active confirmed Problem Mild intermittent asthma (291569459) Mild intermittent asthma, uncomplicated (J45.20) Active confirmed Problem Chronic kidney disease due to hypertension (543897470289868) Hypertensive chronic kidney disease with stage 1 through stage 4 chronic kidney disease, or unspecified chronic kidney disease (I12.9) Active confirmed Problem Diabetic renal disease (736583812) Type 2 diabetes mellitus with diabetic chronic kidney disease (E11.22) Active confirmed Problem Chronic kidney disease stage 2 (199070939) Chronic kidney disease, stage 2 (mild) (N18.2) Active confirmed eGFR 85 as per labs results from Problem Long-term current use of insulin (348246058) 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) Active confirmed Problem Type 2 diabetes mellitus with other specified complication (E11.69) Active confirmed Problem Essential hypertension (61397740) Essential (primary) hypertension (I10) Active confirmed Problem Hyperlipidemia (95274015) Hyperlipidemia (E78.5) Active confirmed Problem Type 2 diabetes mellitus with other specified complication, without long-term current use of insulin (E11.69) Active confirmed Problem Allergic rhinitis (10030419) Allergic rhinitis, unspecified seasonality, unspecified trigger (J30.9) Active confirmed Problem Hyperglycemia due to type 2 diabetes mellitus (027333017105752) Uncontrolled type 2 diabetes mellitus with hyperglycemia (E11.65) Active confirmed Problem Sleep disorder (43274084) Sleep disorder (G47.9) Active confirmed Problem Overweight (368481325) Overweight (BMI 25.0-29.9) (E66.3) Active confirmed Problem Smoker (30006400) Smoker (F17.200) Active confi rmed Vital Signs Temperature 98.0 degrees Fahrenheit 06/03/2024 Respiratory Rate 19 /min 06/03/2024 Oximetry 98 % 06/03/2024 Blood pressure diastolic 64 mm Hg 06/03/2024 Height 5 ft 3 in in 06/03/2024 Blood pressure systolic 109 mm Hg 06/03/2024 Weight 143 lbs 06/03/2024 BMI 25.33 kg/m2 06/03/2024 Encounters Encounter Location Date Provider Diagnosis [address] [place] [address] 04/06/[address] [place] [address] 04/05/2024 [facility] Hypertensive chronic kidney disease with stage 1 [...] of 25.0 to 25.9 in adult Z68.[address] [place] [address] 05/05/2024 [facility] Hypertensive chronic kidney disease with stage 1 [...] of 25.0 to 25.9 in adult Z68.[address] [place] [address] 06/03/2024 [facility] Hypertensive chronic kidney disease with stage 1 [...] Comprehensive Metabolic Panel 14+eGFR-LC -Q 11/10/2014 Urinalysis, Tbqlepjk-CS-F 11/10/2014 Urinalysis, Ntjbcdlp-AE-Y 04/02/2016 Urinalysis, Jrbihsds-CO-C 10/15/2022 CBC With Differential/Hnzxjvqf-YJ-S 08/2022 CBC With Differential/Pdbwrufm-KJ-U 03/15 CBC With Differential/Frvbvpdl-AV-O 10/14 Hemoglobin A1C 10/15/2022 Microalbumin/Creatinine Ratio, Random [...]
--- OUTSIDE RECORDS SUMMARY | 2025-03-29 13:05 | XMS_ITS | Patient Health Record ---
Author Organization [facility] Address [address] [facility] [address] [place] [address] Care Team Providers Care Hat Designer Name Role Phone Sherrie Garcia Primary Care Provider Reason For Referral No Information Encounters Encounter Location Date Provider Diagnosis [facility] [address] [place] [address] 06/09/2024 Sherrie Beltran [facility] [address] [facility] [address] [place] [address] 06/10/2024 Sherrie Beltran [facility] [address] [place] [address] 06/13/2024 [facility]an [facility] [address] [place] [address] 07/11/2024 Sherrie Beltran Plan Of Treatment No Information Insurance Providers Payer Name Payer Address Payer Phone Subscriber Number Group Number Insured Name Patient Relationship to Insured Coverage Start Date Coverage End Date [employer] [address] [address] [place] [address] [id number] Sandy Jacob Self - patient is the insured
--- OUTSIDE RECORDS SUMMARY | 2025-03-29 13:05 | XMS_ITS | Encounter Summary ---
Author Organization [employer] [facility] Address [address] [place] [address] Care Team Providers Care Senior Technical Editor Name Role Phone Capri [place] Primary Care Provider [phone] Encounter Details Date Type Department Care Team (Late st Contact Info) Description 03/21/2025 Community Care Management [facility] [address] [place] [address] [facility] Link, Physician, Social History Tobacco Use Types Packs/Day Years [...] Description 04/12/2025 3:30 PM EDT Office Visit [facility] [address] [place] [address] Capri [place] FNP [address] [place] [address] documented as of this encounter Visit Diagnoses Not on filedocumented in this encounter Care Teams Senior Technical Editor Relationship Specialty Start Date End Date Capri [place] FNP [address] [place] [address] PCP - General Family Medicine 03/29/25 documented as of this encounter
--- OUTSIDE RECORDS SUMMARY | 2025-03-29 13:05 | XMS_ITS | Clinical Summary ---
Author Organization [employer] Address [address] [facility] 7[address] [place] [address] Care Team Providers Care Doctorate Of Chiropractic Name Role Phone Shadi Hamiltonupe BOILER COVERER HELPER Primary Care Provider [phone] Allergies No known active allergies Medications metoclopramide (Reglan) 5 MG tablet Take 5 mg by mouth every 8 (eight) hours if needed (nausea). Active metFORMIN, OSM, (Fortamet) 1000 MG 24 hr tablet Take 1,000 mg by mouth with evening meal. Do not crush, chew, or split. Active simethicone (Mylicon) 125 MG chewable tablet Chew 1 tablet at bedtime. Active B-D UF III MINI PEN NEEDLES 31G X 5 MM misc Inject 1 each under the skin at bedtime. 09/02/19 25 Active albuterol 108 (90 Base) MCG/ACT inhaler Inhale 2 puffs every 6 (six) hours if needed for wheezing. 18 g 03/29/20 25 Active atorvastatin (Lipitor) 10 MG tablet Take 1 tablet (10 mg) by mouth Once per day. 30 tablet 3 03/29/20 25 Active famotidine (Pepcid) 20 MG tablet Take 1 tablet (20 mg) by mouth Once per day. 90 tablet 03/29/20 25 Active Lantus SoloStar 100 UNIT/ML pen Inject 30 Units under the skin at bedtime. 3 mL 1 03/29/20 25 Active sertraline (Zoloft) 100 MG tablet Take 2 tablets (200 mg) by mouth in the morning. 60 tablet 3 03/29/20 25 Active traZODone (Desyrel) 50 MG tablet Take 1 tablet (50 mg) by mouth at bedtime. 30 tablet 3 03/29/20 Active fluticasone (Flonase) 50 MCG/ACT nasal spray Administer 1 spray into each nostril Once per day. 16 g 03/29/20 Active FREESTYLE LITE test strip Use to test blood sugar 3 times daily 100 each 12 03/29/20 25 Active Lancets misc Use to test blood sugar 3 times daily 100 each 03/29/20 Active Alcohol Swabs 70 % pads Use to test blood sugar 3 times daily 100 each 03/29/20 Active Blood Glucose Monitoring Suppl (FreeStyle [place] Lite) w/Device kit Use to test blood sugar 3 times daily 1 kit 03/29/20 Active famotidine (Pepcid) 20 MG tablet Take 20 mg by mouth Once per day. Discontinued(Re order (will not trigger notification to Pharmacy)) atorvastatin (Lipitor) 10 MG tablet Take 10 mg by mouth Once per day. Discontinued(Re order (will not trigger notification to Pharmacy)) fluticasone (Flonase) 50 MCG/ACT nasal spray Administer 1 spray into each nostril Once per day. Discontinued(Re order (will not trigger notification to Pharmacy)) Lantus SoloStar 100 UNIT/ML pen Inject 30 Units under the skin at bedtime. 01/07/20 Discontinued(Re order (will not trigger notification to Pharmacy)) traZODone (Desyrel) 50 MG tablet Take 50 mg by mouth at bedtime. 04/05/20 24 025 Discontinued(Re order (will not trigger notification to Pharmacy)) sertraline (Zoloft) 100 MG tablet Take 2 tablets by mouth in the morning. Discontinued(Re order (will not trigger notification to Pharmacy)) albuterol 108 (90 Base) MCG/ACT inhaler Inhale 2 puffs every 6 (six) hours if needed for wheezing. 025 Discontinued(Re order (will not trigger notification to Pharmacy)) Active Problems Problem Noted Date Diagnosed Date Calcaneal spur 01/27/2024 Hand pain 01/27/2024 Primary osteoarthritis of [...] Encounters Date Type Department Care Team Description 03/29/2025 9:00 AM EDT Office Visit [facility] [address] [place] [address] Capri Hamilton FNP Well adult exam (Primary Dx); Type 2 diabetes mellitus with hyperglycemia, unspecified whether superintendent terminal insulin use (HCC) 03/29/2025 Travel 03/28/[address] [address] Capri Hamilton FNP Chart Prep 03/24/2025 Telephone [facility] [address] [place] [address] Croie Segura MD Pre-op/labs 03/21/2025 Community Care Management [address] [address] [facility] Jerel Physician, 03/17/2025 Orders Only [facility] External Provider, [facility] 02/15/[address] [address] Teo Rodriguez MD Appointment Request 01/18/[address] [address] Teo Rodriguez MD New pt appt from [...] Mass Index 27.28 03/29/2025 8:53 AM EDT Plan of Treatment Upcoming Encounters Date Type Department Care Team (Late st Contact Info) Description 04/12/2025 3:30 PM EDT Office Visit [facility] [address] [place] [address] Capri Hamilton, BOILER COVERER HELPER [address] [place] [address] Health Maintenance Due Date Last Done Comments CT Colonography 1959 Colonoscopy 1959 Colorectal Cancer Screening 1959 FIT DNA/Cologuard 1959 FIT 1959 FOBT 1959 Lipid Panel 1959 Sigmoidoscopy 1959 Diabetes: Foot Exam 1969 Eye Exam 1969 Tobacco Screening 1971 Hepatitis C Screening 1977 [...] Protein Screening 03/21/2022 03/21/2021, 08/04/2019 COVID-19 Vaccine ( season) 2025 09/21/2020, 08/24/2020 Influenza Vaccine (#1) 2025 04/13/2018, 2016 Diabetes: Hemoglobin A1C 06/29/2025 025, 03/21/2021, 08/24/2020, Additional history exists Alcohol/Substance Use Screening 03/29/2026 03/29/2025 Depression Screening 03/29/2026 03/29/2025, 03/29/20 25 SDOH Screening 03/29/2026 03/29/2025 HIB Vaccines Aged Out No longer eligi [...] 2 diabetes mellitus with hyperglycemia, unspecified whether fdc insulin use (HCC) POCT GLUCOSE Routine 03/29/2025 9:08 AM EDT Type 2 diabetes mellitus with hyperglycemia, unspecified whether superintendent terminal insulin use (HCC) XR KUB AND UPRIGHT 2 VIEWS Routine 03/17/2025 9:00 AM EDT ALBUMIN, RANDOM URINE W/CREATININE Routine 03/21/2021 1:22 PM EDT from Last 3 Months or Most Recently Relevant to Health Maintenance Results * (ABNORMAL) POCT Hgb A1c (03/29/2025 9:09 AM EDT) Hemoglobin A1C 9.4(A) 4.0 - 5.7 % QC Media Lot # [id number] Lot# Expiration Date 152,027 Blood 03/29/2025 9:09 AM EDT Capri Alfonso BOILER COVERER HELPER POINT OF CARE TEST ENTER/EDIT ORDERABLES Final Result * POCT Glucose (03/29/2025 9:08 AM EDT) Glucose Blood, POC 177 60 - 200 mg/dL QC Media Lot # [id number] Lot# Expiration Date Blood Capillary blood specimen / Unknown 03/29/2025 9:08 AM EDT Capri Hamilton BOILER COVERER HELPER POINT OF CARE TEST ENTER/EDIT ORDERABLES Final Result * XR KUB and Upright 2 Views (03/17/2025 9:00 AM EDT) Anatomical Region Laterality Modality Radiographic Beatriz ging 03/17/2025 9:00 AM EDT Narrative 03/17/2025 9:13 AM EDT [place] [address] XRay Report Signed Patient: Sandy Jacob MR#: [id number] : 1960 Acct:[id number] Age/Sex: 64 / F ADM Date: 03/17/25 Loc: [facility] Attending Dr: Gonzales Olivares MD Ordering Physician: Gonzales Olivares MD Date of Service: 03/17/25 Procedure(s): XR KUB Accession Number(s): [id number] cc: Corie Segura MD; Gonzales Olivares MD [...] in OV> 03/17/25909 DD/ 9 TD/TT: 03/17/25901 Fish Tender: Procedure Note Farzana, Image - 03/17/[address] [address] XRay Report Signed Patient: Galina Jacob#: [id number] : 9Acct:[id number] Age/Sex: 64 / FADM Date: 03/17/25 Loc: [facility] Attending Dr: Gonzales Olivares MD Ordering Physician: Gonzalse Olivares MD Date of Service: 03/17/25 Procedure(s): XR KUB Accession Number(s): [id number] cc: Corie Segura MD; Gonzales Olivares MD [...] in OV> 03/17/25909 DD/ 9 TD/TT: 03/17/25901 Fish Tender: [facility] External Provider IMG XR PROCEDURES Final Result [...] MD LAB URINE ORDERABLES Fin al Result [facility] [address] from Last 3 Months or Most Recently Relevant to Health Maintenance Insurance [facility] USP OPTIONS (HMO D-SNP) [place] [id number] Care Teams Doctorate Of Chiropractic Relationship Specialty Start Date End Date Capri Hamilton FNP [address] [place] [address] PCP - General Family Medicine 03/29/25
--- OUTSIDE RECORDS SUMMARY | 2025-03-29 13:06 | XMS_ITS | Patient Health Record ---
Author Organization [facility] Address [address] [address] Care Team Providers Care Workers Compensation Manager Name Role Phone DANIELLE JAYLEN WYATT Primary Care Provider [phone] Melanie Berry Unavailable [phone] ROBERTA QUIGLEY Unavailable [phone] Nevin Zheng Unavailable Allergies Allergen (clinical drug ingredient) Drug/Non Drug Allergy documented on EMR Reaction Allergy Type Onset Date Status Seasonal IC Unknown Drug Allergy Activ e Results Component Value Reference Range Notes Please note-[id number] Reviewed date:01/10/2025 08:29:52 AM Interpretation: Performing Lab:[facility] [place], [facility] [facility], Phone - [phone], Director - MDRichendollar Notes/Report: Please note The date and/or time of collection was not indicated on the requisition as required by state and federal law. The date of receipt of the specimen was used as the collection date if not supplied. Hemoglobin A1c Reviewed date:01/10/2025 08:29:52 AM Interpretation: Performing Lab:[facility] [place] [facility], Phone - [phone], Director - [facility] Notes/Report: Hemoglobin A1c 8.5 Reference Range: [place] Diabetes Association (ADA) Guidelines: <5.7: Decreased risk for diabetes 5.7 - 6.4: Increased risk for diabetes >6.4: Ongoing Hyperglycemia of any cause <7.0: Glycemic control for adults with diabetes Estimated Average Glucose 197 Albumin/Creatinine Ratio,Uri ne-[id number] Reviewed date:01/10/2025 08:29:52 AM Interpretation: Performing Lab:[facility], [address] [place] [address], Phone - [phone], Director - MDRichendollar Notes/Report: Creatinine, Urine 102.9 Not Estab. mg/dL Albumin, Urine 9.1 Not Estab. ug/mL Alb/Creat Ratio 9 0-29 mg/g creat Normal: 0 - 29 Moderately increased: 30 - 300 Severely increased: >300 Urinalysis, Complete-[id number] Reviewed date:01/10/2025 08:29:52 AM Interpretation: Performing Lab:[facility], [address] [place] [address], Phone - [phone], Director - MDRichendollar Notes/Report: Specific Royal 1.020 1.005-1.030 pH 5.5 5.0-7.5 Urine-Color Yellow [...] CMP14+eGFR Reviewed date:01/10/2025 08:29:52 AM Interpretation: Performing Lab:[facility], [facility] [address] [facility], Phone - [phone], Director - MDRichendollar Notes/Report: Glucose 217 70-99 [...] IU/L ALT (SGPT) 15 0-32 IU/L Lipid Panel-[id number] Reviewed date:01/10/2025 08:29:52 AM Interpretation: Performing Lab:[facility] [place], [facility] [address] [facility], Phone - [phone], Director - MDRichendollar Notes/Report: Cholesterol, Total 141 100-199 mg/dL Triglycerides 79 0-149 mg/dL HDL Cholesterol 44 >39 mg/dL VLDL Cholesterol Alfred 15 5-40 mg/dL LDL Chol Calc (NIH) 82 0-99 mg/dL CBC With Differential/Platel et-[id number] Reviewed date:01/10/2025 08:29:52 AM Interpretation: Performing Lab:[facility] [place], [facility] [address] [facility], Phone - [phone], Director - MDRichendollar Notes/Report: WBC 7.1 3.4-10.8 [...] % Immature Grans (Abs) 0.0 0.0-0.1 x10E3/uL HEMOGLOBIN A1c (496) Reviewed date:09/23/2024 10:27:51 AM Interpretation: Performing Lab:[facility] DOZIERa4Norma [id number] Shaheen Fofana MD Notes/Report: FASTING: YES FASTING:YES [...] follow-up ALBUMIN, RANDOM URINE W/O CR EATININE (68062) Reviewed date:09/23/2024 10:28:45 AM Interpretation: Performing Lab:[place] Shaheen Fofana MD Notes/Report: FASTING:YES FASTING: YES [...] considering a patient to be URINALYSIS, COMPLETE (7136) Reviewed date:09/23/2024 10:26:09 AM Interpretation: Performing Lab:[facility] DOZIER [id number] Shaheen Fofana MD Notes/Report: FASTING:YES FASTING: YES [...] 9) Reviewed date:09/23/2024 10:26:45 AM Interpretation: Performing Lab:[facility], [facility]-[id number] Norma [place]uff[place] Shaheen Fofana MD Notes/Report: FASTING:YES FASTING: YES [...] MPV 10.9 7.5-12.5 fL ABSOLUTE NEUTROPHILS 3791 5133-5013 cells/uL ABSOLUTE LYMPHOCYTES 2606 850-3900 cells/uL ABSOLUTE MONOCYTES 525 200-950 cells/uL ABSOLUTE EOSINOPHILS 149 15-500 cells/uL ABSOLUTE BASOPHILS 28 0-200 cells/uL NEUTROPHILS 53.4 LYMPHOCYTES 36.7 MONOCYTES 7.4 EOSINOPHILS 2.1 BASOPHILS 0.4 COMPREHENSIVE METABOLIC PANE L (REFL) (97058) Reviewed date:09/23/2024 10:28:25 AM Interpretation: Performing Lab:[facility], [facility]-[id number] Yuliya Moody [id number] Shaheen Fofana MD Notes/Report: FASTING:YES FASTING: YES [...] Reviewed date:09/23/2024 10:29:05 AM Interpretation: Performing Lab:[facility]-[id number] Yuliya Moody, [id number] Shaheen Fofana MD Notes/Report: FASTING:YES FASTING: YES [...] LDL-C. Grant RODARTE et al. LAMAR. 2013;310(19): 2846-2453 (http://education.[employer]/faq/FAQ16 4) CHOL/HDLC RATIO 3.3 <5.0 (calc) NON HDL CHOLESTEROL 107 <130 mg/dL (calc) For patients with diabetes plus 1 major ASCVD risk factor, treating to a non-HDL-C goal of <100 mg/dL (LDL-C of <70 mg/dL) is considered a therapeutic option. Reason For Referral Reason No Auth Req Diagnosis 1 Type 2 diabetes mao itus with other circulatory complications (E11.59) Referral Organization [facility] [place] Referring Provider First Name Melanie Referring Provider Last Name Kristi Referring Provider Speciality Family [facility] dona Referred Provider Keon Hernandez Referred Provider Specialty Podiatry Procedure 1 New Patient Office o r Other Outpatient Services. (30640) Procedure 2 Office Visit, Est Pt ., Level 4 (43538) Referral Priority Routine Medications Medication SIG (Take, [...] utaneous 0.75 mg one a week Active Yvwpcjcmuh-MJTY-Itcwnqlt 50-325-40 MG 1 tablet as needed Oralt [...] 0.75 mg weekly; Duration: 30 days Active Tslhzsxuny-WEKF-Gabimgup 50-325-40 MG 1 capsule as needed Orally [...] Peripheral circulatory disorder associated with diabetes mellitus (835022396) Type 2 diabetes mellitus with other circulatory complications (E11.59) Active confirmed Problem Mixed hyperlipidemia (490063836) Mixed hyperlipidemia (E78.2) Active confirmed Problem Hyperlipidemia (91390213) Hyperlipidemia, unspecified (E78.5) Active confirmed Problem Anxiety disorder (835623014) Anxiety disorder, unspecified (F41.9) Active confirmed Problem Migraine without aura (47988139) Migraine without aura, not intractable, with status migrainosus (G43.001) Active confirmed Problem Sleep apnea (64155182) Sleep apnea, unspecified (G47.30) Active confirmed Problem Mild intermittent asthma (480670756) Mild intermittent asthma, uncomplicated (J45.20) Active confirmed Problem Cervicalgia (10795955) Cervicalgia (M54.2) Active confirmed Problem Essential hypertension (13579040) Essential (primary) hypertension (I10) Active confirmed Problem Psoriasis (4243276) Psoriasis (L40.9) Active co nfirmed Problem High cholesterol (39702757) High cholesterol (E78.00) Active confirmed Problem Arthritis (1690832) Arthritis (M19.90) Active confirmed Problem Gastroesophageal reflux disease (565580666) GERD without esophagitis (K21.9) Active confirmed Problem Overweight (065347914) Overweight (BMI 25.0-29.9) (E66.3) Active confirmed Vital Signs Heart Rate 70 /min 01/06/2025 Temperature 97 degrees Fahrenheit 01/06/2025 Respiratory Rate 17 /min 01/06/2025 Blood pressure diastolic 40 mm Hg 01/06/2025 Oximetry 99 % 01/06/2025 Height 63 in 01/06/2025 Blood pressure systolic 135 mm Hg 01/06/2025 Weight 148 lbs 01/06/2025 BMI 26.21 kg/m2 01/06/2025 Encounters Encounter Location Date Provider Diagnosis [address] [address] 08/29/2024 Melanie Berry Encounter for genera l [...] aura, not intractable, with status migrainosus G43.001 [place] [address] [place] [address] 09/30/2024 Melanie Berry Type 2 diabetes mellitus [...] migrainosus G43.001 and Anxiety disorder, unspecified F41.9 [facility] [address] [place] [address] 01/06/2025 JUSSEP FOMBELLIDA Type 2 diabetes mellitus with other circulatory complications E11.59 ; Body mass index 26.0-26.9, adult Z68.26 ; Essential (primary) hypertension I10 ; Mild intermittent asthma, uncomplicated J45.20 ; Migraine without aura, not intractable, with status migrainosus G43.001 ; Sleep apnea, unspecified G47.30 ; Psoriasis L40.9 and Mixed hyperlipidemia E78.2 [facility] [address] [place] [address] 01/06/2025 JUSSEP FOMBELLIDA Anxiety disorder, unspecified F41.9 ; High cholesterol E78.00 ; Essential (primary) hypertension I10 and Type 2 diabetes mellitus with other circulatory complications E11.59 [facility] [address] [place] [address] 10/27/2024 Melanie Kristi Type 2 diabetes mellitus with other circulatory complications E11.59 Assessments Encounter Date Diagnosis (ICD Code) Assessment Notes Treatment Notes Treatment Clinical Notes Section Notes 01/06/2025 Anxiety disorder, unspecified (ICD-10 - F41.9) 08/29/2024 Encounter for general adult medical examination with abnormal findings (ICD-10 - Z00.01) 08/29/2024 Body mass index (BMI) of 24.0-24.9 in adult (ICD-10 - Z68.24) 10/27/2024 Type 2 diabetes mellitus with other [...] patient to exercise on a regular basis. 09/30/2024 Type 2 diabetes mellitus with other circulatory complications (ICD-10 - E11.59) Podiatric referral given. 30 u of Lantus a day. 09/30/2024 Body mass index [BMI] 26.0-26.9, adult (ICD-10 - Z68.26) 09/30/2024 Overweight (BMI 25.0-29.9) (ICD-10 - E66.3) 01/06/2025 Essential (primary) hypertension (ICD-10 - I10) Continue low salt diet 01/06/2025 High cholesterol (ICD-10 - E78.00) 08/29/2024 Overweight (ICD-10 - E66.3) 01/06/2025 Essential (primary) hypertension (ICD-10 - I10) 01/06/2025 Mild intermittent asthma, uncomplicated (ICD-10 - J45.20) Discussed and provided asthma action plan 08/29/2024 Encounter for screening for depression (ICD-10 - Z13.31) PHQ-9 Done Aisha Stack 08/29/2024 01:53:25 PM EDT > 09/30/2024 Person consulting for explanation of examination or test finding (ICD-10 - Z71.2) 01/06/2025 Migraine without aura, not intractable, with [...] (ICD-10 - Z12.4) Hicterectpmy done 20 years 09/30/2024 Encounter for screening for osteoporosis (ICD-10 - Z13.820) Order DEXA TEST 01/06/2025 Sleep apnea, unspecified (ICD-10 - G47.30) Prop up the head of your bed 4 to 6 inches by putting bricks under the legs of the bed. 01/06/2025 Psoriasis (ICD-10 - L40.9) Hydration and lubrication, dove soap, triple rinse clothing and linens 09/30/2024 Encounter for screening mammogram for malignant neoplasm of breast (ICD-10 - Z12.31) Screening mammogram done 3-4 months done. 08/29/2024 Encounter for screening for osteoporosis (ICD-10 [...] 08/29/2024 CBC (INCLUDES DIFF/PLT) (6399) URINALYSIS, COMPLETE (1783) 08/29/2024 ALBUMIN, RANDOM URINE W/O CREATININE (17 034) 08/29/2024 Next Appt Details Provider Name:ROBERTA COLEY CAROL, 03/29/2025 01:30:00 PM, [address] [place], [address], Insurance Providers Payer Name Payer Address Payer Phone Subscriber Number Group Number Insured Name Patient Relationship to Insured Coverage Start Date Coverage End Date [facility] Dual Complete PPO [address] [address] [place] [address] [id number] Sandy Jacob Self - patient is the [...]
--- OUTSIDE RECORDS SUMMARY | 2025-03-29 13:06 | XMS_ITS | Encounter Summary ---
Author Organization [employer] Address [address] [place] [address] Care Team Providers Care Dump Grounds Checker Name Role Phone Capri Hamilton IRON AND STEEL WORK SUPERVISOR Primary Care Provider [phone] Encounter Details Date Type Department Care Team (Latest Contact Info) Description 03/29/2025 Travel Social History Tobacco Use Types Packs/Day Years [...] AM EDT documented as of this encounter Functional Status * Over the [...] 10:06 AM Danette James MA * Feeling down, depressed, or hopeless Answer Date of Assessment Author Several days 03/29/2025 10:06 AM CRISTYT Danette Becerra MA * Trouble falling or [...] Author Not at all 03/29/2025 10:06 AM CRISTYT Danette Becerra MA * Patient Health Questionnaire-9 Score Answer Date of Assessment Author 7 03/29/2025 10:06 AM Danette James MA * How difficult have these problems made it for you to do your work, take care of things at home, or get along with other people? Answer Date of Assessment Author Not difficult at all 03/29/2025 10:06 AM EDT Danette Welsh MA * Over the last 2 weeks, how often have you been bothered by any of the following problems? Question Answer Date of Assessment Author Feeling nervous, anxious, or on edge 0 03/29/2025 10:04 AM EDT Danette Becerra MA Not being able to stop or co ntrol worrying 1 03/29/2025 10:04 AM CRISTYT Danette Becerra MA Worrying too much about diff erent things 2 03/29/2025 10:04 AM EDDanette Villatoro MA Trouble relaxing 2 03/29/2025 10:04 AM CRISTYT Danette Becerra MA Being so restless that it is hard to sit still 0 03/29/2025 10:04 AM Danette James MA Becoming easily annoyed or irritable 1 03/29/2025 10:04 AM CRISTYT Danette Becerra MA Feeling afraid as if somethi ng awful might happen 0 03/29/2025 10:04 AM Danette James MA DANIEL-7 Total Score 6 03/29/2025 10:04 AM Danette James MA documented as of this encounter Plan of Treatment Upcoming Encounters Date Type Department Care Team (Late st Contact Info) Description 04/12/2025 3:30 PM EDT Office Visit [facility] [address] [place] [address] Capri Hamilton FNP [address] [place] [address] documented as of this encounter Visit Diagnoses Not on filedocumented in this encounter Additional Health Concerns Assessment Noted Time PHQ-9 Depression Total Score: 7 03/29/20 10:06 AM EDT documented as of this encounter Care Teams Dump Grounds Checker Relationship Specialty Start Date End Date Capri Hamilton FNP [address] [place] [address] PCP - General Family Medicine 03/29/25 documented as of this encounter
--- OUTSIDE RECORDS SUMMARY | 2025-03-29 13:06 | XMS_ITS | Patient Health Record ---
Author Organization [facility] Address [address] [place] [address] Care Team Providers Care Personal Care Aide Name Role Phone Alexander Cruz Primary Care [...] Status Risk Notes Problem Uncomplicated asthma (disorder) (505091471) Unspecified asthma, uncomplicated (J45.909) Active confirmed Plan Of Treatment No Information Insurance Providers Payer Name Payer Address Payer Phone Subscriber Number Group Number Insured Name Patient Relationship to Insured Coverage Start Date Coverage End Date [facility] [address] [place] [address] [id number] Sandy Jacob Self - patient is the insured Medical (General) History Medical History History ICD Code Migraines Asthma Surgical History Surgery Date(Month/Year) Hysterectomy
--- OUTSIDE RECORDS SUMMARY | 2025-03-29 13:07 | XMS_ITS | Encounter Summary ---
Author Organization [employer] Address [address] [facility] 7t [place] [address] Care Team Providers Care Asphalt Roller Person Name Role Phone Unavailable Primary Care Provider Unavailabl e Reason for Visit * Reason Onset Date Comments Chart Prep 03/28/2025 Encounter Details Date Type Department Care Team ([facility] st Contact Info) Description 03/28/2025 Telephone [facility] MEDICINE [address] [place] [address] Capri Hamilton FNP [address] [place] [address] Chart Prep Social History Tobacco Use Types Packs/Day Years [...] AM EDT documented as of this encounter Miscellaneous Notes * Telephone Encounter - Marilynn Chen [place] - 03/28/2025 9:15 AM EDT Chart Prep Labs: not applicable Images: done from 03/17/25 Referrals: not applicable Vaccines due: Covid, Flu, PCV20, Tdap, RSV, and Zoster Screenings: colonoscopy, mammogram, eye exam, foot exam, and Hep C, Lipid panel, Urine protein, Cervical cancer. Overdue care gaps: A1c, Glucose, SBIRT, SDOH, PHQ-9, DANIEL-7, Oral health screening, and Tobacco documented in this encounter Plan of Treatment Upcoming Encounters Date Type Department Care Team (Late st Contact Info) Description 04/12/2025 3:30 PM EDT Office Visit [facility] MEDICINE [address] [place] [address] Capri Hamilton FNP [address] [place] [address] documented as of this encounter Visit Diagnoses Not on filedocumented in this encounter
--- OUTSIDE RECORDS SUMMARY | 2025-03-29 13:07 | XMS_ITS | Encounter Summary ---
Author Organization [employer] Address [address] [facility] 7t [place] [address] Care Team Providers Care Deliverer Outside Name Role Phone Unavailable Primary Care Provider Unavailabl e Reason for Visit * Reason Onset Date Comments Pre-op/labs 03/24/2025 Encounter Details Date Type Department Care Team ([facility] st Contact Info) Description 03/24/2025 Telephone [facility] MEDICINE [address] [place] [address] Corie Segura MD [address] [place] [address] Pre-op/labs Social History Tobacco Use Types Packs/Day Years [...] encounter Miscellaneous Notes * Telephone Encounter - Margarita Huynh RN - 03/24/2025 10:08 AM EDT Incoming call from Brennen at [facility] who reports this patient was recently seen at the ED for acute pancreatitis and is still experiencing pain. [facility] reports they will be removing her gallbladder however they need the patient to have her A1c checked. Brennen informed this patient is not establishedat [facility] until new patient appointment on 05/16/25. Brennen reports she has previous office notes from 2021 from [facility] and does not understand how the patient needs a new patient appointment. RN informed anytime a patient has not been seen in >3 years they are considered a new patient. RN inquired if provider at [facility] can order an A1C however Brennen now reports the patient will also need a pre-op d/t being out of medical care >3 years. RN called Mike to inquire if PLATE AND FRAME FILTER OPERATOR appointment can be moved sooner d/t above. Mike was able to find a PLATE AND FRAME FILTER OPERATOR appointment for 03/29/25 at 9am. Mike reports he will call the patient to r/s PLATE AND FRAME FILTER OPERATOR appointment. RN informed Brennen we are moving the PLATE AND FRAME FILTER OPERATOR appointment to 03/29/25 at 9am however the patient will need a pre-op appointment afterwards. Brennen advised the patient should bring pre-op paperwork from [facility] to her PLATE AND FRAME FILTER OPERATOR appointment on 05/29/25 in order for pre-op to be scheduled. Brennen verbalized understanding. documented in this encounter Plan of Treatment Upcoming Encounters Date Type Department Care Team (Late st Contact Info) Description 04/12/2025 3:30 PM EDT Office Visit [facility] MEDICINE [address] [place] [address] Capri Hamilton FNP [address] [place] [address] documented as of this encounter Visit Diagnoses Not on filedocumented in this encounter
[2025-03-29 13:17] LABS: MANUAL DIFF FLAG NO
[2025-03-29 13:28] LABS: Hematocrit 40.1 % (37.0-47.0); Hemoglobin 11.9 g/dl (12.0-16.0); Imm Gran Abs Auto 0.02 X10*3/uL (0.00-0.03); Imm Gran Pct Auto 0.3 % (0.0-0.4); Lymphocytes Absolute Auto 2.3 X10*3/uL (1.2-4.9); Mean Corpuscular HGB Conc 29.7 g/dl (31.0-35.0); Mean Corpuscular Hemoglobin 25.3 pg (27.0-33.0); Mean Corpuscular Volume 85.1 fL (80.0-98.0); NRBC Abs Auto 0.000 X10*3/uL (0.0-0.012); NRBC Pct Auto 0.0 /100WBC (0.0-0.2); Platelet Count 188 X10*3/uL (160-400); Red Blood Count 4.71 X10*6/uL (4.20-5.50); White Blood Count 6.6 X10*3/uL (4.8-10.8)
[2025-03-29 13:55] LABS: Alanine Aminotransferase 13 U/L (0-31); Albumin Level 4.4 g/dL (3.5-5.0); Alkaline Phosphatase 64 U/L (39-117); Anion Gap 11 (12-20); Aspartate Amino Transferase 21 U/L (5-31); Blood Urea Nitrogen 8 mg/dL (9-16); Calcium 9.2 mg/dL (8.4-10.2); Carbon Dioxide 28 mmol/L (22-29); Chloride 105 mmol/L (96-108); Cholesterol 152 mg/dL (<200); Estimated Glomerular Filt Rate > 60; HDL Cholesterol 49 mg/dL (>40); Potassium 4.1 mmol/L (3.3-5.1); Sodium 140 mmol/L (135-145); Total Protein 8.1 g/dL (6.5-8.0); Triglycerides 64 mg/dL (<150)
[2025-03-29 14:33] LABS: Microalbum/Creatinine Ratio Ur 137.4 ug/mg cr (<30)
[2025-03-29 14:37] LABS: CT PCR Urine NOT DETECTED (Not Detect.); NG PCR Urine NOT DETECTED (Not Detect.)
[2025-03-30 05:02] LABS: HBS Num1 0.95 mIU/mL (0-7.99); HBc Num1 0.15 S/CO (0.00-0.79); HBsAGNum1 0.52 S/CO (0.00-0.99); HIV Num 1 0.07 S/CO (0.00-0.99); Hepatitis B Surface Antigen Negative (Negative); ~HepC Num1 13.55 S/CO (0.00-0.79); ~Hepatitis B Surface Antibody NONREACTIVE (Nonreactive); ~Hepatitis C Antibody Reactive (Nonreactive)
[2025-03-31 20:09] LABS: HCV Log PCR 6.68 Log IU/mL (NOT DETECTED)
== END 2025-03-29 10:47 | disposition home or self-care (01) ==
LOC: HO.HHCL 10:46
PROVIDERS: PCP Nurse Practitioner Family; Visit Provider Nurse Practitioner Family
DX: Z00.00 Encounter for general adult medical examination without abnormal findings (principal); Z13.6 Encounter for screening for cardiovascular disorders; Z11.4 Encounter for screening for human immunodeficiency virus [HIV]
CPT/HCPCS: 36415; 80053; 80061; 82043; 82570; 85025; 86704; 86706; 86803; 87340; 87389; 87491; 87522; 87591; J0131; J2405

== ENCOUNTER 2025-03-30 07:25 | Day surgery (SDC) | payer OTHER, SELFPAY ==
--- OUTSIDE RECORDS SUMMARY | 2024-06-09 07:30 | XMS_ITS ---
Author Organization [facility] Address [address] [facility] 114 [facility] 100 [place] [address] Care Team Providers Care Tipple Tender Name Role Phone Sherrie Garcia Primary Care Provider REASON FOR VISIT door knock Encounters Encounter Location Date Provider Diagnosis [address] [place] [address] 06/09/2024 Sherrie Betlran Plan Of Treatment No Information Progress Notes * Jose HOPPEROB:06[birth year]01 (64 yo F)Acc No.[id number]:06/09/2024 Patient: Alexia MADRIGALsol Provider: Santa Beltran MD :1960 A ge:64 Y S ex:Female Date:06/09/2024 Address:[address] [place], [place] [id number] Structured Data:MRA Reviewed : 07/04/2024 Subjective: * Chief Complaints: * 1 . Door knock. * Medical History: Objective: * Vitals: Assessment: Plan: * Treatment: * Billing Information: * Visit Code: * Procedure Codes: * Electronic signature of Lora Beltran MD on 03/28/2025 at 08:31 AM CDT Sign off status: Pending * Provider: Santa Beltran MD Date: 1 08/10/2023 Generated for Cameroni ng/Faxing/eTransmitting on: 08:31 AM CDT
--- OUTSIDE RECORDS SUMMARY | 2024-06-10 05:00 | XMS_ITS ---
Author Organization [facility] Address [address] [facility] 114 [facility] 100 [place] [address] Care Team Providers Care Publicity Manager Name Role Phone Sherrie Garcia Primary Care Provider Encounters Encounter Location Date Provider Diagnosis [facility] [address] [facility] [place] [place] [address] 06/10/2024 Sherrie Beltran Plan Of Treatment No Information Progress Notes * Alysia JACOBlDOB:[birth year] (64 yo F)Acc No.[id number]:06/10/2024 Patient: Nima JONES Sandy LEWIS Provider: Santa Beltran MD :1960 A ge:64 Y S ex:Female Date:06/10/2024 Address:[address] [place] [address] [facility]ITAL[facility]-[id number] Structured Data:MRA Reviewed : 07/04/2024 Subjective: * Chief Complaints: * * HPI: N ew/Follow-up Patient Consult: Patient in clinic for Courtesy Visit. * Medical History: Objective: * Vitals: Assessment: Plan: * Treatment: * Billing Information: * Visit Code: * Procedure Codes: * Electronic signature of Lora Beltran MD on 03/28/2025 at 08:32 AM CDT Sign off status: Pending * Provider: Santa Beltran MD Date: 08/11/2023 Generated for Cameroni domi/Julio Cesar/eTransmitting on: 08:32 AM CDT History and Physical Notes * HPI (History of Present Illness) Category Sub-Category Detail Notes Category Not es New/Follow-up Patient Consult Patient in clinic fo r Courtesy Visit.
--- OUTSIDE RECORDS SUMMARY | 2024-06-13 07:30 | XMS_ITS ---
Author Organization [facility] Address [address] [facility] 114 [facility] 100 [place] [address] Care Team Providers Care Lab Courier Name Role Phone Sherrie Garcia Primary Care Provider Encounters Encounter Location Date Provider Diagnosis [facility] [address] [facility] [address] 06/13/2024 Sherrie Beltran Plan Of Treatment No Information Progress Notes * Jose JACOBOB:[birth year] (64 yo F)Acc No.[id number]:06/13/2024 Patient: Nima JONES Sandy LEWIS Provider: Santa Beltran MD :1960 A ge:64 Y S ex:Female Date:06/13/2024 Address:[address] [place] [address] [facility]PITALHW-[id number] Structured Data:MRA Reviewed : 07/04/2024 Subjective: * Chief Complaints: * * Medical History: Objective: * Vitals: Assessment: Plan: * Treatment: * Billing Information: * Visit Code: * Procedure Codes: * Electronic signature of Lora Beltran MD on 03/28/2025 at 08:30 AM CDT Sign off status: Pending * Provider: Santa Beltran MD Date: Generated for Cameroni ng/Faxing/eTransmitting on: 08:30 AM CDT
--- OUTSIDE RECORDS SUMMARY | 2024-07-04 06:15 | XMS_ITS ---
Author Organization [employer]. Address 1 [facility] [address] [place] [address] Care Team Providers Care Seafood Clerk Name Role Phone Rosalio Epstein Primary Care Provider [phone] Weston Rosenbaumcarolyn Gonzales [phone] REASON FOR VISIT F/UP Medications Medication SIG [...] times a day; Duration: 90 days Active Zleroxqpbm-MXSK-Bfrqv ine 50-325-40 MG 1 tablet as needed [...] Not-Taking Encounters Encounter Location Date Provider Diagnosis [place] [address] [place] [address] 07/04/2024 Macrina Rosenbaum Plan Of Treatment No Information Progress Notes * SUNG HOPPEROB:[birth year]01 (64 yo F)Acc No.[id number]:07/04/2024 Progress Notes Patient: LEO MADRIGAL Provider: Jarvis ROSENBAUM APRN :1960 A ge:64 Y S ex:Female Date:07/04/2024 Address:[address] [place], [place] [id number] Pcp:Rosalio Epstein Subjective: * Chief Complaints: * [...] every 4 hours as needed , Taking Iffrkenypn-JHBX-Pndjlcnl 50-325-40 MG Tablet 1 tablet as needed [...] Electronic signature of Macrina Rosenbaum APRN on 03/28/2025 at 09:33 AM EDT Sign off status: Pending * Provider: Jarvis ROSENBAUM APRN Date: 0 07/04/2024 Generated for Destini duron/Julio Cesar/Mario on: 09:33 AM EDT
--- OUTSIDE RECORDS SUMMARY | 2024-07-05 09:45 | XMS_ITS ---
Author Organization [facility] Address [address] [facility] [address] [facility] [address] [place] [address] Care Team Providers Care Kieselguhr Regenerator Operator Name Role Phone Sherrie Garcia Primary Care Provider REASON FOR VISIT New Patient Encounters Encounter Location Date [facility] [address] [place] [address] 07/05/2024 Sherrie Beltran Type 2 diabetes mellitus [...] - E11.65) A1c 11.5 DOS 07/09/2023, per [facility] P records 07/05/2024 Immunodeficiency due to conditions classified elsewhere (ICD-10 - D84.81) related to uncontrolled DM II A1c 11.5 DOS 07/09/2023, per [facility] P records, 07/05/2024 Type 2 diabetes mellitus with diabetic chronic kidney disease (ICD-10 - E11.22) per [facility] P records, eGFR 85 DOS 03/15/2024 and eGFR 86 DOS 07/10/2023, 07/05/2024 Hypertensive chronic kidney disease with stage 1 through stage 4 chronic kidney disease, or unspecified chronic kidney disease (ICD-10 - I12.9) per [facility] records, eGFR 85 DOS 03/15/2024 and eGFR 86 DOS 07/10/2023, 07/05/2024 Chronic kidney disease, stage 2 (mild) (ICD-10 - N18.2) per [facility] records, eGFR 85 DOS 03/15/2024 and eGFR 86 DOS 07/10/2023, 07/05/2024 Type 2 diabetes mellitus with diabetic polyneuropathy (ICD-10 - E11.42) pt. on Gabapentin, per [facility] records, 07/05/2024 Type 2 diabetes mellitus with other specified complication (ICD-10 - E11.69) related to HLD, pt. on Atorvastatin, metFORMIN, Lantus per [facility] records, 07/05/2024 Mixed hyperlipidemia (ICD-10 - E78.2) due to DM II, per [facility] records, 07/05/2024 Mild intermittent asthma, uncomplicated (ICD-10 - J45.20) pt. on Albuterol per [facility] records, 07/05/2024 Colon cancer screening (ICD-10 - Z12.11) 07/05/2024 Screening breast examination (ICD-10 - Z12.39) Plan Of Treatment No Information Progress Notes * Jose JACOBOB:[birth year] (64 yo F)Acc No.[id number]:07/05/2024 Progress Notes Patient: Nima Sandy HOLLOWAY Provider: Santa Beltran MD :1960 A ge:64 Y S ex:Female Date:07/05/2024 Address:[address] [place], [place] [id number] Structured Data:MRA Reviewed : 07/04/2024 Subjective: * [...] kidney disease - E11.22 N otes :per [facility] P records, eGFR 85 DOS 03/15/2024 and eGFR 86 DOS 07/10/2023, 2 . T ype 2 diabetes mellitus with diabetic polyneuropathy - E11.42 N otes :pt. on Gabapentin, per [facility] P records, 3 . T ype 2 diabetes mellitus with hyperglycemia - E11.65 N otes :A1c 11.5 DOS 07/09/2023, per [facility] P records 4 . T ype 2 diabetes mellitus with other specified complication - E11.69 ? N otes :related to HLD, pt. on Atorvastatin, metFORMIN, Lantus per [facility] P records, 5 . M ixed hyperlipidemia - E78.2 N otes :due to DM II, per [facility] records, 6 . H ypertensive chronic kidney disease with stage 1 through stage 4 chronic kidney disease, or unspecified chronic kidney disease - I12.9 N otes :per [facility] records, eGFR 85 DOS 03/15/2024 and eGFR 86 DOS 07/10/2023, 7 . M ild intermittent asthma, uncomplicated - J45.20 N otes :pt. on Albuterol per [facility] records, 8 . C hronic kidney disease, stage 2 (mild) - N18.2 N otes :per [facility] P records, eGFR 85 DOS 03/15/2024 and eGFR 86 DOS 07/10/2023, 9 . I mmunodeficiency due to conditions classified elsewhere - D84.81 ? N otes :related to uncontrolled DM II A1c 11.5 DOS 07/09/2023, per [facility] P records, 1 0. C olon cancer [...] of Lora Beltran MD on 03/28/2025 at 08:33 AM CDT Sign off status: Pending * Provider: Santa Beltran MD Date: 0 07/05/2024 Generated for Destini druon/Fajumag/eTransmitting on: 08:33 AM CDT History and Physical Notes * [...]
--- OUTSIDE RECORDS SUMMARY | 2024-07-21 07:00 | XMS_ITS ---
Author Organization [employer] Address [address] [facility] [address] [place] [address] Care Team Providers Care Equity Research Analyst Name Role Phone Epstein Rosalio Primary Care Provider [phone] RosenbaumMacrina [phone] REASON FOR VISIT ACCESS Medications Medication SIG [...] a day; Duration: 90 days 11/09/2015 Active Uffpywotjl-NESM-Ypdxk ine 50-325-40 MG 1 tablet as needed [...] Encounters Encounter Location Date Provider Diagnosis [facility] [address] [place] [address] 07/21/2024 Macrina Rosenbaum Plan Of Treatment No Information Progress Notes * SUNG HOPPEROB:[birth year] (64 yo F)Acc No.[id number]:07/21/2024 Progress Notes Patient: LEO MADRIGAL Provider: Jarvis ROSENBAUM APRN :1960 A ge:64 Y S ex:Female Date:07/21/2024 Address:[address] [place], [place] [id number] Pcp:Rosalio Epstein Subjective: * Chief Complaints: * [...] every 4 hours as needed , Taking Yllotpabqg-YEWM-Xrbxcpya 50-325-40 MG Tablet 1 tablet as needed [...] of Macrina Rosenbaum APRN on 03/28/2025 at 09:31 AM EDT Sign off status: Pending * Provider: Jarvis ROSENBAUM APRN Date: 0 07/21/2024 Generated for Destini duron/Julio Cesar/Mario on: 1 09:31 AM EDT
--- OUTSIDE RECORDS SUMMARY | 2024-07-25 10:00 | XMS_ITS ---
Author Organization [facility] Address [address] [place] [address] [address] [place] [address] Care Team Providers Care Civil Manager Name Role Phone Rosalio Epstein Primary Care Provider Macrina Rosenbaum [phone] REASON FOR VISIT INS INACTIVE Encounters Encounter Location Date Provider Diagnosis [facility] [address] [facility] [place] [address] 07/25/2024 Macrina Rosenbaum Plan Of Treatment No Information Progress Notes * SUNG HOPPEROB:[birth year] (64 yo F)Acc No.[id number]:07/25/2024 Progress Notes Patient: Nima JONES LEO LEWIS Provider: Jarvis ROSENBAUM APRN :1960 A ge:64 Y S ex:Female Date:07/25/2024 Address:[address] [place] [address], [id number] Pcp:Rosalio Epstein Subjective: * Chief Complaints: * 1 . INS INACTIVE. * Medical History: Objective: * Vitals: Assessment: Plan: * Treatment: * Images: Care Plan Details* * Electronic signature of Macrina Rosenbaum APRN on 03/28/2025 at 09:31 AM EDT Sign off status: Pending * Provider: Jarvis ROSENBAUM APRN Date: 0 07/25/2024 Generated for Printi ng/Fajumag/eTransmitting on: 1 09:31 AM EDT
--- OUTSIDE RECORDS SUMMARY | 2024-08-15 06:45 | XMS_ITS ---
Author Organization [employer]. Address 1 [facility] [address] [place] [address] Care Team Providers Care Ceramics Machine Operator Name Role Phone Lucian Rosalio Primary Care Provider RosenbaumMacrina [phone] REASON FOR VISIT F/UP Medications Medication SIG (Take, Route, Frequency, Duration) Notes Start Date End Date Status Xroekqijjc-IOKN-Lqrkr ine 50-325-40 MG 1 tablet as needed [...] Active Encounters Encounter Location Date Provider Diagnosis [address] [place] [address] 08/15/2024 Macrina Rosenbaum Plan Of Treatment No Information Progress Notes * SUNG HOPPEROB:[birth year]01 (64 yo F)Acc No.[id number]:08/15/2024 Progress Notes Patient: LEO MADRIGAL Provider: Jarvis ROSENBAUM APRN :1960 A ge:64 Y S ex:Female Date:08/15/2024 Address:[address] [place], [place] [address] Pcp:Rosalio Epstein Subjective: * Chief Complaints: * [...] every 4 hours as needed , Taking Sygmlrcavd-XVDS-Pgoymlnt 50-325-40 MG Tablet 1 tablet as needed [...] of Macrina Rosenbaum APRN on 03/28/2025 at 09:32 AM EDT Sign off status: Pending * Provider: Jarvis ROSENBAUM APRN Date: 0 08/15/2024 Generated for Destini duron/Julio Cesar/Mario on: 1 09:32 AM EDT
--- OUTSIDE RECORDS SUMMARY | 2024-10-05 06:15 | XMS_ITS ---
Author Organization [facility] Address [address] [place] [address] [address] [place] [address] Care Team Providers Care Invisible Braces Orthodontist Name Role Phone Rosalio Epstein Primary Care Provider Macrina Rosenbaum [phone] REASON FOR VISIT F/UP Encounters Encounter Location Date Provider Diagnosis [facility] [address] [place] [address] 10/05/2024 Macrina Rosenbaum Plan Of Treatment No Information Progress Notes * SUNG HOPPEROB:[birth year] (64 yo F)Acc No.[id number]:10/05/2024 Progress Notes Patient: Nima JONES JOSHUARYNELEO Provider: Jarvis ROSENBAUM APRN :1960 A ge:64 Y S ex:Female Date:10/05/2024 Address:[address] [place], [place] [address] Pcp:Rosalio Epstein Subjective: * Chief Complaints: * 1 . F/UP. * Medical History: Objective: * Vitals: Assessment: Plan: * Treatment: * Images: Care Plan Details* * Electronic signature of Macrina Rosenbaum APRN on 03/28/2025 at 09:32 AM EDT Sign off status: Pending * Provider: Jarvis ROSENBAUM APRN Date: 0 10/05/2024 Generated for Destini duron/Julio Cesar/eTransmitting on: 09:32 AM EDT
--- OUTSIDE RECORDS SUMMARY | 2025-01-13 06:00 | XMS_ITS ---
Author Organization [facility] Address [address] [facility] [address] [place] [address] Care Team Providers Care Production Bow Maker Name Role Phone WYATT GOMEZ Primary Care Provider [phone] Melanie Berry Unavailable [phone] REASON FOR VISIT DEXA Result Encounters Encounter Location Date Provider Diagnosis [facility] [place] [address] [place] [address] 01/13/2025 Melanie Berry Plan Of Treatment Next Appt Details Provider Name:ROBERTA MEDINA, 03/29/2025 01:30:00 PM, [address], [place], [address], Progress Notes * Jose JACOBOB:[birth year] (64 yo F)Acc No.[id number]:01/13/2025 Progress Notes Patient: Nima Sandy HOLLOWAY Provider: RYANN Croft :1960 A ge:64 Y S ex:Female Date:01/13/2025 Address:[address] [facility] Pcp:WYATT [place] Subjective: * Chief Complaints: * 1 . DEXA Result. * Medical History: Objective: * Vitals: Assessment: Plan: * Treatment: * Images: * Electronic signature of Nik Berry APRN on 03/28/2025 at 09:33 AM EDT Sign off status: Pending * Provider: RYANN Croft Date: 0 01/13/2025 Generated for Destini duron/Julio Cesar/Mario on: 1 09:33 AM EDT
--- OUTSIDE RECORDS SUMMARY | 2025-01-27 05:30 | XMS_ITS ---
Author Organization [facility] Address [address] [facility] [address] [place] [address] Care Team Providers Care Helpdesk Analyst Name Role Phone WYATT GOMEZ Primary Care Provider [phone] Melanie Berry Unavailable [phone] ROBERTA QUIGLEY Unavailable [phone] REASON FOR VISIT Labs Results, Due Eye Exam Encounters Encounter Location Date Provider Diagnosis [facility] Internal Medicine [place] [address] [place] [facility] [address] 01/27/2025 ROBERTA QUIGLEY Plan Of Treatment Next Appt Details Provider Name:ROBERTA MEDINA, 03/29/2025 01:30:00 PM, [address] , [place], [address], Progress Notes * Jose JACOBOB:[birth year] (64 yo F)Acc No.[id number]:01/27/2025 Patient: Sandy MADRIGAL Provider: Leelee SANDOVAL APRN :1960 A ge:64 Y S ex:Female Date:01/27/2025 Address[facility] [facility] [place], [id number] Pcp:WYATT YORK Subjective: * Chief Complaints: * 1 . Labs Results. 2. Due Eye Exam. * Medical History: Objective: * Vitals: Assessment: Plan: * Treatment: * Images: * Electronic signature of SAEED QUIGLEY APRN on 03/28/2025 at 09:31 AM EDT Sign off status: Pending * Provider: Leelee SANDOVAL APRN Date: 0 01/27/2025 Generated for Printing/Faxing/eTransmitting on: 1 09:31 AM EDT
--- OUTSIDE RECORDS SUMMARY | 2025-02-24 06:15 | XMS_ITS ---
Author Organization [facility] Address [address] [facility] [address] [place] [address] Care Team Providers Care Broaching Machine Repairer Name Role Phone WYATT GOMEZ Primary Care Provider Melanie Berry Unavailable [phone] ROBERTA QUIGLEY Unavailable [phone] REASON FOR VISIT Lab results review, Due Eye Exam Encounters Encounter Location Date Provider Diagnosis [facility] Medicine [place] [address] [place] [address] 02/24/2025 ROBERTA QUIGLEY Plan Of Treatment Next Appt Details Provider Name:ROBERTA MEDINA, 03/29/2025 01:30:00 PM, [address] , [place], [address], Progress Notes * Jose JACOBOB:[birth year] (64 yo F)Acc No.[id number]:02/24/2025 Patient: Sandy MADRIGAL Provider: Leelee SANDOVAL APRN :1960 A ge:64 Y S ex:Female Date:02/24/2025 [address] [facility] [facility] [place], [id number] Pcp:WYATT YORK Subjective: * Chief Complaints: * 1 . Lab results review. 2. Due Eye Exam. * Medical History: Objective: * Vitals: Assessment: Plan: * Treatment: * Images: * Electronic signature of SAEED QUIGLEY APRN on 03/28/2025 at 09:30 AM EDT Sign off status: Pending * Provider: Leelee SANDOVAL APRN Date: 0 02/24/2025 Generated for Printing/Faxing/eTransmitting on: 1 09:30 AM EDT
--- OUTSIDE RECORDS SUMMARY | 2025-03-28 09:30 | XMS_ITS | Patient Health Record ---
Author Organization [facility] arlene [place] Address [address] [address] Care Team Providers Care Gas Welder Apprentice Name Role Phone JARRED GOMEZASTHYN Primary Care Provider Melanie Berry Unavailable [phone] ROBERTA QUIGLEY Unavailable [phone] Nevin Zheng Unavailable [phone] Allergies Allergen (clinical drug ingredient) Drug/Non Drug Allergy documented on EMR Reaction Allergy Type Onset Date Status Seasonal IC Unknown Drug Allergy Activ e Results Component Value Reference Range Notes HEMOGLOBIN A1c (496) Reviewed date:09/23/2024 10:27:51 AM Interpretation: Performing Lab:TP, [facility], [id number] Shaheen Fofana MD Notes/Report: FASTING: YES FASTING:YES HEMOGLOBIN A1c 12.8 <5.7 % of total Hgb test. For someone with known diabetes, a value <7% indicates that their diabetes is well controlled and a value greater than or equal to 7% indicates suboptimal control. A1c targets should be individualized based on duration of diabetes, age, comorbid conditions, and other considerations. Currently, no consensus exists regarding use of hemoglobin A1c for diagnosis of diabetes for children. For someone without known diabetes, a hemoglobin A1c value of 6.5% or greater indicates that they may have diabetes and this should be confirmed with a follow-up ALBUMIN, RANDOM URINE W/O CR EATININE (76705) Reviewed date:09/23/2024 10:28:45 AM Interpretation: Performing Lab:[facility]-Vrlcv[address] [id number] Shaheen Fofana MD Notes/Report: FASTING:YES FASTING: YES ALBUMIN, URINE 1.6 See Note: mg/dL Reference Range: Reference Range Not established LIZETH within a diagnostic category. The ADA defines abnormalities in albumin excretion as follows: Albuminuria Category Result (mg/g creatinine) Normal to Mildly increased <30 Moderately increased 30-299 Severely increased > OR = 300 The ADA recommends that at least two of three specimens collected within a 3-6 month period be abnormal before considering a patient to be URINALYSIS, COMPLETE (5463) Reviewed date:09/23/2024 10:26:09 AM Interpretation: Performing Lab:[facility] Yamela[address] [id number] Shaheen Fofana MD Notes/Report: FASTING:YES FASTING: YES [...] Reviewed date:09/23/2024 10:26:45 AM Interpretation: Performing Lab:[facility] PriceMatchShandaDkjdp[address] [id number] Shaheen Fofana MD Notes/Report: FASTING:YES FASTING: YES WHITE BLOOD CELL COUNT 7.1 3.8-10.8 Thousand/ uL RED BLOOD CELL COUNT 4.62 3.80-5.10 Million/uL HEMOGLOBIN 12.4 11.7-15.5 g/dL HEMATOCRIT 39.1 35.0-45.0 % MCV 84.6 80.0-100.0 fL MCH 26.8 27.0-33.0 pg MCHC 31.7 32.0-36.0 g/dL not clinically significant; however, it should be interpreted with caution in correlation with other red cell parameters and the patient's clinical condition. For adults, a slight decrease in the calculated MCHC value (in the range of 30 to 32 g/dL) is most likely RDW 12.5 11.0-15.0 % PLATELET COUNT 197 140-400 Thousand/uL MPV 10.9 7.5-12.5 fL ABSOLUTE NEUTROPHILS 3791 6279-9378 cells/uL ABSOLUTE LYMPHOCYTES 2606 850-3900 cells/uL ABSOLUTE MONOCYTES 525 200-950 cells/uL ABSOLUTE EOSINOPHILS 149 15-500 cells/uL ABSOLUTE BASOPHILS 28 0-200 cells/uL NEUTROPHILS 53.4 LYMPHOCYTES 36.7 MONOCYTES 7.4 EOSINOPHILS 2.1 BASOPHILS 0.4 COMPREHENSIVE METABOLIC PANE L ([facility]) (50548) Reviewed date:09/23/2024 10:28:25 AM Interpretation: Performing Lab:[facility], [facility], BnxpvRX[address] Shaheen Fofana MD Notes/Report: FASTING:YES FASTING: YES GLUCOSE 277 65-99 mg/dL For someone without known diabetes, a glucose value >125 mg/dL indicates that they may have diabetes and this should be confirmed with a follow-up test. Fasting reference interval UREA NITROGEN (BUN) 17 7-25 mg/dL CREATININE [...] (7600) Reviewed date:09/23/2024 10:29:05 AM Interpretation: Performing Lab:[facility], [facility]Qovuu[address], KuiylSF[address] Shaheen Fofana MD Notes/Report: FASTING:YES FASTING: YES [...] LDL-C. Grant RODARTE et al. LAMAR. 2013;310(19): 1340-4927 (http://education.[employer] Harbor/faq/FAQ16 4) CHOL/HDLC RATIO 3.3 <5.0 (calc) NON HDL CHOLESTEROL 107 <130 mg/dL (calc) For patients with diabetes plus 1 major ASCVD risk factor, treating to a non-HDL-C goal of <100 mg/dL (LDL-C of <70 mg/dL) is considered a therapeutic option. Hemoglobin A1c Reviewed date:01/10/2025 08:29:52 AM Interpretation: Performing Lab:[facility], [address] [facility], Phone - [phone], Director - [facility] Notes/Report: Hemoglobin A1c 8.5 Reference Range: [place] Diabetes Association (ADA) Guidelines: <5.7: Decreased risk for diabetes 5.7 - 6.4: Increased risk for diabetes >6.4: Ongoing Hyperglycemia of any cause <7.0: Glycemic control for adults with diabetes Estimated Average Glucose 197 Please note-[id number] Reviewed date:01/10/2025 08:29:52 AM Interpretation: Performing Lab:[facility], [address] [facility], Phone - [phone], Director - [facility] Notes/Report: Please note The date and/or time of collection was not indicated on the requisition as required by state and federal law. The date of receipt of the specimen was used as the collection date if not supplied. Albumin/Creatinine Ratio,Uri ne-[id number] Reviewed date:01/10/2025 08:29:52 AM Interpretation: Performing [facility], [address] [place] [address], Phone - [phone], Director - [facility] Notes/Report: Creatinine, Urine 102.9 Not Estab. mg/dL Albumin, Urine 9.1 Not Estab. ug/mL Alb/Creat Ratio 9 0-29 mg/g creat Normal: 0 - 29 Moderately increased: 30 - 300 Severely increased: >300 Urinalysis, Complete-[id number] Reviewed date:01/10/2025 08:29:52 AM Interpretation: Performing Lab:[facility], [address] [place] [address], Phone - [phone], Director - [facility] Notes/Report: Specific Mcroberts 1.020 1.005-1.030 pH 5.5 5.0-7.5 Urine-Color Yellow [...] seen None seen/Few Yeast Present None seen CMP14+eGFR Reviewed date:01/10/2025 08:29:52 AM Interpretation: Performing Lab:[facility], [address] [place] [address], Phone - [phone], Director - [facility] Notes/Report: Glucose 217 70-99 [...] IU/L ALT (SGPT) 15 0-32 IU/L Lipid Panel-[id number] Reviewed date:01/10/2025 08:29:52 AM Interpretation: Performing Lab:[facility] [place], [facility] [address] [facility], Phone - [phone], Director - [facility] Notes/Report: Cholesterol, Total 141 100-199 mg/dL Triglycerides 79 0-149 mg/dL HDL Cholesterol 44 >39 mg/dL VLDL Cholesterol Alfred 15 5-40 mg/dL LDL Chol Calc (NIH) 82 0-99 mg/dL CBC With Differential/Platel et-[id number] Reviewed date:01/10/2025 08:29:52 AM Interpretation: Performing Lab:[facility] [place], [facility] [address] [facility], Phone - [phone], Director - [facility] Notes/Report: WBC 7.1 3.4-10.8 [...] % Immature Grans (Abs) 0.0 0.0-0.1 x10E3/uL Reason For Referral Reason No Auth Req Diagnosis 1 Type 2 diabetes mao itus with other circulatory complications (E11.59) Referral Organization [facility] [place] Referring Provider First Name Melanie Referring Provider Last Name Kristi Referring Provider Speciality [facility] dona Referred Provider Keon Hernandez Referred Provider Specialty Podiatry Procedure 1 New Patient Office o r Other Outpatient Services. (55610) Procedure 2 Office Visit, Est Pt ., Level 4 (20904) Referral Priority Routine Medications Medication SIG (Take, [...] utaneous 0.75 mg one a week Active Czxjpaufpt-ZKHH-Gimtirkd 50-325-40 MG 1 tablet as needed Oralt [...] 0.75 mg weekly; Duration: 30 days Active Xgexlcewmk-TCTY-Uxewoptc 50-325-40 MG 1 capsule as needed Orally [...] Peripheral circulatory disorder associated with diabetes mellitus (328120530) Type 2 diabetes mellitus with other circulatory complications (E11.59) Active confirmed Problem Mixed hyperlipidemia (672567412) Mixed hyperlipidemia (E78.2) Active confirmed Problem Hyperlipidemia (60968360) Hyperlipidemia, unspecified (E78.5) Active confirmed Problem Anxiety disorder (017916484) Anxiety disorder, unspecified (F41.9) Active confirmed Problem Migraine without aura (62771641) Migraine without aura, not intractable, with status migrainosus (G43.001) Active confirmed Problem Sleep apnea (86202331) Sleep apnea, unspecified (G47.30) Active confirmed Problem Mild intermittent asthma (164348188) Mild intermittent asthma, uncomplicated (J45.20) Active confirmed Problem Cervicalgia (87514144) Cervicalgia (M54.2) Active confirmed Problem Essential hypertension (39921104) Essential (primary) hypertension (I10) Active confirmed Problem Psoriasis (6680808) Psoriasis (L40.9) Active co nfirmed Problem High cholesterol (23613110) High cholesterol (E78.00) Active confirmed Problem Arthritis (1811694) Arthritis (M19.90) Active confirmed Problem Gastroesophageal reflux disease (395058815) GERD without esophagitis (K21.9) Active confirmed Problem Overweight (502700766) Overweight (BMI 25.0-29.9) (E66.3) Active confirmed Vital Signs Heart Rate 70 /min 01/06/2025 Temperature 97 degrees Fahrenheit 01/06/2025 Respiratory Rate 17 /min 01/06/2025 Blood pressure diastolic 40 mm Hg 01/06/2025 Oximetry 99 % 01/06/2025 Height 63 in 01/06/2025 Blood pressure systolic 135 mm Hg 01/06/2025 Weight 148 lbs 01/06/2025 BMI 26.21 kg/m2 01/06/2025 Encounters Encounter Location Date Provider Diagnosis [address] [address] 08/29/2024 Melanie Berry Encounter for genera l [...] aura, not intractable, with status migrainosus G43.001 [address] [place] [address] 09/30/2024 Melanie Berry Type 2 diabetes mellitus [...] migrainosus G43.001 and Anxiety disorder, unspecified F41.9 [facility] [address] [place] [address] 01/06/2025 JUSSEP FOMBELLIDA Type 2 diabetes mellitus with other circulatory complications E11.59 ; Body mass index 26.0-26.9, adult Z68.26 ; Essential (primary) hypertension I10 ; Mild intermittent asthma, uncomplicated J45.20 ; Migraine without aura, not intractable, with status migrainosus G43.001 ; Sleep apnea, unspecified G47.30 ; Psoriasis L40.9 and Mixed hyperlipidemia E78.2 [facility] Internal [facility] [address] [place] [address] 01/06/2025 JUSSEP FOMBELLIDA Anxiety disorder, unspecified F41.9 ; High cholesterol E78.00 ; Essential (primary) hypertension I10 and Type 2 diabetes mellitus with other circulatory complications E11.59 [facility] Internal [facility] [address] [place] [address] 10/27/2024 Melanie Kristi Type 2 diabetes mellitus with other circulatory [...] 01/06/2025 Anxiety disorder, unspecified (ICD-10 - F41.9) 08/29/2024 Encounter for general adult medical examination [...] E78.00) 08/29/2024 Acute cough (ICD-10 - R05.1) 09/30/2024 Essential (primary) hypertension (ICD-10 - I10) 08/29/2024 Cervicalgia (ICD-10 - M54.2) 08/29/2024 Type 2 diabetes mellitus with other circulatory complications (ICD-10 - E11.59) Podiatric referral given. 30 u of Lantus a day. 09/30/2024 Mild intermittent asthma, uncomplicated (ICD-10 - J45.20) 09/30/2024 Migraine without aura, not intractable, with [...] 08/29/2024 CBC (INCLUDES DIFF/PLT) (6399) URINALYSIS, COMPLETE (8503) 08/29/2024 ALBUMIN, RANDOM URINE W/O CREATININE (17 344) 08/29/2024 Next Appt Details Provider Name:ROBERTA COLEY CAROL, 03/29/2025 01:30:00 PM, [address] [place], [address], Insurance Providers Payer Name Payer Address Payer Phone Subscriber Number Group Number Insured Name Patient Relationship to Insured Coverage Start Date Coverage End Date [facility] Dual Complete PPO [address] [address] [place] [address] [id number] Sandy Jacob Self - patient is the [...]
--- OUTSIDE RECORDS SUMMARY | 2025-03-28 09:32 | XMS_ITS | Patient Health Record ---
Author Organization [facility]. Address [address] [facility] [address] [place] [address] Care Team Providers Care Reliability Technician Name Role Phone Lucian Rosalio Primary Care Provider Macrina Rosenbaum Unavailable [phone] Allergies No Known Allergies Results Component Value Reference Range Notes Microalbumin/Creatinine Rati o, Random Urine-LC Reviewed date:06/28/2024 10:11:45 PM Interpretation: Performing Lab:[facility], [address] [place] [id number], Phone - [phone], Director - Laurent Notes/Report: Creatinine, Urine 129.2 Not Estab. mg/dL Albumin, Urine 25.6 Not Estab. ug/mL Alb/Creat Ratio 20 0-29 mg/g creat Normal: 0 - 29 Moderately increased: 30 - 300 Severely increased: >300 Hemoglobin A1C Reviewed date:06/28/2024 09:41:13 PM Interpretation: Performing Lab:[facility], [address] [place] [id number], Phone - [phone], Director - Laurent Notes/Report: Hemoglobin A1c 12.1 4.8-5.6 % . Prediabetes: 5.7 - 6.4 Diabetes: >6.4 Glycemic control for adults with diabetes: <7.0 CBC With Differential/Platel et-LC-Q Reviewed date:06/28/2024 09:40:43 PM Interpretation: Performing Lab:[facility], [address] [place] [id number], Phone - [phone], Director - Laurent Notes/Report: WBC 6.1 3.4-10.8 [...] Immature Grans (Abs) 0.0 0.0-0.1 x10E3/uL Urinalysis, Zhtyiyri-GZ-X Reviewed date:06/28/2024 09:40:22 PM Interpretation: Performing Lab:[facility], [address] [place] [id number], Phone - [phone], Director - Laurent Notes/Report: Specific Talmo >=1.030 1.005-1.030 pH 6.0 5.0-7.5 Urine-Color Yellow [...] 14+eGFR-LC-Q Reviewed date:06/28/2024 09:39:48 PM Interpretation: Performing Lab:[facility] [id number], Phone - [phone], Director - Laurent Notes/Report: Glucose 253 70-99 [...] Panel-Q-LC Reviewed date:06/28/2024 10:11:52 PM Interpretation: Performing Lab:[facility] [id number], Phone - [phone], Director - Laurent Notes/Report: Cholesterol, Total 142 100-199 mg/dL Triglycerides 65 0-149 mg/dL HDL Cholesterol 46 >39 mg/dL VLDL Cholesterol Alfred 13 5-40 mg/dL LDL Chol Calc (NIH) 83 0-99 mg/dL Hemoglobin A1C Reviewed date:04/07/2024 04:48:57 PM Interpretation: Performing Lab:[facility], [facility]Eajme[address], RirftNS[address] Shaheen Fofana MD Notes/Report: 0 HEMOGLOBIN A1c 11.3 <5.7 % of total Hgb For someone [...] A1c for diagnosis of diabetes for children. Reason For Referral No Information Medications Medication [...] subcutaneus three times a day; Duration: 30 05/05/2024 Active One Touch Ultra - as instructed SKIN Check 3 times daily; Duration: 90 days 11/05/2023 Active Insulin Syringe 31G X 5/16 1 ML as directed 11/05/2023 Active dexAMETHasone Sodium Phosphate 0.1 % 1 drop into affected eye Ophthalmic Twice a day; Duration: 04/05/2024 Not-Taking hydrOXYzine HCl 25 MG 1 [...] 8 hrs; Duration: 30 days 06/03/2024 Active Luogryqfpp-QOKV-Trrti ine 50-325-40 MG 1 tablet as needed [...] Problem Status W/U Status Risk Notes Problem Bone spur of left foot (896858402892928) Bone spur of left foot (M77.9) Active confirmed Problem Vitamin D deficiency (42253214) Vitamin D deficiency (E55.9) Active confirmed Problem Smoking (33808050) Smoking (F17.200) Active confirmed Problem Migraine (16127725) Migraine (G43.909) Active confirmed Problem Moderately severe major depression (269321117) Moderately severe major depression (F32.2) Active confirmed Problem Polyneuropathy due to type 2 diabetes mellitus (174966426) Diabetic polyneuropathy associated with type 2 diabetes mellitus (E11.42) Active confirmed Problem Anxiety (83275076) Anxiety (F41.9) Active confirmed Problem Mild intermittent asthma (180009454) Mild intermittent asthma, uncomplicated (J45.20) Active confirmed Problem Chronic kidney disease due to hypertension (093145071816555) Hypertensive chronic kidney disease with stage 1 through stage 4 chronic kidney disease, or unspecified chronic kidney disease (I12.9) Active confirmed Problem Diabetic renal disease (616896707) Type 2 diabetes mellitus with diabetic chronic kidney disease (E11.22) Active confirmed Problem Chronic kidney disease stage 2 (419228141) Chronic kidney disease, stage 2 (mild) (N18.2) Active confirmed eGFR 85 as per labs results from Problem Long-term current use of insulin (914686193) intermediate frame tender (current) use of insulin (Z79.4) Active confirmed Problem Type 2 diabetes mellitus with other specified complication (E11.69) Active confirmed Problem Essential hypertension (05796385) Essential (primary) hypertension (I10) Active confirmed Problem Hyperlipidemia (38679644) Hyperlipidemia (E78.5) Active confirmed Problem Type 2 diabetes mellitus with other specified complication, without long-term current use of insulin (E11.69) Active confirmed Problem Allergic rhinitis (78991744) Allergic rhinitis, unspecified seasonality, unspecified trigger (J30.9) Active confirmed Problem Hyperglycemia due to type 2 diabetes mellitus (134058255629445) Uncontrolled type 2 diabetes mellitus with hyperglycemia (E11.65) Active confirmed Problem Sleep disorder (91240258) Sleep disorder (G47.9) Active confirmed Problem Overweight (270838320) Overweight (BMI 25.0-29.9) (E66.3) Active confirmed Problem Smoker (53130825) Smoker (F17.200) Active confi rmed Vital Signs Temperature 98.0 degrees Fahrenheit 06/03/2024 Respiratory Rate 19 /min 06/03/2024 Blood pressure diastolic 64 mm Hg 06/03/2024 Oximetry 98 % 06/03/2024 Height 5 ft 3 in in 06/03/2024 Blood pressure systolic 109 mm Hg 06/03/2024 Weight 143 lbs 06/03/2024 BMI 25.33 kg/m2 06/03/2024 Encounters Encounter Location Date Provider Diagnosis [address] [place] [address] 04/06/[address] [place] [address] 04/05/2024 [facility] Hypertensive chronic kidney disease with stage 1 [...] of 25.0 to 25.9 in adult Z68.[address] [place] [address] 05/05/2024 [facility] Hypertensive chronic kidney disease with stage 1 [...] of 25.0 to 25.9 in adult Z68.[address] [place] [address] 06/03/2024 [facility] Hypertensive chronic kidney disease with stage 1 [...] Treatment Notes Treatment Clinical Notes Section Notes 04/05/2024 Hypertensive chronic kidney disease with stage [...] type 2 diabetes mellitus (ICD-10 - E11.42) 04/05/2024 Smoking (ICD-10 - F17.200) Informed patient [...] on appropriate coping mechanisms and lifestyle changes. 06/03/2024 Hyperlipidemia (ICD-10 - E78.5) 04/05/2024 Asthma [...] Manisfestation. Neuropathy/Polyn europathy/Periph eral due to DM 04/05/2024 Type 2 diabetes mellitus with other specified complication, without long-term current use of insulin (ICD-10 - E11.69) 04/05/2024 Migraine (ICD-10 - G43.909) 06/03/2024 Migraine (ICD-10 - G43.909) 05/05/2024 Hyperlipidemia (ICD-10 - E78.5) 05/05/2024 Overweight (BMI 25.0-29.9) (ICD-10 - E66.3) Avoid overeating, eating too quickly, eating high-fat foods, eating during stressful situations, or drinking too much alcohol or coffee. Counseled patient on adequate diet and exercise as tolerant. 06/03/2024 Sleep disorder (ICD-10 - G47.9) 04/05/2024 Hyperlipidemia (ICD-10 - E78.5) 04/05/2024 Sleep disorder (ICD-10 - G47.9) 05/05/2024 Hospital discharge follow-up (ICD-10 - Z09) [...] tolerant. 04/05/2024 Viral conjunctivitis (ICD-10 - B30.9) 04/05/2024 Overweight (ICD-10 - E66.3) Avoid overeating, eating too quickly, eating high-fat foods, eating during stressful situations, or drinking too much alcohol or coffee. Counseled patient on adequate diet and exercise as tolerant. 06/03/2024 Body mass index (BMI) of 25.0 to 25.9 in adult (ICD-10 - Z68.25) 06/03/2024 Encounter for examination of eyes and vision without abnormal findings (ICD-10 - Z01.00) 04/05/2024 Body mass index (BMI) of 25.0 to 25.9 in adult (ICD-10 - Z68.25) Plan Of Treatment Pending Test Test Name [...] Comprehensive Metabolic Panel 14+eGFR-LC -Q 11/10/2014 Urinalysis, Szxlxddh-LJ-R 11/10/2014 Urinalysis, Bfuxuhnv-RZ-D 04/02/2016 Urinalysis, Ezpzaxhk-AO-K 10/15/2022 CBC With Differential/Ptpmegxl-JC-K 08/2022 CBC With Differential/Bgmxrhss-JX-I 03/15 CBC With Differential/Dtduatxg-PM-Z 10/14 Hemoglobin A1C 10/15/2022 Microalbumin/Creatinine Ratio, Random [...]
--- OUTSIDE RECORDS SUMMARY | 2025-03-28 09:32 | XMS_ITS | Patient Health Record ---
Author Organization [facility] Address [address] [place] [address] Care Team Providers Care Project Manager/Team Coach Name Role Phone Alexander Cruz Primary Care [...] Status Risk Notes Problem Uncomplicated asthma (disorder) (427955982) Unspecified asthma, uncomplicated (J45.909) Active confirmed Plan Of Treatment No Information Insurance Providers Payer Name Payer Address Payer Phone Subscriber Number Group Number Insured Name Patient Relationship to Insured Coverage Start Date Coverage End Date [facility] [address] [place] [address] [id number] Sandy Jacob Self - patient is the insured Medical (General) History Medical History History ICD Code Migraines Asthma Surgical History Surgery Date(Month/Year) Hysterectomy
--- OUTSIDE RECORDS SUMMARY | 2025-03-28 09:33 | XMS_ITS | Patient Health Record ---
Author Organization [facility] Address [address] [facility] [address] [place] [address] Care Team Providers Care Environmental Scientists Name Role Phone Sherrie Garcia Primary Care Provider Reason For Referral No Information Encounters Encounter Location Date Provider [facility] [address] [place] [address] 06/09/2024 Sherrie Beltran [facility] [address] [facility] [address] [place] [address] 06/10/2024 Sherrie Beltran [facility] [address] [place] [address] 06/13/2024 [facility] [address] [facility] [place] [address] 07/11/2024 Sherrie Beltran Plan Of Treatment No Information Insurance Providers Payer Name Payer Address Payer Phone Subscriber Number Group Number Insured Name Patient Relationship to Insured Coverage Start Date Coverage End Date [employer] [address] [address] [place] [address] [id number] Sandy Jacob Self - patient is the insured
--- NOTE | 2025-03-28 09:58 | HO.ANESPROP2 ---
Documented by User: Marilee Parisi NP 03/28/25 10:04 HPI - Anesthesia Eval Consult details Narrative: 64 yr old female for Cholecystectomy Laparoscopic,possible open Asthma: on prn albuterol Anesthesia Pre-Procedure Meds Is the patient on any of the following meds?: GLP1/DPP4 PMFSH Active Problems Active Problems: All Active Problems (Updated 03/21/25 @ 14:25 by Sanjeev Conner MD) Asthma (Acute) Diabetes type 2, controlled (Acute) Vitamin D deficiency (Acute) Overweight (BMI 25.0-29.9) (Acute) Dyslipidemia (Acute) group home (current) use of insulin (Acute) Past Medical History Medical History Migraine Asthma Diabetes type 2, controlled Vitamin D deficiency Overweight (BMI 25.0-29.9) 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 If so, by whom?: No Are you DNR?: No Advance Directives: No Advance Directives Information Provided: Yes Poor oral hygiene: Yes service: No Meds Allergies Allergy/AdvReac Type Severity Reaction Status Date / Time No Known Allergies (No Known Allergy Verified 03/30/25 08:05 Allergies*) Home Medications ?Medication ?Instructions ?Recorded ?Confirmed ?Last Taken ?Type gabapentin 300 mg capsule 300 mg PO TID 03/30/20 03/30/25 02/11/25 History albuterol sulfate 2.5 mg/3 mL 2.5 mg inhalation Q6H PRN 02/14/25 03/30/25 02/11/25 History (0.083 %) solution for nebulization Shortness Of Breath Or Wheezing albuterol sulfate 90 mcg/actuation 2 inh inhalation Q4-6H PRN 02/14/25 03/30/25 02/11/25 History aerosol inhaler Shortness Of Breath Or Wheezing atorvastatin 10 mg tablet 10 mg PO DAILY 02/14/25 03/30/25 02/11/25 History glipizide 10 mg tablet, extended 10 mg PO DAILY 02/14/25 03/30/25 02/11/25 History release 24 hr lisinopril 10 mg tablet 10 mg PO DAILY 02/14/25 03/30/25 02/11/25 History metformin 1,000 mg tablet 1,000 mg PO DAILY 02/14/25 03/30/25 02/11/25 History Exam Pertinent Lab Results Pertinent Lab Results: Laboratory Tests 02/17/25 08:38 WBC 6.7 RBC 3.86 L Hgb 10.4 L Hct 32.7 L Plt Count 154 L Sodium 139 Potassium 3.1 L D BUN 7 L Creatinine 0.63 Narrative Narrative: EKG 02/13/25 Vent. Rate : 82 BPM Atrial Rate : 82 BPM P-R Int : 154 ms QRS Dur : 80 ms QT Int : 334 ms P-R-T Axes : 67 -35 43 degrees QTcB Int : 390 ms Normal sinus rhythm Left axis deviation Abnormal ECG When compared with ECG of 06-Oct-2017 19:41, No significant change was found Assessment and Plan Final Anesthetic Review Family History of Problems with Anesthesia: No History of Problems with Anesthesia: No Documented by User: Tricia Carrasco MD 03/30/25 08:19 [facility] Past Medical History Medical History Migraine Asthma Diabetes type 2, controlled Vitamin D deficiency Overweight (BMI 25.0-29.9) Dyslipidemia group home (current) use of insulin Surgical History Surgical History History of H/O: hysterectomy Social History Social History Household Members: Significant Other Housing: Apartment Are you a primary plant care worker to a significant other at home: No Do you presently have visiting nurse or other home services: No Patient Tobacco Use Status: Never used Tobacco Have you been hit, kicked, punched, or otherwise hurt by someone within the past year? If so, by whom?: No Are you DNR?: No Advance Directives: No Advance Directives Information Provided: Yes Poor oral hygiene: Yes service: No Meds Allergies Allergy/AdvReac Type Severity Reaction Status Date / Time No Known Allergies (No Known Allergy Verified 03/30/25 08:05 Allergies*) Home Medications ?Medication ?Instructions ?Recorded ?Confirmed ?Last Taken ?Type gabapentin 300 mg capsule 300 mg PO TID 03/30/20 03/30/25 02/11/25 History albuterol sulfate 2.5 mg/3 mL 2.5 mg inhalation Q6H PRN 02/14/25 03/30/25 02/11/25 History (0.083 %) solution for nebulization Shortness Of Breath Or Wheezing albuterol sulfate 90 mcg/actuation 2 inh inhalation Q4-6H PRN 02/14/25 03/30/25 02/11/25 History aerosol inhaler Shortness Of Breath Or Wheezing atorvastatin 10 mg tablet 10 mg PO DAILY 02/14/25 03/30/25 02/11/25 History glipizide 10 mg tablet, extended 10 mg PO DAILY 02/14/25 03/30/25 02/11/25 History release 24 hr lisinopril 10 mg tablet 10 mg PO DAILY 02/14/25 03/30/25 02/11/25 History metformin 1,000 mg tablet 1,000 mg PO DAILY 02/14/25 03/30/25 02/11/25 History Exam Airway Mallampati Class: II TM Dist: >3cm Neck ROM: Full Heart: rrr Lungs: cta Assessment and Plan Assessment Anesthesia Assessment: Anesthesia Plan Discussed and Chart Reviewed Final Anesthetic Review NPO: Yes ASA Class: III Final Preanesthetic Review: No Changes in Pt Med Stat, Meds/Allgs Chart Reviewed, Consent Obtained/Reviewed and Anes Risks/Benef Reviewed Patient Risk: Intermediate Procedure Risk: Intermediate Anesthetic Plan Anesthetic Plan: GA and Agree w/ Assess. and Plan Disposition: Standard PACU
[2025-03-30 07:57] LABS: Glucose, Whole Blood 121 mg/dL (60-115)
[2025-03-30] MEDS: Lactated Ringers 1,000 ML 100 ML IVCONT (08:00)
[2025-03-30 08:02] VITALS: BP 151/82; PULSE 90; RESP 18; TEMP 36.7; O2SAT 99; BMI 26.6
--- NOTE | 2025-03-30 08:45 | MHC.SHP ---
Pre-Procedural Eval Section A - 24 Hr Update-Section A only Date of Service: 03/30/25 The patient is an INPATIENT: No Changes since office visit: Yes Patient answered all questions; No Cold of Flu in the past 2 weeks, No New Medical Problems and No Changes in Medication The patient has been examined within 24 hours of the surgical procedure. The History & Physical has been completed within 30 days and I have reviewed it.: Yes Section B - Complete if H&P > 30 days Chief Complaint: Calculus of bile duct with acute cholecystitis Allergies: Allergies Allergy/AdvReac Type Severity Reaction Status Date / Time No Known Allergies (No Known Allergy Verified 03/30/25 08:05 Allergies*) Plan Diagnosis/Plan: Unchanged I have reviewed the history and physical and performed a pertinent physical examination on my patient. No changes have occurred unless specified. Time Spent With Patient Time: Total time managing care of this patient today ____ minutes.
--- NOTE | 2025-03-30 10:37 | W.PM.OPN ---
Operative Note Operative Note Date of Service: 03/30/25 Narrative: Preoperative diagnosis: Gallstone pancreatitis Postoperative diagnosis: Same Procedure: Laparoscopic cholecystectomy Surgeon: Sanjeev Conner MD Hat Brim Curler: Angle Madrid PA-C; Levy Bird PA-C, WARREN Ewing Anesthesia: General endotracheal Indications for procedure: 64-year-old female patient presenting with a history of gallstone pancreatitis presenting now for elective laparoscopic or possible open cholecystectomy. Operative findings: Mildly inflamed gallbladder with minimal adhesions. Gallstones noted within the gallbladder. Specimen: gallbladder Estimated blood loss: 5 mL Complications: None Procedure details: Patient was brought to the OR and placed in a supine position. After administering general anesthesia the patient's abdomen was prepped with ChloraPrep and draped in a sterile fashion. A surgical time-out was called the consent confirmed. Patient received preoperative antibiotics and Venodyne boots were in place. Local anesthesia consisting of 0.5% Sensorcaine without epinephrine was infiltrated in a periumbilical region. A 5 mm incision was made above the umbilicus in a transverse fashion. The Veress needle was then inserted while elevating abdominal cavity with towel clips. After positive drop test the abdomen was insufflated to a pressure of 15 mm of mercury. The Veress needle was then removed and a 5 mm trocar inserted. The camera was inserted in the abdomen explored. A 12 mm trocar was then placed in the epigastrium. Two 5 mm trocars placed in the right upper quadrant by the administrative library assistant. The patient was placed in reverse Trendelenburg positioning and rotated to the left. The gallbladder was grasped with the fundus and retracted cephalad by the administrative library assistant. The infundibulum was then grasped and retracted away from the liver bed, also by the administrative library assistant. The Dolphin dissected was then used by the surgeon to dissect the peritoneum off the infundibulum to reveal the junction with the cystic duct. Cystic artery was noted slightly medial and posterior to the cystic duct. After obtaining a critical view the cystic duct was doubly clipped and divided. The cystic artery was then doubly clipped and divided. The gallbladder was then dissected off the liver bed using electrocautery with an L hook. Hemostasis was assured all times using the electrocautery. When the gallbladder is completely dissected off the liver bed was placed in an Endo-Catch bag and brought out through the epigastric incision. The gallbladder was sent to pathology for further examination. The abdomen was then re-examined. The liver bed was irrigated and suctioned dry. No bleeding or bile leak could be identified. CO2 was then evacuated and all trocars removed. Fascia was closed at the epigastric incision using a [id number] 0 Polysorb suture. Skin was closed in all incisions using a subcuticular 4 0 Polysorb suture by both the surgeon and administrative library assistant. Sterile dressings consisting of Steri-Strips, 2 x 2 gauze, and Tegaderm were then applied. The patient tolerated the procedure well. Sponge instrument and needle counts reported as correct. The patient was transferred to PACU in stable condition.
[2025-03-30 11:00] VITALS: BP 192/80; PULSE 78; RESP 16; TEMP 36.1; O2SAT 100
[2025-03-30 11:05] VITALS: BP 190/84; PULSE 77; RESP 16; O2SAT 98
[2025-03-30 11:15] VITALS: BP 191/82; PULSE 70; RESP 16; O2SAT 96
[2025-03-30 11:29] VITALS: BP 173/71; PULSE 70; RESP 16; TEMP 36.6; O2SAT 96
== END 2025-03-30 12:32 | disposition home or self-care (01) ==
PROVIDERS: PCP Internal Medicine; Visit Provider Surgery
PROC: 0FT44ZZ Resection of Gallbladder, Percutaneous Endoscopic Approach (ICD-10-PCS; CPT 47562; principal; 2025-03-30 09:20)
DX: K80.10 Calculus of gallbladder with chronic cholecystitis without obstruction (principal); K82.8 Other specified diseases of gallbladder; K85.10 Biliary acute pancreatitis without necrosis or infection; E78.5 Hyperlipidemia, unspecified; E55.9 Vitamin D deficiency, unspecified; E11.9 Type 2 diabetes mellitus without complications; J45.909 Unspecified asthma, uncomplicated; Z79.4 Long term (current) use of insulin; Z79.84 Long term (current) use of oral hypoglycemic drugs; Z79.85 Long-term (current) use of injectable non-insulin antidiabetic drugs; Z79.899 Other long term (current) drug therapy; Z90.710 Acquired absence of both cervix and uterus
CPT/HCPCS: 47562; 82947; 88304; J0131; J0525; J1100; J2405; J2704; J2795; J3010

== ENCOUNTER → 2025-03-30 07:25 | Outpatient (BNV) | payer OTHER, SELFPAY | PROVIDERS: PCP Internal Medicine; Visit Provider Surgery | DX: K85.10 Biliary acute pancreatitis without necrosis or infection (principal) | CPT/HCPCS: 47562 ==

== ENCOUNTER 2025-04-06 10:03 | Outpatient (AMB) | payer OTHER, SELFPAY ==
--- NOTE | 2025-04-06 10:26 | A.OFFVIS_ITS ---
Vital Signs 04/06/25 10:34 Weight 151 lb BP 171/79 H Blood Pressure Location Rt brachial Position Sitting Pulse 80 Intake Visit Reasons: s/p lap ronald poss open Intake Note: Patient here s/p Laparoscopic cholecystectomy. Patient c/o: Surgery (): 03-30-2025 Counter Supervisor Required: Yes Counter Supervisor Language: Website/Blog Editor Name: Alyssa BRITO Accompanied by: Self / Same As Patient Allergies No Known Allergies (No Known Allergies*) Allergy (Verified 04/06/25 10:33) HPI HPI s/p lap ronald poss open: Details: Sandy Berumen presents today for follow up and wound check. She is s/p laparoscopic cholecystectomy on 03/30/[address] Conner for history of gallstone pancreatitis. She tolerated the procedure well. She is still taking the pain meds once or twice a day for some incisional pain, mostly at the epigastric site and is requesting more. She is not eating much due to lack of appetite but is tolerating a diet without nausea or vomiting. She reports constipation and has not had a BM for the past two days. She does report a history of constipation. She denies fevers, chills, diarrhea. 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 Surgical History (Updated 04/06/25 @ 12:02 by Angle Madrid PA-C) S/P laparoscopic cholecystectomy (03/30/25) History of H/O: hysterectomy Social History Household Members: Significant Other Housing: Apartment Are you a primary adult daycare coordinator to a significant other at home: No Do you presently have visiting nurse or other home services: No Comment: Counts correct Patient Tobacco Use Status: Never used Tobacco service: No Review of Systems Const All systems reviewed & are unremarkable except as noted in HPI and below Physical Exam Vital Signs: Last Vital Signs Pulse 80 04/06/25 10:34 BP 171/79 H 04/06/25 10:34 Const General: comfortable, no acute distress and alert Orientation/consciousness: patient oriented x3 Resp Effort & Inspection: normal respiratory effort GI Other: dressings and steri strips removed all incisions well healed without erythema or edema mild epigastric incision site tenderness Inspection: No distended Palpation (GI): Soft to palpation and no guarding Skin General skin exam: no rashes or lesions noted and no jaundice Neuro General: patient oriented x3 and moves all extremities Results Reviewed Results Reviewed: Gallbladder, cholecystectomy: Chronic cholecystitis and cholelithiasis Assessment & Plan Assessment & Plan (1) S/P laparoscopic cholecystectomy: Onset Date: 03/30/25 Comment: Laparoscopic cholecystectomy Sanjeev Becerra Code(s): Z90.49 - Acquired absence of other specified parts of digestive tract Category: Surgical Plan Patient is one week s/p laparoscopic cholecystectomy for gallstone pancreatitis. She tolerated the procedure well and is overall doing well post op but continues to have epigastric incisional pain a few more days of oxycodone was prescribed. Her abdomen is benign and incisions are well healed without evidence of infection. She was instructed to take metamucil once daily for her baseline co nstipation and colace twice a day while she is taking narcotics. She is to continue lifting restrictions for the next 2-3 weeks. She can follow up in 1 month or sooner if she develops concerns. Medications: New docusate sodium (Colace) 100 mg PO BID PRN 30 caps 0RF constipation psyllium husk (Metamucil) mix into at least 8 oz of water or juice before administering 1 tbsp PO DAILY 660 grams 0RF oxycodone Partial Fill upon patient request. 5 mg PO Q6H PRN 10 tabs 0RF pain (scale score 7-10) Coding Level of Care Code Global (88461) Diagnoses S/P laparoscopic cholecystectomy Z90.49
[2025-04-06 10:34] VITALS: BP 171/79; PULSE 80
== END 2025-04-06 10:47 | disposition home or self-care (01) ==
LOC: HO.HGS 10:04
PROVIDERS: PCP Internal Medicine; Visit Provider Physician Assistant Surgical
DX: Z90.49 Acquired absence of other specified parts of digestive tract (principal)
CPT/HCPCS: 99024

== ENCOUNTER → 2025-04-06 10:03 | Outpatient (BNVA) | payer OTHER, SELFPAY | PROVIDERS: PCP Internal Medicine; Visit Provider Physician Assistant Surgical | DX: R10.13 Epigastric pain (principal); Z90.49 Acquired absence of other specified parts of digestive tract; G89.18 Other acute postprocedural pain; Z98.890 Other specified postprocedural states | CPT/HCPCS: 99212 ==

== ENCOUNTER 2025-04-13 08:49 | Outpatient (REF) | payer OTHER, SELFPAY ==
[2025-04-13 11:47] LABS: INTERNATIONAL NORM RATIO 1.0 (0.9-1.1); Prothrombin Time 11.8 SEC (10.9-12.4)
[2025-04-14 05:02] LABS: ~Hepatitis A Antibody IgG 9.04 S/CO (0.00-0.99)
[2025-04-22 18:03] LABS: FIB-ALT 12 U/L (6-29); FIB-Alpha-2-Macroglobulin 232 mg/dL (106-279); FIB-Apolipoprotein A1 135 mg/dL (101-198); FIB-GGT 26 U/L (3-65); FIB-Haptoglobin 215 mg/dL (43-212); FIB-Total Bilirubin 0.2 mg/dL (0.2-1.2); Liver Fibrosis Score 0.15; Liver Fibrosis Stage F0; Nec Inflam Act Grade A0; Nec Inflam Act Score 0.03
== END 2025-04-13 08:50 | disposition home or self-care (01) ==
LOC: HO.HHCL 08:49
PROVIDERS: PCP Nurse Practitioner Family; Visit Provider Nurse Practitioner Family
DX: Z51.81 Encounter for therapeutic drug level monitoring (principal); Z11.59 Encounter for screening for other viral diseases; R76.89 Other specified abnormal immunological findings in serum
CPT/HCPCS: 36415; 81596; 85610; 86708; 87902

== ENCOUNTER 2025-05-09 09:14 | Outpatient (AMB) | payer OTHER, SELFPAY ==
--- NOTE | 2025-05-09 09:29 | A.OFFVIS_ITS ---
Vital Signs 05/09/25 09:40 Height 5 ft 3 in Weight 149 lb 2 oz BMI 26.4 BP 172/79 H Blood Pressure Location Rt brachial Position Sitting Pulse 95 Intake Visit Reasons: 1mth follow up s/p lap ronald poss open Intake Note: Patient presents for a one month post-op assessment status post lap ronald. (03/30/2025 ) Pt c/o: no complaints at this time. Computer Programmer Chief Required: Yes Computer Programmer Chief Language: Pattern Perforating Machine Operator Services: Computer Programmer Chief Present Computer Programmer Chief Name: Leonel Information Interpreted: non-clinical & clinical Accompanied by: Self / Same As Patient Allergies No Known Allergies (No Known Allergies*) Allergy (Verified 05/09/25 09:39) HPI HPI 1mth follow up s/p lap ronald poss open: Details: Doing well. No concerns. Has been avoiding heavy lifting. 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 Surgical History S/P laparoscopic cholecystectomy (03/30/25) History of H/O: hysterectomy Social History Household Members: Significant Other Housing: Apartment Are you a primary medicare sales representative to a significant other at home: No Do you presently have visiting nurse or other home services: No Comment: Counts correct Patient Tobacco Use Status: Never used Tobacco service: No Physical Exam Vital Signs: Last Vital Signs Pulse 95 05/09/25 09:40 BP 172/79 H 05/09/25 09:40 BMI result Body Mass Index 26.4 Const General: cooperative, comfortable and no acute distress Orientation/consciousness: patient oriented x3 Resp Effort & Inspection: normal respiratory effort and able to speak in complete sentences GI Other: Incision sites well healed, no evidence of infection Inspection: No distended Palpation (GI): Soft to palpation and nontender Neuro General: patient oriented x3 Assessment & Plan Assessment & Plan (1) S/P laparoscopic cholecystectomy: Onset Date: 03/30/25 Comment: Laparoscopic cholecystectomy Sanjeev Becerra Code(s): Z90.49 - Acquired absence of other specified parts of digestive tract Category: Medical Plan 64-year-old female s/p laparoscopic cholecystectomy for gallstone pancreatitis on 03/30/[address] Conner returning to the office for one-month follow-up. Overall doing well. Has no complaints. Denies pain, nausea, vomiting, fevers, chills. Continues to avoid heavy lifting. Diet and bowel function at baseline. On exam abdomen is soft and benign, incision sites are well healed, no evidence of infection at this time. She did request a refill of simethicone for gas. I will refill her previous script from Dr. Olivares, recommended following up with primary care per prescriber for continued management of this medication. At this point does not need to continue to follow up with us, can follow up as needed with any concerns in the future. Medications: Refilled simethicone 125 mg PO BEDTIME 60 caps 1RF 30 days Discontinued simethicone Discontinued Reason: Duplicate 80 mg PO QIDWMHS 10 days PRN 40 tabs 0RF Gas Coding Level of Care Code Global (16847) Diagnoses S/P laparoscopic cholecystectomy Z90.49
[2025-05-09 09:40] VITALS: BP 172/79; PULSE 95; BMI 26.4
--- OUTSIDE RECORDS SUMMARY | 2025-05-09 10:16 | XMS_ITS | Encounter Summary ---
Author Organization [employer] Address [address] [facility] [address] [address] [place] [address] Care Team Providers Care Licensed Weigher Name Role Phone Capri Hamilton TREATING INSPECTOR Primary Care Provider [phone] Encounter Details Date Type Department Care Team (Latest Contact Info) Description 05/05/2025 Travel Social History Tobacco Use Types Packs/Day Years Used Date Smoking Tobacco: Never Smokeless Tobacco: Never Depression Answer Date Recorded Patient Health Questionnaire-9 [...] Care Team (Late st Contact Info) Description 05/09/2025 1:30 PM EST Office Visit [facility] MEDICINE [address] [place] [id number] Capri Hamilton, TREATING INSPECTOR [address] [place] [address] 06/06/2025 11:00 AM EST Medication Management [address] [address] Ashlyn Diggs PharmD [address] [place] [address] documented as of this encounter Goals Goal Patient Goal Type Associated Problems Recent Progress Patient-Stated? Author Help patients manage their type 2 diabetes Care Plan Help patients manage their type 2 diabetes No Angel Holcomb RN Weekly blood pressure task Care Plan Weekly blood pressure task No Angel Holcomb RN Help patients manage their type 2 diabetes Care Plan Help patients manage their type 2 diabetes No Angel Holcomb RN Patient has chronic kidney disease Care Plan Patient has chronic kidney disease No Angel Holcomb RN Help patients manage their type 2 diabetes Care Plan Help patients manage their type 2 diabetes No Angel Holcomb RN Patient has diabetic neuropathy Care Plan Patient has diabetic neuropathy No Angel Holcomb RN Weekly blood pressure task Care Plan Weekly blood pressure task No Angel Holcomb RN Weekly blood pressure task Care Plan Weekly blood pressure task No Angel Holcomb RN Patient has chronic kidney disease Care Plan Patient has chronic kidney disease No Angel Holcomb RN Patient has chronic kidney disease Care Plan Patient has chronic kidney disease No Angel Holcomb RN Patient has diabetic neuropathy Care Plan Patient has diabetic neuropathy No Angel Holcomb RN Patient has diabetic neuropathy Care Plan Patient has diabetic neuropathy No Angel Holcomb RN documented as of this encounter Visit Diagnoses Not on filedocumented in this encounter Additional Health Concerns Active Problems Noted Date Diagnosed Date Help patients manage their type 2 diabetes 05/05 Weekly blood pressure task 05/05/2025 Help patients manage their type 2 diabetes 05/05 Patient has chronic kidney disease 05/05/2025 Help patients manage their type 2 diabetes 05/05 Patient has diabetic neuropathy 05/05/2025 Weekly blood pressure task 05/05/2025 Weekly blood pressure task 05/05/2025 Patient has chronic kidney disease 05/05/2025 Patient has chronic kidney disease 05/05/2025 Patient has diabetic neuropathy 05/05/2025 Patient has diabetic neuropathy 05/05/2025 Assessment Noted Time PHQ-9 Depression Total Score: 7 03/29/20 10:06 AM EDT documented as of this encounter Care Teams Licensed Weigher Relationship Specialty Start Date End Date Capri Hamilton FNP [address] [place] [id number] PCP - General Family Medicine 03/29/25 documented as of this encounter
--- OUTSIDE RECORDS SUMMARY | 2025-05-09 10:16 | XMS_ITS | Encounter Summary ---
Author Organization [employer] Address [address] [facility] [address]t [place] [address] Care Team Providers Care Coil Inspector Name Role Phone Shadi Hamiltonupe WINDOWS INFRASTRUCTURE ENGINEER Primary Care Provider [phone] Encounter Details Date Type Department Care Team ([facility] Contact Info) Description 03/30/2025 Results Follow-Up [facility] MEDICINE [address] [place] [address] Capri Hamilton FNP [address] [place] [address] Chlamydia/N. Gonorrhoeae, PCR, Urine, POCT Glucose, POCT Hgb A1c, Additional followed-up results: 9 Social History Tobacco Use Types Packs/Day Years [...] Description 05/09/2025 1:30 PM EST Office Visit [facility] MEDICINE [address] [place] [address] Capri Hamilton FNP [address] [place] [address] 06/06/2025 11:00 AM EST Medication Management [facility] [address] [place] [address] Ashlyn Diggs, PharmD [address] [place] [address] documented as of this encounter Visit Diagnoses Not on filedocumented in this encounter Additional Health Concerns Assessment Noted Time PHQ-9 Depression Total Score: 7 03/29/20 10:06 AM EDT documented as of this encounter Care Teams Coil Inspector Relationship Specialty Start Date End Date Capri Hamilton FNP [address] [place] [address] PCP - General Family Medicine 03/29/25 documented as of this encounter
--- OUTSIDE RECORDS SUMMARY | 2025-05-09 10:16 | XMS_ITS | Clinical Summary ---
Author Organization [employer] Address [address] [facility] [address] [place] [address] Care Team Providers Care Tester Regulator Name Role Phone Capri Hamilton RN ENDOSCOPY Primary Care Provider [phone] Allergies No known active allergies Medications metoclopramide [...] 1 each under the skin at bedtime. 5 Active albuterol 108 (90 Base) MCG/ACT inhaler Inhale 2 puffs every 6 (six) hours if needed for wheezing. 18 g 5 Active atorvastatin (Lipitor) 10 MG tablet Take 1 tablet (10 mg) by mouth Once per day. 30 tablet 3 5 Active famotidine (Pepcid) 20 MG tablet Take 1 tablet (20 mg) by mouth Once per day. 90 tablet 5 Active Lantus SoloStar 100 UNIT/ML pen Inject 30 Units under the skin at bedtime. 3 mL 1 5 Active sertraline (Zoloft) 100 MG tablet Take 2 tablets (200 mg) by mouth in the morning. 60 tablet 3 5 Active traZODone (Desyrel) 50 MG tablet Take 1 tablet (50 mg) by mouth at bedtime. 30 tablet 3 5 Active fluticasone (Flonase) 50 MCG/ACT nasal spray Administer 1 spray into each nostril Once per day. 16 g 5 Active FREESTYLE LITE test strip Use to test blood sugar 3 times daily 100 each 12 5 03/29/20 26 Active Lancets misc Use to test blood sugar 3 times daily 100 each Active Alcohol Swabs 70 % pads Use to test blood sugar 3 times daily 100 each Active Blood Glucose Monitoring Suppl (FreeStyle [place] Lite) w/Device kit Use to test blood sugar 3 times daily 1 kit Active lisinopril 10 MG tabletIndications :Benign essential hypertension Take 1 tablet (10 mg) by mouth Once per day. 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[facility]) 03/30 Acute pancreatitis 03/30/2025 Insomnia 03/30/2025 Non-seasonal allergic rhinitis 03/30/2025 Type 2 diabetes mellitus wit h hyperglycemia, with long-term current use of insulin 03/30/2025 Anxiety and depression 03/30/2025 Hepatitis C antibody positive 03/30/2025 Calcaneal spur 01/27/2024 Hand pain 01/27/2024 Primary [...] Encounters Date Type Department Care Team Description 05/08/2025 Telephone [facility] [address] [place] [address] Capri Hamilton FNP Chart Prep 05/05/2025 Travel 04/20/[address] [address] Belinda Najera, agronomy professor Orders 04/13/[address] [address] Capri Hamilton FNP Med Refill 04/12/2025 3:30 PM EDT Office Visit [address] [address] Capri Hamilton FNP Benign essential hypertension (Primary Dx); Hepatitis C antibody positive 04/12/2025 Travel 04/06/[address] [address] Angel Holcomb, MEERA Hep C Management 04/04/[address] [address] Ashlyn Diggs, PharmD 03/30/2025 Results Follow-Up [address] [address] Capri Hamilton FNP Chlamydia/N. Gonorrhoeae, PCR, Urine, POCT Glucose, POCT Hgb A1c, Additional followed-up results: 9 03/29/2025 9:00 AM EDT Office Visit [address] [address] Capri Hamilton FNP Well adult exam (Primary Dx); Type 2 diabetes mellitus with hyperglycemia, with long-term current use of insulin (HCC); Dietary counseling; Exercise counseling; Non-seasonal allergic rhinitis, unspecified trigger; Insomnia, unspecified type; Anxiety and depression; Mild intermittent asthma, unspecified whether complicated; Hepatitis C antibody positive 03/29/2025 Travel 03/28/[address] [address] Capri Hamilton FNP Chart Prep 03/24/[address] [address] Corie Segura MD Pre-op/labs 03/21/2025 Community Care Management [address] [address] [facility], 03/17/2025 Orders Only [facility] External Provider, [facility] 02/15/2025 Telephone [facility] [address] [place] [address] Teo Rodriguez MD Appointment Request from Last 3 Months Immunizations Immunization Administration Dates Next Due Influenza injectable quadriv alent IIV4 with preservative 04/13/2018,03/24/2017 Moderna Covid-19 Vaccine 12+ 09/21/2020,08/25/19 21 Pneumococcal Polysaccharide PPSV23 02/13/2021 Zoster, Recombinant 02/13/2021 Social History Tobacco Use Types Packs/Day Years Used Date Smoking Tobacco: Never Smokeless Tobacco: Never Tobacco Cessation:Counseling Given: Not Answered Depression Answer Date Recorded Patient Health Questionnaire-9 [...] Sign Reading Time Taken Comments Blood Pressure 150/70 04/12/2025 3:33 PM EDT Pulse 88 04/12/2025 3:33 PM EDT Temperature 36.9 C (98.5 F) 04/12/2025 3:33 PM EDT Respiratory Rate 16 04/12/2025 3:33 PM EDT Oxygen Saturation 99% 03/29/2025 8:53 AM EDT Inhaled Oxygen Concentration - - Weight 69.2 kg (152 lb 9.6 oz) 04/12/2025 3:33 P M EDT Height 160 cm (5' 3 ) 04/12/2025 3:33 PM EDT Body Mass Index 27.03 04/12/2025 3:33 PM EDT Plan of Treatment Upcoming Encounters Date Type Department Care Team (Late st Contact Info) Description 05/09/2025 1:30 PM EST Office Visit [facility] [address] [place] [phone] Capri Hamilton, RN ENDOSCOPY [address] [place] [address] 06/06/2025 11:00 AM EST Medication Management [facility] [address] [place] [phone] Ashlyn Diggs, PharmD [address] [place] [address] Health Maintenance Due Date Last Done Comments CT Colonography 1960 Colonoscopy 1960 Colorectal Cancer Screening 1960 FIT DNA/Cologuard 1959 FIT 1959 FOBT 1960 Sigmoidoscopy 1959 Diabetes: Foot Exam 1969 Eye Exam 1969 DTaP/Tdap/Td Vaccines (1 - Tdap) 1978 Pap Smear 1980 Cervical Cancer Screening 1989 HPV/Cotest 1989 Mammogram 1999 RSV Patients and Patients Aged 60 years or older (1 - Risk 50-74 years 1-dose series) 2009 Zoster Vaccines (2 of 2) 04/10/2021 02/13/2021 Pneumococcal Vaccine: 50+ Years (2 of 2 - PCV) 02/13/2022 02/13/2021 COVID-19 Vaccine (3 - season) 2025 09/21/2020, 08/24/2020 Influenza Vaccine (#1) 2025 04/13/2018, 2016 Diabetes: Hemoglobin A1C 06/29/2025 025, 03/21/2021, 08/24/2020, Additional history exists Alcohol/Substance Use Screening 03/29/2026 03/29/2025 Depression Screening 03/29/2026 03/29/2025, 03/29/20 Diabetes: Urine Protein Screening 03/29/2026 03/29/2025, 03/21/2021, 08/04/2019 Lipid Panel 03/29/2026 03/29/2025 SDOH Screening 03/29/2026 03/29/2025 Tobacco Screening 04/12/2026 04/12/2025 Hepatitis C Screening Completed 04/13/2025 , 03/29/2025, 03/29/2025 HIB Vaccines Aged Out No longer [...] on patient's age to complete this topic Goals Goal Patient Goal Type Associated Problems [...] Care Plan Weekly blood pressure task No Marilynn Mcleod [place] Weekly blood pressure task Care Plan Weekly blood pressure task No Marilynn Mcleod [place] Weekly blood pressure task Care Plan Weekly blood pressure task No Marilynn Mcleod [place] Patient has chronic kidney disease Care Plan Patient has chronic kidney disease No Marilynn Mcleod [place] Patient has chronic kidney disease Care Plan Patient has chronic kidney disease No Marilynn Mcleod [place] Patient has chronic kidney disease Care Plan Patient has chronic kidney disease No Marilynn Mcleod [place] Patient has diabetic neuropathy Care Plan Patient has diabetic neuropathy No Marilynn Mcleod [place] Patient has diabetic neuropathy Care Plan Patient has diabetic neuropathy No Marilynn Mcleod [place] Patient has diabetic neuropathy Care Plan Patient has diabetic neuropathy No Marilynn Mcleod [place] Weekly blood pressure task Care Plan Weekly blood pressure task No Capri Hamilton RN ENDOSCOPY Weekly blood pressure task Care Plan Weekly blood pressure task No Shadi Hamiltonupe RN ENDOSCOPY Weekly blood pressure task Care Plan Weekly blood pressure task No Okhipo, Capri, RN ENDOSCOPY Patient has chronic kidney disease Care Plan Patient has chronic kidney disease No Okhipo, Capri, RN ENDOSCOPY Patient has chronic kidney disease Care Plan Patient has chronic kidney disease No Okhipo, Capri, RN ENDOSCOPY Patient has chronic kidney disease Care Plan Patient has chronic kidney disease No Okhipo, Capri, RN ENDOSCOPY Patient has diabetic neuropathy Care Plan Patient has diabetic neuropathy No Okhipo, Capri, RN ENDOSCOPY Patient has diabetic neuropathy Care Plan Patient has diabetic neuropathy No Okhipo, Capri, RN ENDOSCOPY Patient has diabetic neuropathy Care Plan Patient has diabetic neuropathy No Okhipo, Capri, RN ENDOSCOPY Procedures Procedure Name Priority Date/Time Associated Diagnosis Comments LIVER FIBROSIS, FIBROTEST ACTITEST PANEL Routine 04/13/2025 8:53 AM EDT HEPATITIS C VIRAL RNA GENOTYPE, LIPA Routine 04/13/2025 8:53 AM EDT HEPATITIS A ANTIBODY, TOTAL Routine 04/13/2025 8:53 AM EDT PROTHROMBIN TIME-INR Routine 04/13/2025 8:53 AM EDT GROSS AND MICROSCOPIC LEVEL 3 Routine 03/30/2025 10:27 AM EDT GLUCOSE, WHOLE BLOOD Routine 03/30/2025 7:50 AM EDT HEPATITIS C VIRAL RNA, QUANTITATIVE, REAL-TIME PCR Routine 03/29/2025 10:51 AM EDT ALBUMIN, RANDOM URINE W/CREATININE Routine 03/29/2025 10:51 AM EDT Well adult exam LIPID PANEL, STANDARD Routine 03/29/2025 10:51 AM EDT Well adult exam CBC WITH AUTO DIFFERENTIAL Routine 03/29/2025 10:51 AM EDT Well adult exam COMPREHENSIVE METABOLIC PANEL Routine 03/29/2025 10:51 AM EDT Well adult exam CHLAMYDIA/TRICHOMONAS/ NEISSERIA GONORRHOEAE, PCR, URINE Routine 03/29/2025 10:51 AM EDT Well adult exam HIV 1/2 ANTIGEN/ANTIBODY, FOURTH GENERATION W/RFL Routine 03/29/2025 10:01 AM EDT Well adult exam HEPATITIS C AB W/REFL TO HCV RNA, QN, PCR Routine 03/29/2025 10:01 AM EDT Well adult exam HEPATITIS B SURFACE ANTIGEN, EIA Routine 03/29/2025 10:01 AM EDT Well adult exam HEPATITIS B SURFACE ANTIBODY, QUALITATIVE Routine 03/29/2025 10:01 AM EDT Well adult exam HEPATITIS B CORE AB TOTAL Routine 03/29/2025 10:01 AM EDT Well adult exam POCT GLYCATED HEMOGLOBIN, TOTAL Routine 03/29/2025 9:09 AM EDT Type 2 diabetes mellitus with hyperglycemia, with long-term current use of insulin (HCC) POCT GLUCOSE Routine 03/29/2025 9:08 AM EDT Type 2 diabetes mellitus with hyperglycemia, with long-term current use of insulin (HCC) XR KUB AND UPRIGHT 2 VIEWS Routine 03/17/2025 9:00 AM EDT from Last 3 Months Results * (ABNORMAL) Liver Fibrosis (HCV), FibroTest-ActiTest Panel (04/13/2025 8:53 AM EDT) Liver Fibrosis Score 0.15 [facility] Liver Fibrosis Stage F0 [facility] Liver Fibrosis Interpretation SEE NOTE [facility] Comment:no fibrosisFibro Sheeba t Score (f) Metavir Score f>=0 and f<=0.21 : F0 (no fibrosis)f>0.21 and f<=0.27 : F0-F1 (no fibrosis)f>0.27 and f<=0.31 : F1 (minimal fibrosis)f>0.31 and f<=0.48 : F1-F2 (minimal fibrosis)f>0.48 and f<=0.58 : F2 (moderate fibrosis)f>0.58 and f<=0.72 : F3 (advanced fibrosis)f>0.72 and f<=0.74 : F3-F4 (advanced fibrosis)f>0.74 and f<=1.00 : F4 (severe fibrosis) Nec Inflam Act Score 0.03 [facility] Nec Inflam Act Grade A0 [facility] Nec Inflam Act Interpretation SEE NOTE [facility] Comment:no activityActiTest Score (a) Metavir Score a>=0 and a<=0.17 : A0 (no activity)a>0.17 and a<=0.29 : A0-A1 (no activity)a>0.29 and a<=0.36 : A1 (minimal activity)a>0.36 and a<=0.52 : A1-A2 (minimal activity)a>0.52 and a<=0.60 : A2 (significant activity)a>0.60 and a<=0.62 : A2-A3 (significant activity)a>0.62 and a<=1.00 : A3 (severe activity) NIY-Lyvcy-9-Macroglo bulin 232 106 - 279 mg/dL [facility] FIB-Haptoglobin 215(A) 43 - 212 mg/dL [facility] FIB-Apolipoprotein A1 135 101 - 198 mg/dL [facility] FIB-Total Bilirubin 0.2 0.2 - 1.2 mg/dL [facility] FIB-GGT 26 3 - 65 U/L [facility] FIB-ALT 12 6 - 29 U/L [facility] Reference ID [id number] [facility] Footnote SEE NOTE [facility] Comment: The reliability of results is dependent on compliance withthe preanalytical and analytical conditions recommended by[employer]. The tests have to be deferred for: acutehemolysis, acute hepatitis, acute inflammation, extrahepatic cholestasis. The advice of a specialist should besought for interpretation in chronic hemolysis and Gilbert'ssyndrome. The test interpretation is not validated in livertransplant patients. Isolated extreme values of one of thecomponents should lead to caution in interpreting theresults. In case of discordance between a biopsy result gianluca test, it is recommended to seek the advice of aspecialist. The causes of these discordances could be due toa flaw of the test or to a flaw in the biopsy: i.e. a liverbiopsy has a 33% variability rate for one fibrosis stage.FibroTest is interpretable for chronic hepatitis B and C,alcoholic and non alcoholic steatosis. ActiTest isinterpretable for chronic hepatitis B and C.The performance characteristics have been determined by[employer] [facility]. Ithas not been cleared or approved by the U.S. Food and DrugAdministration. Performance characteristics refer to theanalytical performance of the test.[employer], [employer], the associated logo, [employer] and all associated [employer] dunn are theregistered trademarks of [employer]. All third partymarks - (R) and (TM) - are the property of their respectiveowners. (C) [id number] [employer]. Allrights reserved.THIS TEST WAS PERFORMED AT:[employer] [id number] [place] [address]NPFECUMANG RAMOS MD,PHD,STEPHANI 04/13/2025 8:53 AM EDT 04/13/2025 11:30 AM EDT Capri Hamilton RN ENDOSCOPY LAB BLOOD ORDERABLES Final Res ult [facility] [address] [place] [phone] * Hepatitis A Antibody, Total (04/13/2025 8:53 AM EDT) Hepatitis A Antibody IgG REACTIVE Nonreactive [facility] Comment:The presence of IgG anti-HAV implies past HAV infection(recent or distant) or vaccination against HAV. 04/13/2025 8:53 AM EDT 04/13/2025 11:[address] [facility] BLOOD ORDERABLES Final Res ult Performing Organization Address [facility] de Phone Number [facility] [address] [place] [phone] * Hepatitis C Viral RNA, Genotype, LiPA (04/13/2025 8:53 AM EDT) [facility] Hepatitis C Genotype 2 Not Detected [facility] Comment:The methods used in this test are RT-PCR and DNASequencing of the 5' UTR and core region of the HCVgenome.For additional information, please refer tohttp://education.[employer]/faq/HCVGenotyping(This link is being provided for informational/educational purposes only.)This test was developed and its analytical performancecharacteristics have been determined by [employer]. It has not been cleared or approved bythe FDA. The assay has been validated pursuant to theIA regulations and is used for clinical purposes.THIS TEST WAS PERFORMED AT:[employer] [id number] [place] [address]HQCNCUDMARIO CRUM MD,PHD 04/13/2025 8:53 AM EDT 04/13/2025 11:30 AM EDT [facility] LAB BLOOD ORDERABLES Final Res ult Performing Organization Address [facility] Co de Phone Number [facility] [address] [place] [phone] * Prothrombin Time-INR (04/13/2025 8:53 AM EDT) [facility] Prothrombin Time 11.8 10.9 - 12.4 SEC [facility] INTERNATIONAL NORM RATIO 1.0 0.9 - 1.1 [facility] Comment:INTERNATIONAL NORMAL IZED RATIO (INR) REFERENCE RANGES Reference RangeFor patients not on anticoagulant therapy: 0.9 - 1.1INR ranges for oral anticoagulanttherapy:For prevention and treatment of venous thrombosis and pulmonary embolism: 2.0 - 3.0For acute myocardial infarction with aspirin therapy: 2.0 - 3.0For acute myocardial infarction without aspirin therapy: 3.0 - 4.0For patients with mechanical prosthetic heart valves: 2.5 - 3.5 04/13/2025 8:53 AM EDT 04/13/2025 11:30 AM EDT us Capri Hamilton RN ENDOSCOPY LAB BLOOD ORDERABLES Final Res ult [facility] [address] [place] [phone] * Gross and Microscopic Level 3 (03/30/2025 10:27 AM EDT) 03/30/2025 10:2 7 AM EDT 03/30/2025 12:34 PM EDT Narrative [facility] - 04/03/2025 12:21 PM EDT ----- ------- Name: Sandy Jacob Age/Sex: 64/F : 1960 Unit#: [id number] Attend Dr: Sanjeev Conner MD Re03/30/25 Status: [facility] Location: [facility] Disch: ----- ------- SPEC : [id number] RECD: 03/30/25 STATUS: BRADLY PAYNE NUM: [id number] NASRIN: 03/30/25 [facility] DR: Sanjeev Conner MD ENTERED: 03/30/25 SP TYPE: Surgical OTHR DR: Corie Segura MD ORDERED: Gross Micro L3 Diagnosis Gallbladder, cholecystectomy: Chronic cholecystitis and cholelithiasis. Clinical History Calculus of bile duct with acute cholecystitis Microscopic Description Microscopic sections reviewed. Material Received Gallbladder Gross Description Received in formalin is a 6.5 x 2.2 x 1.0 cm disrupted gallbladder with a 0.3 cm segment of attached cystic duct. The serosa is ureña-briceno and smooth. A pericholecystic duct lymph node is not identified. Within the lumen there are 4 irregularly-shaped black calculi ranging from 0.3-0.4 cm, located within the neck admixed with minimal bile. The mucosa is bile- stained and velvety and the wall averages 0.2 cm in thickness. Mass lesions are not identified grossly. Cell Efficiency Supervisor sections, including the inked cystic duct margin, are submitted in A1. (RJD) IHC S/NG Disclaimer NOTE: Unless otherwise stated, all tissue is formalin-fixed and paraffin-embedded. Some or all of the immunohistochemical tests reported herein may have been developed and their performance characteristics determined by [facility]. They have not been cleared or approved by the U.S. Food and Drug Administration (FDA). However, the FDA has determined that such clearance or approval is not necessary. This laboratory is certified under the Clinical Laboratory Improvement Amendments of 1988 (CLIA) as qualified to perform high complexity clinical laboratory testing. Copies To: Corie Segura MD [address] [address] CONTINUED ON NEXT PAGE ----- ------- Name: Sandy Jacob Age/Sex: 64/F : 1960 Unit#: [id number] Attend Dr: Sanjeev Conner MD Re03/30/25 Status: [facility] Location: [facility] Disch: ----- ------- SPEC : [id number] RECD: 03/30/25 STATUS: BRADLY PAYNE NUM: [id number] NASRIN: 03/30/25 [facility] DR: Sanjeev Conner MD ENTERED: 03/30/25 SP TYPE: Surgical OTHR DR: Corie Segura MD ORDERED: Gross Micro L3 Copies To: (Continued) Sanjeev Conner MD [facility] [address] [place] [phone] ----- ------- Signed (signature on file) Kalli Allen 04/03/25 1221 ----- ------- END OF REPORT Generic External Data Provider LAB CYTOLOGY ORDE RABLES Final Result Performing Organization Address City/[facility]/ZIP Co de Phone Number [facility] [address] [place] [phone] * (ABNORMAL) Glucose, Whole Blood (03/30/2025 7:50 AM EDT) Glucose, Whole Blood 121(H) 60 - 115 mg/dL [facility] Comment:METER #: [id number] 03/30/2025 7:50 AM EDT 03/30/2025 7:57 AM EDT Generic External Data Provider LAB BLOOD ORDERAB LES Final Result Performing Organization Address [facility]/ZIP Co de Phone Number [facility] [address] [place] [phone] * Chlamydia/N. Gonorrhoeae, PCR, Urine (03/29/2025 10:51 AM EDT) CT PCR, Urine NOT DETECTED Not Detect. [facility] Comment:A not detected test result does not exclude the possibilityof infection because test results can be affected byimproper specimen collection, concurrent antibiotic therapy,or the number of organisms in the specimen which may bebelow the sensitivity of the test. As with many diagnostictests, results from the Xpert CT/NG assay should beinterpreted in conjunction with other laboratory andclinical data available to the clinician.The Xpert CT/NG assay should not be used for the evaluationof suspected sexual abuse or for other medico-legalindications. Additional testing is recommended in anycircumstance when false positive or false negative resultscould lead to adverse medical, social or psychologicalconsequences. NG PCR, Urine NOT DETECTED Not Detect. [facility] Comment:A not detected test result does not exclude the possibilityof infection because test results can be affected byimproper specimen collection, concurrent antibiotic therapy,or the number of organisms in the specimen which may bebelow the sensitivity of the test. As with many diagnostictests, results from the Xpert CT/NG assay should beinterpreted in conjunction with other laboratory andclinical data available to the clinician.The Xpert CT/NG assay should not be used for the evaluationof suspected sexual abuse or for other medico-legalindications. Additional testing is recommended in anycircumstance when false positive or false negative resultscould lead to adverse medical, social or psychologicalconsequences. Urine (Urine, Random) 03/29/2025 10:51 AM EDT 03/29/2025 12:59 PM EDT [facility] LAB URINE ORDERABLES Final Res ult Performing Organization Address [facility] Co de Phone Number [facility] [address] [place] [phone] * (ABNORMAL) Hepatitis C Viral RNA, Quantitative, Real-Time PCR (03/29/2025 10:51 AM EDT) Hepatitis C Viral Load [id number](A ) NOT DETECTED IU/mL [facility] HCV Log PCR 6.68(A) NOT DETECTED Log IU/mL [facility] Comment:For additional infor anna, please refer tohttp://education.[employer]/faq/HYB08c7(This link is being provided for informational/educational purposes only.)THIS TEST WAS PERFORMED AT:[employer] [place] [id number] HIGGINS MD 03/29/2025 10:5 1 AM EDT 03/30/2025 12:11 PM EDT [facility] LAB BLOOD ORDERABLES Final Res ult Performing Organization Address [facility] de Phone Number [facility] [address] [place] [phone] * (ABNORMAL) Albumin, Random Urine W/Creatinine (03/29/2025 10:51 AM EDT) Creatinine, Urine 71.31 mg/dL [facility] Microalbumin Urine 98.0 mg/L [facility] Microalbum Creatinine Ratio Ur 137.4(H) <30 ug/mg cr [facility] Comment:Albumin/Creatinine R atio Reference Ranges: Normal: < 30 ug/mg creatinine Microalbuminuria: 30 - 300 ug/mg creatinineClinical Albuminuria: > 300 ug/mg creatinine Urine (Urine, Random) 03/29/2025 10:51 AM EDT 03/29/2025 12:59 PM EDT us Capri Hamilton [facility] LAB URINE ORDERABLES Final Res ult [facility] [address] [place] [phone] * (ABNORMAL) CBC auto differential (03/29/2025 10:51 AM EDT) Pathologist [facility] White Blood Count 6.6 4.8 - 10.8 X10*3/uL [facility] Red Blood Count 4.71 4.20 - 5.50 X10*6/uL [facility] Hemoglobin 11.9(L) 12.0 - 16.0 g/dl [facility] Hematocrit 40.1 37.0 - 47.0 % [facility] Mean Corpuscular Volume 85.1 80.0 - 98.0 fL [facility] Mean Corpuscular Hemoglobin 25.3(L) 27.0 - 33.0 pg [facility] [facility] Mean Corpuscular HGB Conc 29.7(L) 31.0 - 35.0 g/dl [facility] Red Cell Distribution Width 13.2 11.0 - 16.0 % [facility] Platelet Count 188 160 - 400 X10*3/uL [facility] Mean Platelet Volume 10.3 9.4 - 12.3 fL [facility] Neutrophils Percent Auto 55.4 45 - 73 % [facility] Imm Gran Pct Auto 0.3 0.0 - 0.4 % [facility] Lymphocytes Percent Auto 35.4 20 - 40 % [facility] Monocytes Percent Auto 7.1 2 - 11 % [facility] Eosinophils Percent Auto 1.5 0 - 4 % [facility] Basophils Percent Auto 0.3 0 - 2 % [facility] NRBC Pct Auto 0.0 0.0 - 0.2 /100WBC [facility] Neutrophils Absolute Auto 3.7 2.0 - 8.3 x10*3/uL [facility] Imm Gran Abs Auto 0.02 0.00 - 0.03 X10*3/uL [facility] Lymphocytes Absolute Auto 2.3 1.2 - 4.9 X10*3/uL [facility] Monocytes Absolute Auto 0.5 0.1 - 1.2 X10*3/uL [facility] Eosinophils Absolute Auto 0.1 0.0 - 0.4 X10*3/uL [facility] Basophils Absolute Auto 0.0 0.0 - 0.2 X10*3/uL [facility] NRBC Abs Auto 0.000 0.0 - 0.012 X10*3/uL [facility] Blood Venous blood specimen / Unknown 03/29/2025 10:51 AM EDT 03/29/2025 1:11 PM EDT us Caprilourdes Hamilton RN ENDOSCOPY LAB BLOOD ORDERABLES Final Res ult [facility] [address] [place] [phone] * Lipid Panel, Standard (03/29/2025 10:51 AM EDT) Triglycerides 64 <150 mg/dL [facility] Comment:Desirable Triglyceri de: less than 150 mg/dLBorderline High Triglyceride 150-199 mg/dLHigh Triglyceride: 200-499 mg/dLVery High Triglyceride: greater than or equal to 5OO mg/dL Cholesterol 152 <200 mg/dL [facility] Comment:Desirable Cholestero l: less than 200 mg/dLBorderline High Cholesterol: 200-239 mg/dLHigh Cholesterol: greater than 239 mg/dL LDL Cholesterol Calculated 91 <100 mg/dL [facility] Comment:Desirable LDL: less than 100 mg/dLNear Optimal/Above Optimal LDL: 110- 129 mg/dLBorderline High LDL: 130-159 mg/dLHigh LDL: 160-189 mg/dLVery High LDL: greater than or equal to 190 mg/dL HDL Cholesterol 49 >40 mg/dL [facility] Comment:Desirable HDL: great er than 40 mg/dL Note: This HDL assay may give artificially low results in patients with liver disease. Blood Venous blood specimen / Unknown 03/29/2025 10:51 AM EDT 03/29/2025 1:11 PM EDT us Capri Hamilton RN ENDOSCOPY LAB BLOOD ORDERABLES Final Res ult [facility] [address] [place] [phone] * (ABNORMAL) Comprehensive Metabolic Panel (03/29/2025 10:51 AM EDT) Sodium 140 135 - 145 mmol/L [facility] Potassium 4.1 3.3 - 5.1 mmol/L [facility] Chloride 105 96 - 108 mmol/L [facility] Carbon Dioxide 28 22 - 29 mmol/L [facility] Anion Gap 11(L) 12 - 20 [facility] Urea Nitrogen (BUN) 8(L) 9 - 16 mg/dL [facility] Creatinine, Serum 0.69 0.5 - 1.4 mg/dL [facility] Estimated Glomerular Filt Rate >60 [facility] Comment:Chronic Kidney Disea se: Estimated GFR < 60 mL/min/1.02f4Ohaacq Kidney Disease: Estimated GFR < 15 mL/min/1.73m2 Glucose 139(H) 60 - 115 mg/dL [facility] Calcium 9.2 8.4 - 10.2 mg/dL [facility] Bilirubin, Total 0.3 0.0 - 1.0 mg/dL [facility] Aspartate Amino Transferase 21 5 - 31 U/L [facility] Alanine Aminotransferase 13 0 - 31 U/L [facility] Total Protein 8.1(H) 6.5 - 8.0 g/dL [facility] Albumin Level 4.4 3.5 - 5.0 g/dL [facility] Alkaline Phosphatase 64 39 - 117 U/L [facility] Blood Venous blood specimen / Unknown 03/29/2025 10:51 AM EDT 03/29/2025 1:11 PM EDT [employer] [facility] LAB BLOOD ORDERABLES Final Res ult Performing Organization Address [facility] Co de Phone Number [facility] [address] [place] [phone] * (ABNORMAL) Hepatitis C Antibody with Reflex to HCV, RNA, Quantitative, Real- Time PCR (03/29/2025 10:01 AM EDT) Hepatitis C Antibody Reactive( A) Nonreactive [facility] Comment:Presumptive evidence of antibodies to HCV. Blood Venous blood specimen / Unknown 03/29/2025 10:01 AM EDT 03/29/2025 1:11 PM EDT [employer] LAB BLOOD ORDERABLES Final Res ult Performing Organization Address City/[facility]/ZIP Co de Phone Number [facility] [address] [place] [phone] * Hepatitis B surface antigen, EIA (03/29/2025 10:01 AM EDT) Hepatitis B Surface Ag Negative Negative [facility] Blood Venous blood specimen / Unknown 03/29/2025 10:01 AM EDT 03/29/2025 1:11 PM EDT [employer] LAB BLOOD ORDERABLES Final Res ult Performing Organization Address City/[facility]/ZIP Co de Phone Number [facility] [address] [place] [phone] * Hepatitis B Core Antibody, Total (03/29/2025 10:01 AM EDT) Hepatitis B Core Antibody Nonreactive Nonreactive [facility] Blood Venous blood specimen / Unknown 03/29/2025 10:01 AM EDT 03/29/2025 1:11 PM EDT [facility] BLOOD ORDERABLES Final Res ult Performing Organization Address [facility] Co de Phone Number [facility] [address] [place] [phone] * HIV-1/2 Antigen and Antibodies, Fourth Generation, with Reflexes (03/29/2025 10:01 AM EDT) HIV AB/AG Nonreactive Nonreactive [facility] Comment:HIV-1 p24 Ag and/or HIV-1/HIV-2 Ab not detected.A test result that is nonreactive does not exclude thepossibility of exposure to or infection with HIV-1 and/orHIV-2. Nonreactive results in this assay for individualswith prior exposure to HIV-1 and/or HIV-2 may be due toantigen and antibody levels that are below the limit ofdetection of this assay.The [employer] HIV Ag/Ab Combo assay result andsupplemental assay results should be interpreted inconjunction with the patient's clinical presentation,history and other laboratory results. If the results areinconsistent with clinical evidence, additional testing issuggested to confirm the result. Blood Venous blood specimen / Unknown 03/29/2025 10:01 AM EDT 03/29/2025 1:11 PM EDT [facility] LAB BLOOD ORDERABLES Final Res ult Performing Organization Address City/[facility]/ZIP Co de Phone Number [facility] [address] [place] [phone] * Hepatitis B Surface Antibody, Qualitative (03/29/2025 10:01 AM EDT) [facility] ~Hepatitis B Surface Antibody NONREACTIVE Nonreactive [facility] Comment:Nonreactive: < 8.00 mIU/mL Blood Venous blood specimen / Unknown 03/29/2025 10:01 AM EDT 03/29/2025 1:11 PM EDT [employer] LAB BLOOD ORDERABLES Final Res ult Performing Organization Address [facility] Co de Phone Number [facility] [address] [place] [phone] * (ABNORMAL) POCT Hgb A1c (03/29/2025 9:09 AM EDT) [facility] Hemoglobin A1C 9.4(A) 4.0 - 5.7 % QC Media Lot # [id number] Lot# Expiration Date [id number] Blood 03/29/2025 9:09 AM EDT [facility] [employer] RN ENDOSCOPY POINT OF CARE TEST ENTER/EDIT ORDERABLES Final Result * POCT Glucose (03/29/2025 9:08 AM EDT) [facility] Glucose Blood, POC 177 60 - 200 mg/dL QC Media Lot # [id number] Lot# Expiration Date [id number] Blood Capillary blood specimen / Unknown 03/29/2025 9:08 AM EDT Capri [employer] RN ENDOSCOPY POINT OF CARE TEST ENTER/EDIT ORDERABLES Final Result * XR KUB and Upright 2 Views (03/17/2025 9:00 AM EDT) Anatomical Region Laterality Modality Radiographic Beatriz ging 03/17/2025 9:00 AM EDT Narrative 03/17/2025 9:13 AM EDT [address] [address] XRay Report Signed Patient: Sandy Jacob MR#: [id number] : 1960 Acct:[id number] Age/Sex: 64 / F ADM Date: 03/17/25 Loc: [facility] Attending Dr: Gonzales Olivares MD Ordering Physician: Gonzales Olivares MD Date of Service: 03/17/25 Procedure(s): XR KUB Accession Number(s): [id number] cc: Corie Segura MD; Gonzales Olivares MD [...] in OV> 03/17/25909 DD/ 9 TD/TT: 03/17/25 0902 Fine Grade Operator: Procedure Note Donotuseinterpreter, Image - 03/17/[address] [address] XRay Report Signed Patient: Galina Jacob#: [id number] : 1960cct:[id number] Age/Sex: 64 / FADM Date: 03/17/25 Loc: [facility] Attending Dr: Gonzales Olivares MD Ordering Physician: Gonzales Olivares MD Date of Service: 03/17/25 Procedure(s): XR KUB Accession Number(s): [id number] cc: Corie Segura MD; Gonzales Olivares MD [...] 03/17/25 0910 DD/ 0900 TD/TT: 03/17/25 0902 Fine Grade Operator: [facility] External Provider IMG XR PROCEDURES Final Result from Last 3 Months Additional Health Concerns Active Problems Noted Date [...] neuropathy 05/05/2025 Patient has diabetic neuropathy 05/05/2025 Weekly blood pressure task 05/08/2025 Weekly blood pressure task 05/08/2025 Weekly blood pressure task 05/08/2025 Patient has chronic kidney disease 05/08/2025 Patient has chronic kidney disease 05/08/2025 Patient has chronic kidney disease 05/08/2025 Patient has diabetic neuropathy 05/08/2025 Patient has diabetic neuropathy 05/08/2025 Patient has diabetic neuropathy 05/08/2025 Weekly blood pressure task 05/08/2025 Weekly blood pressure task 05/08/2025 Weekly blood pressure task 05/08/2025 Patient has chronic kidney disease 05/08/2025 Patient has chronic kidney disease 05/08/2025 Patient has chronic kidney disease 05/08/2025 Patient has diabetic neuropathy 05/08/2025 Patient has diabetic neuropathy 05/08/2025 Patient has diabetic neuropathy 05/08/2025 [facility] [place] [id number] Care Teams Tester Regulator Relationship Specialty Start Date End Date Capri Hamilton FNP [address] [place] [address] PCP - General Family Medicine 03/29/25
--- OUTSIDE RECORDS SUMMARY | 2025-05-09 10:16 | XMS_ITS | Encounter Summary ---
Author Organization [employer] Address [address] [facility] [address] [place] [address] Care Team Providers Care Leather Sorter Name Role Phone Capri Hamilton CATALOGUE AND SPECIAL PRODUCTS MANAGER Primary Care Provider [phone] Reason for Visit * Reason Onset Date Comments Chart Prep 05/08/2025 Encounter Details Date Type Department Care Team ([facility] Contact Info) Description 05/08/2025 Telephone [facility] [address] [place] [address] Capri Hamilton FNP [address] [place] [address] Chart Prep Social History Tobacco Use Types [...] Telephone Encounter - Marilynn Chen [place] - 05/08/2025 10:41 AM EST Chart Prep Labs: done from 04/13/25 Images: not done from 03/30/25 Referrals: Gastro - Referral received on 03/31/2025 on sifonr. Letter was mailed to patient to call and book appointment. Radiology - Scheduled for 05/26/25 at 2:30 pm Vaccines due: Covid, Flu, PCV20, Tdap, RSV, and Zoster Screenings: colonoscopy, mammogram, eye exam, foot exam, and Cervical cancer. Overdue care gaps: Glucose, Oral health screening, and Tobacco documented in this encounter Plan of Treatment Upcoming Encounters Date Type Department Care Team (Late st Contact Info) Description 05/09/2025 1:30 PM EST Office Visit [facility] [address] [place] [phone] Capri Hamilton FNP [address] [place] [address] 06/06/2025 11:00 AM EST Medication Management [facility] [address] [place] [phone] Ashlyn Diggs, PharmD [address] [place] [address] documented as of this encounter Goals Goal [...] Weekly blood pressure task No Okhipo, Capri, CATALOGUE AND SPECIAL PRODUCTS MANAGER Weekly blood pressure task Care Plan Weekly blood pressure task No Okhipo, Capri, CATALOGUE AND SPECIAL PRODUCTS MANAGER Weekly blood pressure task Care Plan Weekly blood pressure task No Okhipo Capri, CATALOGUE AND SPECIAL PRODUCTS MANAGER Patient has chronic kidney disease Care Plan Patient has chronic kidney disease No Ok[place]o, Capri, CATALOGUE AND SPECIAL PRODUCTS MANAGER Patient has chronic kidney disease Care Plan Patient has chronic kidney disease No Ok[place]o, Capri, CATALOGUE AND SPECIAL PRODUCTS MANAGER Patient has chronic kidney disease Care Plan Patient has chronic kidney disease No [place]o, Capri, CATALOGUE AND SPECIAL PRODUCTS MANAGER Patient has diabetic neuropathy Care Plan Patient has diabetic neuropathy No Okhipo, Capri, CATALOGUE AND SPECIAL PRODUCTS MANAGER Patient has diabetic neuropathy Care Plan Patient has diabetic neuropathy No Okhipo, Capri, CATALOGUE AND SPECIAL PRODUCTS MANAGER Patient has diabetic neuropathy Care Plan Patient has diabetic neuropathy No OkjuditoShadiCapri, CATALOGUE AND SPECIAL PRODUCTS MANAGER documented as of this encounter Visit Diagnoses [...] neuropathy 05/08/2025 Patient has diabetic neuropathy 05/08/2025 Assessment Noted Time PHQ-9 Depression Total Score: 7 03/29/20 10:06 AM EDT documented as of this encounter Care Teams Leather Sorter Relationship Specialty Start Date End Date Capri Hamilton FNP [address] [place] [address] PCP - General Family Medicine 03/29/25 documented as of this encounter
--- OUTSIDE RECORDS SUMMARY | 2025-05-09 10:16 | XMS_ITS | Encounter Summary ---
Author Organization [facility] Address [address] [place] [address] 7 [place] [address] Care Team Providers Care Keyseater Operator Name Role Phone Capri Hamilton Primary Care Provider [phone] Encounter Details Date Type Department Care Team (Late Contact Info) Description 03/21/2025 Community Care Management [address] [address] [facility], Phys[facility], Social History Tobacco Use Types [...] Description 05/09/2025 1:30 PM EST Office Visit [facility] [address] [place] [phone] Capri Hamilton FNP [address] [place] [phone] 06/06/2025 11:00 AM EST Medication Management [address] [address] Ashlyn Diggs, KristyD [address] [place] [phone] documented as of this encounter Visit Diagnoses Not on filedocumented in this encounter Care Teams Keyseater Operator Relationship Specialty Start Date End Date Capri Hamilton FNP [address] [place] [address] PCP - General Family Medicine 03/29/25 documented as of this encounter
== END 2025-05-09 09:42 | disposition home or self-care (01) ==
LOC: HO.HGS 09:15
PROVIDERS: PCP Internal Medicine
DX: Z90.49 Acquired absence of other specified parts of digestive tract (principal)
CPT/HCPCS: 99024

== ENCOUNTER → 2025-05-09 09:14 | Outpatient (BNVA) | payer OTHER, SELFPAY | PROVIDERS: PCP Internal Medicine | DX: Z48.815 Encounter for surgical aftercare following surgery on the digestive system (principal); Z98.890 Other specified postprocedural states; Z90.49 Acquired absence of other specified parts of digestive tract | CPT/HCPCS: 99212 ==